=== PATIENT | male | born 1950 | race Hispanic/Latino ===

== ENCOUNTER 2017-10-22 16:18 | Inpatient (IN) | payer MEDICARE, OTHER ==
[2017-10-22 16:37] VITALS: BMI 26.4
--- NOTE | 2017-10-22 16:41 | ED PDOC ---
Arrival/HPI - General Historian: Patient <Sameer Carter - Last Filed: 10/22/17 21:16> <Balbir Cespedes - Last Filed: 10/23/17 01:43> - General Chief Complaint: Chest Pain Time Seen by Provider: 10/22/17 16:24 - History of Present Illness Narrative History of Present Illness (Text): 10/22/17 16:39 67 y/o male, pmh including htn/rt. basal cell carcinoma, nkda, chronic smoker, c /o lt. shoulder blade/chest pain x 2 days with no fall or fall trauma. Aching pain, aggravated by lt. shoulder movement, stated that the pain radiating to the lt. upper extremity, possible the pain is from the sweeping snow about 2 days ago?, stated that he has decreased appetize with generalized abdominal pain for the past 4 weeks with possible weight loss, no rash, no pain medication taken at home, no headache, no dizziness, no change in vision, no rash, no other medical or psychological complaints. (Sameer Carter) Past Medical History - Provider Review Nursing Documentation Reviewed: Yes - Infectious Disease Hx of Infectious Diseases: None - Tetanus Immunization Tetanus Immunization: Up to Date - Cardiac Hx Hypertension: Yes - Pulmonary Hx Respiratory Disorders: No - Neurological Hx Paralysis: No - HEENT Hx HEENT Disorder: No - Renal Hx Renal Disorder: No - Endocrine/Metabolic Hx Endocrine Disorders: No - Hematological/Oncological Hx Hepatitis C: Yes - Integumentary Hx Dermatological Disorder: No - Musculoskeletal/Rheumatological Hx Musculoskeletal Disorders: Yes Hx Herniated Disk: Yes - Gastrointestinal Hx Gastrointestinal Disorders: No - Genitourinary/Gynecological Hx Genitourinary Disorders: No - Psychiatric Hx Substance Use: No - Anesthesia Hx Anesthesia Reactions: No Hx Malignant Hyperthermia: No - Suicidal Assessment Feels Threatened In Home Enviroment: No <Sameer Carter - Last Filed: 10/22/17 21:16> Family/Social History - Physician Review Nursing Documentation Reviewed: Yes Family/Social History: Unknown Family HX Smoking Status: Current Some Days Smoker Hx Alcohol Use: Yes (WEEKENDS) Hx Substance Use: No <Sameer Carter - Last Filed: 10/22/17 21:16> Allergies/Home Meds <Sameer Carter - Last Filed: 10/22/17 21:16> <Balbir Cespedes - Last Filed: 10/23/17 01:43> Allergies/Adverse Reactions: Allergies No Known Allergies Allergy (Verified 08/04/15 09:06) Home Medications: Home Meds Medication Instructions Recorded Confirmed Acetaminophen/Oxycodone Hydr 1 tab PO Q8H PRN 06/23/15 10/22/17 [Percocet 10/325 mg Tab] Hydrochlorothiazide [HCTZ] 50 mg PO QAM 06/23/15 10/22/17 Morphine [Morphine Sulfate] 10 mg PO BID PRN 06/23/15 10/22/17 amLODIPine [Norvasc] 10 mg PO QPM 06/23/15 10/22/17 Tramadol HCl [Ultram] 50 mg PO QID 07/05/15 10/22/17 Review of Systems - Review of Systems Constitutional: absent: Fatigue, Fevers Eyes: absent: Vision Changes ENT: absent: Hearing Changes Respiratory: absent: SOB, Cough Cardiovascular: Chest Pain Gastrointestinal: Abdominal Pain, Other (weight loss). absent: Nausea, Vomiting Musculoskeletal: Arthralgias, Myalgias. absent: Back Pain, Neck Pain, Joint Swelling Skin: absent: Rash, Pruritis Neurological: absent: Headache, Dizziness Psychiatric: absent: Anxiety, Depression, Suicidal Ideation <Sameer Carter - Last Filed: 10/22/17 21:16> Physical Exam Vital Signs Reviewed: Yes Temperature: Afebrile Blood Pressure: Hypotensive Pulse: Tachycardic Respiratory Rate: Normal Appearance: Positive for: Well-Appearing, Non-Toxic Pain Distress: Moderate Mental Status: Positive for: Alert and Oriented X 3 - Systems Exam Head: Present: Atraumatic, Normocephalic Pupils: Present: PERRL Extroacular Muscles: Present: EOMI Conjunctiva: Present: Normal Ears: Present: NORMAL TM, Normal Canal. No: Erythema Mouth: Present: Moist Mucous Membranes Neck: Present: Normal Range of Motion, Paraspinal Tenderness (+ttp and mild spasm noted on the lt. paraspinal and trapezius muscle region, no rash, FROM without limitation, sensation intact, motor 5/5, +radial pulse, capillary refill < 2 seconds, neurovascular intact. ), Trachea Midline. No: Meningeal Signs, MIDLINE TENDERNESS, Lymphadenopathy Respiratory/Chest: Present: Clear to Auscultation, Good Air Exchange. No: Respiratory Distress, Accessory Muscle Use Cardiovascular: Present: Regular Rate and Rhythm, Normal S1, S2. No: Murmurs Abdomen: Present: Normal Bowel Sounds. No: Tenderness, Distention, Peritoneal Signs, Rebound, Guarding Back: Present: Normal Inspection. No: CVA Tenderness, Midline Tenderness, Paraspinal Tenderness, Pain with Leg Raise, Decubitus Ulcer Upper Extremity: Present: Normal Inspection, Normal ROM, NORMAL PULSES, Neurovascularly Intact, Capillary Refill < 2s, Norm 2-Pt Discrimination. No: Cyanosis, Edema, Tenderness, Swelling, Erythema, Temperature Abnormalties, Deformity Lower Extremity: Present: Normal Inspection, Normal ROM, Capillary Refill < 2 s. No: Edema, Deformity Neurological: Present: GCS=15, CN II-XII Intact, Speech Normal, Motor Func Grossly Intact, Gait Normal, Memory Normal Skin: Present: Warm, Dry, Normal Color. No: Rashes Psychiatric: Present: Alert, Oriented x 3, Normal Insight, Normal Concentration <Sameer Carter - Last Filed: 10/22/17 21:16> Vital Signs Temp Pulse Resp BP Pulse Ox 10/23/17 01:35 77 16 101/66 95 10/22/17 23:50 79 16 102/69 95 10/22/17 21:42 84 16 104/76 95 10/22/17 19:08 82 20 97/44 L 100 10/22/17 18:35 98 F 91 H 16 102/71 100 10/22/17 16:56 94 H 16 123/77 99 10/22/17 16:18 99.2 F 101 H 22 101/55 L 93 L Medical Decision Making - RAD Interpretation Carton Stenciler: Radiologist <Sameer Carter - Last Filed: 10/22/17 21:16> <Balbir Cespedes - Last Filed: 10/23/17 01:43> ED Course and Treatment: 10/22/17 16:42 Differential: CAD vs. strain vs. cervical radiculapathy vs. NSTEMI/MT vs. PE vs. pleural effusion vs. tumor -labs/ck/troponin/rapid flu -ekg -cxr/CT cervical/abdomen and pelvis -IV toradol/aspirin/valium -observe and reassess 10/22/17 18:30 -tachycardia resolved -Pt. stated that he has unintentional weight loss 40lbs for the past 3 weeks as per daughter, stated that he has abdominal pain, will obtain CT abdomen/pelvis. 10/22/17 21:02 -EKG: Sinus tachycardia @ 104 BPm, no ST elevation or depression, no T wave in version. -Labs are non-significant except wbc 14.9 (blood cultures ordered), Alkphosphate 315 from 138, -UA show no UTI -Rapid flu show negative influenza -Chest xray show there is large pleural effusion with consolidation, elevation of wbc, IV rocephine and azithromycin ordered. -CT cervical is pending -CT abdomen and pelvis is pending -CT chest is pending -LUE Venuous Doppler: as per preliminary report, no acute DVT -Pt. need to be admitted to rule out the pleural effusion as malignancy vs. infectious cause since the BNP within normal limit, determine the cause of this unintentional weight loss and this questionable lt. shoulder pain radiating to the LUE which need to rule out ACS. -Case sign out to the incoming ER attending Dr. Arora and discussed the case in detail, he will follow up the CT scans and admit the patient. (Sameer Carter) 10/22/2017 23:14 Abd/Pelvis CT FINDINGS: ABDOMEN: Liver: No mass. Mild heterogeneous density of the liver. Gallbladder and bile ducts: No calcified stones. No ductal dilation. Pancreas: Normal contour, without acute peripancreatic stranding. Spleen: There is splenomegaly. Malignant infiltration cannot be excluded. Small hypodense lesions are identified within the inferior spleen, the largest measuring 0.9 x 0.7 cm. Adrenals: No mass. Kidneys and ureters: There is a small hypodense exophytic right renal cyst. Stomach and bowel: Colonic diverticula are identified, without acute inflammatory stranding of the adjacent mesentery. Appendix: The appendix is not visualized. PELVIS: Bladder: No mass. Reproductive: A small calcification is visualized within the prostate. ABDOMEN and PELVIS: Intraperitoneal space: No free air. Bones/joints: Hypertrophic degenerative changes are noted within the spine. Disc protrusions are visualized at L4-5 and L5-S1. Vasculature: There is atherosclerotic calcification of the abdominal aorta and iliac arteries. No abdominal aortic aneurysm. Lymph nodes: Enlarged lymph nodes are identified within the upper abdomen. In the portacaval region, there is a 3.5 x 1.5 cm lymph node. There is an enlarged lymph node adjacent to the hepatic artery measuring 2.8 x 0.9 cm. There is an additional enlarged periportal lymph node. Small intrapelvic lymph nodes are identified, without significant lymphadenopathy. IMPRESSION: 1. There is splenomegaly. Malignant infiltration cannot be excluded. Small hypodense lesions are identified within the inferior spleen, the largest measuring 0.9 x 0.7 cm. 2. Enlarged lymph nodes are identified within the upper abdomen. Malignant lymph nodes cannot be excluded. 3. Diverticulosis. 4. Additional CT findings described above. Dictator: Stefano Nolan MD 10/22/2017 23:[address] FINDINGS: Lungs: There is a large mass like consolidation within the right upper and middle lobes measuring approximately 11.9 x 5.9 x 13.3 cm. This extends from the pleural surface to the right hilum, concerning for malignancy. There is obstruction of bronchi to the right upper and middle lobes. Within the right lower lobe on series 4 image 87, there is a 7-8 mm nodule. Within the right lower lobe on series 4 image 103, there is a 1.5 cm nodule. Mild atelectatic changes visualized within the left lung. Small left apical bullae are visualized. Mild paraseptal emphysematous changes are visualized within the left lung as well. Pleural space: A calcified pleural plaque is identified within the posterior medial aspect of the left hemithorax. This can be associated with asbestos exposure. There is a loculated pleural effusion within the right upper hemithorax. No pneumothorax. Heart: No cardiomegaly. No significant pericardial effusion. Bones/joints: Hypertrophic degenerative changes are noted within the spine. Vasculature: Atherosclerotic changes are identified. No thoracic aortic aneurysm. Lymph nodes: There is mediastinal lymphadenopathy. An enlarged subcarinal lymph node measures 2.8 x 1.1 cm. An enlarged right paratracheal lymph node measures 1.9 x 1.9 cm. IMPRESSION: 1. There is a large mass like consolidation within the right upper and middle lobes measuring approximately 11.9 x 5.9 x 13.3 cm, concerning for malignancy. There is obstruction of bronchi to the right upper and middle lobes. 2. Within the right lower lobe on series 4 image 87, there is a 7-8 mm nodule. Within the right lower lobe on series 4 image 103, there is a 1.5 cm nodule. Metastatic nodules are considered. PET/CT is recommended. 3. A calcified pleural plaque is identified within the posterior medial aspect of the left hemithorax. This can be associated with asbestos exposure. 4. There is a loculated pleural effusion within the right upper hemithorax. 5. There is mediastinal lymphadenopathy. 6. Additional CT findings described above. Dictator: Stefano Nolan MD 10/22/2017 21:[address] FINDINGS: Vertebrae: No acute cervical spine fracture or subluxation. There is loss of the cervical lordosis within the upper cervical spine. The facet alignment is preserved bilaterally. The occipital condyles and C1-C2 articulations appear intact. There is angulation of the cervical spine to the right. Discs/spinal canal/neural foramina: Spondylosis is visualized at multiple cervical levels. Mild narrowing of the thecal sac is visualized at C2-3, with a central protrusion. There is moderate narrowing of the thecal sac at C3-4 and C4-5, with a posterior disc protrusion at C4-5 contacting the adjacent cervical spinal cord. Soft tissues: The prevertebral soft tissues appear within normal limits. Vasculature: There is atherosclerotic calcification of the extracranial carotid arteries. Sinuses: There is mucosal thickening of the right maxillary sinus. Oropharynx: Calcifications are identified of the palatine tonsils. Lung apices: There is opacification of the right pulmonary apex. Small left apical bullae are visualized. No pneumothorax. IMPRESSION: 1. No acute cervical spine fracture or subluxation. 2. Spondylosis is visualized at multiple cervical levels. 3. Mild narrowing of the thecal sac is visualized at C2-3, with a central protrusion. There is moderate narrowing of the thecal sac at C3-4 and C4-5, with a posterior disc protrusion at C4-5 contacting the adjacent cervical spinal cord. This can be further evaluated with MRI. 4. There is opacification of the right pulmonary apex. Refer to the CT chest report from the same day for further discussion. 5. There is loss of the cervical lordosis within the upper cervical spine. 6. Additional CT findings described above. Dictator: Stefano Nolan MD 10/23/17 01:[address] Alaniz, whom accepts patient into service. (Balbir Cespedes) - Lab Interpretations Lab Results: 10/22/17 16:52 10/22/17 16:52 Lab Results 10/22/17 19:40: Urine Color Yellow, Urine Appearance Clear, Urine pH 5.5, Ur Specific [place] >= 1.030, Urine Protein Trace H, Urine Glucose (UA) Negative, Urine Ketones Trace H, Urine Blood Moderate H, Urine Nitrate Negative, Urine Bilirubin Small H, Urine Urobilinogen 2.0 H, Ur Leukocyte Esterase Negative, Urine RBC 10 - 15, Urine WBC 0 - 2, Ur Epithelial Cells 0 - 2, Urine Bacteria Many 10/22/17 18:42: Influenza Typ A,B (EIA) Negative for flu a/b 10/22/17 16:52: WBC 14.9 H D, RBC 4.83, Hgb 13.8 L, Hct 41.0 L, MCV 84.9, MCH 28.6, MCHC 33.7, RDW 14.8 H, Plt Count 219, MPV 10.1, Gran % 69.1 H, Lymph % ( Auto) 6.6 L, [place] % (Auto) 5.4, Eos % (Auto) 18.6 H, Baso % (Auto) 0.3, Gran # 10.28 H, Lymph # (Auto) 1.0 L, [place] # (Auto) 0.8 H, Eos # (Auto) 2.8 H, Baso # ( Auto) 0.05 10/22/17 16:52: Sodium 137, Potassium 4.2, Chloride 103, Carbon Dioxide 23, Anion Gap 15, BUN 16, Creatinine 0.9, Est GFR ( Amer) > 60, Est GFR (Non- Af Amer) > 60, Random Glucose 149 H, Calcium 8.8, Total Bilirubin 0.6, AST 23, ALT 23, Alkaline Phosphatase 315 H, Lactate Dehydrogenase 688, Total Creatine Kinase 33 L, Troponin I < 0.01, NT-Pro-B Natriuret Pep 186, Total Protein 7.2, Albumin 3.2, Globulin 3.9, Albumin/Globulin Ratio 0.8 L, Lipase 132 - RAD Interpretation Radiology Orders: 10/22/17 16:35 CHEST PORTABLE [RAD] Stat 10/22/17 18:30 CHEST,ABD,PEL W/IV CONT ONLY [CT] Stat 10/22/17 18:31 CERVICAL SPINE W/O CONTRAST [CT] Stat 10/22/17 20:33 DUPLEX UPPER EXTRM VEIN LEFT [US] Stat -Chest xray: FINDINGS: Lungs: There is a large area of opacification within the lateral aspect of the right mid to upper hemithorax, consistent with a loculated pleural effusion, parenchymal consolidation, or mass. There is increased opacification of the medial left lung base, suggestive of atelectatic change or infiltrate. Pleural space: There is a small left pleural effusion, with blunting of the costophrenic angle. No pneumothorax. Heart: No cardiomegaly. Mediastinum: There is atherosclerotic calcification of the aortic arch. There is deviation of the trachea to the right. Bones/joints: Hypertrophic degenerative changes are noted within the spine. IMPRESSION: 1. There is a large area of opacification within the lateral aspect of the right mid to upper hemithorax, consistent with a loculated pleural effusion, parenchymal consolidation, or mass. Clinical correlation and correlation with CT are recommended. 2. There is increased opacification of the medial left lung base, suggestive of atelectatic change or infiltrate. 3. Additional findings described above. Thank you for allowing us to participate in the care of your patient. Dictated and Authenticated by: Stefano Nolan MD 10/22/2017 7:32 PM Eastern Time ([place] & [place]) --- CT cervical: --- CT Chest: --- CT Abdomen and pelvis: -- LUE Venuous Doppler: as per preliminary report, no acute DVT (Sameer Carter) - Medication Orders Current Medication Orders: Discontinued Medications Aspirin (Aspirin) 325 mg PO STAT STA Stop: 10/22/17 18:30 Last Admin: 10/22/17 18:45 Dose: 325 mg Diazepam (Valium) 5 mg PO ONCE ONE PRN Reason: Protocol Stop: 10/22/17 16:36 Last Admin: 10/22/17 16:49 Dose: 5 mg Ceftriaxone Sodium (Rocephin 1 Gram Ivpb) 1 gm in 100 mls @ 200 mls/hr IVPB STAT STA PRN Reason: Protocol Stop: 10/22/17 20:32 Last Admin: 10/22/17 20:13 Dose: 200 mls/hr eMAR Start Stop Document 10/22/17 20:13 [place] (Rec: 10/22/17 20:13 [id number]) Intravenous Solution Start Date 10/22/17 Start Time 20:13 Azithromycin (Zithromax 500mg In Ns) 500 mg in 250 mls @ 167 mls/hr IVPB STAT STA PRN Reason: Protocol Stop: 10/22/17 21:32 Last Admin: 10/22/17 21:39 Dose: 167 mls/hr eMAR Start Stop Document 10/22/17 21:39 LA (Rec: 10/22/17 21:40 [place] [id number]) Intravenous Solution Start Date 10/22/17 Start Time 21:40 Ketorolac Tromethamine (Toradol) 15 mg IVP STAT STA Stop: 10/22/17 16:36 Last Admin: 10/22/17 16:53 Dose: 15 mg MAR Pain Assessment Document 10/22/17 16:53 MS (Rec: 10/22/17 16:54 [place] [id number]) Pain Reassessment Is this a pain reassessment? No Sleep Is patient sleeping during reassessment? No Presence of Pain Presence of Pain Yes Pain Scale Used Pain Scale Used Numeric Location Left, Right or Bilateral Left Pain Location Body Site Arm Description Description Constant Intensity of Pain at present 10 IVP Administration Document 10/22/17 16:53 MS (Rec: 10/22/17 16:54 [place] [id number] Charges for Administration # of IVP Administrations 1 Lidocaine (Lidoderm) 1 ea TD STAT STA Stop: 10/22/17 16:47 Last Admin: 10/22/17 18:13 Dose: 1 ea MAR Transdermal Patch Site Document 10/22/17 18:13 MS (Rec: 10/22/17 18:15 MS [facility] [id number]) Transdermal Patch Site Transdermal Patch Site Left Shoulder - PA / VISUAL SPECIALIST / Resident Statement SHERRI has reviewed & agrees with the documentation as recorded. <Sameer Carter - Last Filed: 10/22/17 21:16> - PA / VISUAL SPECIALIST / Resident Statement SHERRI has reviewed & agrees with the documentation as recorded. SHERRI has examined the patient and agrees with the treatment plan. <Balbir Cespedes - Last Filed: 10/23/17 01:43> Disposition/Present on Arrival - Present on Arrival Any Indicators Present on Arrival: No History of DVT/PE: No History of Uncontrolled Diabetes: No Urinary Catheter: No History of Decub. Ulcer: No History Surgical Site Infection Following: None - Disposition Have Diagnosis and Disposition been Completed?: Yes Disposition Time: 20:15 Patient Plan: Admission, Telemetry <Sameer Carter - Last Filed: 10/22/17 21:16> - Present on Arrival Any Indicators Present on Arrival: No History of DVT/PE: No History of Uncontrolled Diabetes: No Urinary Catheter: No History of Decub. Ulcer: No History Surgical Site Infection Following: None - Disposition Have Diagnosis and Disposition been Completed?: Yes Disposition Time: 01:35 Patient Plan: Admission <Balbir Cespedes - Last Filed: 10/23/17 01:43> - Disposition Diagnosis: Pneumonia, Pleural effusion, Unintentional weight loss, Leukocytosis Disposition: HOSPITALIZED Patient Problems: Current Active Problems Problem Status Onset Leukocytosis Acute Pleural effusion Acute Pneumonia Acute Unintentional weight loss Acute Condition: STABLE Referrals: Yeimy Donovan MD [Primary Care Provider] - Follow up with primary Forms: [place] (Tristanian)
[2017-10-22] MEDS ORDERED: Lidocaine 5% Patch TD STA (16:46)
[2017-10-22 17:33] LABS: BASO # 0.05 K/mm3 (0.0-2.0); BASO % 0.3 % (0.0-3.0); EOS # 2.8 (0.0-0.7); EOS % 18.6 % (1.5-5.0); GRAN # 10.28 (1.4-6.5); GRAN % 69.1 % (50.0-68.0); HEMOGLOBIN 13.8 g/dL (14.0-18.0); LYMPH % 6.6 % (22.0-35.0); MEAN CELL VOLUME 84.9 fl (80.0-105.0); MEAN CORPUSCULAR HEMOGLOBIN 28.6 pg (25.0-35.0); MEAN CORPUSCULAR HGB CONC 33.7 g/dl (31.0-37.0); MEAN PLATELET VOLUME 10.1 fl (7.0-11.0); MONO # 0.8 (0.1-0.6); MONO % 5.4 % (1.0-6.0); RBC 4.83 10^6/uL (3.5-6.1); RED CELL DISTRIBUTION WIDTH 14.8 % (11.5-14.5); WHITE BLOOD COUNT 14.9 10^3/ul (4.5-11.0)
[2017-10-22 17:42] LABS: ALB/GLOB RATIO 0.8 (1.1-1.8); ALBUMIN 3.2 g/dL (3.0-4.8); ALT/SGPT 23 U/L (7-56); AST/SGOT 23 U/L (17-59); BLOOD UREA NITROGEN 16 mg/dL (7-21); CALCIUM 8.8 mg/dL (8.4-10.5); GFR AFRICAN-AMERICAN > 60; GFR NON-AFRICAN AMERICAN > 60; LIPASE 132 U/L (23-300)
[2017-10-22 17:53] LABS: B-TYPE NATRIURETIC PEPTIDE 186 pg/mL (0-450); TROPONIN I < 0.01 ng/mL
--- NOTE | 2017-10-22 19:32 | RAD ---
EXAM: XR Chest, 1 View EXAM DATE/TIME: 10/22/2017 4:35 PM CLINICAL HISTORY: The patient age is 67 years old and is male; Signs and symptoms; Shortness of breath; Additional info: Medical clearance Facility exam id and description: Rad chest p chest portable TECHNIQUE: Frontal view of the chest. COMPARISON: No relevant prior studies available. FINDINGS: Lungs: There is a large area of opacification within the lateral aspect of the right mid to upper hemithorax, consistent with a loculated pleural effusion, parenchymal consolidation, or mass. There is increased opacification of the medial left lung base, suggestive of atelectatic change or infiltrate. Pleural space: There is a small left pleural effusion, with blunting of the costophrenic angle. No pneumothorax. Heart: No cardiomegaly. Mediastinum: There is atherosclerotic calcification of the aortic arch. There is deviation of the trachea to the right. Bones/joints: Hypertrophic degenerative changes are noted within the spine. IMPRESSION: 1. There is a large area of opacification within the lateral aspect of the right mid to upper hemithorax, consistent with a loculated pleural effusion, parenchymal consolidation, or mass. Clinical correlation and correlation with CT are recommended. 2. There is increased opacification of the medial left lung base, suggestive of atelectatic change or infiltrate. 3. Additional findings described above.
[2017-10-22] MEDS ORDERED: cefTRIAXone 1 gm 1 GM/100 ML BAG IVPB STA (20:03)
[2017-10-22] MEDS ORDERED: Azithromycin 500MG/NS 250ml 500 MG/250 ML BAG IVPB STA (20:03)
[2017-10-22 20:28] LABS: PH,URINE 5.5 (4.7-8.0); URINE BILIRUBIN SMALL (NEGATIVE); URINE BLOOD MODERATE (NEGATIVE); URINE GLUCOSE (UA) NEGATIVE (NEGATIVE); URINE LEUKOCYTE ESTERASE NEGATIVE Leu/uL (NEGATIVE); URINE NITRATE NEGATIVE (NEGATIVE); URINE PROTEIN TRACE mg/dL (<30 mg/dL)
[2017-10-22 20:29] LABS: URINE APPEARANCE CLEAR (CLEAR); URINE COLOR YELLOW (YELLOW)
[2017-10-22 20:45] LABS: URINE EPITHELIAL CELLS 0 - 2 /hpf (0-5); URINE WBC 0 - 2 /hpf (0-6)
[2017-10-22 20:46] LABS: URINE BACTERIA MANY (NEG)
[2017-10-22] MEDS ORDERED: Iohexol 350 MG/100 ML VIAL ONE (20:54)
--- NOTE | 2017-10-22 21:54 | CT ---
EXAM: CT Cervical Spine Without Intravenous Contrast EXAM DATE/TIME: 10/22/2017 6:31 PM CLINICAL HISTORY: The patient age is 67 years old and is male; Pain; Neck pain; Additional info: Lt. Neck pain radiating to lue Facility exam id and description: Ct csps cervical spine w/o contrast TECHNIQUE: Axial computed tomography images of the cervical spine without intravenous contrast. All CT scans at this facility use one or more dose reduction techniques, viz.: automated exposure control; ma/kV adjustment per patient size (including targeted exams where dose is matched to indication; i.e. head); or iterative reconstruction technique. Coronal and sagittal reformatted images were created and reviewed. COMPARISON: No relevant prior studies available. FINDINGS: Vertebrae: No acute cervical spine fracture or subluxation. There is loss of the cervical lordosis within the upper cervical spine. The facet alignment is preserved bilaterally. The occipital condyles and C1-C2 articulations appear intact. There is angulation of the cervical spine to the right. Discs/spinal canal/neural foramina: Spondylosis is visualized at multiple cervical levels. Mild narrowing of the thecal sac is visualized at C2-3, with a central protrusion. There is moderate narrowing of the thecal sac at C3-4 and C4-5, with a posterior disc protrusion at C4-5 contacting the adjacent cervical spinal cord. Soft tissues: The prevertebral soft tissues appear within normal limits. Vasculature: There is atherosclerotic calcification of the extracranial carotid arteries. Sinuses: There is mucosal thickening of the right maxillary sinus. Oropharynx: Calcifications are identified of the palatine tonsils. Lung apices: There is opacification of the right pulmonary apex. Small left apical bullae are visualized. No pneumothorax. IMPRESSION: 1. No acute cervical spine fracture or subluxation. 2. Spondylosis is visualized at multiple cervical levels. 3. Mild narrowing of the thecal sac is visualized at C2-3, with a central protrusion. There is moderate narrowing of the thecal sac at C3-4 and C4-5, with a posterior disc protrusion at C4-5 contacting the adjacent cervical spinal cord. This can be further evaluated with MRI. 4. There is opacification of the right pulmonary apex. Refer to the CT chest report from the same day for further discussion. 5. There is loss of the cervical lordosis within the upper cervical spine. 6. Additional CT findings described above.
--- NOTE | 2017-10-22 23:15 | CT ---
EXAM: CT Abdomen and Pelvis With Intravenous Contrast CLINICAL HISTORY: The patient age is 67 years old and is male; Pain; Abdominal pain; Acute; Chest pain; Type not specified; Additional info: Weightloss 40lbs, Facility exam id and description: Ct cheabpeliv chest, abd, pel w/iv cont only TECHNIQUE: Axial computed tomography images of the abdomen and pelvis with intravenous contrast. All CT scans at this facility use one or more dose reduction techniques, viz.: automated exposure control; ma/kV adjustment per patient size (including targeted exams where dose is matched to indication; i.e. head); or iterative reconstruction technique. Coronal and sagittal reformatted images were created and reviewed. CONTRAST: 100 mL of OMNI 350 administered intravenously. COMPARISON: DX - CHEST PORTABLE 2017-10-22 17:24 FINDINGS: ABDOMEN: Liver: No mass. Mild heterogeneous density of the liver. Gallbladder and bile ducts: No calcified stones. No ductal dilation. Pancreas: Normal contour, without acute peripancreatic stranding. Spleen: There is splenomegaly. Malignant infiltration cannot be excluded. Small hypodense lesions are identified within the inferior spleen, the largest measuring 0.9 x 0.7 cm. Adrenals: No mass. Kidneys and ureters: There is a small hypodense exophytic right renal cyst. Stomach and bowel: Colonic diverticula are identified, without acute inflammatory stranding of the adjacent mesentery. Appendix: The appendix is not visualized. PELVIS: Bladder: No mass. Reproductive: A small calcification is visualized within the prostate. ABDOMEN and PELVIS: Intraperitoneal space: No free air. Bones/joints: Hypertrophic degenerative changes are noted within the spine. Disc protrusions are visualized at L4-5 and L5-S1. Vasculature: There is atherosclerotic calcification of the abdominal aorta and iliac arteries. No abdominal aortic aneurysm. Lymph nodes: Enlarged lymph nodes are identified within the upper abdomen. In the portacaval region, there is a 3.5 x 1.5 cm lymph node. There is an enlarged lymph node adjacent to the hepatic artery measuring 2.8 x 0.9 cm. There is an additional enlarged periportal lymph node. Small intrapelvic lymph nodes are identified, without significant lymphadenopathy. IMPRESSION: 1. There is splenomegaly. Malignant infiltration cannot be excluded. Small hypodense lesions are identified within the inferior spleen, the largest measuring 0.9 x 0.7 cm. 2. Enlarged lymph nodes are identified within the upper abdomen. Malignant lymph nodes cannot be excluded. 3. Diverticulosis. 4. Additional CT findings described above. EXAM: CT Chest With Intravenous Contrast EXAM DATE/TIME: 10/22/2017 6:30 PM CLINICAL HISTORY: The patient age is 67 years old and is male; Pain; Abdominal pain; Acute; Chest pain; Type not specified; Additional info: Weightloss 40lbs, Facility exam id and description: Ct cheabpeliv chest, abd, pel w/iv cont only TECHNIQUE: Axial computed tomography images of the chest with intravenous contrast. All CT scans at this facility use one or more dose reduction techniques, viz.: automated exposure control; ma/kV adjustment per patient size (including targeted exams where dose is matched to indication; i.e. head); or iterative reconstruction technique. Coronal and sagittal reformatted images were created and reviewed. CONTRAST: 100 mL of OMNI 350 administered intravenously. COMPARISON: DX - CHEST PORTABLE 2017-10-22 17:24 FINDINGS: Lungs: There is a large mass like consolidation within the right upper and middle lobes measuring approximately 11.9 x 5.9 x 13.3 cm. This extends from the pleural surface to the right hilum, concerning for malignancy. There is obstruction of bronchi to the right upper and middle lobes. Within the right lower lobe on series 4 image 87, there is a 7-8 mm nodule. Within the right lower lobe on series 4 image 103, there is a 1.5 cm nodule. Mild atelectatic changes visualized within the left lung. Small left apical bullae are visualized. Mild paraseptal emphysematous changes are visualized within the left lung as well. Pleural space: A calcified pleural plaque is identified within the posterior medial aspect of the left hemithorax. This can be associated with asbestos exposure. There is a loculated pleural effusion within the right upper hemithorax. No pneumothorax. Heart: No cardiomegaly. No significant pericardial effusion. Bones/joints: Hypertrophic degenerative changes are noted within the spine. Vasculature: Atherosclerotic changes are identified. No thoracic aortic aneurysm. Lymph nodes: There is mediastinal lymphadenopathy. An enlarged subcarinal lymph node measures 2.8 x 1.1 cm. An enlarged right paratracheal lymph node measures 1.9 x 1.9 cm. IMPRESSION: 1. There is a large mass like consolidation within the right upper and middle lobes measuring approximately 11.9 x 5.9 x 13.3 cm, concerning for malignancy. There is obstruction of bronchi to the right upper and middle lobes. 2. Within the right lower lobe on series 4 image 87, there is a 7-8 mm nodule. Within the right lower lobe on series 4 image 103, there is a 1.5 cm nodule. Metastatic nodules are considered. PET/CT is recommended. 3. A calcified pleural plaque is identified within the posterior medial aspect of the left hemithorax. This can be associated with asbestos exposure. 4. There is a loculated pleural effusion within the right upper hemithorax. 5. There is mediastinal lymphadenopathy. 6. Additional CT findings described above.
--- NOTE | 2017-10-22 23:52 | ED PDOC ---
Physical Exam Vital Signs Temp Pulse Resp BP Pulse Ox 10/22/17 21:42 84 16 104/76 95 10/22/17 19:08 82 20 97/44 L 100 10/22/17 18:35 98 F 91 H 16 102/71 100 10/22/17 16:56 94 H 16 123/77 99 10/22/17 16:18 99.2 F 101 H 22 101/55 L 93 L Medical Decision Making ED Course and Treatment: 10/22/17 21:46 Patient transferred to de by Sameer WEAVER. 10/22/2017 23:14 Abd/Pelvis CT FINDINGS: ABDOMEN: Liver: No mass. Mild heterogeneous density of the liver. Gallbladder and bile ducts: No calcified stones. No ductal dilation. Pancreas: Normal contour, without acute peripancreatic stranding. Spleen: There is splenomegaly. Malignant infiltration cannot be excluded. Small hypodense lesions are identified within the inferior spleen, the largest measuring 0.9 x 0.7 cm. Adrenals: No mass. Kidneys and ureters: There is a small hypodense exophytic right renal cyst. Stomach and bowel: Colonic diverticula are identified, without acute inflammatory stranding of the adjacent mesentery. Appendix: The appendix is not visualized. PELVIS: Bladder: No mass. Reproductive: A small calcification is visualized within the prostate. ABDOMEN and PELVIS: Intraperitoneal space: No free air. Bones/joints: Hypertrophic degenerative changes are noted within the spine. Disc protrusions are visualized at L4-5 and L5-S1. Vasculature: There is atherosclerotic calcification of the abdominal aorta and iliac arteries. No abdominal aortic aneurysm. Lymph nodes: Enlarged lymph nodes are identified within the upper abdomen. In the portacaval region, there is a 3.5 x 1.5 cm lymph node. There is an enlarged lymph node adjacent to the hepatic artery measuring 2.8 x 0.9 cm. There is an additional enlarged periportal lymph node. Small intrapelvic lymph nodes are identified, without significant lymphadenopathy. IMPRESSION: 1. There is splenomegaly. Malignant infiltration cannot be excluded. Small hypodense lesions are identified within the inferior spleen, the largest measuring 0.9 x 0.7 cm. 2. Enlarged lymph nodes are identified within the upper abdomen. Malignant lymph nodes cannot be excluded. 3. Diverticulosis. 4. Additional CT findings described above. Dictator: Stefano Nolan MD 10/22/2017 23:[address] FINDINGS: Lungs: There is a large mass like consolidation within the right upper and middle lobes measuring approximately 11.9 x 5.9 x 13.3 cm. This extends from the pleural surface to the right hilum, concerning for malignancy. There is obstruction of bronchi to the right upper and middle lobes. Within the right lower lobe on series 4 image 87, there is a 7-8 mm nodule. Within the right lower lobe on series 4 image 103, there is a 1.5 cm nodule. Mild atelectatic changes visualized within the left lung. Small left apical bullae are visualized. Mild paraseptal emphysematous changes are visualized within the left lung as well. Pleural space: A calcified pleural plaque is identified within the posterior medial aspect of the left hemithorax. This can be associated with asbestos exposure. There is a loculated pleural effusion within the right upper hemithorax. No pneumothorax. Heart: No cardiomegaly. No significant pericardial effusion. Bones/joints: Hypertrophic degenerative changes are noted within the spine. Vasculature: Atherosclerotic changes are identified. No thoracic aortic aneurysm. Lymph nodes: There is mediastinal lymphadenopathy. An enlarged subcarinal lymph node measures 2.8 x 1.1 cm. An enlarged right paratracheal lymph node measures 1.9 x 1.9 cm. IMPRESSION: 1. There is a large mass like consolidation within the right upper and middle lobes measuring approximately 11.9 x 5.9 x 13.3 cm, concerning for malignancy. There is obstruction of bronchi to the right upper and middle lobes. 2. Within the right lower lobe on series 4 image 87, there is a 7-8 mm nodule. Within the right lower lobe on series 4 image 103, there is a 1.5 cm nodule. Metastatic nodules are considered. PET/CT is recommended. 3. A calcified pleural plaque is identified within the posterior medial aspect of the left hemithorax. This can be associated with asbestos exposure. 4. There is a loculated pleural effusion within the right upper hemithorax. 5. There is mediastinal lymphadenopathy. 6. Additional CT findings described above. Dictator: Stefano Nolan MD 10/22/2017 21:[address] FINDINGS: Vertebrae: No acute cervical spine fracture or subluxation. There is loss of the cervical lordosis within the upper cervical spine. The facet alignment is preserved bilaterally. The occipital condyles and C1-C2 articulations appear intact. There is angulation of the cervical spine to the right. Discs/spinal canal/neural foramina: Spondylosis is visualized at multiple cervical levels. Mild narrowing of the thecal sac is visualized at C2-3, with a central protrusion. There is moderate narrowing of the thecal sac at C3-4 and C4-5, with a posterior disc protrusion at C4-5 contacting the adjacent cervical spinal cord. Soft tissues: The prevertebral soft tissues appear within normal limits. Vasculature: There is atherosclerotic calcification of the extracranial carotid arteries. Sinuses: There is mucosal thickening of the right maxillary sinus. Oropharynx: Calcifications are identified of the palatine tonsils. Lung apices: There is opacification of the right pulmonary apex. Small left apical bullae are visualized. No pneumothorax. IMPRESSION: 1. No acute cervical spine fracture or subluxation. 2. Spondylosis is visualized at multiple cervical levels. 3. Mild narrowing of the thecal sac is visualized at C2-3, with a central protrusion. There is moderate narrowing of the thecal sac at C3-4 and C4-5, with a posterior disc protrusion at C4-5 contacting the adjacent cervical spinal cord. This can be further evaluated with MRI. 4. There is opacification of the right pulmonary apex. Refer to the CT chest report from the same day for further discussion. 5. There is loss of the cervical lordosis within the upper cervical spine. 6. Additional CT findings described above. Dictator: Stefano Nolan MD - Lab Interpretations Lab Results: 10/22/17 16:52 10/22/17 16:52 Lab Results 10/22/17 19:40: Urine Color Yellow, Urine Appearance Clear, Urine pH 5.5, Ur Specific [place] >= 1.030, Urine Protein Trace H, Urine Glucose (UA) Negative, Urine Ketones Trace H, Urine Blood Moderate H, Urine Nitrate Negative, Urine Bilirubin Small H, Urine Urobilinogen 2.0 H, Ur Leukocyte Esterase Negative, Urine RBC 10 - 15, Urine WBC 0 - 2, Ur Epithelial Cells 0 - 2, Urine Bacteria Many 10/22/17 18:42: Influenza Typ A,B (EIA) Negative for flu a/b 10/22/17 16:52: WBC 14.9 H D, RBC 4.83, Hgb 13.8 L, Hct 41.0 L, MCV 84.9, MCH 28.6, MCHC 33.7, RDW 14.8 H, Plt Count 219, MPV 10.1, Gran % 69.1 H, Lymph % ( Auto) 6.6 L, [place] % (Auto) 5.4, Eos % (Auto) 18.6 H, Baso % (Auto) 0.3, Gran # 10.28 H, Lymph # (Auto) 1.0 L, [place] # (Auto) 0.8 H, Eos # (Auto) 2.8 H, Baso # ( Auto) 0.05 10/22/17 16:52: Sodium 137, Potassium 4.2, Chloride 103, Carbon Dioxide 23, Anion Gap 15, BUN 16, Creatinine 0.9, Est GFR ( Amer) > 60, Est GFR (Non- Af Amer) > 60, Random Glucose 149 H, Calcium 8.8, Total Bilirubin 0.6, AST 23, ALT 23, Alkaline Phosphatase 315 H, Lactate Dehydrogenase 688, Total Creatine Kinase 33 L, Troponin I < 0.01, NT-Pro-B Natriuret Pep 186, Total Protein 7.2, Albumin 3.2, Globulin 3.9, Albumin/Globulin Ratio 0.8 L, Lipase 132 - RAD Interpretation Radiology Orders: 10/22/17 16:35 CHEST PORTABLE [RAD] Stat 10/22/17 18:30 CHEST,ABD,PEL W/IV CONT ONLY [CT] Stat 10/22/17 18:31 CERVICAL SPINE W/O CONTRAST [CT] Stat 10/22/17 20:33 DUPLEX UPPER EXTRM VEIN LEFT [US] Stat - Medication Orders Current Medication Orders: Discontinued Medications Aspirin (Aspirin) 325 mg PO STAT STA Stop: 10/22/17 18:30 Last Admin: 10/22/17 18:45 Dose: 325 mg Diazepam (Valium) 5 mg PO ONCE ONE PRN Reason: Protocol Stop: 10/22/17 16:36 Last Admin: 10/22/17 16:49 Dose: 5 mg Ceftriaxone Sodium (Rocephin 1 Gram Ivpb) 1 gm in 100 mls @ 200 mls/hr IVPB STAT STA PRN Reason: Protocol Stop: 10/22/17 20:32 Last Admin: 10/22/17 20:13 Dose: 200 mls/hr eMAR Start Stop Document 10/22/17 20:13 LA (Rec: 10/22/17 20:13 LA [id number]) Intravenous Solution Start Date 10/22/17 Start Time 20:13 Azithromycin (Zithromax 500mg In Ns) 500 mg in 250 mls @ 167 mls/hr IVPB STAT STA PRN Reason: Protocol Stop: 10/22/17 21:32 Last Admin: 10/22/17 21:39 Dose: 167 mls/hr eMAR Start Stop Document 10/22/17 21:39 LA (Rec: 10/22/17 21:40 LA [id number]) Intravenous Solution Start Date 10/22/17 Start Time 21:40 Ketorolac Tromethamine (Toradol) 15 mg IVP STAT STA Stop: 10/22/17 16:36 Last Admin: 10/22/17 16:53 Dose: 15 mg MAR Pain Assessment Document 10/22/17 16:53 MS (Rec: 10/22/17 16:54 MS [id number] Pain Reassessment Is this a pain reassessment? No Sleep Is patient sleeping during reassessment? No Presence of Pain Presence of Pain Yes Pain Scale Used Pain Scale Used Numeric Location Left, Right or Bilateral Left Pain Location Body Site Arm Description Description Constant Intensity of Pain at present 10 IVP Administration Document 10/22/17 16:53 MS (Rec: 10/22/17 16:54 MS [id number] Charges for Administration # of IVP Administrations 1 Lidocaine (Lidoderm) 1 ea TD STAT STA Stop: 10/22/17 16:47 Last Admin: 10/22/17 18:13 Dose: 1 ea MAR Transdermal Patch Site Document 10/22/17 18:13 MS (Rec: 10/22/17 18:15 MS [id number][place] Transdermal Patch Site Transdermal Patch Site Left Shoulder - Scribe Statement The provider has reviewed the documentation as recorded by the Saji Ramsay Provider Scribe Attestation: All medical record entries made by the Scribe were at my direction and personally dictated by me. I have reviewed the chart and agree that the record accurately reflects my personal performance of the history, physical exam, medical decision making, and the department course for this patient. I have also personally directed, reviewed, and agree with the discharge instructions and disposition. Disposition/Present on Arrival - Present on Arrival Any Indicators Present on Arrival: No History of DVT/PE: No History of Uncontrolled Diabetes: No Urinary Catheter: No History of Decub. Ulcer: No History Surgical Site Infection Following: None - Disposition Diagnosis: Pneumonia, Pleural effusion, Unintentional weight loss, Leukocytosis Disposition: HOSPITALIZED Patient Problems: Current Active Problems Problem Status Onset Leukocytosis Acute Pleural effusion Acute Pneumonia Acute Unintentional weight loss Acute Condition: STABLE Referrals: Yeimy Donovan MD [Primary Care Provider] - Follow up with primary Forms: LIVELENZ (Mongolian)
--- NOTE | 2017-10-23 02:22 | CARD ---
APPROVED REPORT EKG Measurement Heart [id number] <Conclusion> Sinus tachycardia with Frequent APCs Abnormal ECG
[2017-10-23] MEDS ORDERED: Morphine 2 mg/ml ISec IVP PRN (07:31)
[2017-10-23] MEDS: Albuterol-Ipratrop 3 mg / 0.5 (3 ml) UD IH SCH ×3 (07:44→20:02)
[2017-10-23] MEDS ORDERED: cefTRIAXone 1 gm 1 GM/100 ML BAG IVPB SCH (10:00)
[2017-10-23] MEDS: Morphine 15 mg SR Tab PO SCH ×3 (11:00→23:12)
[2017-10-23] MEDS: Azithromycin 250 MG in Sodium Chloride 0.9% 250 ML IVPB SCH (11:02)
--- NOTE | 2017-10-23 12:53 | CP.PCM.CON ---
History of Present Illness - History of Present Illness History of Present Illness: 67 year old male with PMH of basal cell carcinoma on right chest area S/P removal, HTN, significant smoking history (1 1/2 pack per day smoker), Hepatitis C S/P treatment with Interferon for about 4 years came in to [facility] [place] complaining of pain in his shoulder blades for the last 2-3 days, with some non- productive cough. He is also complaining of vague abdominal pain and decreased appetite for the last 4 weeks with significant weight loss. He denies hemoptysis , no sore throat, no fever or chills, no rhinorrhea, no headache or dizziness, no nausea, no vomiting, no diarrhea, on dysuria. He denies being on antibiotics or being in the hospital for the past 3 months, has had no recent travel in the past year. In the ED, CT C/A/P was done which showed mass-like consolidation in the RUL and RML areas of the lungs, mediastinal lymphadenopathy, hypodense lesions in the spleen. Infectious Diseases consult is requested to further evaluate and manage. Review of Systems - Review of Systems All systems: reviewed and no additional remarkable complaints except (as per HPI ) Past Patient History - Infectious Disease Hx of Infectious Diseases: None - Tetanus Immunizations Tetanus Immunization: Up to Date - Past Social History Smoking Status: Current Some Days Smoker - CARDIAC Hx Hypertension: Yes - PULMONARY Hx Respiratory Disorders: No - NEUROLOGICAL Hx Neurological Disorder: No - HEENT Hx HEENT Problems: No - RENAL Hx Chronic Kidney Disease: No - ENDOCRINE/METABOLIC Hx Endocrine Disorders: No - HEMATOLOGICAL/ONCOLOGICAL Hx Hepatitis C: Yes - INTEGUMENTARY Hx Dermatological Problems: No - MUSCULOSKELETAL/RHEUMATOLOGICAL Hx Falls: No - GASTROINTESTINAL Hx Gastrointestinal Disorders: No - GENITOURINARY/GYNECOLOGICAL Hx Genitourinary Disorders: No - PSYCHIATRIC Hx Emotional Abuse: No Hx Physical Abuse: No Hx Substance Use: No - SURGICAL HISTORY Hx Surgeries: Yes (tumor removal, right lower back) - ANESTHESIA Hx Anesthesia Reactions: No Hx Malignant Hyperthermia: No Meds Allergies/Adverse Reactions: Allergies Allergy/AdvReac Type Severity Reaction Status Date / Time No Known Allergies Allergy Verified 08/04/15 09:06 - Medications Medications: Current Medications Albuterol/Ipratropium (Duoneb 3 Mg/0.5 Mg (3 Ml) Ud) 3 ml IH [id number] [facility] Last Admin: 10/23/17 07:44 Dose: 3 ml Amlodipine Besylate (Norvasc) 10 mg PO QPM [facility] Hydrochlorothiazide (Hydrodiuril) 50 mg PO QAM [facility] Ceftriaxone Sodium (Rocephin 1 Gram Ivpb) 1 gm in 100 mls @ 100 mls/hr IVPB DAILY [facility] PRN Reason: Protocol Morphine Sulfate (Morphine) 2 mg IVP Q4H PRN PRN Reason: Pain, moderate (4-7) Morphine Sulfate (Morphine Extended Release Tab) 15 mg PO Q12 [facility] Physical Exam - Constitutional Appears: Chronically Ill - Head Exam Head Exam: NORMAL INSPECTION - ENT Exam ENT Exam: Mucous Membranes Moist - Neck Exam Neck exam: Negative for: Lymphadenopathy, Meningismus - Respiratory Exam Respiratory Exam: Decreased Breath Sounds, Rales (scattered) - Cardiovascular Exam Cardiovascular Exam: +S1, +S2 - GI/Abdominal Exam GI & Abdominal Exam: Soft. absent: Tenderness Results - Vital Signs Recent Vital Signs: Last Vital Signs Temp 98.8 F 10/23/17 03:32 Pulse 75 10/23/17 08:07 Resp 22 10/23/17 03:32 BP 95/63 L 10/23/17 03:32 Pulse Ox 95 10/23/17 01:35 - Labs Result Diagrams: 10/22/17 16:52 10/22/17 16:52 Assessment & Plan - Assessment and Plan (Free Text) Plan: Assessment Systemic Inflammatory Response Syndrome, consider due to mass-like consolidation in RML and RUL portions of the lungs, R/O community-acquired pneumonia, R/O malignancy basal cell carcinoma on right chest area S/P removal HTN significant smoking history (1 1/2 pack per day smoker) Hepatitis C S/P treatment with Interferon for about 4 years Plan Started the patient on Unasyn and Zithromax pending blood, sputum cx, PCT CT findings together with symptomatology and history raise high suspicion for malignancy - would recommend biopsy of either lymph nodes or mass in the lung overall prognosis is poor
[2017-10-23 17:28] LABS: INR 1.27 (0.93-1.08); PROTHROMBIN TIME 14.6 SECONDS (9.4-12.5)
[2017-10-23] MEDS: Dexamethasone 4 mg/1 ml IVP SCH ×2 (17:44→23:03)
--- NOTE | 2017-10-23 19:57 | US ---
PROCEDURE: Left upper extremity venous ultrasound HISTORY: Arm pain and swelling. Evaluate for deep venous thrombosis. PHYSICIAN(S): Luis Angel Ibarra MD. FINDINGS: The visualized leftinternal jugular vein is sonographically normal and compressible. No evidence of obstruction or thrombus is seen. The visualized segments of the left subclavian vein are patent with normal waveforms. No sonographic evidence of obstruction or thrombosis is seen. The visualized deep venous system of the proximal leftupper extremity is sonographically normal and compressible. IMPRESSION: 1. No sonographic evidence for deep venous thrombosis in the visualized segments of the left upper extremity.
[2017-10-23] MEDS ORDERED: Phytonadione 10 MG in Sodium Chloride 0.9% 50 ML IV ONE (20:03)
--- NOTE | 2017-10-23 21:47 | HP ---
HISTORY OF PRESENT ILLNESS: Mr. Iglesias is a 67-year-old male presented to the ED with back pain and chest pain. He thought it to be due to shoveling snow two days ago. He has been a heavy smoker with one and a half packs per day. CT chest, abdomen and pelvis done in the ED showed large right upper lobe and middle lobe mass, possible endobronchial lesions, post-obstructive pneumonia, two lesions in the abdomen around 3 cm maximum, around portocaval area. He also has had history of hepatitis, treated in the past, for 3 years with IV interferon. He is on morphine and tramadol at home for back pain. Currently, no chest pain. He also reported left arm weakness for past few days. He is able to move the arm now, weakness has been improving without any medical intervention. PAST MEDICAL HISTORY: COPD, hypertension, hepatitis C treated with interferon, herniated disk, basal cell carcinoma. PAST SURGICAL HISTORY: Unknown. PERSONAL HISTORY: Heavy smoker. No history of alcohol abuse. FAMILY HISTORY: Noncontributory. SOCIAL HISTORY: Lives at home with son and daughter. ALLERGIES: NO KNOWN DRUG ALLERGIES. HOME MEDICATIONS: Tylenol, tramadol 50 mg p.o. four time a day, Norvasc 10 mg daily, morphine 10 mg p.o. b.i.d., hydrochlorothiazide, and Percocet p.r.n. REVIEW OF SYSTEMS: As per HPI. Rest of 12-point review of systems reviewed and negative, included 30-pound weight loss in past two months. PHYSICAL EXAMINATION: GENERAL: Comfortable in bed, in no acute distress. VITAL SIGNS: Temperature 98.7, heart rate is 85 per minute, respiratory rate 16 per minute, blood pressure 104/76, pulse oximetry is 95% on oxygen via nasal cannula. HEENT: Pallor positive. NECK: No lymphadenopathy. CHEST: Air entry decreased on the right upper chest. Occasional rhonchi. Occasional crepitations on the right side of the chest. ABDOMEN: Soft and nontender. No hepatosplenomegaly. EXTREMITIES: No edema. Slight left arm weakness. CENTRAL NERVOUS SYSTEM: Cranial nerves intact. SPINE: Nontender. SKIN: No petechiae, no rash. LABORATORY DATA: White count 14.9, hemoglobin 13.8, hematocrit 41, platelet count 219. Sodium 137, potassium 4.2, BUN 16, creatinine 0.9, glucose 149. Influenza serology A and B negative. Alkaline phosphatase 315. LDH 688. Lipase 132. Imaging, as per HPI. ASSESSMENT: 1. Right upper lobe mass, suspicious for malignancy. 2. Intraabdominal lymphadenopathy around the portocaval region around 3 cm. 3. Right pleural effusion. 4. Pneumonia. 5. Unintentional weight loss. 6. Leukocytosis. PLAN: He will be admitted to the hospital. IV ceftriaxone 1 g daily, Zithromax 500 mg daily. ID consultation with Dr. Kay requested. CAT scan of the chest, abdomen and pelvis reviewed, large right lobe mass, very suspicious for malignancy. Also, left arm weakness. Might have brain mets. Discussed with Dr. Luis Angel Ibarra. Biopsy of the right upper lobe mass will be scheduled. Coags ordered; PT, PTT, INR. INR elevated to 1.2, we will give vitamin K 10 mg SQ one dose. MRI of the brain stat. Dexamethasone 4 mg IV three times a day. Protonix 40 mg IV daily. Pain management with morphine sulfate 15 mg p.o. q. 12. Morphine 2 mg q. 4 hours p.r.n. Also, requesting sleep medication, Ambien 5 mg at bedtime. We will continue antihypertensive, Norvasc 10 mg daily. Duoneb q. 6 hours and p.r.n. Hydrochlorothiazide 50 mg daily. After biopsy, we will start deep venous thrombosis prophylaxis with 30 mg of subcu Lovenox. Hepatitis C quantitative RNA will be ordered for assessment of hepatitis status. Discussed at length with daughter, Ms. Leonardo, including high suspicion for malignancy, likely metastatic. Marlen Alaniz MD SE
[2017-10-24] MEDS: Albuterol-Ipratrop 3 mg / 0.5 (3 ml) UD IH SCH ×4 (01:23→20:36)
[2017-10-24] MEDS: Dexamethasone 4 mg/1 ml IVP SCH ×3 (06:30→21:24)
[2017-10-24 07:44] LABS: HEMOGLOBIN 13.8 g/dL (14.0-18.0); MEAN CELL VOLUME 83.8 fl (80.0-105.0); MEAN CORPUSCULAR HEMOGLOBIN 28.6 pg (25.0-35.0); MEAN CORPUSCULAR HGB CONC 34.2 g/dl (31.0-37.0); MEAN PLATELET VOLUME 9.7 fl (7.0-11.0); RBC 4.82 10^6/uL (3.5-6.1); RED CELL DISTRIBUTION WIDTH 14.5 % (11.5-14.5); WHITE BLOOD COUNT 9.4 10^3/ul (4.5-11.0)
[2017-10-24] MEDS ORDERED: Gadodiamide 287 MG/ML VIAL (15ML) IV ONE (10:00)
[2017-10-24] MEDS ORDERED: Oxycodone/Acetaminophen 5/325 mg Tab PO PRN (10:07)
--- NOTE | 2017-10-24 10:37 | MRI ---
PROCEDURE: MRI BRAIN WITH AND WITHOUT CONTRAST HISTORY: r/o brain mets, left arm weakness. lung mass COMPARISON: None. TECHNIQUE: Multiplanar, multisequence MR images of the brain were obtained with and without intravenous contrast enhancement. 15 cc of Omniscan FINDINGS: HEMORRHAGE: None DWI: No evidence of an acute or early subacute infarction. BRAIN PARENCHYMA: There is an 8 mm enhancing lesion in the right anterior frontal lobe and a 10 mm of lesion in the posterior right frontal lobe. There is a large amount of surrounding vasogenic edema. There are no other lesions seen. There is no midline shift. ENHANCEMENT: No abnormal intracranial enhancement. VENTRICLES: Unremarkable. No hydrocephalus. CRANIUM: Unremarkable. ORBITS: Grossly unremarkable. PARANASAL SINUSES/MASTOIDS: Clear VASCULAR SYSTEM: Skull base flow voids intact. OTHER FINDINGS: None . IMPRESSION: Metastatic lesions in the right frontal lobe with extensive surrounding vasogenic edema
[2017-10-24] MEDS: Azithromycin 250 MG in Sodium Chloride 0.9% 250 ML IVPB SCH (11:12)
--- NOTE | 2017-10-24 11:59 | CP.PCM.PN ---
Subjective - Date & Time of Evaluation Date of Evaluation: 10/24/17 Time of Evaluation: 08:50 - Subjective Subjective: Comfortable, no fevers, feels weak. Objective - Vital Signs/Intake and Output Vital Signs (last 24 hours): Temp Pulse Resp BP Pulse Ox 97.8 F 80 20 153/78 H 98 10/24/17 07:00 10/24/17 07:00 10/24/17 07:00 10/24/17 07:00 10/24/17 07:00 Intake and Output: 10/24/17 10/24/17 06:59 18:59 Intake Total 240 Balance 240 - Medications Medications: Current Medications Albuterol/Ipratropium (Duoneb 3 Mg/0.5 Mg (3 Ml) Ud) 3 ml IH [id number] [facility] Last Admin: 10/24/17 07:32 Dose: 3 ml Amlodipine Besylate (Norvasc) 10 mg PO QPM [facility] Last Admin: 10/23/17 17:45 Dose: 10 mg Dexamethasone (Decadron Inj) 4 mg IVP Q8 [facility] Last Admin: 10/24/17 06:30 Dose: 4 mg Hydrochlorothiazide (Hydrodiuril) 50 mg PO QAM [facility] Last Admin: 10/23/17 11:02 Dose: 50 mg Ampicillin Sodium/Sulbactam (Sodium 3 gm/ Sodium Chloride) 100 mls @ 200 mls/ hr IVPB Q6 [facility] PRN Reason: Protocol Last Admin: 10/24/17 06:28 Dose: 200 mls/hr Azithromycin 250 mg/ Sodium (Chloride) 250 mls @ 167 mls/hr IVPB DAILY [facility] PRN Reason: Protocol Last Admin: 10/23/17 11:02 Dose: 167 mls/hr Morphine Sulfate (Morphine) 2 mg IVP Q4H PRN PRN Reason: Pain, moderate (4-7) Morphine Sulfate (Morphine Extended Release Tab) 15 mg PO Q12 [facility] Last Admin: 10/23/17 23:12 Dose: Not Given Ondansetron HCl (Zofran Inj) 4 mg IVP Q8H [facility] Last Admin: 10/23/17 23:52 Dose: 4 mg Pantoprazole Sodium (Protonix Inj) 40 mg IVP Q12 [facility] Last Admin: 10/23/17 21:31 Dose: 40 mg Zolpidem Tartrate (Ambien) 5 mg PO HS PRN; Protocol PRN Reason: Insomnia Last Admin: 10/23/17 23:52 Dose: 5 mg - Labs Labs: 10/24/17 07:00 PT 14.6 SECONDS (9.4-12.5) H 10/23/17 17:07 INR 1.27 (0.93-1.08) H 10/23/17 17:07 APTT 32.0 Seconds (25.1-36.5) 10/23/17 17:07 - Constitutional Appears: Chronically Ill - Head Exam Head Exam: NORMAL INSPECTION - Neck Exam Neck Exam: absent: Meningismus - Respiratory Exam Respiratory Exam: Decreased Breath Sounds - Cardiovascular Exam Cardiovascular Exam: +S1, +S2 - GI/Abdominal Exam GI & Abdominal Exam: Soft. absent: Tenderness Assessment and Plan - Assessment and Plan (Free Text) Plan: Assessment Systemic Inflammatory Response Syndrome, consider due to mass-like consolidation in RML and RUL portions of the lungs, R/O community-acquired pneumonia, R/O malignancy basal cell carcinoma on right chest area S/P removal HTN significant smoking history (1 1/2 pack per day smoker) Hepatitis C S/P treatment with Interferon for about 4 years Plan continue Unasyn and Zithromax day 2; blood cx are negative x 1 day, sputum cx pending, PCT is 0.36 CT findings together with symptomatology and history raise high suspicion for malignancy - follow up plan for biopsy of either lymph nodes or mass in the lung overall prognosis is poor
[2017-10-24] MEDS ORDERED: Lidocaine 1% Inj (20ml) ONE (12:28)
[2017-10-24] MEDS ORDERED: Midazolam 2 MG/2 ML VIAL ONE (12:28)
[2017-10-24] MEDS ORDERED: Sodium Chloride 0.45% 1,000 ML IV SCH (13:00)
--- NOTE | 2017-10-24 16:30 | RAD ---
HISTORY: rt lung bx COMPARISON: 10/22/2017 FINDINGS: LUNGS: There is dense consolidation in the right upper lobe. There is no evidence of post biopsy pneumothorax PLEURA: No significant pleural effusion identified, no pneumothorax apparent. CARDIOVASCULAR: Normal. OSSEOUS STRUCTURES: No significant abnormalities. VISUALIZED UPPER ABDOMEN: Normal. OTHER FINDINGS: None. IMPRESSION: No evidence of post biopsy pneumothorax
--- NOTE | 2017-10-24 20:26 | CT ---
PROCEDURE: CT guided right hilar lung biopsy. HISTORY: Large right hilar mass. Evaluate for malignancy. PHYSICIAN(S): Luis Angel Ibarra MD. TECHNIQUE: The relative risks and indications of the procedure were explained to the patient and consent obtained. The patient was placed supine on the CT scanner and preliminary images through the mid and upper chest obtained. Conscious sedation and monitoring were provided throughout the procedure by a nurse. There is a large right hilar mass near complete opacification of the right upper lobe.. A right anterior approach was selected and the area prepped and draped in the usual sterile fashion. 1% Xylocaine was used to anesthetize the skin and soft tissues. A 19 gauge guiding needle was advanced into the right hilar mass. Its position was confirmed with CT. Using coaxial technique, multiple core biopsies were obtained. The postprocedure images show no evidence of large pneumothorax or significant hemorrhage.. IMPRESSION: 1. CT-guided right hilar lung biopsy as described above.
[2017-10-25] MEDS: levETIRAcetam 500mg IVPB 500 MG/100 ML BAG IVPB SCH ×3 (02:51→21:56)
[2017-10-25] MEDS: Albuterol-Ipratrop 3 mg / 0.5 (3 ml) UD IH SCH ×4 (03:14→20:49)
[2017-10-25] MEDS: Pantoprazole 40 mg EC Tab PO SCH ×2 (06:57→18:01)
--- NOTE | 2017-10-25 10:10 | PN ---
DATE: 10/24/2017 SUBJECTIVE: He is comfortable in bed, in no acute distress, left arm weakness improved slightly. He is able to move the arms. He underwent CT-guided biopsy of the right upper lobe mass today. No shortness of breath. Post biopsy chest x-ray did not show pneumothorax. MRI of the brain showed two lesions in the right frontal lobe, 8-mm and 10-mm with surrounding vasogenic edema. He is currently on IV steroids. No seizures. No fever, no cough with expectoration. REVIEW OF SYSTEMS: As per HPI. Rest of 12-point review of systems is reviewed and negative. PHYSICAL EXAMINATION GENERAL: Comfortable in bed, in no acute distress. VITAL SIGNS: Temperature 97.9, heart rate is 80 per minute, blood pressure 121/76, respiratory rate 16 per minute, oxygen saturation 99% on room air. HEENT: Normal. NECK: No lymphadenopathy. CHEST: Air entry decreased on the right side of the chest. No rhonchi. No crepitation. ABDOMEN: Soft, nontender. No hepatosplenomegaly. EXTREMITIES: No edema. SKIN: No petechiae. No rash. SPINE: Nontender. LABORATORY DATA: White count 9.4, hemoglobin 13.8, hematocrit 40.4, platelet count 181. Sodium 137, potassium 4.2, BUN 16, creatinine 0.8. MEDICATIONS: Tylenol 650 q. 4 hour p.r.n., DuoNeb, Norvasc 10 mg daily, azithromycin IV daily, Augmentin daily, Decadron 4 mg IV q. 8, morphine 2 mg IV q. 4 hour p.r.n., Percocet p.r.n., Protonix 40 mg IV, Ambien 5 mg p.o. at bedtime p.r.n. ASSESSMENT AND PLAN: 1. Metastatic cancer, likely lung cancer. Biopsy of the right upper lobe done, pathology pending. MRI of the brain showed two metastatic lesions in the right frontal lobe 10-mm and 8-mm. IV Keppra 500 mg stat given today, continue IV 500 mg q. 12 hours. Continue Decadron 4 mg IV q. 8 hours. We will add PCP prophylaxis because of high dose steroid use, Bactrim DS 1 tablet p.o. b.i.d. for 3 days a week. Neurology consultation, Dr. Tang requested. Radiation on consultation, Dr. Lewis requested. 2. Discussed at length with the patient regarding radiation to the brain, also discussed with the daughter, Ms. Leonardo, both agreed to our radiation. We will discuss with Dr. Lewis for starting ELICIA radiation. 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 3. Pneumonia. We will continue IV antibiotic. ID following. 4. Renal: BUN and creatinine stable. 5. Hematology: Blood count stable. Marlen Alaniz MD
[2017-10-25] MEDS: Azithromycin 250 MG in Sodium Chloride 0.9% 250 ML IVPB SCH (11:10)
[2017-10-25] MEDS: Dexamethasone 4 mg/1 ml IVP SCH ×2 (13:08→21:55)
--- NOTE | 2017-10-25 13:28 | CP.PCM.PN ---
Subjective - Date & Time of Evaluation Date of Evaluation: 10/25/17 Time of Evaluation: 08:30 - Subjective Subjective: Patient is comfortable, feels weak, no cough, no fevers. Objective - Vital Signs/Intake and Output Vital Signs (last 24 hours): Temp Pulse Resp BP Pulse Ox 98.4 F 90 20 141/73 99 10/25/17 08:00 10/25/17 08:00 10/25/17 08:00 10/25/17 08:00 10/25/17 08:00 Intake and Output: 10/25/17 10/25/17 06:59 18:59 Intake Total 180 Balance 180 - Medications Medications: Current Medications Acetaminophen (Tylenol 325mg Tab) 650 mg PO Q4 PRN PRN Reason: Pain, Mild (1-3) Albuterol/Ipratropium (Duoneb 3 Mg/0.5 Mg (3 Ml) Ud) 3 ml IH [id number] [facility] Last Admin: 10/25/17 08:10 Dose: Not Given Amlodipine Besylate (Norvasc) 10 mg PO QPM [facility] Last Admin: 10/24/17 17:15 Dose: 10 mg Dexamethasone (Decadron Inj) 4 mg IVP Q8 [facility] Last Admin: 10/24/17 21:24 Dose: 4 mg Hydrochlorothiazide (Hydrodiuril) 50 mg PO QAM [facility] Last Admin: 10/24/17 11:17 Dose: 50 mg Ampicillin Sodium/Sulbactam (Sodium 3 gm/ Sodium Chloride) 100 mls @ 200 mls/ hr IVPB Q6 [facility] PRN Reason: Protocol Last Admin: 10/25/17 05:58 Dose: 200 mls/hr Azithromycin 250 mg/ Sodium (Chloride) 250 mls @ 167 mls/hr IVPB DAILY [facility] PRN Reason: Protocol Last Admin: 10/24/17 11:12 Dose: 167 mls/hr Levetiracetam (Keppra 500mg Ivpb) 500 mg in 100 mls @ 400 mls/hr IVPB Q12 [facility] Last Admin: 10/25/17 02:51 Dose: 400 mls/hr Morphine Sulfate (Morphine) 2 mg IVP Q4H PRN PRN Reason: Pain, moderate (4-7) Ondansetron HCl (Zofran Inj) 4 mg IVP Q8H [facility] Last Admin: 10/25/17 08:34 Dose: Not Given Oxycodone/Acetaminophen (Percocet 5/325 Mg Tab) 1 tab PO Q4H PRN PRN Reason: Pain, Mild (1-3) Stop: 10/27/17 10:08 Pantoprazole Sodium (Protonix Ec Tab) 40 mg PO 0600,1600 [facility] Last Admin: 10/25/17 06:57 Dose: 40 mg Zolpidem Tartrate (Ambien) 5 mg PO HS PRN; Protocol PRN Reason: Insomnia Last Admin: 10/24/17 21:23 Dose: 5 mg - Labs Labs: 10/24/17 07:00 PT 14.6 SECONDS (9.4-12.5) H 10/23/17 17:07 INR 1.27 (0.93-1.08) H 10/23/17 17:07 APTT 32.0 Seconds (25.1-36.5) 10/23/17 17:07 - Constitutional Appears: Chronically Ill - Head Exam Head Exam: NORMAL INSPECTION - ENT Exam ENT Exam: Mucous Membranes Moist - Neck Exam Neck Exam: absent: Meningismus - Respiratory Exam Respiratory Exam: Decreased Breath Sounds - Cardiovascular Exam Cardiovascular Exam: +S1, +S2 - GI/Abdominal Exam GI & Abdominal Exam: Soft. absent: Tenderness Assessment and Plan - Assessment and Plan (Free Text) Plan: Assessment Systemic Inflammatory Response Syndrome, consider due to mass-like consolidation in RML and RUL portions of the lungs, R/O community-acquired pneumonia, R/O malignancy, S/P CT-guided biopsy basal cell carcinoma on right chest area S/P removal HTN significant smoking history (1 1/2 pack per day smoker) Hepatitis C S/P treatment with Interferon for about 4 years Plan continue Unasyn and Zithromax day 3; blood cx are negative PCT is 0.36 CT findings together with symptomatology and history raise high suspicion for malignancy - follow up results of biopsy of the mass in the lung overall prognosis is poor
--- NOTE | 2017-10-25 18:37 | CON ---
DATE: 10/25/2017 NEUROLOGY CONSULTATION CHIEF COMPLAINT: Metastatic cancer to the brain. CURRENT HISTORY OF PRESENT ILLNESS: This is a 67-year-old daily smoker with a history of basal cell carcinoma of the right chest, status post removal; hypertension; smoking history of one half pack per day; hepatitis C, status post treatment with interferon for about 4 years; came in the hospital because of pain in the shoulder blades in the last 2 to 3 days and some nonproductive cough. vague abdominal pain, decreased appetite for the last 4 weeks with significant weight loss. A CAT scan of the abdomen and pelvis showed a mass-like consolidation in the right upper lobe, right middle lobe, and areas of lungs with mediastinal lymphadenopathy and hyperdense lesions in the spleen consistent with the metastatic lung cancer. He had an MRI of the brain, which showed metastatic lesions in the right frontal lobe with extensive vasogenic edema, currently on Keppra for seizure prophylaxis and Decadron for the vasogenic edema. He denies any headache at this time. Moving all extremities. He had mild weakness of the left arm due to the vasogenic edema in the right frontal lobe, but otherwise doing much better today. Case discussed with the family at bedside. SOCIAL HISTORY: Daily smoker, one half pack per day. Occasional EtOH abuse. No illicit drug use. ALLERGIES: NO KNOWN DRUG ALLERGIES. MEDICATIONS: Reviewed by nurse's reconciliation sheet. PAST MEDICAL HISTORY: As above. REVIEW OF SYSTEMS: A 14-point review of systems is negative except as per the HPI. PHYSICAL EXAMINATION: VITAL SIGNS: Temperature of 98.4, pulse rate of 90, blood pressure 141/72, respiratory rate of 20, oxygen saturation 99% by room air. GENERAL: The patient is sitting up in bed, in no acute distress. HEENT: Head is atraumatic, normocephalic. PERRLA. Extraocular muscles intact. NECK: Supple. No JVD, no adenopathy noted. LUNGS: Clear to auscultation. No adventitious sounds. HEART: S1 and S2. Normal rate and rhythm. No murmurs, rubs, or gallops. ABDOMEN: Soft, nontender, nondistended. Bowel sounds are present. EXTREMITIES: No clubbing, no cyanosis. Peripheral pulses 2+ felt bilaterally. NEUROLOGIC: The patient is alert and oriented to person, place, month, and year. Speech is fluent without any errors. Cranial nerves II through XII are intact. 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 Sensory exam: Diffuse light touch and pinprick up to the calves bilaterally. Decreased vibration to the toes. DTRs are 2+ throughout. Coordination: Gzzdfe-ls-Katn intact. Gait is deferred for now. LABORATORY DATA: Sodium is 137, potassium 4.2, chloride 103, carbon dioxide of 23. BUN of 16, creatinine 0.9. Random glucose of 149. IMPRESSION: Mild left hand weakness, this could be secondary to metastatic lesions in the right frontal lobe with extensive surrounding vasogenic edema consistent with metastatic lung disease. RECOMMENDATIONS: At this time, recommend: 1. Decadron 4 mg IV q.8 and then continue . 2. Keppra 500 mg IV q.12, can switch to p.o. b.i.d. for seizure prophylaxis. 3. Counseled on smoking cessation. 4. Continue with Oncology followup in regards to management for underlying lung cancer with mets to the brain. 5. Continue with opioids for pain control. Once again, thank you for this consult. Prognosis is poor. Iron Tagn MD
[2017-10-25] MEDS: Tmp-Smz 800 mg-160 mg DS Tab PO SCH (18:56)
[2017-10-26] MEDS: Albuterol-Ipratrop 3 mg / 0.5 (3 ml) UD IH SCH ×4 (03:50→21:00)
[2017-10-26] MEDS: Pantoprazole 40 mg EC Tab PO SCH ×2 (06:00→17:22)
[2017-10-26] MEDS: Dexamethasone 4 mg/1 ml IVP SCH ×3 (06:00→22:10)
--- NOTE | 2017-10-26 07:49 | CP.PCM.PN ---
Subjective - Date & Time of Evaluation Date of Evaluation: 10/26/17 Time of Evaluation: 07:30 - Subjective Subjective: Mr Iglesias was seen and consulted by my covering physician Dr Conway for his brain metastases while I am away. He was started on radiation therapy for his brain lesions. We are awaiting the final pathology from his lung biopsy. A copy of her consultation was submitted to medical records to be uploaded into [employer]. Objective - Vital Signs/Intake and Output Vital Signs (last 24 hours): Temp Pulse Resp BP Pulse Ox 98 F 84 20 121/66 98 10/26/17 00:45 10/26/17 00:45 10/26/17 00:45 10/26/17 00:45 10/26/17 00:45 Intake and Output: 10/26/17 10/26/17 06:59 18:59 Intake Total 1200 Balance 1200 - Medications Medications: Current Medications Acetaminophen (Tylenol 325mg Tab) 650 mg PO Q4 PRN PRN Reason: Pain, Mild (1-3) Albuterol/Ipratropium (Duoneb 3 Mg/0.5 Mg (3 Ml) Ud) 3 ml IH [id number] [facility] Last Admin: 10/26/17 03:50 Dose: Not Given Amlodipine Besylate (Norvasc) 10 mg PO QPM [facility] Last Admin: 10/25/17 18:01 Dose: 10 mg Dexamethasone (Decadron Inj) 4 mg IVP Q8 [facility] Last Admin: 10/26/17 06:00 Dose: 4 mg Hydrochlorothiazide (Hydrodiuril) 50 mg PO QAM [facility] Last Admin: 10/25/17 11:11 Dose: 50 mg Ampicillin Sodium/Sulbactam (Sodium 3 gm/ Sodium Chloride) 100 mls @ 200 mls/ hr IVPB Q6 [facility] PRN Reason: Protocol Last Admin: 10/26/17 06:02 Dose: 200 mls/hr Azithromycin 250 mg/ Sodium (Chloride) 250 mls @ 167 mls/hr IVPB DAILY [facility] PRN Reason: Protocol Last Admin: 10/25/17 11:10 Dose: 167 mls/hr Levetiracetam (Keppra 500mg Ivpb) 500 mg in 100 mls @ 400 mls/hr IVPB Q12 [facility] Last Admin: 10/25/17 21:56 Dose: 400 mls/hr Ondansetron HCl (Zofran Inj) 4 mg IVP Q8H [facility] Last Admin: 10/25/17 18:01 Dose: 4 mg Oxycodone/Acetaminophen (Percocet 5/325 Mg Tab) 1 tab PO Q4H PRN PRN Reason: Pain, Mild (1-3) Stop: 10/27/17 10:08 Pantoprazole Sodium (Protonix Ec Tab) 40 mg PO 0600,1600 [facility] Last Admin: 10/26/17 06:00 Dose: 40 mg Trimethoprim/Sulfamethoxazole (Bactrim Ds Tab) 1 tab PO BID [facility] PRN Reason: Protocol Stop: 10/28/17 10:00 Last Admin: 10/25/17 18:56 Dose: 1 tab Zolpidem Tartrate (Ambien) 5 mg PO HS PRN; Protocol PRN Reason: Insomnia Last Admin: 10/25/17 22:14 Dose: 5 mg - Labs Labs: 10/24/17 07:00 PT 14.6 SECONDS (9.4-12.5) H 10/23/17 17:07 INR 1.27 (0.93-1.08) H 10/23/17 17:07 APTT 32.0 Seconds (25.1-36.5) 10/23/17 17:07
[2017-10-26] MEDS: Azithromycin 250 MG in Sodium Chloride 0.9% 250 ML IVPB SCH (09:32)
[2017-10-26] MEDS: Tmp-Smz 800 mg-160 mg DS Tab PO SCH ×2 (09:32→17:22)
[2017-10-26] MEDS: levETIRAcetam 500mg IVPB 500 MG/100 ML BAG IVPB SCH ×2 (09:32→22:09)
[2017-10-26 12:53] LABS: EOS # 0.5 (0.0-0.7); EOS % 2.6 % (1.5-5.0); GRAN % 88.2 % (50.0-68.0); HEMOGLOBIN 14.1 g/dL (14.0-18.0); LYMPH # 0.8 (1.2-3.4); LYMPH % 4.1 % (22.0-35.0); MEAN CELL VOLUME 84.2 fl (80.0-105.0); MEAN CORPUSCULAR HEMOGLOBIN 28.5 pg (25.0-35.0); MEAN CORPUSCULAR HGB CONC 33.9 g/dl (31.0-37.0); MONO % 5.1 % (1.0-6.0); PLATELET COUNT 228 10^3/uL (120.0-450.0); RBC 4.94 10^6/uL (3.5-6.1); RED CELL DISTRIBUTION WIDTH 14.9 % (11.5-14.5); WHITE BLOOD COUNT 19.7 10^3/ul (4.5-11.0)
[2017-10-26 13:10] LABS: BLOOD UREA NITROGEN 28 mg/dL (7-21); CALCIUM 9.5 mg/dL (8.4-10.5); GFR AFRICAN-AMERICAN > 60; GFR NON-AFRICAN AMERICAN > 60
[2017-10-26 13:14] LABS: EOSINOPHIL 2 % (0.0-3.0); LYMPHOCYTE 1 % (22.0-35.0); MONOCYTE 5 % (1.0-6.0); NEUTROPHIL 92 % (50.0-70.0); PLATELET ESTIMATE NORMAL (NORMAL)
--- NOTE | 2017-10-26 13:17 | CP.PCM.PN ---
Subjective - Date & Time of Evaluation Date of Evaluation: 10/26/17 Time of Evaluation: 13:00 - Subjective Subjective: Not in distress, afebrile. Objective - Vital Signs/Intake and Output Vital Signs (last 24 hours): Temp Pulse Resp BP Pulse Ox 98 F 84 20 121/66 98 10/26/17 00:45 10/26/17 00:45 10/26/17 00:45 10/26/17 00:45 10/26/17 00:45 Intake and Output: 10/26/17 10/26/17 06:59 18:59 Intake Total 1200 Balance 1200 - Medications Medications: Current Medications Acetaminophen (Tylenol 325mg Tab) 650 mg PO Q4 PRN PRN Reason: Pain, Mild (1-3) Albuterol/Ipratropium (Duoneb 3 Mg/0.5 Mg (3 Ml) Ud) 3 ml IH [id number] [facility] Last Admin: 10/26/17 03:50 Dose: Not Given Amlodipine Besylate (Norvasc) 10 mg PO QPM [facility] Last Admin: 10/25/17 18:01 Dose: 10 mg Dexamethasone (Decadron Inj) 4 mg IVP Q8 [facility] Last Admin: 10/26/17 06:00 Dose: 4 mg Hydrochlorothiazide (Hydrodiuril) 50 mg PO QAM [facility] Last Admin: 10/25/17 11:11 Dose: 50 mg Ampicillin Sodium/Sulbactam (Sodium 3 gm/ Sodium Chloride) 100 mls @ 200 mls/ hr IVPB Q6 [facility]ESS[facility] PRN Reason: Protocol Last Admin: 10/26/17 06:02 Dose: 200 mls/hr Azithromycin 250 mg/ Sodium (Chloride) 250 mls @ 167 mls/hr IVPB DAILY [facility]ESS[facility] PRN Reason: Protocol Last Admin: 10/25/17 11:10 Dose: 167 mls/hr Levetiracetam (Keppra 500mg Ivpb) 500 mg in 100 mls @ 400 mls/hr IVPB Q12 [facility] Last Admin: 10/25/17 21:56 Dose: 400 mls/hr Ondansetron HCl (Zofran Inj) 4 mg IVP Q8H [facility] Last Admin: 10/25/17 18:01 Dose: 4 mg Oxycodone/Acetaminophen (Percocet 5/325 Mg Tab) 1 tab PO Q4H PRN PRN Reason: Pain, Mild (1-3) Stop: 10/27/17 10:08 Pantoprazole Sodium (Protonix Ec Tab) 40 mg PO 0600,1600 [facility] Last Admin: 10/26/17 06:00 Dose: 40 mg Trimethoprim/Sulfamethoxazole (Bactrim Ds Tab) 1 tab PO BID [facility]ESS[facility] PRN Reason: Protocol Stop: 10/28/17 10:00 Last Admin: 10/25/17 18:56 Dose: 1 tab Zolpidem Tartrate (Ambien) 5 mg PO HS PRN; Protocol PRN Reason: Insomnia Last Admin: 10/25/17 22:14 Dose: 5 mg - Labs Labs: 10/24/17 07:00 PT 14.6 SECONDS (9.4-12.5) H 10/23/17 17:07 INR 1.27 (0.93-1.08) H 10/23/17 17:07 APTT 32.0 Seconds (25.1-36.5) 10/23/17 17:07 - Constitutional Appears: Chronically Ill - Head Exam Head Exam: NORMAL INSPECTION - Neck Exam Neck Exam: absent: Meningismus - Respiratory Exam Respiratory Exam: Decreased Breath Sounds - Cardiovascular Exam Cardiovascular Exam: +S1, +S2 - GI/Abdominal Exam GI & Abdominal Exam: Soft. absent: Tenderness Assessment and Plan - Assessment and Plan (Free Text) Plan: Assessment Systemic Inflammatory Response Syndrome, consider due to mass-like consolidation in RML and RUL portions of the lungs, R/O community-acquired pneumonia, R/O malignancy, S/P CT-guided biopsy basal cell carcinoma on right chest area S/P removal HTN significant smoking history (1 1/2 pack per day smoker) Hepatitis C S/P treatment with Interferon for about 4 years Plan continue Unasyn and Zithromax day 4; blood cx are negative PCT is 0.36 CT findings together with symptomatology and history raise high suspicion for malignancy - follow up results of biopsy of the mass in the lung overall prognosis is poor
--- NOTE | 2017-10-27 00:45 | PN ---
DATE: 10/26/2017 SUBJECTIVE: He is comfortable in bed, in no acute distress. Left arm weakness improved. He was evaluated by Radiation Oncology yesterday. Radiation will be started on Saturday. Preliminary pathology report as per Dr. Mills is [id number] lung cancer finally. Venous stains are pending. He is ambulating in the room. No nausea or vomiting. No chest pain. REVIEW OF SYSTEMS: As per HPI. Rest of 12-point review of systems reviewed negative. PHYSICAL EXAMINATION: GENERAL: Comfortable in bed, in no acute distress. VITAL SIGNS: Temperature 98.7, heart rate is 80 per minute, blood pressure 138/68, respiratory rate 20 per minute, oxygen saturation 95% in room air. HEENT: PERRLA positive. NECK: No lymphadenopathy. CHEST: Air entry present and equal bilaterally. No added sounds. CARDIOVASCULAR: S1 and S2 normal. No murmur. No gallop. ABDOMEN: Soft, nontender. No hepatosplenomegaly. EXTREMITIES: No edema. WEB PRODUCTION ASSISTANT: Left arm weakness improved. No cranial nerve palsies. LABORATORY DATA: White count 19.7, hemoglobin 14.1, hematocrit 41.6, platelet 228. Sodium 137, potassium 4.1, creatinine 1.1. ASSESSMENT: 1. Right upper lobe mass. 2. Two right frontal lobe lesions; 8 mm and 10 mm; likely metastatic. 3. Leukocytosis. 4. Post-obstructive pneumonia, right upper lobe. 5. Chronic obstructive pulmonary disease. 6. Back pain. PLAN: he is currently on IV Decadron 4 mg q.8h. We will start weaning after initiation of radiation. He is on seizure prophylaxis, Keppra 500 mg IV q. 12. Neurology consultation, Dr. Tang, appreciated. Notes reviewed. I had discussed with the daughter regarding initiation of radiation. She agreed and consented for radiation. I also discussed with Mr. Iglesias. He has clear understanding of possible diagnosis of metastatic lung cancer and rationale for radiation. Left arm weakness improved. He is able to move the arm. Steroids will be weaned after initiation of radiation. He is on IV antibiotics with Zithromax and Augmentin. We will continue DuoNeb. Pain control with current medications. Marlen Alaniz MD SE
[2017-10-27] MEDS: Albuterol-Ipratrop 3 mg / 0.5 (3 ml) UD IH SCH ×5 (02:07→20:19)
[2017-10-27] MEDS: Dexamethasone 4 mg/1 ml IVP SCH ×3 (05:58→21:43)
[2017-10-27] MEDS: Pantoprazole 40 mg EC Tab PO SCH ×2 (05:59→17:14)
[2017-10-27] MEDS: levETIRAcetam 500mg IVPB 500 MG/100 ML BAG IVPB SCH ×2 (09:09→22:28)
[2017-10-27] MEDS: Tmp-Smz 800 mg-160 mg DS Tab PO SCH ×2 (09:09→17:14)
[2017-10-27] MEDS: Azithromycin 250 MG in Sodium Chloride 0.9% 250 ML IVPB SCH (10:09)
[2017-10-27 11:29] LABS: BLOOD UREA NITROGEN 26 mg/dL (7-21); CALCIUM 9.8 mg/dL (8.4-10.5); GFR AFRICAN-AMERICAN > 60; GFR NON-AFRICAN AMERICAN > 60
[2017-10-27 11:47] LABS: BASO # 0.02 K/mm3 (0.0-2.0); BASO % 0.1 % (0.0-3.0); EOS # 0.8 (0.0-0.7); EOS % 3.5 % (1.5-5.0); GRAN # 20.34 (1.4-6.5); GRAN % 88.7 % (50.0-68.0); HEMOGLOBIN 14.2 g/dL (14.0-18.0); LYMPH # 0.7 (1.2-3.4); MEAN CELL VOLUME 83.5 fl (80.0-105.0); MEAN CORPUSCULAR HEMOGLOBIN 28.6 pg (25.0-35.0); MEAN CORPUSCULAR HGB CONC 34.2 g/dl (31.0-37.0); MEAN PLATELET VOLUME 9.7 fl (7.0-11.0); MONO # 1.1 (0.1-0.6); MONO % 4.7 % (1.0-6.0); RBC 4.97 10^6/uL (3.5-6.1); RED CELL DISTRIBUTION WIDTH 14.9 % (11.5-14.5); WHITE BLOOD COUNT 22.9 10^3/ul (4.5-11.0)
--- NOTE | 2017-10-27 14:17 | CP.PCM.PN ---
Subjective - Date & Time of Evaluation Date of Evaluation: 10/27/17 Time of Evaluation: 13:30 - Subjective Subjective: Comfortable in bed, no fevers, not in distress. Objective - Vital Signs/Intake and Output Vital Signs (last 24 hours): Temp Pulse Resp BP Pulse Ox 98 F 75 20 136/74 98 10/27/17 08:22 10/27/17 08:22 10/27/17 08:22 10/27/17 08:22 10/27/17 08:22 Intake and Output: 10/27/17 10/27/17 06:59 18:59 Intake Total 1200 Balance 1200 - Medications Medications: Current Medications Acetaminophen (Tylenol 325mg Tab) 650 mg PO Q4 PRN PRN Reason: Pain, Mild (1-3) Albuterol/Ipratropium (Duoneb 3 Mg/0.5 Mg (3 Ml) Ud) 3 ml IH [id number] [facility] Last Admin: 10/27/17 08:49 Dose: 3 ml Amlodipine Besylate (Norvasc) 10 mg PO QPM [facility] Last Admin: 10/26/17 17:22 Dose: 10 mg Dexamethasone (Decadron Inj) 4 mg IVP Q8 [facility] Last Admin: 10/27/17 05:58 Dose: 4 mg Hydrochlorothiazide (Hydrodiuril) 50 mg PO QAM [facility] Last Admin: 10/27/17 09:09 Dose: 50 mg Ampicillin Sodium/Sulbactam (Sodium 3 gm/ Sodium Chloride) 100 mls @ 200 mls/ hr IVPB Q6 [facility] PRN Reason: Protocol Last Admin: 10/27/17 05:57 Dose: 200 mls/hr Azithromycin 250 mg/ Sodium (Chloride) 250 mls @ 167 mls/hr IVPB DAILY [facility] PRN Reason: Protocol Last Admin: 10/27/17 10:09 Dose: 167 mls/hr Levetiracetam (Keppra 500mg Ivpb) 500 mg in 100 mls @ 400 mls/hr IVPB Q12 [facility] Last Admin: 10/27/17 09:09 Dose: 400 mls/hr Ondansetron HCl (Zofran Inj) 4 mg IVP Q8H [facility] Last Admin: 10/27/17 09:10 Dose: Not Given Pantoprazole Sodium (Protonix Ec Tab) 40 mg PO 0600,1600 [facility] Last Admin: 10/27/17 05:59 Dose: 40 mg Trimethoprim/Sulfamethoxazole (Bactrim Ds Tab) 1 tab PO BID [facility] PRN Reason: Protocol Stop: 10/28/17 10:00 Last Admin: 10/27/17 09:09 Dose: 1 tab Zolpidem Tartrate (Ambien) 5 mg PO HS PRN; Protocol PRN Reason: Insomnia Last Admin: 10/26/17 22:11 Dose: 5 mg - Labs Labs: 10/27/17 11:17 10/27/17 11:17 PT 14.6 SECONDS (9.4-12.5) H 10/23/17 17:07 INR 1.27 (0.93-1.08) H 10/23/17 17:07 APTT 32.0 Seconds (25.1-36.5) 10/23/17 17:07 - Constitutional Appears: Chronically Ill - Head Exam Head Exam: NORMAL INSPECTION - ENT Exam ENT Exam: Mucous Membranes Moist - Neck Exam Neck Exam: absent: Meningismus - Respiratory Exam Respiratory Exam: Decreased Breath Sounds - Cardiovascular Exam Cardiovascular Exam: +S1, +S2 - GI/Abdominal Exam GI & Abdominal Exam: Soft. absent: Tenderness Assessment and Plan - Assessment and Plan (Free Text) Plan: Assessment Systemic Inflammatory Response Syndrome, consider due to mass-like consolidation in RML and RUL portions of the lungs, R/O community-acquired pneumonia, consider malignancy with brain mets, S/P CT-guided biopsy basal cell carcinoma on right chest area S/P removal HTN significant smoking history (1 1/2 pack per day smoker) Hepatitis C S/P treatment with Interferon for about 4 years Plan continue Unasyn and Zithromax day 5 to complete 5-7 days of therapy; blood cx are negative PCT is 0.36 CT findings together with symptomatology and history raise high suspicion for malignancy - follow up results of biopsy of the mass in the lung overall prognosis is poor
--- NOTE | 2017-10-27 22:54 | PN ---
DATE OF EVALUATION: 10/27/2017 SUBJECTIVE: He is comfortable in bed, in no acute distress. Ambulating in the room. Left arm weakness improved markedly. He is currently on IV Decadron, radiation to the brain metastasis, will be discharged on Saturday. Lung biopsy preliminarily is non-small cell lung cancer. Back pain is controlled with current medications. REVIEW OF SYSTEMS: As per HPI. Rest of 12-point review of systems reviewed and negative. PHYSICAL EXAMINATION: GENERAL: Comfortable in bed, no acute distress. VITAL SIGNS: Stable. Temperature 95.7, heart rate is 75 per minute, blood pressure 130/60, respiratory rate 18 per minute, and oxygen saturation 98% on room air. HEENT: Pallor positive. NECK: No lymphadenopathy. CHEST: Air entry is decreased in the right upper lobe. No rhonchi. No crepitation. CARDIOPULMONARY: S1 and S2 normal. No murmur. No gallop. ABDOMEN: Soft, nontender. No hepatosplenomegaly. EXTREMITIES: No edema. CENTRAL NERVOUS SYSTEM: Left arm weakness improved, almost normal now. No . LABORATORY DATA: White count 22,000, hemoglobin 14.2, hematocrit 41, and platelets 236. Sodium 134, potassium 4.3, and creatinine 1.1. MEDICATIONS: Tylenol 650 q.4 hours p.r.n., Norvasc 10 mg daily, Augmentin and Zithromax, Decadron 4 mg q.8, Keppra 500 IV q.12, Zofran 4 mg IV q.8, Protonix 40 mg b.i.d., Bactrim one tablet p.o. b.i.d., and Ambien 5 mg at bedtime p.r.n. ASSESSMENT AND PLAN: 1. Right upper lobe mass, likely non-small cell lung cancer as per preliminary report, metastatic lesion to the right frontal lobe. Left arm weakness related to brain metastasis. Radiation will be started on Saturday. We will start to wean after a few doses of radiation the steroids. He is on seizure prophylaxis with IV Keppra and IV Decadron. We will continue that. 2. Infectious disease, currently on Augmentin and Zithromax. We will continue Bactrim b.i.d. also for pneumocystis pneumonia prophylaxis. 3. Chronic back pain, controlled with current medications. 4. Leukocytosis, likely related to steroid use, does not indicate infection. Bedside physical therapy. Marlen Alaniz MD
[2017-10-28] MEDS: Albuterol-Ipratrop 3 mg / 0.5 (3 ml) UD IH SCH ×5 (01:59→20:28)
[2017-10-28] MEDS: Pantoprazole 40 mg EC Tab PO SCH ×2 (05:40→16:55)
[2017-10-28] MEDS: Dexamethasone 4 mg/1 ml IVP SCH ×3 (05:40→21:36)
[2017-10-28] MEDS: Tmp-Smz 800 mg-160 mg DS Tab PO SCH (10:51)
[2017-10-28] MEDS: levETIRAcetam 500mg IVPB 500 MG/100 ML BAG IVPB SCH ×2 (10:51→21:35)
[2017-10-28] MEDS: Azithromycin 250 MG in Sodium Chloride 0.9% 250 ML IVPB SCH (10:54)
--- NOTE | 2017-10-28 12:52 | CP.PCM.PN ---
Subjective - Date & Time of Evaluation Date of Evaluation: 10/28/17 Time of Evaluation: 11:30 - Subjective Subjective: Feeling better, no cough currently, no fevers, not in distress, no diarrhea. Objective - Vital Signs/Intake and Output Vital Signs (last 24 hours): Temp Pulse Resp BP Pulse Ox 98.6 F 90 20 102/67 97 10/28/17 08:22 10/28/17 08:22 10/28/17 08:22 10/28/17 08:22 10/28/17 08:22 Intake and Output: 10/28/17 10/28/17 06:59 18:59 Intake Total 900 Balance 900 - Medications Medications: Current Medications Acetaminophen (Tylenol 325mg Tab) 650 mg PO Q4 PRN PRN Reason: Pain, Mild (1-3) Albuterol/Ipratropium (Duoneb 3 Mg/0.5 Mg (3 Ml) Ud) 3 ml IH [id number] [facility] Last Admin: 10/28/17 07:36 Dose: 3 ml Amlodipine Besylate (Norvasc) 10 mg PO QPM [facility] Last Admin: 10/27/17 17:14 Dose: 10 mg Dexamethasone (Decadron Inj) 4 mg IVP Q8 [facility] Last Admin: 10/28/17 05:40 Dose: 4 mg Hydrochlorothiazide (Hydrodiuril) 50 mg PO QAM [facility] Last Admin: 10/27/17 09:09 Dose: 50 mg Ampicillin Sodium/Sulbactam (Sodium 3 gm/ Sodium Chloride) 100 mls @ 200 mls/ hr IVPB Q6 [facility] PRN Reason: Protocol Last Admin: 10/28/17 05:40 Dose: 200 mls/hr Azithromycin 250 mg/ Sodium (Chloride) 250 mls @ 167 mls/hr IVPB DAILY [facility] PRN Reason: Protocol Last Admin: 10/27/17 10:09 Dose: 167 mls/hr Levetiracetam (Keppra 500mg Ivpb) 500 mg in 100 mls @ 400 mls/hr IVPB Q12 [facility] Last Admin: 10/27/17 22:28 Dose: 400 mls/hr Ondansetron HCl (Zofran Inj) 4 mg IVP Q8H [facility] Last Admin: 10/28/17 02:16 Dose: Not Given Pantoprazole Sodium (Protonix Ec Tab) 40 mg PO 0600,1600 [facility] Last Admin: 10/28/17 05:40 Dose: 40 mg Zolpidem Tartrate (Ambien) 5 mg PO HS PRN; Protocol PRN Reason: Insomnia Last Admin: 10/27/17 21:43 Dose: 5 mg - Labs Labs: 10/27/17 11:17 10/27/17 11:17 PT 14.6 SECONDS (9.4-12.5) H 10/23/17 17:07 INR 1.27 (0.93-1.08) H 10/23/17 17:07 APTT 32.0 Seconds (25.1-36.5) 10/23/17 17:07 - Constitutional Appears: Chronically Ill - Head Exam Head Exam: NORMAL INSPECTION - ENT Exam ENT Exam: Mucous Membranes Moist - Neck Exam Neck Exam: absent: Meningismus - Respiratory Exam Respiratory Exam: Decreased Breath Sounds - Cardiovascular Exam Cardiovascular Exam: +S1, +S2 - GI/Abdominal Exam GI & Abdominal Exam: Soft. absent: Tenderness Assessment and Plan - Assessment and Plan (Free Text) Plan: Assessment Systemic Inflammatory Response Syndrome, consider due to mass-like consolidation in RML and RUL portions of the lungs, R/O community-acquired pneumonia, consider malignancy with brain mets, S/P CT-guided biopsy basal cell carcinoma on right chest area S/P removal HTN significant smoking history (1 1/2 pack per day smoker) Hepatitis C S/P treatment with Interferon for about 4 years Plan continue Unasyn and Zithromax day 6 to complete 5-7 days of therapy; blood cx are negative PCT is 0.36 - will d/c antibiotics after today CT findings together with symptomatology and history raise high suspicion for malignancy - follow up results of biopsy of the mass in the lung overall prognosis is poor
--- NOTE | 2017-10-28 15:56 | CP.PCM.PN ---
Subjective - Date & Time of Evaluation Date of Evaluation: 10/28/17 Time of Evaluation: 11:00 - Subjective Subjective: Patient: CAROLYN VIRAMONTES [facility] #:[id number] Unit: [id number] : 1950 Loc: 5RSO Room/Bed: 578-01 Age/Sex: 67 / M ADM Status: ADM IN ADM Date: DIS Date: DATE: 10/28/2017 NEUROLOGY CONSULTATION CHIEF COMPLAINT: F/U for Metastatic cancer to the brain. SUBJECTIVE: He had an MRI of the brain, which showed metastatic lesions in the right frontal lobe with extensive vasogenic edema, currently on Keppra for seizure prophylaxis and Decadron for the vasogenic edema. He denies any headache at this time. Moving all extremities. He had mild weakness of the left arm due to the vasogenic edema in the right frontal lobe, but otherwise doing much better today. C SOCIAL HISTORY: Daily smoker, one half pack per day. Occasional EtOH abuse. No illicit drug use. ALLERGIES: NO KNOWN DRUG ALLERGIES. MEDICATIONS: Reviewed by nurse's reconciliation sheet. PAST MEDICAL HISTORY: As above. REVIEW OF SYSTEMS: A 14-point review of systems is negative except as per the HPI. PHYSICAL EXAMINATION: VITAL SIGNS: Reviewed. GENERAL: The patient is sitting up in bed, in no acute distress. HEENT: Head is atraumatic, normocephalic. PERRLA. Extraocular muscles intact. NECK: Supple. No JVD, no adenopathy noted. LUNGS: Clear to auscultation. No adventitious sounds. HEART: S1 and S2. Normal rate and rhythm. No murmurs, rubs, or gallops. ABDOMEN: Soft, nontender, nondistended. Bowel sounds are present. EXTREMITIES: No clubbing, no cyanosis. Peripheral pulses 2+ felt bilaterally. NEUROLOGIC: The patient is alert and oriented to person, place, month, and year. Speech is fluent without any errors. Cranial nerves II through XII are intact. Motor exam: Moves all extremities equally except for some mild reduced left finger tap compared to the right and reduced left hand roundsman compared to the right due to vasogenic edema in the right frontal lobe. Sensory exam: Diffuse light touch and pinprick up to the calves bilaterally. Decreased vibration to the toes. DTRs are 2+ throughout. Coordination: [id number] intact. Gait is deferred for now. LABORATORY DATA: Reviewed. IMPRESSION: Mild left hand weakness, this could be secondary to metastatic lesions in the right frontal lobe with extensive surrounding vasogenic edema consistent with metastatic lung disease. RECOMMENDATIONS: At this time, recommend: 1. Switch to po Decadron 4 mg and taper slowly. 2. Keppra 500 mg po q.12, can switch to p.o. b.i.d. for seizure prophylaxis. 3. Counseled on smoking cessation. 4. Continue with Oncology followup in regards to management for underlying lung cancer with mets to the brain. 5. Continue with opioids for pain control. Thanks. Iron Tang MD Objective - Vital Signs/Intake and Output Vital Signs (last 24 hours): Temp Pulse Resp BP Pulse Ox 98.6 F 90 20 102/67 97 10/28/17 08:22 10/28/17 08:22 10/28/17 08:22 10/28/17 08:22 10/28/17 08:22 Intake and Output: 10/28/17 10/28/17 06:59 18:59 Intake Total 900 Balance 900 - Medications Medications: Current Medications Acetaminophen (Tylenol 325mg Tab) 650 mg PO Q4 PRN PRN Reason: Pain, Mild (1-3) Albuterol/Ipratropium (Duoneb 3 Mg/0.5 Mg (3 Ml) Ud) 3 ml IH [id number] [facility] Last Admin: 10/28/17 13:25 Dose: 3 ml Amlodipine Besylate (Norvasc) 10 mg PO QPM [facility] Last Admin: 10/27/17 17:14 Dose: 10 mg Dexamethasone (Decadron Inj) 4 mg IVP Q8 [facility] Last Admin: 10/28/17 13:53 Dose: 4 mg Hydrochlorothiazide (Hydrodiuril) 50 mg PO QAM [facility] Last Admin: 10/28/17 10:51 Dose: 50 mg Ampicillin Sodium/Sulbactam (Sodium 3 gm/ Sodium Chloride) 100 mls @ 200 mls/ hr IVPB Q6 [facility]ESSICA PRN Reason: Protocol Last Admin: 10/28/17 11:03 Dose: 200 mls/hr Azithromycin 250 mg/ Sodium (Chloride) 250 mls @ 167 mls/hr IVPB DAILY [facility]ESS[facility] PRN Reason: Protocol Last Admin: 10/28/17 10:54 Dose: 167 mls/hr Levetiracetam (Keppra 500mg Ivpb) 500 mg in 100 mls @ 400 mls/hr IVPB Q12 [facility] Last Admin: 10/28/17 10:51 Dose: 400 mls/hr Ondansetron HCl (Zofran Inj) 4 mg IVP Q8H [facility] Last Admin: 10/28/17 10:56 Dose: Not Given Pantoprazole Sodium (Protonix Ec Tab) 40 mg PO 0600,1600 [facility] Last Admin: 10/28/17 05:40 Dose: 40 mg Zolpidem Tartrate (Ambien) 5 mg PO HS PRN; Protocol PRN Reason: Insomnia Last Admin: 10/27/17 21:43 Dose: 5 mg - Labs Labs: 10/27/17 11:17 10/27/17 11:17 PT 14.6 SECONDS (9.4-12.5) H 10/23/17 17:07 INR 1.27 (0.93-1.08) H 10/23/17 17:07 APTT 32.0 Seconds (25.1-36.5) 10/23/17 17:07
[2017-10-28 22:29] VITALS: O2SAT 97
[2017-10-29] MEDS: Albuterol-Ipratrop 3 mg / 0.5 (3 ml) UD IH SCH ×4 (02:32→20:40)
[2017-10-29] MEDS: Pantoprazole 40 mg EC Tab PO SCH ×2 (05:38→18:28)
[2017-10-29] MEDS: levETIRAcetam 500mg IVPB 500 MG/100 ML BAG IVPB SCH ×2 (09:51→21:14)
[2017-10-29 14:26] VITALS: RESP 20
[2017-10-29] MEDS: Dexamethasone 4 mg/1 ml IVP SCH (15:05)
--- NOTE | 2017-10-29 16:40 | CP.PCM.PN ---
Subjective - Date & Time of Evaluation Date of Evaluation: 10/29/17 Time of Evaluation: 12:00 - Subjective Subjective: Comfortable, no fevers, not in distress. Objective - Vital Signs/Intake and Output Vital Signs (last 24 hours): Temp Pulse Resp BP Pulse Ox 97 F L 88 17 156/79 H 97 10/28/17 21:00 10/28/17 21:00 10/28/17 21:00 10/28/17 16:55 10/28/17 21:00 Intake and Output: 10/29/17 10/29/17 06:59 18:59 Intake Total 180 Balance 180 - Medications Medications: Current Medications Acetaminophen (Tylenol 325mg Tab) 650 mg PO Q4 PRN PRN Reason: Pain, Mild (1-3) Albuterol/Ipratropium (Duoneb 3 Mg/0.5 Mg (3 Ml) Ud) 3 ml IH [id number] [facility] Last Admin: 10/29/17 07:50 Dose: Not Given Amlodipine Besylate (Norvasc) 10 mg PO QPM [facility] Last Admin: 10/28/17 16:55 Dose: 10 mg Dexamethasone (Decadron Inj) 4 mg IVP Q8 [facility] Last Admin: 10/28/17 21:36 Dose: 4 mg Hydrochlorothiazide (Hydrodiuril) 50 mg PO QAM [facility] Last Admin: 10/28/17 10:51 Dose: 50 mg Ampicillin Sodium/Sulbactam (Sodium 3 gm/ Sodium Chloride) 100 mls @ 200 mls/ hr IVPB Q6 [facility] PRN Reason: Protocol Last Admin: 10/29/17 05:38 Dose: 200 mls/hr Azithromycin 250 mg/ Sodium (Chloride) 250 mls @ 167 mls/hr IVPB DAILY [facility] PRN Reason: Protocol Last Admin: 10/28/17 10:54 Dose: 167 mls/hr Levetiracetam (Keppra 500mg Ivpb) 500 mg in 100 mls @ 400 mls/hr IVPB Q12 [facility] Last Admin: 10/28/17 21:35 Dose: 400 mls/hr Ondansetron HCl (Zofran Inj) 4 mg IVP Q8H [facility] Last Admin: 10/29/17 00:24 Dose: 4 mg Pantoprazole Sodium (Protonix Ec Tab) 40 mg PO 0600,1600 [facility] Last Admin: 10/29/17 05:38 Dose: 40 mg Zolpidem Tartrate (Ambien) 5 mg PO HS PRN; Protocol PRN Reason: Insomnia Last Admin: 10/28/17 21:38 Dose: 5 mg - Labs Labs: 10/27/17 11:17 10/27/17 11:17 PT 14.6 SECONDS (9.4-12.5) H 10/23/17 17:07 INR 1.27 (0.93-1.08) H 10/23/17 17:07 APTT 32.0 Seconds (25.1-36.5) 10/23/17 17:07 - Constitutional Appears: Chronically Ill - Head Exam Head Exam: NORMAL INSPECTION - ENT Exam ENT Exam: Mucous Membranes Moist - Neck Exam Neck Exam: absent: Meningismus - Respiratory Exam Respiratory Exam: Decreased Breath Sounds - Cardiovascular Exam Cardiovascular Exam: +S1, +S2 - GI/Abdominal Exam GI & Abdominal Exam: Soft. absent: Tenderness Assessment and Plan - Assessment and Plan (Free Text) Plan: Assessment Systemic Inflammatory Response Syndrome, consider due to mass-like consolidation in RML and RUL portions of the lungs, R/O community-acquired pneumonia, consider malignancy with brain mets, S/P CT-guided biopsy basal cell carcinoma on right chest area S/P removal HTN significant smoking history (1 1/2 pack per day smoker) Hepatitis C S/P treatment with Interferon for about 4 years Plan continue to monitor off antibiotics since he is at risk for nosocomial infections has been started on PO bactrim since he may be on chronic steroids for the brain mets follow up results of biopsy of the mass in the lung - preliminary report states it is non-small cell lung cancer overall prognosis is poor
[2017-10-29 18:14] VITALS: BP 113/73; PULSE 89; TEMP 98
[2017-10-30] MEDS: Pantoprazole 40 mg EC Tab PO SCH (05:46)
[2017-10-30] MEDS: Albuterol-Ipratrop 3 mg / 0.5 (3 ml) UD IH SCH (08:32)
[2017-10-30] MEDS ORDERED: Tmp-Smz 800 mg-160 mg DS Tab PO SCH (10:00)
[2017-10-30] MEDS: levETIRAcetam 500mg IVPB 500 MG/100 ML BAG IVPB SCH (10:17)
== END 2017-10-30 13:24 | disposition home or self-care (01) | DRG 180 ==
LOC: ED 16:18 → ERH 10-23 01:36 → 5RSO 10-23 03:16
PROVIDERS: ADMIT Internal Medicine Medical Oncology; ATTEND Internal Medicine Medical Oncology
PROC: BW2 Imaging, Anatomical Regions, Computerized Tomography (CT Scan) (ICD-10-PCS; 2017-10-24)
PROC: 0BBC3ZX Excision of Right Upper Lung Lobe, Percutaneous Approach, Diagnostic (ICD-10-PCS; principal; 2017-10-24 11:30)
DX: C34.01 Malignant neoplasm of right main bronchus (principal); G93.6 Cerebral edema; J18.9 Pneumonia, unspecified organism; C79.31 Secondary malignant neoplasm of brain; J44.0 Chronic obstructive pulmonary disease with (acute) lower respiratory infection; J90 Pleural effusion, not elsewhere classified; F10.10 Alcohol abuse, uncomplicated; F17.210 Nicotine dependence, cigarettes, uncomplicated; G89.29 Other chronic pain; I10 Essential (primary) hypertension; J98.09 Other diseases of bronchus, not elsewhere classified; K57.90 Diverticulosis of intestine, part unspecified, without perforation or abscess without bleeding; M47.9 Spondylosis, unspecified; T38.0X5A Adverse effect of glucocorticoids and synthetic analogues, initial encounter; Z79.899 Other long term (current) drug therapy; Z85.828 Personal history of other malignant neoplasm of skin; Z68.26 Body mass index [BMI] 26.0-26.9, adult

== ENCOUNTER 2017-11-15 00:12 | Inpatient (IN) | payer MEDICARE, OTHER ==
[2017-11-15 00:33] VITALS: BMI 28.2
[2017-11-15] MEDS ORDERED: Morphine 4 mg/ml ISec IVP STA ×2 (01:45→05:39)
[2017-11-15] MEDS ORDERED: Sodium Chloride 0.9% 1,000 ML IV STA (01:46)
--- NOTE | 2017-11-15 01:57 | ED PDOC ---
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 The patient's son, at bedside, states that the patient complained stating that he could not move his legs which prompted him to bring the patient in. The patient underwent a procedure today to the chest and head, but neither recall what kind of procedure was done. The patient denies fevers, chills, headache, dizziness, chest pain, shortness of breath, dyspnea on exertion, cough , abdominal pain, nausea, vomiting, diarrhea, back pain, neck pain, urinary/ bowel changes, or any other complaint. PMD: Dr. Alaniz Time/Duration: Other (This evening) Symptom Onset: Gradual Symptom Course: Worsening Activities at Onset: Rest, Light Context: Home Past Medical History - Infectious Disease Hx of Infectious Diseases: None - Tetanus Immunization Tetanus Immunization: Up to Date - Cardiac Hx Cardiac Disorders: No Hx Pacemaker: No - Pulmonary Hx Respiratory Disorders: No - Neurological Hx Neurological Disorder: No Hx Paralysis: No - HEENT Hx HEENT Disorder: No - Renal Hx Renal Disorder: No - Endocrine/Metabolic Hx Endocrine Disorders: No - Hematological/Oncological Hx Blood Disorders: No Hx Blood Transfusions: No Hx Cancer: Yes (lung/brain) - Integumentary Hx Dermatological Disorder: No - Musculoskeletal/Rheumatological Hx Musculoskeletal Disorders: No - Gastrointestinal Hx Gastrointestinal Disorders: No - Genitourinary/Gynecological Hx Genitourinary Disorders: No - Psychiatric Hx Psychophysiologic Disorder: No Hx Emotional Abuse: No Hx Physical Abuse: No Hx Substance Use: No - Anesthesia Hx Anesthesia Reactions: No Hx Malignant Hyperthermia: No - Suicidal Assessment Feels Threatened In Home Enviroment: No Family/Social History - Physician Review Nursing Documentation Reviewed: Yes Family/Social History: No Known Family HX Smoking Status: Current Some Days Smoker Hx Alcohol Use: Yes Frequency of alcohol use: Socially Hx Substance Use: No Allergies/Home Meds Allergies/Adverse Reactions: Allergies No Known Allergies Allergy (Verified 11/15/17 00:32) Home Medications: Home Meds Medication Instructions Recorded Confirmed amLODIPine [Norvasc] 10 mg PO QPM 06/23/15 11/15/17 Oxycodone HCl [Oxycontin] 20 mg PO Q6H PRN 11/14/17 11/15/17 Pantoprazole [Protonix EC Tab] 20 mg PO BID 11/14/17 11/15/17 Sulfamethoxazole/Trimethoprim 1 tab PO SAT 11/14/17 11/15/17 [Bactrim DS Tab] levETIRAcetam [Keppra] 500 mg PO BID 11/14/17 11/15/17 Albuterol 0.083% [Albuterol 0.083% 1 puff INH QID 11/15/17 11/15/17 Inhal Day (2.5 mg/3 ml) UD] Review of Systems - Physician Review All systems were reviewed & negative as marked: Yes - Review of Systems Constitutional: absent: Fevers, Night Sweats Respiratory: absent: SOB, Cough Cardiovascular: absent: Chest Pain, BUSTILLOS Gastrointestinal: absent: Abdominal Pain, Diarrhea, Nausea, Vomiting Genitourinary Male: absent: Urinary Output Changes Musculoskeletal: Other (Bilateral lower extrmity pain and cramping. ). absent: Back Pain, Neck Pain Neurological: absent: Headache, Dizziness Physical Exam Vital Signs Reviewed: Yes Vital Signs Temp Pulse Resp BP Pulse Ox 11/15/17 06:12 76 18 106/68 98 11/15/17 04:12 81 18 121/71 98 11/15/17 02:12 88 18 120/72 97 11/15/17 00:33 99.9 F H 107 H 18 124/79 98 Temperature: Febrile Blood Pressure: Normal Pulse: Tachycardic Respiratory Rate: Normal Appearance: Positive for: Well-Appearing, Non-Toxic Pain Distress: Mild Mental Status: Positive for: Alert and Oriented X 3 - Systems Exam Head: Present: Atraumatic, Normocephalic Pupils: Present: PERRL Extroacular Muscles: Present: EOMI Conjunctiva: Present: Normal Mouth: Present: Moist Mucous Membranes Neck: Present: Normal Range of Motion Respiratory/Chest: Present: Decreased Breath Sounds Cardiovascular: Present: Regular Rate and Rhythm, Normal S1, S2. No: Murmurs Abdomen: Present: Distention (with multiple vericocities to the abdominal wall. ). No: Tenderness, Peritoneal Signs Back: Present: Normal Inspection Upper Extremity: Present: Normal Inspection. No: Cyanosis, Edema Lower Extremity: Present: Normal Inspection. No: Edema Neurological: Present: GCS=15, CN II-XII Intact, Speech Normal Skin: Present: Warm, Dry, Normal Color. No: Rashes Psychiatric: Present: Alert, Oriented x 3, Normal Insight, Normal Concentration Medical Decision Making ED Course and Treatment: 11/15/17 01:59 Impression: A 67 year old male presents to the emergency department complaining of bilateral lower extremity cramping and pain. Plan: -- EKG -- Chest X-ray -- Labs -- Blood/ Urine Culture -- Urinalysis -- Toradol, Morphine, Zofran, and IV Fluids -- Reassess and disposition Prior Visits: Notes and results from previous visits were reviewed. Patient was last seen in the emergency department on 10/22/17. The patient was seen and treated for left shoulder/blade pain. The patient was hospitalized. Progress Notes: 11/15/17 02:38: Chest X-ray read and interpreted by me shows no change from Chest X-ray done on 10/24/17. 11/15/17 05:56: Dr. Alaniz was paged several times with no response. As a result , Dr. Miller was paged. Case was discussed with Dr. Miller in detail who will accept patient to her service. - Lab Interpretations Microbiology Results: Microbiology Results 11/15/17 04:05 Blood-Venous Blood Culture - Preliminary NO GROWTH AFTER 3 DAYS 11/15/17 02:05 Blood-Venous Blood Culture - Preliminary NO GROWTH AFTER 3 DAYS 11/15/17 04:45 Urine,Clean Catch Urine Culture - Final No Growth (<1,000 CFU/ML) Lab Results: 11/15/17 02:05 11/15/17 02:05 Lab Results 11/15/17 04:45: Urine Color Dark yellow, Urine Appearance Clear, Urine pH 5.5, Ur Specific [place] 1.025, Urine Protein Negative, Urine Glucose (UA) 100 H, Urine Ketones Trace H, Urine Blood Small H, Urine Nitrate Negative, Urine Bilirubin Moderate H, Urine Urobilinogen 2.0 H, Ur Leukocyte Esterase Negative, Urine RBC 0 - 2, Urine WBC 0 - 2, Ur Epithelial Cells 1 - 3, Urine Bacteria Rare 11/15/17 04:35: Ionized Calcium 4.7 L 11/15/17 04:35: Calcium 8.0 L, Phosphorus 4.0, Magnesium 2.0 11/15/17 02:05: Sodium 136, Chloride 103, Potassium 4.1, Carbon Dioxide 28, Anion Gap 10, BUN 21, Creatinine 0.9, Est GFR ( Amer) > 60, Est GFR (Non- Af Amer) > 60, Random Glucose 169 H, Calcium 8.9, Total Bilirubin 1.5 H, Direct Bilirubin 1.1 H, AST 24, ALT 78 H, Alkaline Phosphatase 407 H D, Total Protein 6.0, Albumin 2.7 L, Globulin 3.3, Albumin/Globulin Ratio 0.8 L 11/15/17 02:05: pO2 74 H, VBG pH 7.42, VBG pCO2 41.0, VBG HCO3 26.6, VBG Total CO2 27.9, VBG O2 Sat (Calc) 97.5 H, VBG Base Excess 1.9, VBG Potassium 4.3, Sodium 135.0, Chloride 105.0, Glucose 169 H, Lactate 1.7, FiO2 21.0, Venous Blood Potassium 4.3 11/15/17 02:05: PT 15.5 H, INR 1.35 H 11/15/17 02:05: WBC 15.5 H D, RBC 4.55, Hgb 13.1 L, Hct 39.2 L, MCV 86.2, MCH 28.8, MCHC 33.4, RDW 19.1 H, Plt Count 81 L, MPV 10.4, Gran % 70.6 H, Lymph % ( Auto) 6.8 L, Hopkins % (Auto) 4.8, Eos % (Auto) 17.6 H, Baso % (Auto) 0.2, Gran # 10.97 H, Lymph # (Auto) 1.1 L, Hopkins # (Auto) 0.8 H, Eos # (Auto) 2.7 H, Baso # ( Auto) 0.03 I have reviewed the lab results: Yes - RAD Interpretation Radiology Orders: 11/15/17 01:42 CHEST PORTABLE [RAD] Stat - EKG Interpretation Interpreted by ED Physician: Yes Type: 12 lead EKG - Medication Orders Current Medication Orders: Albuterol/Ipratropium (Duoneb 3 Mg/0.5 Mg (3 Ml) Ud) 3 ml IH Q2H PRN PRN Reason: Shortness of Breath Albuterol/Ipratropium (Duoneb 3 Mg/0.5 Mg (3 Ml) Ud) 3 ml IH C2OFFDE [facility] Last Admin: 11/18/17 19:51 Dose: 3 ml Alprazolam (Xanax) 0.25 mg PO BID [facility] PRN Reason: Protocol Stop: 11/23/17 10:01 Last Admin: 11/18/17 18:22 Dose: 0.25 mg Behavioural Document 11/18/17 18:22 MANIL (Rec: 11/18/17 18:22 MANIL [facility]) Maintenance Maintenance Dose Yes Nonmedicinal Nonmedicinal Interventions Redirect Behavior Behavior for Medication: Anxiety Re-Assess: Reassess Psych Meds Document 11/18/17 19:22 MANIL (Rec: 11/18/17 19:39 MANIL [email or web address]) Reassess Psych Med Effective Alprazolam (Xanax) 0.25 mg PO [facility] PRN Reason: Protocol Stop: 11/23/17 22:01 Last Admin: 11/17/17 22:01 Dose: 0.25 mg Behavioural Document 11/17/17 22:01 WILL (Rec: 11/17/17 22:01 WILL [facility]) Maintenance Maintenance Dose Yes Nonmedicinal Nonmedicinal Interventions Redirect Behavior Behavior for Medication: Anxiety Re-Assess: Reassess Psych Meds Document 11/17/17 23:01 WILL (Rec: 11/18/17 06:56 WILL [email or web address]) Reassess Psych Med Effective Amlodipine Besylate (Norvasc) 10 mg PO QPM [facility] Last Admin: 11/18/17 18:21 Dose: 10 mg MAR Blood Pressure Document 11/18/17 18:21 MANIL (Rec: 11/18/17 18:22 MANIL [facility]) Blood Pressure Blood Pressure (100/60-150/90) 132/68 Docusate Sodium (Colace) 100 mg PO BID [facility] Last Admin: 11/18/17 18:22 Dose: 100 mg Enoxaparin Sodium (Lovenox) 40 mg SC DAILY [facility] PRN Reason: Protocol Last Admin: 11/18/17 09:35 Dose: 40 mg Subcutaneous Administrations Document 11/18/17 09:35 MANAK (Rec: 11/18/17 09:36 MANIL BMCKOSTENDORFLP) Injection Site MAR Injection Site Right Abdomen Charges for Administration # of Subcutaneous Administrations 1 Levetiracetam (Keppra) 500 mg PO BID [facility] Last Admin: 11/18/17 18:21 Dose: 500 mg Oxycodone HCl (Oxycontin Extended Release Tab) 20 mg PO Q6H PRN PRN Reason: Pain, moderate (4-7) Last Admin: 11/18/17 15:08 Dose: 20 mg MAR Pain Assessment Document 11/18/17 15:08 MANIL (Rec: 11/18/17 15:08 MANIL BMCKOSTENDORFLP) Pain Reassessment Is this a pain reassessment? No Sleep Is patient sleeping during reassessment? No Presence of Pain Presence of Pain Yes Location Left, Right or Bilateral Bilateral Upper or Lower Lower Pain Location Body Site Leg Description Intensity of Pain at present 9 Alleviating Factors/Management Medication Techniques Alleviating Factors Medication Re-Assess: MAR Pain Assessment Document 11/18/17 16:08 MANIL (Rec: 11/18/17 18:23 [facility] [email or web address]) Pain Reassessment Is this a pain reassessment? Yes Sleep Is patient sleeping during reassessment? No Presence of Pain Presence of Pain No Pantoprazole Sodium (Protonix Ec Tab) 40 mg PO BID [facility] Last Admin: 11/18/17 18:21 Dose: 40 mg Discontinued Medications Alprazolam (Xanax) 0.25 mg PO ONCE ONE PRN Reason: Protocol Stop: 11/15/17 08:58 Last Admin: 11/15/17 10:50 Dose: 0.25 mg Behavioural Document 11/15/17 10:50 JW (Rec: 11/15/17 10:50 EVA [id number]) Maintenance Maintenance Dose No Nonmedicinal Nonmedicinal Interventions See nurse's notes Behavior Behavior for Medication: Anxiety Alprazolam (Xanax) 0.25 mg PO BID PRN; Protocol PRN Reason: Anxiety Stop: 11/22/17 10:01 Sodium Chloride (Sodium Chloride 0.9%) 1,000 mls @ 999 mls/hr IV .Q1H1M STA Stop: 11/15/17 02:46 Last Admin: 11/15/17 02:26 Dose: 999 mls/hr eMAR Start Stop Document 11/15/17 02:26 JOL (Rec: 11/15/17 02:26 JOL [id number]) Intravenous Solution Start Date 11/15/17 Start Time 02:26 End Date 11/15/17 End time 03:26 Total Infusion Time 60 Ketorolac Tromethamine (Toradol) 30 mg IVP STAT STA Stop: 11/15/17 01:46 Last Admin: 11/15/17 02:26 Dose: 30 mg MAR Pain Assessment Document 11/15/17 02:26 JOL (Rec: 11/15/17 02:26 JOL [id number]) Pain Reassessment Is this a pain reassessment? No Sleep Is patient sleeping during reassessment? No Presence of Pain Presence of Pain Yes Pain Scale Used Pain Scale Used Numeric Location Left, Right or Bilateral Bilateral Upper or Lower Lower Pain Location Body Site Leg Description Intensity of Pain at present 9 Pain Behavior Moaning Restlessness Facial Grimacing IVP Administration Document 11/15/17 02:26 JOL (Rec: 11/15/17 02:26 JOL [id number]) Charges for Administration # of IVP Administrations 1 Morphine Sulfate (Morphine) 4 mg IVP STAT STA Stop: 11/15/17 01:46 Last Admin: 11/15/17 02:25 Dose: 4 mg MAR Pain Assessment Document 11/15/17 02:25 JOL (Rec: 11/15/17 02:26 JOL [id number]) Pain Reassessment Is this a pain reassessment? No Sleep Is patient sleeping during reassessment? No Presence of Pain Presence of Pain Yes Pain Scale Used Pain Scale Used Numeric Location Left, Right or Bilateral Bilateral Upper or Lower Lower Pain Location Body Site Leg Description Intensity of Pain at present 9 Pain Behavior Moaning Rubbing Site Restlessness Facial Grimacing Aggravating Factors ADL's Changing Position IVP Administration Document 11/15/17 02:25 JOL (Rec: 11/15/17 02:26 JOL [id number]) Charges for Administration # of IVP Administrations 1 Morphine Sulfate (Morphine) 4 mg IVP STAT STA Stop: 11/15/17 05:40 Last Admin: 11/15/17 05:55 Dose: 4 mg MAR Pain Assessment Document 11/15/17 05:55 JOL (Rec: 11/15/17 06:49 [id number] Pain Reassessment Is this a pain reassessment? No Sleep Is patient sleeping during reassessment? No Presence of Pain Presence of Pain Yes Pain Scale Used Pain Scale Used Numeric Location Left, Right or Bilateral Bilateral Upper or Lower Lower Pain Location Body Site Leg Description Intensity of Pain at present 7 IVP Administration Document 11/15/17 05:55 JOL (Rec: 11/15/17 06:49 [facility]-[id number][facility] Charges for Administration # of IVP Administrations 1 Ondansetron HCl (Zofran Inj) 8 mg IVP STAT STA Stop: 11/15/17 01:46 Last Admin: 11/15/17 02:26 Dose: 8 mg IVP Administration Document 11/15/17 02:26 JOL (Rec: 11/15/17 02:26 JOL [id number]) Charges for Administration # of IVP Administrations 1 Ondansetron HCl (Zofran Inj) 4 mg IVP STAT STA Stop: 11/15/17 05:40 Last Admin: 11/15/17 05:55 Dose: 4 mg IVP Administration Document 11/15/17 05:55 JOL (Rec: 11/15/17 06:49 [id number] Charges for Administration # of IVP Administrations 1 - PA / CONTROL SYSTEMS SPECIALIST / Resident Statement MD/DO has reviewed & agrees with the documentation as recorded. - Scribe Statement The provider has reviewed the documentation as recorded by the Saji Aggarwal Provider Scribe Attestation: All medical record entries made by the Saji were at my direction and personally dictated by me. I have reviewed the chart and agree that the record accurately reflects my personal performance of the history, physical exam, medical decision making, and the department course for this patient. I have also personally directed, reviewed, and agree with the discharge instructions and disposition. Disposition/Present on Arrival - Present on Arrival Any Indicators Present on Arrival: No History of DVT/PE: No History of Uncontrolled Diabetes: No Urinary Catheter: No History of Decub. Ulcer: No History Surgical Site Infection Following: None - Disposition Have Diagnosis and Disposition been Completed?: Yes Diagnosis: Leg cramps, Lung cancer, Metastatic cancer to brain, Hepatic insufficiency, Dehydration, Leg pain, bilateral Disposition: HOSPITALIZED Disposition Time: 05:54 Patient Plan: Admission Patient Problems: Current Active Problems Problem Status Onset Anemia Acute Coagulopathy Acute Dehydration Acute Hepatic insufficiency Acute Leg cramps Acute Leg pain, bilateral Acute Lung cancer Acute Metastatic cancer to brain Acute Thrombocytopenia Acute Condition: FAIR
[2017-11-15 02:27] LABS: BASO # 0.03 K/mm3 (0.0-2.0); BASO % 0.2 % (0.0-3.0); EOS # 2.7 (0.0-0.7); EOS % 17.6 % (1.5-5.0); GRAN # 10.97 (1.4-6.5); GRAN % 70.6 % (50.0-68.0); HEMOGLOBIN 13.1 g/dL (14.0-18.0); LYMPH # 1.1 (1.2-3.4); LYMPH % 6.8 % (22.0-35.0); MEAN CELL VOLUME 86.2 fl (80.0-105.0); MEAN CORPUSCULAR HEMOGLOBIN 28.8 pg (25.0-35.0); MEAN CORPUSCULAR HGB CONC 33.4 g/dl (31.0-37.0); MEAN PLATELET VOLUME 10.4 fl (7.0-11.0); MONO # 0.8 (0.1-0.6); MONO % 4.8 % (1.0-6.0); RBC 4.55 10^6/uL (3.5-6.1); RED CELL DISTRIBUTION WIDTH 19.1 % (11.5-14.5); WHITE BLOOD COUNT 15.5 10^3/ul (4.5-11.0)
[2017-11-15 02:38] LABS: ALB/GLOB RATIO 0.8 (1.1-1.8); ALBUMIN 2.7 g/dL (3.0-4.8); ALT/SGPT 78 U/L (7-56); AST/SGOT 24 U/L (17-59); BILIRUBIN,DIRECT 1.1 mg/dL (0.0-0.4); BLOOD UREA NITROGEN 21 mg/dL (7-21); CALCIUM 8.9 mg/dL (8.4-10.5); GFR AFRICAN-AMERICAN > 60; GFR NON-AFRICAN AMERICAN > 60
[2017-11-15 02:40] LABS: VENOUS BLOOD GAS BASE EXCESS 1.9 mmol/L (0.0-2.0); VENOUS BLOOD GAS PO2 74 mm/Hg (30-55); VENOUS BLOOD PH 7.42 (7.32-7.43)
[2017-11-15 02:42] LABS: INR 1.35 (0.93-1.08); PROTHROMBIN TIME 15.5 SECONDS (9.4-12.5)
[2017-11-15 05:19] LABS: PH,URINE 5.5 (4.7-8.0); URINE BILIRUBIN MODERATE (NEGATIVE); URINE BLOOD SMALL (NEGATIVE); URINE GLUCOSE (UA) 100 mg/dL (NEGATIVE); URINE LEUKOCYTE ESTERASE NEGATIVE Leu/uL (NEGATIVE); URINE PROTEIN NEGATIVE mg/dL (<30 mg/dL)
[2017-11-15 05:21] LABS: URINE APPEARANCE CLEAR (CLEAR); URINE COLOR DARK YELLOW (YELLOW)
[2017-11-15 05:32] LABS: URINE BACTERIA RARE (NEG); URINE RBC 0 - 2 /hpf (0-2); URINE WBC 0 - 2 /hpf (0-6)
[2017-11-15] MEDS ORDERED: Albuterol-Ipratrop 3 mg / 0.5 (3 ml) UD IH PRN (09:09)
--- NOTE | 2017-11-15 09:44 | RAD ---
HISTORY: WEAKNESS/gENERALIZED COMPARISON: 10/24/[address] 10/22/2017 FINDINGS: LUNGS: There is no change in the dense consolidation in the right upper lobe. PLEURA: No significant pleural effusion identified, no pneumothorax apparent. CARDIOVASCULAR: Normal. OSSEOUS STRUCTURES: No significant abnormalities. VISUALIZED UPPER ABDOMEN: Normal. OTHER FINDINGS: None. IMPRESSION: No change in the dense consolidation of the right upper lobe
[2017-11-15] MEDS ORDERED: Albuterol 0.083% Inhal Sol (2.5 mg/3 mL) UD INH SCH (10:00)
[2017-11-15] MEDS: oxyCODONE 20 mg ER Tab (oxyCONTIN) PO PRN (10:49)
[2017-11-15] MEDS: Pantoprazole 40 mg EC Tab PO SCH ×2 (10:50→18:34)
--- NOTE | 2017-11-15 12:16 | CP.PCM.PCO ---
Assessment & Plan - Assessment and Plan (Free Text) Assessment: ER was notified that I am on vacation and Dr. Abernathy will admit my patients as I am out of town. I called the ER at 11.57 am today, I was told by legal secretary receptionist that they still have this message for my coverage. Discussed with Dr. Miller about the patient.
[2017-11-15] MEDS: Albuterol-Ipratrop 3 mg / 0.5 (3 ml) UD IH SCH ×2 (13:05→20:00)
--- NOTE | 2017-11-15 18:04 | US ---
HISTORY: Leg pain and swelling. Evaluate for DVT PHYSICIAN(S): Luis Angel Ibarra MD. TECHNIQUE: Duplex sonography and color-flow Doppler with graded compression were used to evaluate the deep venous systems of both lower extremities. FINDINGS: The visualized deep venous systems of both lower extremities are sonographically normal and compressible. Normal wave forms and augmentation are seen. There is no sonographic evidence for deep venous thrombosis in the visualized segments of both lower extremities. IMPRESSION: No sonographic evidence for deep venous thrombosis in the visualized segments of both lower extremities.
--- NOTE | 2017-11-15 19:25 | CON ---
DATE: 11/15/2017 NEUROLGOCY CONSULTATION CHIEF COMPLAINT: Bilateral lower extremity weakness. HISTORY OF PRESENTING ILLNESS: This is a 67-year-old man with a past medical history of hypertension, lung cancer with metastasis to the brain, on Keppra for seizure prophylaxis, where he had metastatic lesions in the right frontal lobe, which was consistent with metastatic disease on 10/2017, who presented because while he was under radiation therapy procedure, he had complaint of pain and cramping in his lower extremities, cannot move his legs properly. Currently, he is able to lift up his legs without any difficulty, likely unable to move his legs, felt more crampy in nature, which has currently relieved. He is no longer feeling any symptoms of that sort. He is slightly tired in terms of muscle spasm in the lower back of his legs, otherwise sensation is intact. No problems with bowel or bladder. PAST MEDICAL HISTORY: Hypertension, lung mass, cancer with metastasis to the brain. FAMILY HISTORY: Noncontributory. SOCIAL HISTORY: Daily smoker, smokes 1-1/2 pack a day. Occasional EtOH abuse. No illicit drug use. ALLERGIES: NO KNOWN DRUG ALLERGIES. MEDICATIONS: Reviewed by nurse per reconciliation sheet. REVIEW OF SYSTEMS: A 14-point review of systems is negative except as in the HPI. PHYSICAL EXAMINATION: VITAL SIGNS: Temperature of 99, pulse rate of 97, blood pressure 132/65, respiratory rate of 20, oxygen saturation 99% on room air. GENERAL: The patient sitting up in bed, in no acute distress. HEENT: Head is atraumatic and normocephalic. PERRLA. Extraocular muscles intact. NECK: Supple. No JVD. No adenopathy noted. LUNGS: Clear to auscultation. No adventitious sounds. HEART: S1 and S2. Normal rate and rhythm. No murmur, rubs, or gallops. ABDOMEN: Soft, nontender, nondistended. Bowel sounds present. EXTREMITIES: No clubbing. No cyanosis. Peripheral pulses 2+ felt bilaterally. NEUROLOGIC: The patient is alert and oriented to person, place, month, and year. Speech is fluent without any errors. Cranial nerves II through XII intact. Motor exam: Moves all extremities equally except for mild reduced left finger tap compared to the right. Reduced left hand bagel maker compared to the right, likely from the underlying metastatic lesion in the right frontal lobe. Sensory exam: Light touch, pinprick reduced at the calves bilaterally. Decreased vibration of the toes. DTRs are 2+ throughout and 1 at the ankles. Coordination: [id number] intact. No dysmetria noted. Gait is deferred for now. LABORATORY DATA: Sodium is 136, potassium 4.1, chloride of 103, carbon dioxide of 28. BUN of 21, creatinine 0.9. Random glucose of 169. ASSESSMENT AND PLAN: This is a 67-year-old man with history of hypertension and lung metastasis to the brain in the right frontal lobe with Keppra 500 p.o. b.i.d. for seizure prophylaxis with undergoing radiation procedure, where both of his legs felt crampy and started complaining of pain, felt like he did not move his legs. 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 At his time, we will recommend, 1. PT/OT evaluations and rehabilitations. 2. Monitor electrolytes and correct accordingly. 3. Follow up with Hematology/Oncology's recommendations. 4. We will get MRI of the thoracic spine to asses for any difficulty since the patent was not able to move his legs given that history of cancer and continue with current present medical management. Thank you for this consult. Iron Tang MD
[2017-11-16] MEDS: Albuterol-Ipratrop 3 mg / 0.5 (3 ml) UD IH SCH ×4 (01:07→21:00)
--- NOTE | 2017-11-16 01:18 | CP.PCM.PCO ---
Physician Communication Note - Physician Communication Note Physician Communication Note: recent flu, completed course of tamiflu. weakness can be flu related.
--- NOTE | 2017-11-16 09:50 | CARD ---
APPROVED REPORT EKG Measurement Heart [id number] <Conclusion> Normal sinus rhythm Normal ECG
[2017-11-16] MEDS: oxyCODONE 20 mg ER Tab (oxyCONTIN) PO PRN ×2 (10:09→17:25)
[2017-11-16] MEDS: Pantoprazole 40 mg EC Tab PO SCH ×2 (10:09→17:26)
--- NOTE | 2017-11-16 10:35 | CT ---
PROCEDURE: CT Thoracic Spine without contrast HISTORY: lower extremity weakness. COMPARISON: Comparison is made to the previous CT of the chest dated 10/22/2017 TECHNIQUE: Axial and reformatted coronal and sagittal CT images of the thoracic spine were obtained without IV contrast administration. Radiation dose: Total exam DLP = 1032.59. mGy-cm. This CT exam was performed using one or more of the following dose reduction techniques: Automated exposure control, adjustment of the mA and/or kV according to patient size, and/or use of iterative reconstruction technique. FINDINGS: VERTEBRAE: No evidence of destructive bony lesion in the thoracic spine. No fracture. Normal alignment. DISCS/SPINAL CANAL/NEURAL FORAMINA: Within the limits of the CT technique, no disc herniation seen. No central canal or neural foraminal stenosis. Foci of calcification are noted at T8-T9 disc space. PARASPINAL SOFT TISSUES: Again seen is large consolidation at the right lung upper lobe likely due to central mass lesion occluding the right upper lobe bronchus. There is focal pleural thickening with pleural calcifications seen at the mid left chest. There is a trace right pleural effusion.. OTHER FINDINGS: Unremarkable. IMPRESSION: No evidence of destructive bony lesion acute fracture or subluxation at the thoracic spine. No CT evidence of focal spinal stenosis. If clinically warranted and if is not contraindicated further assessment by MRI may be obtained.
--- NOTE | 2017-11-16 19:37 | CP.PCM.CON ---
History of Present Illness - History of Present Illness History of Present Illness: Covering Dr. 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 He notes to increasing severe legs cramps after his PET CT scan on . His pain continued to worsen and was associated with profound weakness which prompted him to come to the ER. He notes to improvement in his symptoms since coming to the hospital but notes he still feels weak. He denies fevers and chills. Past medical history: tobacco abuse, hepatitis C s/p interferon, stage IV NSCLC Past surgical history: Knee surgery Family history: Denies hematologic and oncologic problems Social history: 1-2ppd x 40 years, denies alcohol, and illicit drug use. Allergies: NKA Review of systems: All remaining review of systems including HEENT, cardiovascular, respiratory, gastrointestinal, genitourinary, musculoskeletal, dermatologic, neurologic, and psychiatric are negative unless mentioned in the HPI. Past Patient History - Infectious Disease Hx of Infectious Diseases: None - Tetanus Immunizations Tetanus Immunization: Up to Date - Past Social History Smoking Status: Current Some Days Smoker - CARDIAC Hx Cardiac Disorders: Yes Hx Hypertension: Yes - PULMONARY Hx Respiratory Disorders: No - NEUROLOGICAL Hx Seizures: Yes - HEENT Hx HEENT Problems: No - RENAL Hx Chronic Kidney Disease: No - ENDOCRINE/METABOLIC Hx Endocrine Disorders: No - HEMATOLOGICAL/ONCOLOGICAL Hx Blood Disorders: Yes Hx Cancer: Yes Hx Chemotherapy: Yes Hx Hepatitis C: Yes Hx Metastesis: Yes - INTEGUMENTARY Hx Basil Cell: Yes - MUSCULOSKELETAL/RHEUMATOLOGICAL Hx Musculoskeletal Disorders: Yes Hx Back Pain: Yes Hx Falls: No - GASTROINTESTINAL Hx Gastrointestinal Disorders: No - GENITOURINARY/GYNECOLOGICAL Hx Genitourinary Disorders: No - PSYCHIATRIC Hx Anxiety: Yes - SURGICAL HISTORY Hx Surgeries: Yes (BASAL CELL REMOVED R LOWER BACK) - ANESTHESIA Hx Anesthesia Reactions: No Hx Malignant Hyperthermia: No Meds Allergies/Adverse Reactions: Allergies Allergy/AdvReac Type Severity Reaction Status Date / Time No Known Allergies Allergy Verified 11/15/17 00:32 - Medications Medications: Current Medications Albuterol/Ipratropium (Duoneb 3 Mg/0.5 Mg (3 Ml) Ud) 3 ml IH Q2H PRN PRN Reason: Shortness of Breath Albuterol/Ipratropium (Duoneb 3 Mg/0.5 Mg (3 Ml) Ud) 3 ml IH [id number] [facility] Last Admin: 11/16/17 13:42 Dose: 3 ml Alprazolam (Xanax) 0.25 mg PO BID [facility] PRN Reason: Protocol Stop: 11/23/17 10:01 Last Admin: 11/16/17 17:26 Dose: 0.25 mg Alprazolam (Xanax) 0.25 mg PO HS [facility] PRN Reason: Protocol Stop: 11/23/17 22:01 Amlodipine Besylate (Norvasc) 10 mg PO QPM [facility] Last Admin: 11/16/17 17:25 Dose: 10 mg Enoxaparin Sodium (Lovenox) 40 mg SC DAILY [facility] PRN Reason: Protocol Levetiracetam (Keppra) 500 mg PO BID [facility] Last Admin: 11/16/17 17:25 Dose: 500 mg Oxycodone HCl (Oxycontin Extended Release Tab) 20 mg PO Q6H PRN PRN Reason: Pain, moderate (4-7) Last Admin: 11/16/17 17:25 Dose: 20 mg Pantoprazole Sodium (Protonix Ec Tab) 40 mg PO BID [facility] Last Admin: 11/16/17 17:26 Dose: 40 mg Physical Exam - Head Exam Head Exam: ATRAUMATIC - Eye Exam Eye Exam: Normal appearance - ENT Exam ENT Exam: Mucous Membranes Dry - Respiratory Exam Respiratory Exam: NORMAL BREATHING PATTERN - Cardiovascular Exam Cardiovascular Exam: +S1, +S2 - GI/Abdominal Exam GI & Abdominal Exam: Normal Bowel Sounds - Neurological Exam Neurological exam: Oriented x3 - Psychiatric Exam Psychiatric exam: Normal Affect, Normal Mood - Skin Skin Exam: Warm Results - Vital Signs Recent Vital Signs: Last Vital Signs Temp 98.6 F 11/16/17 17:10 Pulse 97 H 11/16/17 17:10 Resp 20 11/16/17 17:10 BP 135/65 11/16/17 17:25 Pulse Ox 98 11/16/17 17:10 - Labs Result Diagrams: 11/15/17 02:05 11/15/17 02:05 Assessment & Plan (1) Thrombocytopenia Assessment and Plan: was normal last month likely post infectious related if had recent influenza infection cont. to monitor of note, PET CT scan suggested cirrhosis Status: Acute (2) Leukocytosis Assessment and Plan: improving from last month ? related to steroids which were likely given with radiation Status: Acute (3) Anemia Assessment and Plan: mild anemia of chronic disease Status: Acute (4) Coagulopathy Assessment and Plan: mild liver disease Status: Acute (5) Lung cancer Assessment and Plan: stage IV brain and lymph node metastasis s/p whole brain radiotherapy for outpatient chemotherapy with Dr. Alaniz Thank you for this interesting consult. Status: Acute
--- NOTE | 2017-11-16 22:29 | HP ---
CHIEF COMPLAINT AND HISTORY OF PRESENT ILLNESS: This is a 67-year-old male who is coming in to the hospital with complaints of lower extremity pain. He says that he was having cramping in his legs. The patient complained about swelling. He has been following with Dr. Alaniz, who is his oncologist. The patient has a history of lung cancer with mets to the brain. He is a former smoker. The patient says that he is having difficulty moving his legs, although when I evaluated the patient, the patient was standing and walking. He says he has no complaints of any fevers or chills. No dizziness. No shortness of breath. No coughs, congestion. No abdominal pain. No back pain. No dysuria or frequency. No nocturia. He does say that when he came in to the hospital, he is having pain and cramping in his lower legs and they were not moving as well as he normally could move them. REVIEW OF SYMPTOMS: All other review of symptoms are within normal limits except that was mentioned. ALLERGIES: NO KNOWN DRUG ALLERGIES. HOME MEDICATIONS: Medications reviewed by the F. PAST MEDICAL HISTORY: Lung cancer with mets to the brain and neck. He has hypertension. SOCIAL HISTORY: He smokes about a pack per day. He drinks occasionally. He denies any drug use. He lives with his son and daughter. FAMILY HISTORY: Noncontributory. PHYSICAL EXAMINATION: VITAL SIGNS: Temperature is 99.1, pulse of 104, blood pressure is 98/63, respirations 22, oxygen saturation 94%. Height is 6 feet. Weight is 208 pounds. BMI is 28. GENERAL: The patient lying in bed, uncomfortable, and in no acute distress. HEENT: Atraumatic and normocephalic. Anicteric sclerae. Moist mucosa. [place] conjunctivae. No oral lesions. NECK: No JVD, anterior and posterior adenopathy, thyromegaly, or bruits. CARDIOVASCULAR: S1 and S2 regular. No murmur, rubs, or gallop. LUNGS: Clear to auscultation bilaterally. No wheezes, rales, or rhonchi. ABDOMEN: Bowel sounds are positive. Soft, nontender and nondistended. No hepatosplenomegaly. No rebound and no guarding EXTREMITIES: No cyanosis, clubbing. 1+ edema in the lower extremity. NEUROLOGIC: No facial asymmetry. Tongue is midline. No uvula deviation. Power is 5/5 upper extremity and lower extremity. Sensation intact in upper extremity and lower extremity. PSYCHIATRIC: He is awake, alert and oriented x3. No anxiety or depression. He has normal affect. GENITOURINARY: No CVA tenderness. VASCULAR: 2+ pulses in the carotid pulses and pedal pulses. SKIN: No erythema or nodules SPINE: Shows normal curvature. LABORATORY DATA: White count of 15.5, hemoglobin 13.1, platelet count is 81. INR is 1.3. Chemistry shows a sodium of 136, potassium 4.1. He has a phosphorus of 4.0 with ionized calcium of 4.7, albumin is 2.7, corrected calcium is within normal limits. Urine shows blood is small, nitrites are negative, bilirubin is moderate. Chest x-ray done shows no change in the dense consolidation of the right upper lobe. An EKG done shows sinus rhythm with a QTc of 435, heart rate of 87, normal sinus rhythm. ASSESSMENT: 1. Left weakness. 2. Lung cancer with metastasis to the brain. 3. Hypertension. 4. Lower extremity edema. PLAN: The patient has metastatic lung cancer. There are concerns about metastasis to the spine. The patient already is on Keppra for seizure prophylaxis. He is receiving DuoNeb treatments. He is on amlodipine for hypertension. His pain is controlled with OxyContin. He was given IV fluids in the ER. He does have a lower extremity edema, but it is mild we will just follow for that. The patient will need physical therapy. The patient had a thoracic spine CAT scan done shows no evidence of destructive lesions, acute infarction or subluxation of thoracic spine. There is lower extremity Dopplers that were done, no evidence of DVT. He does have a chest x-ray that is abnormal that shows the cancer in the right upper lobe. We will place the patient on DVT prophylaxis with Lovenox and await further input from Neurology. The patient is also going to be seen by Oncology, Dr. Alaniz, who plans on giving the patient chemotherapy. Chaparro Major MD [facility] # [id number]
[2017-11-17] MEDS: Albuterol-Ipratrop 3 mg / 0.5 (3 ml) UD IH SCH ×3 (07:48→19:36)
[2017-11-17] MEDS: Enoxaparin 40 mg Syringe SC SCH (10:03)
[2017-11-17] MEDS: Pantoprazole 40 mg EC Tab PO SCH ×2 (10:03→17:56)
--- NOTE | 2017-11-17 14:38 | PN ---
DATE: SUBJECTIVE: The patient has no complaints of any chest pain. No shortness of breath, no headaches. PHYSICAL EXAMINATION VITAL SIGNS: Temperature is 98.5, pulse is 95, blood pressure 141/61, respirations 20. GENERAL: The patient is lying in bed, flat, comfortable. HEENT: No oral lesion. Anicteric sclerae. Moist mucosa. NECK: No JVD, adenopathy, or thyromegaly. CARDIOVASCULAR: S1 and S2, regular. No murmurs, rubs, or gallops. LUNGS: Clear to auscultation bilaterally. No wheeze, rales, or rhonchi. ABDOMEN: Bowel sounds are positive. Soft, nontender and nondistended. EXTREMITIES: No cyanosis, clubbing or edema. LABORATORY DATA: White count of 15.5, hemoglobin 13.1. Creatinine 0.9. ASSESSMENT 1. Gait dysfunction. 2. Lung cancer with metastasis to the brain. 3. Hypertension. 4. Lower extremity edema. PLAN: The patient is currently comfortable. He is on Protonix daily. He is on Xanax. He is going to be on Keppra for his seizures. I have started the seizures prevention. The patient is on nebulizer treatment. He is on a heart-healthy diet. He is being followed by Neurology and Oncology. He is going to need a port placed. He is most likely on chemotherapy. Chaparro Major MD
[2017-11-18] MEDS: Albuterol-Ipratrop 3 mg / 0.5 (3 ml) UD IH SCH ×4 (01:15→19:51)
--- NOTE | 2017-11-18 08:50 | HP ---
HISTORY OF PRESENT ILLNESS: Patient is a 67 years old who came to emergency room because of increasing shortness of breath. Although the patient is Dr. Bar' patient, I got a call in the middle of night for his increasing shortness of breath, also complained of bilateral leg pain, left more than the right. He also stated he was shaking a lot after he had PET scan done. He denies any fever or chills. No nausea or vomiting. No diarrhea. No shortness of breath. PAST MEDICAL HISTORY: Significant for CA of lung with mets to the brain. Recent biopsy in October showed non-small cell carcinoma consistent with adenocarcinoma of the lung. His past medical history is also significant for COPD; hypertension; hepatitis C, was treated with interferon; history of lower back pain with history of degenerative disk disease. PAST SURGICAL HISTORY: Unknown. SOCIAL HISTORY: He used to be a heavy smoker, socially drinks. He lives with his son and daughter. ALLERGIES: HE IS NOT ALLERGIC TO ANY MEDICATION. MEDICATION AT HOME: He is on Keppra 500 twice a day, amlodipine 10 mg daily, Bactrim DS, Protonix 20 b.i.d., OxyContin 20 mg q.6, and nebulizer treatment. REVIEW OF SYSTEMS: Significant for feeling anxious, bilateral leg pain, and mild shortness of breath. PHYSICAL EXAMINATION: GENERAL: He is awake, alert, oriented, communicative. VITAL SIGNS: He is afebrile, pulse 80, respirations 18, blood pressure 121/71. LUNGS: Bilateral good airflow. No rhonchi or crackle. HEART: S1 and S2, audible. No murmur. ABDOMEN: Soft, nontender. No rebound. No guarding. NEUROLOGIC: Patient is awake, alert, oriented, communicative. Bilateral legs, no edema. X-ray of chest, no change in consolidation of the right upper lung. ASSESSMENT: 1. Right upper lung mass with non-small cell carcinoma consistent with adenocarcinoma. 2. Hypertension. 3. Hyperlipidemia. 4. Metastatic lung cancer with metastasis to the brain. 5. Anxiety disorder. PLAN: We will continue patient on nebulizer treatment. We will start him on Keppra, start him on amlodipine. He has been started on his usual analgesics. I will request for physical therapy evaluation. If patient remains stable, he ambulates without any difficulty, we will make a discharge plan. Aiden Miller MD [facility] # [id number]
[2017-11-18] MEDS: Pantoprazole 40 mg EC Tab PO SCH ×2 (09:34→18:21)
[2017-11-18] MEDS: Enoxaparin 40 mg Syringe SC SCH (09:35)
--- NOTE | 2017-11-18 11:15 | CP.PCM.CON ---
<Dmitri Lovett - Last Filed: 11/18/17 11:06> History of Present Illness - History of Present Illness History of Present Illness: Gastroenterology Consult for Dr. Kaufman Consult for New Onset Ascites This is a 67M with a PMH of HTN and lung CA with brain mets s/p chemo radiation. Pt with albumin of 2.7, elevated ALT and alk phos. He was noted to have a newly developed ascites. He does report a generalized abdominal discomfort. The patient denies fevers, chills, headache, dizziness, chest pain, shortness of breath, dyspnea on exertion, cough, nausea, vomiting, diarrhea, back pain, neck pain, urinary/bowel changes, or any other complaint. PMH: See above PSH: Basal cell carcinoma excision ALL: NKDA Social: Extensive tobacco Use Review of Systems - Review of Systems All systems: reviewed and no additional remarkable complaints except - EENT Eyes: Change in Vision - Gastrointestinal Gastrointestinal: Abdominal Pain, Bloating Past Patient History - Infectious Disease Hx of Infectious Diseases: None - Tetanus Immunizations Tetanus Immunization: Up to Date - Past Social History Smoking Status: Current Some Days Smoker - CARDIAC Hx Cardiac Disorders: Yes Hx Hypertension: Yes - PULMONARY Hx Respiratory Disorders: No - NEUROLOGICAL Hx Seizures: Yes - HEENT Hx HEENT Problems: No - RENAL Hx Chronic Kidney Disease: No - ENDOCRINE/METABOLIC Hx Endocrine Disorders: No - HEMATOLOGICAL/ONCOLOGICAL Hx Blood Disorders: Yes Hx Cancer: Yes Hx Chemotherapy: Yes Hx Hepatitis C: Yes Hx Metastesis: Yes - INTEGUMENTARY Hx Basil Cell: Yes - MUSCULOSKELETAL/RHEUMATOLOGICAL Hx Musculoskeletal Disorders: Yes Hx Back Pain: Yes Hx Falls: No - GASTROINTESTINAL Hx Gastrointestinal Disorders: No - GENITOURINARY/GYNECOLOGICAL Hx Genitourinary Disorders: No - PSYCHIATRIC Hx Anxiety: Yes - SURGICAL HISTORY Hx Surgeries: Yes (BASAL CELL REMOVED R LOWER BACK) - ANESTHESIA Hx Anesthesia Reactions: No Hx Malignant Hyperthermia: No Meds Allergies/Adverse Reactions: Allergies Allergy/AdvReac Type Severity Reaction Status Date / Time No Known Allergies Allergy Verified 11/15/17 00:32 - Medications Medications: Current Medications Albuterol/Ipratropium (Duoneb 3 Mg/0.5 Mg (3 Ml) Ud) 3 ml IH Q2H PRN PRN Reason: Shortness of Breath Albuterol/Ipratropium (Duoneb 3 Mg/0.5 Mg (3 Ml) Ud) 3 ml IH [id number] [facility] Last Admin: 11/18/17 07:25 Dose: 3 ml Alprazolam (Xanax) 0.25 mg PO BID [facility] PRN Reason: Protocol Stop: 11/23/17 10:01 Last Admin: 11/18/17 09:35 Dose: 0.25 mg Alprazolam (Xanax) 0.25 mg PO HS [facility] PRN Reason: Protocol Stop: 11/23/17 22:01 Last Admin: 11/17/17 22:01 Dose: 0.25 mg Amlodipine Besylate (Norvasc) 10 mg PO QPM [facility] Last Admin: 11/17/17 17:57 Dose: Not Given Docusate Sodium (Colace) 100 mg PO BID [facility] Last Admin: 11/18/17 09:35 Dose: 100 mg Enoxaparin Sodium (Lovenox) 40 mg SC DAILY [facility] PRN Reason: Protocol Last Admin: 11/18/17 09:35 Dose: 40 mg Levetiracetam (Keppra) 500 mg PO BID [facility] Last Admin: 11/18/17 09:34 Dose: 500 mg Oxycodone HCl (Oxycontin Extended Release Tab) 20 mg PO Q6H PRN PRN Reason: Pain, moderate (4-7) Last Admin: 11/16/17 17:25 Dose: 20 mg Pantoprazole Sodium (Protonix Ec Tab) 40 mg PO BID [facility] Last Admin: 11/18/17 09:34 Dose: 40 mg Physical Exam - Constitutional Appears: Non-toxic, No Acute Distress - Head Exam Head Exam: ATRAUMATIC, NORMOCEPHALIC - Eye Exam Eye Exam: EOMI - ENT Exam ENT Exam: Mucous Membranes Moist - Respiratory Exam Respiratory Exam: NORMAL BREATHING PATTERN - Cardiovascular Exam Cardiovascular Exam: +S2 - GI/Abdominal Exam GI & Abdominal Exam: Distended, Soft. absent: Guarding, Hernia, Rebound, Rigid , Tenderness Additional comments: Fluid wave present Results - Vital Signs Recent Vital Signs: Last Vital Signs Temp 98.7 F 11/18/17 08:22 Pulse 100 H 11/18/17 08:22 Resp 20 11/18/17 08:22 BP 129/70 11/18/17 08:22 Pulse Ox 97 11/18/17 08:22 - Labs Result Diagrams: 11/15/17 02:05 11/15/17 02:05 Labs: Laboratory Results - last 24 hr 11/17/17 16:07 POC Glucose (mg/dL) 96 Assessment & Plan - Assessment and Plan (Free Text) Assessment: 67M with Lung CA with brain mets and new onset ascities Recommend paracentesis with fluid analyses D/W Dr. Mandeep Lovett PGY2 <Kailash Kaufman V - Last Filed: 11/18/17 20:57> Meds - Medications Medications: Current Medications Albuterol/Ipratropium (Duoneb 3 Mg/0.5 Mg (3 Ml) Ud) 3 ml IH Q2H PRN PRN Reason: Shortness of Breath Albuterol/Ipratropium (Duoneb 3 Mg/0.5 Mg (3 Ml) Ud) 3 ml IH [id number] [facility] Last Admin: 11/18/17 19:51 Dose: 3 ml Alprazolam (Xanax) 0.25 mg PO BID [facility] PRN Reason: Protocol Stop: 11/23/17 10:01 Last Admin: 11/18/17 18:22 Dose: 0.25 mg Alprazolam (Xanax) 0.25 mg PO HS [facility] PRN Reason: Protocol Stop: 11/23/17 22:01 Last Admin: 11/17/17 22:01 Dose: 0.25 mg Amlodipine Besylate (Norvasc) 10 mg PO QPM [facility] Last Admin: 11/18/17 18:21 Dose: 10 mg Docusate Sodium (Colace) 100 mg PO BID [facility] Last Admin: 11/18/17 18:22 Dose: 100 mg Enoxaparin Sodium (Lovenox) 40 mg SC DAILY [facility] PRN Reason: Protocol Last Admin: 11/18/17 09:35 Dose: 40 mg Levetiracetam (Keppra) 500 mg PO BID [facility] Last Admin: 11/18/17 18:21 Dose: 500 mg Oxycodone HCl (Oxycontin Extended Release Tab) 20 mg PO Q6H PRN PRN Reason: Pain, moderate (4-7) Last Admin: 11/18/17 15:08 Dose: 20 mg Pantoprazole Sodium (Protonix Ec Tab) 40 mg PO BID [facility] Last Admin: 11/18/17 18:21 Dose: 40 mg Results - Vital Signs Recent Vital Signs: Last Vital Signs Temp 97.6 F 11/18/17 16:00 Pulse 98 H 11/18/17 16:00 Resp 20 11/18/17 16:00 BP 132/68 11/18/17 18:21 Pulse Ox 98 11/18/17 16:00 - Labs Result Diagrams: 11/18/17 11:30 11/18/17 11:30 Labs: Laboratory Results - last 24 hr 11/18/17 11/18/17 11:30 11:30 WBC 11.1 H D RBC 4.04 Hgb 11.8 L Hct 34.0 L MCV 84.2 MCH 29.2 MCHC 34.7 RDW 18.6 H Plt Count 96 L MPV 10.5 Sodium 133 Potassium 3.9 Chloride 98 Carbon Dioxide 26 Anion Gap 13 BUN 18 Creatinine 0.9 Est GFR ( Amer) > 60 Est GFR (Non-Af Amer) > 60 Random Glucose 148 H Calcium 8.8 Total Bilirubin 4.2 H AST 14 L D ALT 45 Alkaline Phosphatase 389 H Total Protein 6.1 Albumin 2.6 L Globulin 3.4 Albumin/Globulin Ratio 0.8 L Attending/Attestation - Attestation I have personally seen and examined this patient.: Yes I have fully participated in the care of the patient.: Yes I have reviewed all pertinent clinical information: Yes Notes (Text): This is an addendum to GI consult report dictated by the Insurance Billing Clerk.The patient was seen and examined earlier. Medical records, lab studies, imagings were reviewed. Last 24 hours events reviewed. Agreed with the above treatment plan as outlined in Insurance Billing Clerk 's notes the with the addition of the following metastatic lung cancer to the brain status post RT New-onset ascites clinically CT scan done 3weeks ago was reviewed.periportal lymphadenopathy no ascites noticed Denies any abdominal pain We would recommend repeat CT to quantify the ascites. prior to considering paracentesis history of chronic hep C status post treatment with interferon. PCR showed a sustained neurological response 11/18/17 20:47
[2017-11-18 11:35] LABS: HEMOGLOBIN 11.8 g/dL (14.0-18.0); MEAN CELL VOLUME 84.2 fl (80.0-105.0); MEAN CORPUSCULAR HEMOGLOBIN 29.2 pg (25.0-35.0); MEAN CORPUSCULAR HGB CONC 34.7 g/dl (31.0-37.0); MEAN PLATELET VOLUME 10.5 fl (7.0-11.0); RBC 4.04 10^6/uL (3.5-6.1); RED CELL DISTRIBUTION WIDTH 18.6 % (11.5-14.5); WHITE BLOOD COUNT 11.1 10^3/ul (4.5-11.0)
[2017-11-18 11:46] LABS: ALB/GLOB RATIO 0.8 (1.1-1.8); ALBUMIN 2.6 g/dL (3.0-4.8); ALT/SGPT 45 U/L (7-56); AST/SGOT 14 U/L (17-59); BLOOD UREA NITROGEN 18 mg/dL (7-21); CALCIUM 8.8 mg/dL (8.4-10.5); GFR AFRICAN-AMERICAN > 60; GFR NON-AFRICAN AMERICAN > 60
--- NOTE | 2017-11-18 13:45 | PN ---
DATE: 11/18/2017 SUBJECTIVE: The patient has no complaints of any chest pain, no shortness of breath or headaches. He says he has difficulty in ambulating. PHYSICAL EXAMINATION: VITAL SIGNS: Temperature is 98.7, pulse of 100, blood pressure 129/70, respiration is 20. GENERAL: The patient is lying in bed, flat, comfortable. HEENT: No oral lesion. Anicteric sclerae. Moist mucosa. NECK: No JVD, adenopathy, or thyromegaly. CARDIOVASCULAR: S1 and S2, regular. No murmurs, rubs, or gallops. LUNGS: Clear to auscultation bilaterally. No wheeze, rales, or rhonchi. ABDOMEN: Bowel sounds are positive, soft, nontender and nondistended. EXTREMITIES: No cyanosis, clubbing or edema. LABS: White count of 15.5, hemoglobin 13.1, creatinine is 0.9. ASSESSMENT: Gait dysfunction, lung cancer with metastases to the brain. PLAN: The patient says he has difficulty in ambulating. He is being followed by Dr. Tang. I did review the patient's thoracic CT spine that did not show any significant abnormalities. The patient is on Keppra for seizure prophylaxis and the patient is on pain medications with OxyContin. He is going to continue on Xanax as needed. The patient is on heart healthy diet. He is waiting to see physical therapy. Chaparro Major MD
[2017-11-18] MEDS: oxyCODONE 20 mg ER Tab (oxyCONTIN) PO PRN (15:08)
--- NOTE | 2017-11-18 18:24 | PN ---
DATE: 11/18/2017 NEUROLOGY FOLLOWUP CHIEF COMPLAINT: Followup for bilateral extremity weakness. SUBJECTIVE: The patient is seen and examined at bedside. He is no longer feeling any symptoms of crampiness, he can move his legs, likely it is a muscle spasm. Thoracic CT spine showed no evidence of any acute abnormalities. He is being evaluated by GI for his new onset ascites. PAST MEDICAL HISTORY: Hypertension; lung mass, cancer, metastasis to the brain. FAMILY HISTORY: Noncontributory. SOCIAL HISTORY: Daily smoker, smokes 1-1/2 packs per day. No EtOH abuse. No illicit drug use. ALLERGIES: NO KNOWN DRUG ALLERGIES. MEDICATIONS: Reviewed by nurse per reconciliation sheet. REVIEW OF SYSTEMS: A 14-point review of systems is negative except as per the HPI. PHYSICAL EXAMINATION: VITAL SIGNS: Temperature 98.7, pulse rate of 100, blood pressure 129/70, respirator rate 20, oxygen saturation 97% via room air. GENERAL: The patient is sitting up in bed, in no acute distress. HEENT: Head is atraumatic and normocephalic. PERRLA. Extraocular muscles intact. NECK: Supple. No JVD. No adenopathy noted. LUNGS: Clear to auscultation. No adventitious sounds. HEART: S1 and S2. Normal rate and rhythm. No murmur, rubs, or gallops. ABDOMEN: Distended and soft. No rebound tenderness present. EXTREMITIES: No clubbing. No cyanosis. Peripheral pulses 2+ felt bilaterally. NEUROLOGIC: The patient is alert and oriented x3. Speech is fluent without any errors. Cranial nerves II through XII are intact. Motor exam: Moves all extremities equally. Mildly reduced left tap compared to the right. 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 Sensory exam: Light touch, pinprick reduced up to the calves bilaterally. Decreased vibration of the toes. DTRs are 2+ throughout and 1 at both ankles and knees. Cordination: [id number] intact. No dysmetria noted. Gait is deferred for now. LABORATORY DATA: Sodium , potassium 3.9, chloride 98, carbon dioxide of 26. BUN of 18, creatinine 0.9. Random glucose 148. ASSESSMENT: A 67-year-old man with history of hypertension and lung mass metastasis to the brain in the right frontal lobe, on Keppra 500 mg p.o. b.i.d. for seizure prophylaxis. He underwent chemoradiation, his both legs felt crampy and has started to complain of pain. 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 At this time, he is being evaluated for new onset of ascites by GI. At this time, recommend to continue with PT and OT for rehabilitation. CT thoracic spine was unremarkable for anything acute. Follow up with Hematology/Oncology's recommendations. Monitor electrolytes and correct accordingly. Iron Tang MD
--- NOTE | 2017-11-19 01:25 | PN ---
DATE: 11/18/2017 SUBJECTIVE: He is uncomfortable in bed. He has abdominal distention, new onset for past few days. 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 He completed the radiation to the brain. He had a PET scan, which did not show metastatic lesion apart from the brain and there was suggestion of ascites and cirrhosis of liver. He is able to walk with support. He has discomfort because of the sudden onset of ascites, which causing discomfort in walking. PAST MEDICAL HISTORY: Lung cancer, recent diagnosis; hepatitis C, treated with interferon; low back pain; degenerative disc disease; COPD. PAST SURGICAL HISTORY: Unknown. SOCIAL HISTORY: Heavy smoker. Drinks socially. Lives with son and daughter. ALLERGIES: NOT ALLERGIC TO ANY MEDICATION. HOME MEDICATIONS: Keppra, amlodipine, Protonix, OxyContin, bronchodilators. REVIEW OF SYSTEMS: As per HPI. Rest of 12-point review of systems reviewed and negative. PHYSICAL EXAMINATION GENERAL: Mild distress due to abdominal distention. Awake, alert, oriented. VITAL SIGNS: He is afebrile, temperature 98.7, respiratory rate 15 per minute, blood pressure 120/70. HEENT: Normal. Pallor positive. NECK: No lymphadenopathy. CHEST: Air entry present equal bilaterally. No added sounds. CARDIOVASCULAR: S1 and S2 normal. No murmur. No gallop. ABDOMEN: Soft, distended, tense. NEUROLOGIC: Awake, alert, oriented. No sensory or motor deficit. EXTREMITIES: Bilateral 1+ edema. LABORATORY DATA: White count 11, hemoglobin 11.8, hematocrit 34, MCV 84, platelets 96. Sodium 123, potassium 3.9, creatinine 0.9, total bilirubin 4.2, indirect bilirubin . Alkaline phosphatase 389. ASSESSMENT AND PLAN: 1. Stage IV lung cancer with metastatic lesion to the brain, status post radiation. 2. New-onset ascites. 3. History of hepatitis C, treated with interferon. 4. Chronic obstructive pulmonary disease. 5. Degenerative disc disease. PLAN: Discussed with WARREN Guerin. He was consulted. He might have cirrhosis of liver related to hepatitis C or malignant ascites, consultation with Dr. Luis Angel Ibarra requested for ascitic tap, which can be done tomorrow. He is mildly coagulopathic with INR of 1.3. I will give Vitamin K 10 mg subcu daily. We will order the hepatitis C viral load also. Dr. Kaufman's consult note reviewed. Thank you Dr. Major for allowing us to participate in Mr. Iglesias's care. Marlen Alaniz MD SE
[2017-11-19] MEDS: Albuterol-Ipratrop 3 mg / 0.5 (3 ml) UD IH SCH ×4 (02:03→19:01)
[2017-11-19 06:28] LABS: HEMOGLOBIN 11.5 g/dL (14.0-18.0); MEAN CELL VOLUME 84.5 fl (80.0-105.0); MEAN CORPUSCULAR HEMOGLOBIN 28.3 pg (25.0-35.0); MEAN CORPUSCULAR HGB CONC 33.5 g/dl (31.0-37.0); MEAN PLATELET VOLUME 10.3 fl (7.0-11.0); RBC 4.06 10^6/uL (3.5-6.1); RED CELL DISTRIBUTION WIDTH 19.3 % (11.5-14.5)
[2017-11-19] MEDS ORDERED: Barium Sulfate Susp 2.1% w/v, 2.0% w/w 450 mL Bottle PO ONE (06:36)
[2017-11-19 07:13] LABS: ALB/GLOB RATIO 0.7 (1.1-1.8); ALBUMIN 2.5 g/dL (3.0-4.8); ALT/SGPT 42 U/L (7-56); AST/SGOT 23 U/L (17-59); BLOOD UREA NITROGEN 22 mg/dL (7-21); CALCIUM 8.4 mg/dL (8.4-10.5); GFR AFRICAN-AMERICAN > 60; GFR NON-AFRICAN AMERICAN > 60
[2017-11-19] MEDS: Enoxaparin 40 mg Syringe SC SCH ×2 (10:36→17:55)
[2017-11-19] MEDS: Pantoprazole 40 mg EC Tab PO SCH ×2 (10:37→17:55)
--- NOTE | 2017-11-19 10:41 | CT ---
PROCEDURE: CT Abdomen and Pelvis without intravenous contrast HISTORY: new onset ascitis COMPARISON: None. TECHNIQUE: Without contrast. Contrast Dose: Radiation dose: Total exam DLP = Total exam DLP = 1332 mGy-cm. This CT exam was performed using one or more of the following dose reduction techniques: Automated exposure control, adjustment of the mA and/or kV according to patient size, and/or use of iterative reconstruction technique. FINDINGS: LOWER THORAX: There is a 16 mm nodule of the right lung base. There is a history of a large right upper lobe mass. LIVER: The liver has a slightly irregular contour. There is a prominent left lobe. There are no focal lesions seen on this nonenhanced study. GALLBLADDER AND BILE DUCTS: Unremarkable. PANCREAS: Unremarkable. No gross lesion or ductal dilatation. SPLEEN: Unremarkable. ADRENALS: Unremarkable. No mass. KIDNEYS AND URETERS: Unremarkable. No hydronephrosis. No solid mass. VASCULATURE: Unremarkable. No aortic aneurysm. BOWEL: Unremarkable. No obstruction. No gross mural thickening. APPENDIX: Unremarkable. Normal appendix. PERITONEUM: There is a moderate amount of ascites. There is some mesenteric or omental edema but no discrete mass. LYMPH NODES: Unremarkable. No enlarged lymph nodes. BLADDER: Unremarkable. REPRODUCTIVE: Unremarkable. BONES: No acute fracture. OTHER FINDINGS: None. IMPRESSION: Moderate ascites with mesenteric and omental edema but no discrete intraperitoneal mass.
--- NOTE | 2017-11-19 12:41 | CP.PCM.PN ---
<Delia Nash - Last Filed: 11/19/17 12:37> Subjective - Date & Time of Evaluation Date of Evaluation: 11/19/17 Time of Evaluation: 11:00 - Subjective Subjective: S&E at bedside, chart reviewed, s/p ct scan , result pending. No acute overnight events, Denies N/V or abdominal pain. No SOB or CP. For port placement today. Awaiting paracentesis evaluation. Ct scan report reviewed, ascites with mesenteric omental edema, no intraperitoneal mass. See full report in [employer]. Objective - Vital Signs/Intake and Output Vital Signs (last 24 hours): Temp Pulse Resp BP Pulse Ox 98.6 F 102 H 19 134/63 97 11/19/17 08:31 11/19/17 08:31 11/19/17 08:31 11/19/17 08:31 11/19/17 08:31 Intake and Output: 11/19/17 11/19/17 06:59 18:59 Intake Total 760 Output Total 800 Balance -40 - Medications Medications: Current Medications Albuterol/Ipratropium (Duoneb 3 Mg/0.5 Mg (3 Ml) Ud) 3 ml IH Q2H PRN PRN Reason: Shortness of Breath Albuterol/Ipratropium (Duoneb 3 Mg/0.5 Mg (3 Ml) Ud) 3 ml IH [id number] [facility] Last Admin: 11/19/17 07:41 Dose: 3 ml Alprazolam (Xanax) 0.25 mg PO BID [facility] PRN Reason: Protocol Stop: 11/23/17 10:01 Last Admin: 11/19/17 10:37 Dose: Not Given Alprazolam (Xanax) 0.25 mg PO HS [facility] PRN Reason: Protocol Stop: 11/23/17 22:01 Last Admin: 11/18/17 21:26 Dose: 0.25 mg Amlodipine Besylate (Norvasc) 10 mg PO QPM [facility] Last Admin: 11/18/17 18:21 Dose: 10 mg Docusate Sodium (Colace) 100 mg PO BID [facility] Last Admin: 11/19/17 10:36 Dose: Not Given Enoxaparin Sodium (Lovenox) 40 mg SC DAILY [facility] PRN Reason: Protocol Last Admin: 11/19/17 10:36 Dose: Not Given Levetiracetam (Keppra) 500 mg PO BID [facility] Last Admin: 11/19/17 10:36 Dose: Not Given Oxycodone HCl (Oxycontin Extended Release Tab) 20 mg PO Q6H PRN PRN Reason: Pain, moderate (4-7) Last Admin: 11/18/17 15:08 Dose: 20 mg Pantoprazole Sodium (Protonix Ec Tab) 40 mg PO BID [facility] Last Admin: 11/19/17 10:37 Dose: Not Given - Labs Labs: 11/19/17 05:30 11/19/17 05:30 PT 15.5 SECONDS (9.4-12.5) H 11/15/17 02:05 INR 1.35 (0.93-1.08) H 11/15/17 02:05 - Constitutional Appears: No Acute Distress - Head Exam Head Exam: NORMOCEPHALIC - Eye Exam Eye Exam: Normal appearance. absent: Scleral icterus - ENT Exam ENT Exam: Mucous Membranes Moist - Neck Exam Neck Exam: Normal Inspection - Respiratory Exam Respiratory Exam: NORMAL BREATHING PATTERN. absent: Respiratory Distress - Cardiovascular Exam Cardiovascular Exam: +S1, +S2 - GI/Abdominal Exam GI & Abdominal Exam: Distended, Soft, Normal Bowel Sounds. absent: Tenderness Additional comments: (+) ascites - Extremities Exam Extremities Exam: Pedal Edema. absent: Calf Tenderness - Neurological Exam Neurological Exam: Alert, Awake, Oriented x3 Assessment and Plan - Assessment and Plan (Free Text) Assessment: ASSESSMENT: Lung cancer with metastasis to the brain Gait dysfunction Ascites Seizures HTN PLAN: for port insertion today eval for paracentesis on Lovenox on Colace On Keppra heart healthy diet I&O FU hep panel and hep C RNA as per oncology Seen and discussed w/ Dr. Kaufman <Kailash Kaufman V - Last Filed: 11/19/17 22:41> Objective - Vital Signs/Intake and Output Vital Signs (last 24 hours): Temp Pulse Resp BP Pulse Ox 97.2 F L 96 H 20 90/60 L 94 L 11/19/17 16:00 11/19/17 16:00 11/19/17 16:00 11/19/17 17:56 11/19/17 16:00 Intake and Output: 11/19/17 11/20/17 18:59 06:59 Intake Total 0 600 Output Total 200 700 Balance -200 -100 - Medications Medications: Current Medications Albuterol/Ipratropium (Duoneb 3 Mg/0.5 Mg (3 Ml) Ud) 3 ml IH Q2H PRN PRN Reason: Shortness of Breath Albuterol/Ipratropium (Duoneb 3 Mg/0.5 Mg (3 Ml) Ud) 3 ml IH [id number] [facility] Last Admin: 11/19/17 19:01 Dose: 3 ml Alprazolam (Xanax) 0.25 mg PO BID [facility] PRN Reason: Protocol Stop: 11/23/17 10:01 Last Admin: 11/19/17 17:54 Dose: 0.25 mg Alprazolam (Xanax) 0.25 mg PO HS [facility] PRN Reason: Protocol Stop: 11/23/17 22:01 Last Admin: 11/19/17 21:45 Dose: 0.25 mg Amlodipine Besylate (Norvasc) 10 mg PO QPM [facility] Last Admin: 11/19/17 17:56 Dose: Not Given Docusate Sodium (Colace) 100 mg PO BID [facility] Last Admin: 11/19/17 17:55 Dose: 100 mg Enoxaparin Sodium (Lovenox) 40 mg SC DAILY [facility] PRN Reason: Protocol Last Admin: 11/19/17 17:55 Dose: 40 mg Levetiracetam (Keppra) 500 mg PO BID [facility] Last Admin: 11/19/17 17:55 Dose: 500 mg Oxycodone HCl (Oxycontin Extended Release Tab) 20 mg PO Q6H PRN PRN Reason: Pain, moderate (4-7) Last Admin: 11/19/17 19:39 Dose: 20 mg Pantoprazole Sodium (Protonix Ec Tab) 40 mg PO BID [facility] Last Admin: 11/19/17 17:55 Dose: 40 mg Phytonadione (Vitamin K Tab) 10 mg PO DAILY [facility] Stop: 11/21/17 11:00 Last Admin: 11/19/17 19:40 Dose: 10 mg - Labs Labs: 11/19/17 05:30 11/19/17 05:30 PT 15.5 SECONDS (9.4-12.5) H 11/15/17 02:05 INR 1.35 (0.93-1.08) H 11/15/17 02:05 Attending/Attestation - Attestation Notes (Text): This is an addendum to GI progress report dictated by Delia Nash APN.The patient was seen and examined earlier. Medical records, lab studies, imagings were reviewed. Last 24 hours events reviewed. Agreed with the above treatment plan as outlined in Delia Nash APN's notes the with the addition of the following on examination abdomen soft ascites present CT scan which was repeated was reviewed Scheduled for paracentesis by interventional radiologist Dr. Luis Angel Ibarra Would request abdominal Doppler and sonogram to further evaluate and also to evaluate hepatic veins to rule out Pacetti follow-up hep C PCR On examination abdomen soft. Distended no tenderness would request IER send the fluid for ascites fluid albumin and cytology Would request ultrasound of the abdomen attention portal vein and hepatic vein to rule out portal vein thrombosis is ruled out Curt hernandez 11/19/17 22:36
[2017-11-19 12:53] LABS: HEPATITIS B SURFACE AG Negative (NEGATIVE)
[2017-11-19] MEDS: oxyCODONE 20 mg ER Tab (oxyCONTIN) PO PRN ×2 (12:57→19:39)
[2017-11-19 12:59] LABS: HEPATITIS A IGM NEGATIVE (NEGATIVE); HEPATITIS B CORE AB NEGATIVE (NEGATIVE)
--- NOTE | 2017-11-19 13:34 | PN ---
DATE: SUBJECTIVE: The patient is 67 years old, seen and examined, doing well. Still has cough and congestion. PHYSICAL EXAMINATION VITAL SIGNS: Patient is afebrile, pulse 102, respiration 19, blood pressure 134/63. LUNGS: Left upper lung region rhonchi. HEART: S1 and S2 audible. ABDOMEN: Soft, obese, nontender. No rebound. No guarding. NEUROLOGIC: He is awake, alert and oriented, communicative. LABORATORY DATA: WBC is 11, hemoglobin 11.5, hematocrit 34.3, platelets of 99,000. Chemistry: Sodium 134, potassium 4.2, chloride 100, CO2 24, BUN 22, creatinine 1.1, blood sugar 172, alkaline phosphatase is 365. Blood cultures and urine cultures are negative. He had CT scan of the abdomen and pelvis done that shows moderate ascites with mesenteric and omental edema, but no discrete intraperitoneal mass. ASSESSMENT 1. Metastatic lung cancer. 2. History of hepatitis C. 3. Probably cirrhosis of liver secondary to hepatitis C. 4. Chronic obstructive pulmonary disease. 5. Degenerative disk disease. PLAN: We will continue the patient on nebulizer treatment. He is on Keppra. He is on DVT prophylaxis. He is on amlodipine and Xanax. He is scheduled to have paracentesis done today and also Port-A-Cath placement. We will follow up patient in the morning. Aiden Miller MD
[2017-11-19 14:39] LABS: HEPATITIS C ANTIBODY REACTIVE (NEGATIVE)
--- NOTE | 2017-11-19 22:14 | CP.PCM.PN ---
Subjective - Date & Time of Evaluation Date of Evaluation: 11/19/17 Time of Evaluation: 18:00 - Subjective Subjective: DATE: 11/19/2017 SUBJECTIVE: Comfortable in bed. He has abdominal distention, new onset for past few days. 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 He completed the radiation to the brain. He had a PET scan, which did not show metastatic lesion apart from the brain and there was suggestion of ascites and cirrhosis of liver. Complaining of pain in both legs. has chronic back pain. PAST MEDICAL HISTORY: Lung cancer, recent diagnosis; hepatitis C, treated with interferon; low back pain; degenerative disc disease; COPD. PAST SURGICAL HISTORY: Unknown. SOCIAL HISTORY: Heavy smoker. Drinks socially. Lives with son and daughter. ALLERGIES: NOT ALLERGIC TO ANY MEDICATION. HOME MEDICATIONS: Keppra, amlodipine, Protonix, OxyContin, bronchodilators. REVIEW OF SYSTEMS: As per HPI. Rest of 12-point review of systems reviewed and negative. PHYSICAL EXAMINATION GENERAL: Mild distress due to abdominal distention. Awake, alert, oriented. VITAL SIGNS: reviewed. HEENT: Normal. Pallor positive. NECK: No lymphadenopathy. CHEST: Air entry present equal bilaterally. No added sounds. CARDIOVASCULAR: S1 and S2 normal. No murmur. No gallop. ABDOMEN: Soft, distended, tense. NEUROLOGIC: Awake, alert, oriented. No sensory or motor deficit. EXTREMITIES: Bilateral 1+ edema. LABORATORY DATA: reviewed. ASSESSMENT AND PLAN: 1. Stage IV lung cancer with metastatic lesion to the brain, status post radiation. Port placement tomorrow along with ascitic tap. 2. New-onset ascites. tap tomorrow. Hep C RNA ordered. treated in past with interferon. 4. Chronic obstructive pulmonary disease. stable. 5. Degenerative disc disease. pain back stable. 6. Bilurubin decreased. LFTs improved. Coagulopathy, related to liver dysfunction. Vit K 10 mg PO daily for 3 days. 7. Bedside PT. Thank you Dr. Major for allowing us to participate in Mr. Iglesias's care. Marlen Alaniz MD Objective - Vital Signs/Intake and Output Vital Signs (last 24 hours): Temp Pulse Resp BP Pulse Ox 97.2 F L 96 H 20 90/60 L 94 L 11/19/17 16:00 11/19/17 16:00 11/19/17 16:00 11/19/17 17:56 11/19/17 16:00 Intake and Output: 11/19/17 11/20/17 18:59 06:59 Intake Total 0 600 Output Total 200 700 Balance -200 -100 - Medications Medications: Current Medications Albuterol/Ipratropium (Duoneb 3 Mg/0.5 Mg (3 Ml) Ud) 3 ml IH Q2H PRN PRN Reason: Shortness of Breath Albuterol/Ipratropium (Duoneb 3 Mg/0.5 Mg (3 Ml) Ud) 3 ml IH [id number] [facility] Last Admin: 11/19/17 19:01 Dose: 3 ml Alprazolam (Xanax) 0.25 mg PO BID [facility] PRN Reason: Protocol Stop: 11/23/17 10:01 Last Admin: 11/19/17 17:54 Dose: 0.25 mg Alprazolam (Xanax) 0.25 mg PO HS [facility] PRN Reason: Protocol Stop: 11/23/17 22:01 Last Admin: 11/19/17 21:45 Dose: 0.25 mg Amlodipine Besylate (Norvasc) 10 mg PO QPM [facility] Last Admin: 11/19/17 17:56 Dose: Not Given Docusate Sodium (Colace) 100 mg PO BID [facility] Last Admin: 11/19/17 17:55 Dose: 100 mg Enoxaparin Sodium (Lovenox) 40 mg SC DAILY [facility] PRN Reason: Protocol Last Admin: 11/19/17 17:55 Dose: 40 mg Levetiracetam (Keppra) 500 mg PO BID [facility] Last Admin: 11/19/17 17:55 Dose: 500 mg Oxycodone HCl (Oxycontin Extended Release Tab) 20 mg PO Q6H PRN PRN Reason: Pain, moderate (4-7) Last Admin: 11/19/17 19:39 Dose: 20 mg Pantoprazole Sodium (Protonix Ec Tab) 40 mg PO BID [facility] Last Admin: 11/19/17 17:55 Dose: 40 mg Phytonadione (Vitamin K Tab) 10 mg PO DAILY [facility] Stop: 11/21/17 11:00 Last Admin: 11/19/17 19:40 Dose: 10 mg - Labs Labs: 11/19/17 05:30 11/19/17 05:30 PT 15.5 SECONDS (9.4-12.5) H 11/15/17 02:05 INR 1.35 (0.93-1.08) H 11/15/17 02:05
[2017-11-20] MEDS: Albuterol-Ipratrop 3 mg / 0.5 (3 ml) UD IH SCH ×4 (01:48→19:07)
[2017-11-20] MEDS: oxyCODONE 20 mg ER Tab (oxyCONTIN) PO PRN (02:03)
[2017-11-20 06:41] LABS: MEAN CELL VOLUME 85.2 fl (80.0-105.0); MEAN CORPUSCULAR HEMOGLOBIN 28.1 pg (25.0-35.0); MEAN PLATELET VOLUME 9.9 fl (7.0-11.0); RBC 3.91 10^6/uL (3.5-6.1); RED CELL DISTRIBUTION WIDTH 19.2 % (11.5-14.5); WHITE BLOOD COUNT 10.7 10^3/ul (4.5-11.0)
[2017-11-20 06:53] LABS: ALB/GLOB RATIO 0.7 (1.1-1.8); ALBUMIN 2.4 g/dL (3.0-4.8); ALT/SGPT 44 U/L (7-56); AST/SGOT 18 U/L (17-59); BLOOD UREA NITROGEN 22 mg/dL (7-21); CALCIUM 8.3 mg/dL (8.4-10.5); GFR AFRICAN-AMERICAN > 60; GFR NON-AFRICAN AMERICAN > 60
[2017-11-20] MEDS: Pantoprazole 40 mg EC Tab PO SCH ×2 (09:00→17:09)
[2017-11-20] MEDS: Enoxaparin 40 mg Syringe SC SCH (09:01)
[2017-11-20] MEDS ORDERED: Lidocaine 2% Inj (20ml) ONE (09:25)
[2017-11-20] MEDS ORDERED: Midazolam 2 MG/2 ML VIAL ONE ×2 (09:26→09:50)
[2017-11-20 09:34] LABS: INR 1.45 (0.93-1.08); PROTHROMBIN TIME 16.8 SECONDS (9.4-12.5)
[2017-11-20] MEDS ORDERED: Sodium Chloride 0.45% 1,000 ML IV SCH (11:30)
[2017-11-20 11:39] LABS: BODY FLUID TYPE PERITONEAL/ASCITES
[2017-11-20 11:58] LABS: BF GROSS APPEARANCE CLEAR (CLEAR)
[2017-11-20 11:59] LABS: BODY FLUID TOTAL COUNT 100 (0-0)
--- NOTE | 2017-11-20 15:10 | VASCULAR ---
PROCEDURE: Ultrasound and fluoroscopic right internal jugular venous access port. CLINICAL HISTORY: Lung carcinoma.Venous port for chemotherapy. PHYSICIAN(S): Luis Angel Ibarra M.D. TECHNIQUE: The relative risks and indications of the procedure were explained to the patient and consent obtained. The patient was placed supine on the arteriogram table and the right neck and chest prepped and draped in the usual sterile fashion. Conscious sedation monitoring was provided throughout the procedure by a nurse. Antibiotics were given prior to the procedure. Under direct ultrasound guidance, the right internal jugular vein was punctured with a micro-puncture set. A 0.035 angled Glidewire was advanced into the IVC. A 4 cm incision was made below the right clavicle and the pocket blunted dissected. A 8 Greek single-lumen catheter, 21 cm long, was advanced to the SVC/RA junction. The catheter was trimmed and attached to the port. The port aspirates and injects easily. The port was placed in the pocket and closed in 2 layers. The patient tolerated the procedure well. IMPRESSION: Ultrasound and fluoroscopically placed right internal jugular venous access port.
--- NOTE | 2017-11-20 15:11 | VASCULAR ---
PROCEDURE: Ultrasound guided paracentesis. HISTORY: Lung carcinoma. New onset ascites with abdominal pain and distention. Evaluate for malignancy. PHYSICIAN(S): Lusi Angel Ibarra MD. TECHNIQUE: The relative risks and indications for the procedure were explained to the patient and informed written consent obtained. Sonography of the abdomen was performed in a supine position. This revealed a small to moderate amount of non-loculated ascites, greatest in the right lower quadrant. A puncture site was selected and the area was prepped and draped in the usual sterile fashion. 1% Xylocaine was used to anesthetize the skin and soft tissues. A 7 Croatian paracentesis catheter was trocared into the right lower quadrantand 1700 cc of clear, straw-colored fluid aspirated. The appropriate labs were sent. IMPRESSION: Ultrasound-guided paracentesis in the right lower quadrant. 1700 cc of fluid were aspirated. Labs were sent
[2017-11-20] MEDS ORDERED: cefTRIAXone 1 gm 1 GM/100 ML BAG IVPB SCH (16:00)
--- NOTE | 2017-11-20 16:00 | PN ---
DATE: SUBJECTIVE: The patient is a 67-year-old, seen and examined. No significant complaint of nausea or vomiting. Does have a scanty cough with phlegm. PHYSICAL EXAMINATION: VITAL SIGNS: He is afebrile, pulse 89, respirations 20, blood pressure 121/62. LUNGS: Bilateral fair airflow. No rhonchi or crackle. HEART: S1 and S2 audible. ABDOMEN: Soft, but distended. No rebound or guarding. NEUROLOGIC: He is awake and alert, able to communicative. EXTREMITIES: Bilateral legs, +1 edema. LABORATORY DATA: WBC is 10.7, hemoglobin 11, hematocrit 33, platelets 103. PT 16.8, INR 1.45. Chemistry: Sodium 132, potassium 4.2, chloride 99, CO2 of 27, BUN 22, creatinine 1.1, blood sugar of 107. Total bilirubin 3.5. Hepatitis profile is negative. CT scan of the abdomen and pelvis shows moderate ascites with mesenteric and omental edema, but no intraperitoneal mass. ASSESSMENT: 1. Cancer of lung with metastasis to the brain. 2. History of hepatitis C, probably leading to cirrhosis of liver and he might have cirrhotic ascites since his PT/INR is also high. 3. Chronic low back pain. 4. History of chronic obstructive pulmonary disease. PLAN: The patient is going for diagnostic paracentesis. Continue on the nebulizer treatment. He is on Keppra and Lovenox, and he is on amlodipine and analgesic. He is resuming pantoprazole for gastritis. The patient is going for diagnostic tap. We will follow up those results. Encourage ambulation. Request for TCU evaluation. If accepted, can be transferred to TCU. Aiden Miller MD
--- NOTE | 2017-11-20 16:52 | RAD ---
HISTORY: check Right chest wall PORT COMPARISON: 11/15/2017 FINDINGS: LUNGS: Stable findings with respect to consolidative process limited to the right upper lobe. PLEURA: No significant pleural effusion identified, no pneumothorax apparent. CARDIOVASCULAR: No radiographic findings to suggest acute or significant cardiovascular disease. Venous access catheter in satisfactory position. OSSEOUS STRUCTURES: No significant abnormalities. VISUALIZED UPPER ABDOMEN: Normal. OTHER FINDINGS: None. IMPRESSION: No pneumothorax or other adverse findings following venous access catheter placement. Stable findings right upper lobe.
[2017-11-20] MEDS ORDERED: Meropenem 1 GM in Dextrose 5% In Water 100 ML IVPB SCH (18:15)
[2017-11-20] MEDS: Vancomycin 1gm in NS 250ml 1 GM/250 ML BAG IVPB SCH (18:24)
[2017-11-20] MEDS: Meropenem IV 1 gm in NS 50 ML IVPB SCH (21:24)
--- NOTE | 2017-11-21 00:36 | CP.PCM.PN ---
Subjective - Date & Time of Evaluation Date of Evaluation: 11/21/17 Time of Evaluation: 00:36 - Subjective Subjective: Pulse ox 88 % on 3L/min by N/C. Objective - Vital Signs/Intake and Output Vital Signs (last 24 hours): Temp Pulse Resp BP Pulse Ox 98.1 F 103 H 20 145/61 94 L 11/20/17 23:58 11/20/17 23:58 11/20/17 23:58 11/20/17 23:58 11/20/17 23:58 Intake and Output: 11/20/17 11/21/17 18:59 06:59 Intake Total 120 360 Output Total 250 Balance -130 360 - Medications Medications: Current Medications Acetaminophen (Tylenol 325mg Tab) 650 mg PO Q4 PRN PRN Reason: Pain, Mild (1-3) Last Admin: 11/20/17 16:48 Dose: 650 mg Albuterol/Ipratropium (Duoneb 3 Mg/0.5 Mg (3 Ml) Ud) 3 ml IH Q2H PRN PRN Reason: Shortness of Breath Albuterol/Ipratropium (Duoneb 3 Mg/0.5 Mg (3 Ml) Ud) 3 ml IH [id number] [facility] Last Admin: 11/20/17 19:07 Dose: 3 ml Alprazolam (Xanax) 0.25 mg PO BID [facility] PRN Reason: Protocol Stop: 11/23/17 10:01 Last Admin: 11/20/17 17:09 Dose: 0.25 mg Alprazolam (Xanax) 0.25 mg PO HS [facility] PRN Reason: Protocol Stop: 11/23/17 22:01 Last Admin: 11/19/17 21:45 Dose: 0.25 mg Amlodipine Besylate (Norvasc) 10 mg PO QPM [facility] Last Admin: 11/20/17 17:09 Dose: 10 mg Docusate Sodium (Colace) 100 mg PO BID [facility] Last Admin: 11/20/17 17:10 Dose: 100 mg Enoxaparin Sodium (Lovenox) 40 mg SC DAILY [facility] PRN Reason: Protocol Last Admin: 11/20/17 09:01 Dose: Not Given Vancomycin HCl (Vancomycin 1gm) 1 gm in 250 mls @ 167 mls/hr IVPB Q12H [facility] PRN Reason: Protocol Last Admin: 11/20/17 18:24 Dose: 167 mls/hr Meropenem (Merrem Iv 1 Gm Premix) 50 mls @ 200 mls/hr IVPB Q8 [facility] Stop: 11/27/17 22:01 Last Admin: 11/20/17 21:24 Dose: 200 mls/hr Levetiracetam (Keppra) 500 mg PO BID [facility] Last Admin: 11/20/17 17:10 Dose: 500 mg Oxycodone HCl (Oxycontin Extended Release Tab) 20 mg PO Q6H PRN PRN Reason: Pain, moderate (4-7) Last Admin: 11/20/17 02:03 Dose: 20 mg Pantoprazole Sodium (Protonix Ec Tab) 40 mg PO BID [facility] Last Admin: 11/20/17 17:09 Dose: 40 mg Phytonadione (Vitamin K Tab) 10 mg PO DAILY [facility] Stop: 11/21/17 11:00 Last Admin: 11/20/17 10:55 Dose: Not Given - Labs Labs: 11/20/17 06:10 11/20/17 06:10 PT 16.8 SECONDS (9.4-12.5) H 11/20/17 09:00 INR 1.45 (0.93-1.08) H 11/20/17 09:00
[2017-11-21] MEDS ORDERED: Albuterol-Ipratrop 3 mg / 0.5 (3 ml) UD IH STA (00:37)
[2017-11-21] MEDS: Albuterol-Ipratrop 3 mg / 0.5 (3 ml) UD IH SCH ×4 (01:14→19:20)
[2017-11-21] MEDS: Meropenem IV 1 gm in NS 50 ML IVPB SCH ×3 (05:09→22:39)
[2017-11-21] MEDS: Vancomycin 1gm in NS 250ml 1 GM/250 ML BAG IVPB SCH ×2 (05:38→17:33)
--- NOTE | 2017-11-21 08:22 | PN ---
DATE: 11/20/2017 SUBJECTIVE: This patient was seen and evaluated earlier. Patient is scheduled to have a paracentesis. Complaint of cough present. PHYSICAL EXAMINATION: VITAL SIGNS: T-max is 101, pulse 104, blood pressure 133/59, O2 saturation 95% HEENT: Atraumatic, anicteric. NECK: Supple. HEART: S1 and S2 heard. LUNGS: Bilateral air entry present. ABDOMEN: Soft. There is no tenderness, distended. EXTREMITIES: No edema, no cyanosis. LABORATORY DATA: Hemoglobin 11, hematocrit 33.3, WBC 10.7, platelets 103. BUN 3.5. AST 18, ALT 44, alkaline phosphatase 316. IMPRESSION AND PLAN: This is a 67-year-old patient with metastatic lung cancer, brain metastases, status post radiation. Patient has now new-onset ascites. Planned for paracentesis by Dr. Luis Angel Ibarra, interventional radiology. Requested for albumin and ascitic fluid cytology to be sent. Patient has cirrhosis of the liver. He has chronic hepatitis C, probable decompensation. Would recommend . Patient has elevated direct bilirubin. Recommened to followup of the cultures. Continue the antibiotics. Patient presently is on Merrem and vancomycin; continue that. Requested ascitic fluid albumin studies Rule out spontaneous bacterial peritonitis also, follow up the cultures. Thank you very much for allowing us to participate in the care of the patient. Kailash Kaufman MD [facility]
[2017-11-21] MEDS: Enoxaparin 40 mg Syringe SC SCH (10:16)
[2017-11-21] MEDS: Pantoprazole 40 mg EC Tab PO SCH ×2 (10:17→17:18)
[2017-11-21] MEDS ORDERED: MethylPREDNISolone 40 mg Vial IM STA (11:14)
[2017-11-21] MEDS: oxyCODONE 20 mg ER Tab (oxyCONTIN) PO PRN (14:11)
--- NOTE | 2017-11-21 14:18 | MRI ---
PROCEDURE: MRI BRAIN WITHOUT CONTRAST HISTORY: Left upper extremity and bilateral lower extremity weakness COMPARISON: MRI brain without and with intravenous contrast from 10/24/2017. TECHNIQUE: Multiplanar, multisequence MR images of the brain were obtained without intravenous contrast enhancement. FINDINGS: HEMORRHAGE: None DWI: No evidence of an acute or early subacute infarction. BRAIN PARENCHYMA: There is redemonstration of a 12 mm heterogeneous lesion with increased magnetic susceptibility and moderate surrounding vasogenic edema in the right posterior frontal lobe not significantly changed in size and appearance since the prior examination. Again seen is a 8 mm heterogeneous lesion with increased magnetic susceptibility and moderate surrounding vasogenic edema in the right anterior frontal lobe. There is no mass effect midline shift or herniation. There is no territorial infarction. There is no extra-axial fluid collection. The midline sagittal structures are normal. VENTRICLES: There is mild age-related global parenchymal volume loss and proportionate enlargement of the ventricles and cortical sulci. CRANIUM: There is normal bone marrow signal pattern. ORBITS: Grossly unremarkable. PARANASAL SINUSES/MASTOIDS: There is mild mucosal thickening in the paranasal sinuses with retention cysts/ polyps in the ethmoid air cells. There are bilateral mastoid effusions. VASCULAR SYSTEM: Skull base flow voids intact. OTHER FINDINGS: None. IMPRESSION: Redemonstration of known presumable hemorrhagic metastatic lesions in the right anterior and posterior frontal lobes with moderate surrounding vasogenic edema without evidence of midline shift, herniation or hydrocephalus. Evaluation is limited in the absence of intravenous contrast, allowing for this, no significant interval change.
--- NOTE | 2017-11-21 16:55 | CP.PCM.CON ---
History of Present Illness - History of Present Illness History of Present Illness: 67 year old male with PMH of basal cell carcinoma on right chest area S/P removal, HTN, significant smoking history (1 1/2 pack per day smoker), Hepatitis C S/P treatment with Interferon for about 4 years, lung cancer with brain metastases [place] [facility] newly developed ascites and abdominal discomfort. He has been started on chemotherapy and radiation. He feels weak and tired, has some nausea, developed fevers yesterday and paracentesis was done. He denies loose stools, no cough or colds, no chest pain , no sore throat, no dysuria. Infectious Diseases consult is requested to further evaluate and manage. Review of Systems - Review of Systems All systems: reviewed and no additional remarkable complaints except (as per HPI ) Past Patient History - Infectious Disease Hx of Infectious Diseases: None - Tetanus Immunizations Tetanus Immunization: Up to Date - Past Social History Smoking Status: Current Some Days Smoker - CARDIAC Hx Cardiac Disorders: No - PULMONARY Hx Respiratory Disorders: No - NEUROLOGICAL Hx Neurological Disorder: No Hx Paralysis: No - HEENT Hx HEENT Problems: No - RENAL Hx Chronic Kidney Disease: No - ENDOCRINE/METABOLIC Hx Endocrine Disorders: No - HEMATOLOGICAL/ONCOLOGICAL Hx Blood Disorders: No Hx Blood Transfusions: No Hx Cancer: Yes (lung/brain) - INTEGUMENTARY Hx Dermatological Problems: No - MUSCULOSKELETAL/RHEUMATOLOGICAL Hx Musculoskeletal Disorders: No - GASTROINTESTINAL Hx Gastrointestinal Disorders: No - GENITOURINARY/GYNECOLOGICAL Hx Genitourinary Disorders: No - PSYCHIATRIC Hx Psychophysiologic Disorder: No Hx Emotional Abuse: No Hx Physical Abuse: No Hx Substance Use: No - SURGICAL HISTORY Hx Surgeries: Yes (BASAL CELL REMOVED R LOWER BACK) - ANESTHESIA Hx Anesthesia Reactions: No Hx Malignant Hyperthermia: No Meds Allergies/Adverse Reactions: Allergies Allergy/AdvReac Type Severity Reaction Status Date / Time No Known Allergies Allergy Verified 11/15/17 00:32 - Medications Medications: Current Medications Acetaminophen (Tylenol 325mg Tab) 650 mg PO Q4 PRN PRN Reason: Pain, Mild (1-3) Last Admin: 11/20/17 16:48 Dose: 650 mg Albuterol/Ipratropium (Duoneb 3 Mg/0.5 Mg (3 Ml) Ud) 3 ml IH Q2H PRN PRN Reason: Shortness of Breath Albuterol/Ipratropium (Duoneb 3 Mg/0.5 Mg (3 Ml) Ud) 3 ml IH [id number] [facility] Last Admin: 11/20/17 13:06 Dose: 3 ml Alprazolam (Xanax) 0.25 mg PO BID [facility] PRN Reason: Protocol Stop: 11/23/17 10:01 Last Admin: 11/20/17 17:09 Dose: 0.25 mg Alprazolam (Xanax) 0.25 mg PO HS [facility] PRN Reason: Protocol Stop: 11/23/17 22:01 Last Admin: 11/19/17 21:45 Dose: 0.25 mg Amlodipine Besylate (Norvasc) 10 mg PO QPM [facility] Last Admin: 11/20/17 17:09 Dose: 10 mg Docusate Sodium (Colace) 100 mg PO BID [facility] Last Admin: 11/20/17 17:10 Dose: 100 mg Enoxaparin Sodium (Lovenox) 40 mg SC DAILY [facility] PRN Reason: Protocol Last Admin: 11/20/17 09:01 Dose: Not Given Meropenem 1 gm/ Dextrose 100 mls @ 100 mls/hr IVPB Q8 [facility] PRN Reason: Protocol Stop: 11/27/17 18:16 Vancomycin HCl (Vancomycin 1gm) 1 gm in 250 mls @ 167 mls/hr IVPB Q12H [facility] PRN Reason: Protocol Levetiracetam (Keppra) 500 mg PO BID [facility] Last Admin: 11/20/17 17:10 Dose: 500 mg Oxycodone HCl (Oxycontin Extended Release Tab) 20 mg PO Q6H PRN PRN Reason: Pain, moderate (4-7) Last Admin: 11/20/17 02:03 Dose: 20 mg Pantoprazole Sodium (Protonix Ec Tab) 40 mg PO BID [facility] Last Admin: 11/20/17 17:09 Dose: 40 mg Phytonadione (Vitamin K Tab) 10 mg PO DAILY [facility] Stop: 11/21/17 11:00 Last Admin: 11/20/17 10:55 Dose: Not Given Physical Exam - Constitutional Appears: Chronically Ill - Head Exam Head Exam: NORMAL INSPECTION - ENT Exam ENT Exam: Mucous Membranes Moist - Neck Exam Neck exam: Negative for: Lymphadenopathy, Meningismus - Respiratory Exam Respiratory Exam: Decreased Breath Sounds - Cardiovascular Exam Cardiovascular Exam: +S1, +S2 - GI/Abdominal Exam GI & Abdominal Exam: Distended, Soft. absent: Guarding, Rebound, Rigid, Tenderness Results - Vital Signs Recent Vital Signs: Last Vital Signs Temp 101.1 F H 11/20/17 16:48 Pulse 104 H 11/20/17 16:00 Resp 18 11/20/17 16:00 BP 133/59 L 11/20/17 17:09 Pulse Ox 94 L 11/20/17 16:00 - Labs Result Diagrams: 11/20/17 06:10 11/20/17 06:10 Labs: Laboratory Results - last 24 hr 11/20/17 11/20/17 11/20/17 06:10 06:10 09:00 WBC 10.7 RBC 3.91 Hgb 11.0 L Hct 33.3 L MCV 85.2 MCH 28.1 MCHC 33.0 RDW 19.2 H Plt Count 103 L MPV 9.9 PT 16.8 H INR 1.45 H Sodium 132 Potassium 4.2 Chloride 99 Carbon Dioxide 27 Anion Gap 11 BUN 22 H Creatinine 1.1 Est GFR ( Amer) > 60 Est GFR (Non-Af Amer) > 60 Random Glucose 107 Calcium 8.3 L Total Bilirubin 3.5 H AST 18 ALT 44 Alkaline Phosphatase 316 H Total Protein 5.7 L Albumin 2.4 L Globulin 3.3 Albumin/Globulin Ratio 0.7 L Fluid Source Fluid Appearance Fluid WBC Fluid RBC Fluid Tot Cell Count Fluid Neutrophils Fluid Lymphocytes Fld Monocyte/Macrophag Fluid Comment 11/20/17 11:35 WBC RBC Hgb Hct MCV MCH MCHC RDW Plt Count MPV PT INR Sodium Potassium Chloride Carbon Dioxide Anion Gap BUN Creatinine Est GFR ( Amer) Est GFR (Non-Af Amer) Random Glucose Calcium Total Bilirubin AST ALT Alkaline Phosphatase Total Protein Albumin Globulin Albumin/Globulin Ratio Fluid Source Peritoneal/ascites Fluid Appearance Clear Fluid WBC 673.0 H Fluid RBC 174.0 H Fluid Tot Cell Count 100 H Fluid Neutrophils 47.3 H Fluid Lymphocytes 52.7 H Fld Monocyte/Macrophag TEST NOT PERFORMED Fluid Comment Yellow color Assessment & Plan - Assessment and Plan (Free Text) Plan: Assessment Consider sepsis due to spontaneous bacterial peritonitis lung cancer with brain metastases on chemotherapy and radiation therapy basal cell carcinoma on right chest area S/P removal HTN significant smoking history (1 1/2 pack per day smoker) Hepatitis C S/P treatment with Interferon for about 4 years Plan started vancomycin and Merrem pending blood cx, ascitic fluid cx; ascitic fluid analysis showing more than 500 WBC's indication SBP overall prognosis is poor
[2017-11-21] MEDS ORDERED: Dexamethasone 4 mg/1 ml IVP SCH (18:00)
--- NOTE | 2017-11-21 20:48 | PN ---
DATE: SUBJECTIVE: The patient is 67 years old, seen and examined along with physical therapist. The patient has generalized weakness, mostly on the left upper and lower extremities according to the therapist. He was unable to even get up today because of increasing weakness. The patient admit eating fair. No nausea, vomiting or diarrhea. PHYSICAL EXAMINATION: VITAL SIGNS: He is afebrile, pulse 89, respirations 20, blood pressure 132/59. LUNGS: Bilateral good airflow. No rhonchi or crackle. HEART: S1 and S2 audible. ABDOMEN: Soft, distended. Had fluid thrill. NEUROLOGIC: He is awake and alert, able to answer simple questions, however, he has left-sided weakness. LABORATORY DATA: Paracentesis fluid contains WBC 673, RBCs 174, total cell count is 100, neutrophils 47 and hepatitis profile is negative. CT scan of the brain was ordered, shows re-demonstration of hemorrhagic metastatic lesion in the right anterior and posterior frontal lobes with moderate surrounding vasogenic edema without evidence of midline shift or herniation. ASSESSMENT: 1. Cancer of lung with brain metastasis. 2. Right frontal lobe metastasis, vasogenic edema. 3. Ascites, rule out underlying malignant ascites. 4. History of hepatitis C. 5. Chronic low back pain. 6. History of chronic obstructive pulmonary disease. 7. Leukocytosis, improving. 8. Coagulopathy. PLAN: We will discuss with Dr. Alaniz. Might start him on Decadron. He is already on Keppra. He is on DVT prophylaxis. He is getting meropenem and amlodipine. He is on analgesics as needed. Reduce his Protonix to daily and continue him on vanco. We will discuss with other consultants. Monitor him closely regarding his mental status. Aiden Miller MD
[2017-11-21] MEDS: MethylPREDNISolone 40 mg Vial IVP SCH (22:40)
--- NOTE | 2017-11-21 23:03 | PN ---
DATE: 11/21/2017 SUBJECTIVE: He is complaining of shortness of breath. He is complaining of left arm weakness. Weakness was resolved after radiation to the brain. It has reappeared now for the past 1 day. He has abdominal distension, underwent ascitic tap yesterday 1.7 L. Poor oral intake. Nausea. No vomiting. He is unable to walk. There is weakness of the legs, bilateral. Doppler did not show any DVT. Blood culture, urine culture negative. He spiked 101 fever yesterday. Started on IV ceftriaxone. REVIEW OF SYSTEMS: As per HPI. Rest of 12-point review of systems reviewed negative. MEDICATIONS: Keppra 500 b.i.d., DuoNebs, Tylenol, Xanax 0.25 mg b.i.d., Norvasc 10 mg daily, Colace 100 mg b.i.d., Lovenox 40 subcutaneous daily, meropenem, Zofran 4 mg, Protonix 40 mg daily, Percocet p.r.n., vancomycin 1 g q. 12 hours. PHYSICAL EXAMINATION: GENERAL: Mild distress, respiratory distress. VITAL SIGNS: Temperature in the past 24 hours 101, heart rate is 89 per minute, blood pressure 130/59, oxygen saturation 95% on 2 L oxygen, respiratory rate 20 per minute. HEENT: No lymphadenopathy. Pallor positive. CHEST: Air entry present and equal bilateral. Bilateral rhonchi, occasional. CARDIOVASCULAR: Tachycardia plus. S1, S2 normal. ABDOMEN: Distended, nontender. Bowel sounds decreased. EXTREMITIES: Legs, bilateral 1+ edema. ANALYTICAL ENGINEER: Left upper arm weakness. Bilateral lower extremity weakness. ASSESSMENT AND PLAN: 1. Squamous cell lung cancer stage IV. Metastatic lesion in the brain, status post radiation. Left upper arm weakness resolved, it is reappeared now. I will start him on Solu-Medrol 30 q. 12. MRI of the brain stat to assess further progression of metastatic lesion. 2. Solu-Medrol 30 mg IV q. 12 hours. 3. Sepsis. Meropenem and vancomycin as per Infectious Disease. Might have subacute bacterial peritonitis. Fluid cytology indicative of that. Dr. Kaufman from Gastroenterology following. 4. Left arm weakness. We will continue Keppra and IV steroid. We will discuss with the daughter the general condition. Marlen Alaniz MD [facility] # [id number]
[2017-11-22] MEDS: Albuterol-Ipratrop 3 mg / 0.5 (3 ml) UD IH SCH ×4 (01:15→20:28)
[2017-11-22] MEDS: Meropenem IV 1 gm in NS 50 ML IVPB SCH ×3 (06:34→22:26)
[2017-11-22] MEDS: Vancomycin 1gm in NS 250ml 1 GM/250 ML BAG IVPB SCH ×2 (06:34→18:18)
--- NOTE | 2017-11-22 07:07 | PN ---
DATE:11/21/2017 SUBJECTIVE: This patient was see and evaluated earlier. PHYSICAL EXAMINATION: GENERAL: Not in any acute distress. VITAL SIGNS: Temperature is 98.5, blood pressure 132/59, respirations 20, O2 saturation 95%. HEENT: Jaundiced. NECK: Supple. HEART: S1 and S2 heard. LUNGS: Bilateral air entry present. ABDOMEN: Distended. EXTREMITIES: Mild edema present. No cyanosis. LABORATORY DATA: Hemoglobin 11, hematocrit 33, WBC 10.7, platelets 103. Chemistry shows total bilirubin 3.5, alkaline phosphatase 316. IMPRESSION: 1. This is a 67-year-old patient with lung cancer, brain metastasis, status post radiation therapy; has now new onset sepsis, new onset ascites. Ascitic fluid analysis is more suggestive of spontaneous bacterial peritonitis. 2. Cirrhosis, probably secondary to the hepatitis C, status post large volume paracentesis, nearly 1500 mL of fluids removed. Sent for ascitic fluid and also serology. PLAN: I would recommend; 1. Continue the antibiotics as per ID. 2. Hepatitis C PCR. We will continue to closely follow up her care Follow up of the LFTs. Request for abdominal ultrasound. Thank you very much for allowing us to participate in the care of the patient. Kailash Kaufman MD [email or web address]
[2017-11-22 07:53] LABS: HEMOGLOBIN 10.8 g/dL (14.0-18.0); MEAN CELL VOLUME 84.2 fl (80.0-105.0); MEAN CORPUSCULAR HEMOGLOBIN 28.4 pg (25.0-35.0); MEAN CORPUSCULAR HGB CONC 33.8 g/dl (31.0-37.0); MEAN PLATELET VOLUME 9.9 fl (7.0-11.0); RBC 3.8 10^6/uL (3.5-6.1); RED CELL DISTRIBUTION WIDTH 19.1 % (11.5-14.5); WHITE BLOOD COUNT 9.4 10^3/ul (4.5-11.0)
[2017-11-22 08:19] LABS: ALB/GLOB RATIO 0.7 (1.1-1.8); ALBUMIN 2.3 g/dL (3.0-4.8); ALT/SGPT 36 U/L (7-56); AST/SGOT 22 U/L (17-59); BLOOD UREA NITROGEN 33 mg/dL (7-21); CALCIUM 8.7 mg/dL (8.4-10.5); GFR AFRICAN-AMERICAN > 60; GFR NON-AFRICAN AMERICAN > 60
[2017-11-22] MEDS: Enoxaparin 40 mg Syringe SC SCH (10:16)
[2017-11-22] MEDS: oxyCODONE 20 mg ER Tab (oxyCONTIN) PO PRN (10:17)
[2017-11-22] MEDS: Pantoprazole 40 mg EC Tab PO SCH (10:18)
[2017-11-22] MEDS: MethylPREDNISolone 40 mg Vial IVP SCH ×2 (10:18→22:26)
--- NOTE | 2017-11-22 10:30 | CP.PCM.PN ---
<Teetee Owens - Last Filed: 11/22/17 11:10> Subjective - Date & Time of Evaluation Date of Evaluation: 11/22/17 Time of Evaluation: 10:30 - Subjective Subjective: GI Progress Note Dr. Kaufman Pt seen and examined at bedside. Pt has complaints of mild abdominal pain, improved from yesterday and slight distension. Pt is incontinent with diaper. Pt is tolerating po intake. Afebrile x 24hr. Pt denied fever, chills, sob, chest pains, nausea, vomiting, dysuria. Objective - Vital Signs/Intake and Output Vital Signs (last 24 hours): Temp Pulse Resp BP Pulse Ox 97.3 F L 72 18 126/60 95 11/22/17 06:00 11/22/17 06:00 11/22/17 06:00 11/22/17 06:00 11/22/17 06:00 Intake and Output: 11/22/17 11/22/17 06:59 18:59 Intake Total 2340 Output Total 700 Balance 1640 - Medications Medications: Current Medications Acetaminophen (Tylenol 325mg Tab) 650 mg PO Q4 PRN PRN Reason: Pain, Mild (1-3) Last Admin: 11/20/17 16:48 Dose: 650 mg Albuterol/Ipratropium (Duoneb 3 Mg/0.5 Mg (3 Ml) Ud) 3 ml IH Q2H PRN PRN Reason: Shortness of Breath Albuterol/Ipratropium (Duoneb 3 Mg/0.5 Mg (3 Ml) Ud) 3 ml IH [id number] [facility] Last Admin: 11/22/17 07:47 Dose: 3 ml Alprazolam (Xanax) 0.25 mg PO BID [facility] PRN Reason: Protocol Stop: 11/23/17 10:01 Last Admin: 11/21/17 17:17 Dose: 0.25 mg Alprazolam (Xanax) 0.25 mg PO HS [facility] PRN Reason: Protocol Stop: 11/23/17 22:01 Last Admin: 11/21/17 22:41 Dose: 0.25 mg Amlodipine Besylate (Norvasc) 10 mg PO QPM [facility] Last Admin: 11/21/17 17:18 Dose: 10 mg Docusate Sodium (Colace) 100 mg PO BID [facility] Last Admin: 11/21/17 17:18 Dose: 100 mg Enoxaparin Sodium (Lovenox) 40 mg SC DAILY [facility] PRN Reason: Protocol Last Admin: 11/21/17 10:16 Dose: 40 mg Vancomycin HCl (Vancomycin 1gm) 1 gm in 250 mls @ 167 mls/hr IVPB Q12H [facility] PRN Reason: Protocol Last Admin: 11/22/17 06:34 Dose: 167 mls/hr Meropenem (Merrem Iv 1 Gm Premix) 50 mls @ 200 mls/hr IVPB Q8 [facility] Stop: 11/27/17 22:01 Last Admin: 11/22/17 06:34 Dose: 200 mls/hr Levetiracetam (Keppra) 500 mg PO BID [facility] Last Admin: 11/21/17 17:18 Dose: 500 mg Methylprednisolone (Solu-Medrol) 30 mg IVP Q12 [facility] Last Admin: 11/21/17 22:40 Dose: 30 mg Ondansetron HCl (Zofran Inj) 4 mg IVP TID [facility] Last Admin: 11/21/17 17:18 Dose: 4 mg Oxycodone HCl (Oxycontin Extended Release Tab) 20 mg PO Q6H PRN PRN Reason: Pain, moderate (4-7) Last Admin: 11/21/17 14:11 Dose: 20 mg Pantoprazole Sodium (Protonix Ec Tab) 40 mg PO DAILY [facility] - Labs Labs: 11/22/17 07:15 11/22/17 07:15 PT 16.8 SECONDS (9.4-12.5) H 11/20/17 09:00 INR 1.45 (0.93-1.08) H 11/20/17 09:00 - Constitutional Appears: No Acute Distress, Chronically Ill - Head Exam Head Exam: ATRAUMATIC, NORMAL INSPECTION, NORMOCEPHALIC - Eye Exam Eye Exam: EOMI, Normal appearance, PERRL Pupil Exam: NORMAL ACCOMODATION, PERRL - ENT Exam ENT Exam: Mucous Membranes Moist, Normal Exam - Respiratory Exam Respiratory Exam: Rhonchi, NORMAL BREATHING PATTERN - Cardiovascular Exam Cardiovascular Exam: REGULAR RHYTHM, +S1, +S2. absent: Murmur - GI/Abdominal Exam GI & Abdominal Exam: Distended, Soft, Normal Bowel Sounds - Extremities Exam Extremities Exam: Full ROM, Normal Capillary Refill, Normal Inspection. absent : Joint Swelling, Pedal Edema - Neurological Exam Neurological Exam: Alert, Awake, CN II-XII Intact, Oriented x3 - Psychiatric Exam Psychiatric exam: Normal Affect, Normal Mood - Skin Skin Exam: Dry, Intact, Normal Color, Warm Assessment and Plan - Assessment and Plan (Free Text) Assessment: Lung cancer with extensive metastasis to the brain s/p radiotherapy Gait dysfunction new onset Ascites s/p paracentesis CT abdomen 3 weeks ago reviewed and demonstrated periportal lymphadenopathy without ascites Seizures HTN chronic hep C s/p interferon treatment PLAN: SBP on abx merrem and vanco as per ID FU micro s/p port placement s/p paracentesis Lovenox Colace, diaper Keppra purree thin diet I&O hep C reactive on panel fu PCR Recommendations as per oncology/IR Seen and discussed w/ Dr. Kaufman <Kailash Kaufman V - Last Filed: 11/22/17 23:40> Objective - Vital Signs/Intake and Output Vital Signs (last 24 hours): Temp Pulse Resp BP Pulse Ox 98.4 F 84 20 146/74 97 11/22/17 16:00 11/22/17 16:00 11/22/17 16:00 11/22/17 18:06 11/22/17 16:00 Intake and Output: 11/22/17 11/23/17 18:59 06:59 Intake Total 780 Output Total 700 Balance 80 - Medications Medications: Current Medications Acetaminophen (Tylenol 325mg Tab) 650 mg PO Q4 PRN PRN Reason: Pain, Mild (1-3) Last Admin: 11/20/17 16:48 Dose: 650 mg Albuterol/Ipratropium (Duoneb 3 Mg/0.5 Mg (3 Ml) Ud) 3 ml IH Q2H PRN PRN Reason: Shortness of Breath Albuterol/Ipratropium (Duoneb 3 Mg/0.5 Mg (3 Ml) Ud) 3 ml IH [id number] [facility]ESS[facility] Last Admin: 11/22/17 20:28 Dose: 3 ml Alprazolam (Xanax) 0.25 mg PO BID [facility] PRN Reason: Protocol Stop: 11/23/17 10:01 Last Admin: 11/22/17 18:06 Dose: 0.25 mg Alprazolam (Xanax) 0.25 mg PO HS [facility] PRN Reason: Protocol Stop: 11/23/17 22:01 Last Admin: 11/22/17 22:26 Dose: 0.25 mg Amlodipine Besylate (Norvasc) 10 mg PO QPM [facility] Last Admin: 11/22/17 18:06 Dose: 10 mg Docusate Sodium (Colace) 100 mg PO BID [facility] Last Admin: 11/22/17 18:05 Dose: 100 mg Enoxaparin Sodium (Lovenox) 40 mg SC DAILY [facility] PRN Reason: Protocol Last Admin: 11/22/17 10:16 Dose: 40 mg Furosemide (Lasix) 40 mg IVP ONCE ONE Stop: 11/23/17 10:01 Vancomycin HCl (Vancomycin 1gm) 1 gm in 250 mls @ 167 mls/hr IVPB Q12H [facility] PRN Reason: Protocol Last Admin: 11/22/17 18:18 Dose: 167 mls/hr Meropenem (Merrem Iv 1 Gm Premix) 50 mls @ 200 mls/hr IVPB Q8 [facility] Stop: 11/27/17 22:01 Last Admin: 11/22/17 22:26 Dose: 200 mls/hr Levetiracetam (Keppra) 500 mg PO BID [facility] Last Admin: 11/22/17 18:05 Dose: 500 mg Methylprednisolone (Solu-Medrol) 30 mg IVP Q12 [facility] Last Admin: 11/22/17 22:26 Dose: 30 mg Ondansetron HCl (Zofran Inj) 4 mg IVP Q8H PRN PRN Reason: Nausea/Vomiting Oxycodone HCl (Oxycontin Extended Release Tab) 20 mg PO Q6H PRN PRN Reason: Pain, moderate (4-7) Last Admin: 11/22/17 10:17 Dose: 20 mg Pantoprazole Sodium (Protonix Ec Tab) 40 mg PO DAILY [facility] Last Admin: 11/22/17 10:18 Dose: 40 mg Spironolactone (Aldactone) 25 mg PO BID [facility] Last Admin: 11/22/17 18:06 Dose: 25 mg - Labs Labs: 11/22/17 07:15 11/22/17 07:15 PT 16.8 SECONDS (9.4-12.5) H 11/20/17 09:00 INR 1.45 (0.93-1.08) H 11/20/17 09:00 Attending/Attestation - Attestation I have personally seen and examined this patient.: Yes I have fully participated in the care of the patient.: Yes I have reviewed all pertinent clinical information, including history, physical exam and plan: Yes
--- NOTE | 2017-11-22 14:43 | CP.PCM.PN ---
Subjective - Date & Time of Evaluation Date of Evaluation: 11/22/17 Time of Evaluation: 10:50 - Subjective Subjective: Feels weak, some abdominal discomfort, no nausea, no vomiting. No fevers. Objective - Vital Signs/Intake and Output Vital Signs (last 24 hours): Temp Pulse Resp BP Pulse Ox 97.3 F L 72 18 126/60 95 11/22/17 06:00 11/22/17 06:00 11/22/17 06:00 11/22/17 06:00 11/22/17 06:00 Intake and Output: 11/22/17 11/22/17 06:59 18:59 Intake Total 2340 Output Total 700 Balance 1640 - Medications Medications: Current Medications Acetaminophen (Tylenol 325mg Tab) 650 mg PO Q4 PRN PRN Reason: Pain, Mild (1-3) Last Admin: 11/20/17 16:48 Dose: 650 mg Albuterol/Ipratropium (Duoneb 3 Mg/0.5 Mg (3 Ml) Ud) 3 ml IH Q2H PRN PRN Reason: Shortness of Breath Albuterol/Ipratropium (Duoneb 3 Mg/0.5 Mg (3 Ml) Ud) 3 ml IH [id number] [facility] Last Admin: 11/22/17 07:47 Dose: 3 ml Alprazolam (Xanax) 0.25 mg PO BID [facility] PRN Reason: Protocol Stop: 11/23/17 10:01 Last Admin: 11/21/17 17:17 Dose: 0.25 mg Alprazolam (Xanax) 0.25 mg PO HS [facility] PRN Reason: Protocol Stop: 11/23/17 22:01 Last Admin: 11/21/17 22:41 Dose: 0.25 mg Amlodipine Besylate (Norvasc) 10 mg PO QPM [facility] Last Admin: 11/21/17 17:18 Dose: 10 mg Docusate Sodium (Colace) 100 mg PO BID [facility] Last Admin: 11/21/17 17:18 Dose: 100 mg Enoxaparin Sodium (Lovenox) 40 mg SC DAILY [facility] PRN Reason: Protocol Last Admin: 11/21/17 10:16 Dose: 40 mg Vancomycin HCl (Vancomycin 1gm) 1 gm in 250 mls @ 167 mls/hr IVPB Q12H [facility] PRN Reason: Protocol Last Admin: 11/22/17 06:34 Dose: 167 mls/hr Meropenem (Merrem Iv 1 Gm Premix) 50 mls @ 200 mls/hr IVPB Q8 [facility] Stop: 11/27/17 22:01 Last Admin: 11/22/17 06:34 Dose: 200 mls/hr Levetiracetam (Keppra) 500 mg PO BID [facility] Last Admin: 11/21/17 17:18 Dose: 500 mg Methylprednisolone (Solu-Medrol) 30 mg IVP Q12 [facility] Last Admin: 11/21/17 22:40 Dose: 30 mg Ondansetron HCl (Zofran Inj) 4 mg IVP TID [facility] Last Admin: 11/21/17 17:18 Dose: 4 mg Oxycodone HCl (Oxycontin Extended Release Tab) 20 mg PO Q6H PRN PRN Reason: Pain, moderate (4-7) Last Admin: 11/21/17 14:11 Dose: 20 mg Pantoprazole Sodium (Protonix Ec Tab) 40 mg PO DAILY [facility] - Labs Labs: 11/22/17 07:15 11/22/17 07:15 PT 16.8 SECONDS (9.4-12.5) H 11/20/17 09:00 INR 1.45 (0.93-1.08) H 11/20/17 09:00 - Constitutional Appears: Chronically Ill - Head Exam Head Exam: NORMAL INSPECTION - Neck Exam Neck Exam: absent: Meningismus - Respiratory Exam Respiratory Exam: Decreased Breath Sounds - Cardiovascular Exam Cardiovascular Exam: +S1, +S2 - GI/Abdominal Exam GI & Abdominal Exam: Distended, Soft. absent: Firm, Guarding, Rigid, Tenderness , Rebound Assessment and Plan - Assessment and Plan (Free Text) Plan: Assessment Consider sepsis due to spontaneous bacterial peritonitis lung cancer with brain metastases on chemotherapy and radiation therapy basal cell carcinoma on right chest area S/P removal HTN significant smoking history (1 1/2 pack per day smoker) Hepatitis C S/P treatment with Interferon for about 4 years Plan continue vancomycin and Merrem day 2, monitor renal function; follow up ascitic fluid cx; ascitic fluid analysis showing more than 500 WBC's indication SBP overall prognosis is poor
--- NOTE | 2017-11-22 15:18 | US ---
HISTORY: Abdominal distention, COMPARISON: 11/19/2017 CT abdomen and pelvis TECHNIQUE: Sonographic evaluation of the abdomen. FINDINGS: LIVER: Measures 11.9 cm. Hepatopedal blood flow. Fatty infiltration manifest ultrasonographically as increased echogenicity of the liver parenchyma. No mass. No intrahepatic bile duct dilatation. There is a abnormality, irregularity to the hepatic contour finding appreciated on the recent CT scan. GALLBLADDER: Unremarkable. No gallstones. COMMON BILE DUCT: Measures 4.4 mm. No stones. No dilatation. PANCREAS: Obscured by overlying bowel gas. Non diagnostic assessment of the pancreas RIGHT KIDNEY: Measures 5.3 x 11.4cm. Normal echogenicity. No calculus, mass, or hydronephrosis. LEFT KIDNEY: Measures 5 x 11.2cm. Normal echogenicity. No calculus, mass, or hydronephrosis. SPLEEN: Splenomegaly. Orthogonal measurements 7.4 x 12.9 x 13.4 cm AORTA: No aneurysmal dilatation. IVC: Unremarkable. OTHER FINDINGS: Moderate volume intra-abdominal ascites incompletely visualized. Documented on the recent CT scan. IMPRESSION: Cirrhotic appearing liver. No focal masses. Splenomegaly. Documentation of ascites better visualized on the recent CT scan.
--- NOTE | 2017-11-22 23:22 | PN ---
DATE: 11/22/2017 SUBJECTIVE: The patient's general condition has improved slightly today. He is sitting up in the chair, in no acute distress. Left arm weakness still persistent. No fever overnight. No events overnight. He is better tolerating orally, he is on scheduled Zofran which has improved the oral intake. Abdominal ultrasound done today showed cirrhotic appearance of the liver. No masses or splenomegaly. Denies any shortness of breath. MEDICATIONS: Tylenol 650 every 4 hours p.r.n., DuoNeb, Xanax 0.25 mg p.o. b.i.d., Norvasc 10 mg daily, Colace 10 mg p.o. b.i.d., Lovenox 40 mg subcu daily, Lasix 40 mg IV daily, Keppra 500 mg p.o. b.i.d., meropenem, Solu-Medrol 30 mg every 12 hours, Zofran 4 mg IV every 8 hours, Protonix 40 mg daily, Aldactone 25 mg p.o. b.i.d., vancomycin. REVIEW OF SYSTEMS: As per HPI. Rest of 12-point review of systems reviewed and negative. LABORATORY DATA: Cultures negative so far. Labs, white count 9.8, hemoglobin 10.8, hematocrit 32, platelet 125. Sodium 132, potassium 4.9, creatinine 1, calcium 8.7, ionized calcium 1.7; total bilirubin 1.7, decreased from 4.2. PHYSICAL EXAMINATION: GENERAL: Comfortable in chair, no acute distress. VITAL SIGNS: Temperature 98.7, heart rate 80 per minute, blood pressure 143/90, respiratory rate 20 per minute, oxygen saturation 100% on room air. HEENT: Pallor positive. NECK: No lymphadenopathy. CHEST: Air entry present and equal bilaterally. No added sounds. CARDIOVASCULAR: S1, S2 normal. No murmur. No gallop. ABDOMEN: distended EXTREMITIES: No edema. NEUROLOGIC: Alert, oriented x3. No focal sensorimotor deficit. ASSESSMENT AND PLAN: 1. Stage IV lung cancer with brain metastasis. Status post radiation. Left arm weakness. He was restarted on steroid after a wean for 2 weeks. He is currently on Solu-Medrol 30 every 12 hours. GC improved today. 2. New onset ascites likely due to cirrhosis of liver, has history of hepatitis C treated with interferon. Ascitic tap showed increased lymphocyte count, cultures negative, currently on IV antibiotic for presumed bacterial peritonitis. ID following. 3. Lower extremity weakness. MRI, no new changes. 4. Hematology blood count stable. 5. Liver function tests improved. 6. Normal BUN and creatinine, normal electrolytes. Discussed with daughter Rosaura. Updated her on his condition. Marlen Alaniz MD [email or web address]
--- NOTE | 2017-11-23 00:22 | PN ---
DATE: SUBJECTIVE: The patient is 67-year-old, seen and examined, lying in bed. Seems to have mild shortness of breath. His belly is distended. Complains of decreased appetite. PHYSICAL EXAMINATION: VITAL SIGNS: The patient is afebrile, pulse 84, respirations 20, blood pressure 156/74. LUNGS: Bilateral soft rhonchi - bilaterally and posteriorly. HEART: S1 and S2 audible. ABDOMEN: Distended with ascites. EXTREMITIES: Bilateral legs, +2 edema. LABORATORY DATA: WBC 9.4, hemoglobin 10.8, hematocrit 32, platelets 125. Chemistry: Sodium 132, potassium 4.9, chloride 100, CO2 of 24, BUN 33, creatinine 1, blood sugar 164. Total bilirubin 1.7. Hepatitis profile is negative. Abdominal sonogram shows moderate ascites. MRI of the brain shows hemorrhagic mets to the right anterior and posterior frontal lobes with moderate surrounding vasogenic edema. PLAN: We will start the patient on spironolactone. He was given a dose of Lasix. Continue nebulizer treatment. He is on Keppra, DVT prophylaxis. Getting meropenem. He is on amlodipine and analgesic as needed. He is on IV steroid to reduce vasogenic edema. He is also getting IV vancomycin. We will follow up his CBC and CMP in a.m. Aiden Miller MD k
[2017-11-23] MEDS: Albuterol-Ipratrop 3 mg / 0.5 (3 ml) UD IH SCH ×4 (01:23→19:35)
[2017-11-23] MEDS: Meropenem IV 1 gm in NS 50 ML IVPB SCH ×3 (05:53→21:25)
[2017-11-23] MEDS: Vancomycin 1gm in NS 250ml 1 GM/250 ML BAG IVPB SCH (05:53)
[2017-11-23 07:01] LABS: BASO # 0.02 K/mm3 (0.0-2.0); BASO % 0.2 % (0.0-3.0); EOS # 0.2 (0.0-0.7); EOS % 1.5 % (1.5-5.0); GRAN # 10.73 (1.4-6.5); GRAN % 90.5 % (50.0-68.0); LYMPH # 0.6 (1.2-3.4); LYMPH % 4.6 % (22.0-35.0); MEAN CELL VOLUME 84.9 fl (80.0-105.0); MEAN CORPUSCULAR HEMOGLOBIN 28.6 pg (25.0-35.0); MEAN CORPUSCULAR HGB CONC 33.6 g/dl (31.0-37.0); MEAN PLATELET VOLUME 10.4 fl (7.0-11.0); MONO # 0.4 (0.1-0.6); MONO % 3.2 % (1.0-6.0); PLATELET COUNT 163 10^3/uL (120.0-450.0); RBC 3.85 10^6/uL (3.5-6.1); RED CELL DISTRIBUTION WIDTH 19.6 % (11.5-14.5); WHITE BLOOD COUNT 11.9 10^3/ul (4.5-11.0)
[2017-11-23 07:25] LABS: ALB/GLOB RATIO 0.7 (1.1-1.8); ALBUMIN 2.4 g/dL (3.0-4.8); ALT/SGPT 47 U/L (7-56); AST/SGOT 39 U/L (17-59); BLOOD UREA NITROGEN 43 mg/dL (7-21); CALCIUM 8.8 mg/dL (8.4-10.5); GFR AFRICAN-AMERICAN > 60; GFR NON-AFRICAN AMERICAN > 60
[2017-11-23 07:52] LABS: BAND 3 % (0-2); EOSINOPHIL 1 % (0.0-3.0); LYMPHOCYTE 3 % (22.0-35.0); METAMYELOCYTE 1 %; MONOCYTE 4 % (1.0-6.0); MYELOCYTE 1 %; NEUTROPHIL 87 % (50.0-70.0); PLATELET ESTIMATE LOW (NORMAL)
[2017-11-23] MEDS: Pantoprazole 40 mg EC Tab PO SCH (09:34)
[2017-11-23] MEDS: MethylPREDNISolone 40 mg Vial IVP SCH ×2 (09:36→21:24)
[2017-11-23] MEDS: Enoxaparin 40 mg Syringe SC SCH (09:36)
[2017-11-23 18:04] VITALS: RESP 19; TEMP 97.3
[2017-11-23] MEDS: oxyCODONE 20 mg ER Tab (oxyCONTIN) PO PRN (18:33)
--- NOTE | 2017-11-23 19:21 | PN ---
DATE: 11/23/2017 SUBJECTIVE: The patient is in bed, in no acute distress. OBJECTIVE: VITAL SIGNS: Temperature is 98, blood pressure is 120/60, respiratory rate 22. HEENT: Unremarkable. NECK: Supple. LUNGS: Have decreased breath sounds. HEART: Normal S1 and S2. ABDOMEN: Soft, nontender. LABORATORY DATA: Reveals a white count of 11,900, hemoglobin of 11, platelets of 163. Chemistries reveals a BUN of 43, creatinine of 1.2. Urinalysis is noted and serology is noted. Microbiology reveals the blood cultures are no growth. ASSESSMENT AND PLAN: A 67-year-old male who was seen earlier today in room 361, bed 1 with sepsis due to spontaneous bacterial peritonitis; lung cancer with brain metastasis, on chemotherapy and radiation therapy; basal cell carcinoma on the right chest, status post removal, on vancomycin and meropenem day #3 with microbiology and reveals the blood cultures are negative. The fluid cultures are no growth. No fungal elements are seen. No growth after 3 days of anaerobic organism with a creatinine up to 1.2, on meropenem. We will discontinue the vancomycin. We will follow with you. Froylan Kay MD
--- NOTE | 2017-11-23 23:48 | PN ---
DATE: SUBJECTIVE: Patient is 67 years old, seen and examined. He is awake and alert. States his left-sided weakness is a little better, but he is more distended. According to PCP, he did well. Denies any nausea or vomiting. PHYSICAL EXAMINATION: VITAL SIGNS: He is afebrile, pulse 74, respirations 19, blood pressure 105/65. LUNGS: Bilateral fair airflow, decreased at bases. Few expiratory rhonchi. HEART: S1, S2 audible. ABDOMEN: Distended with fluid thrill. EXTREMITIES: Bilateral legs, +1 edema. LABORATORY DATA: WBC 11.9, hemoglobin 11, hematocrit 32, platelets are 163. Chemistry: Sodium 136, potassium 4.9, chloride 101, CO2 of 27, BUN 43, creatinine 1.2, blood sugar 132. Total bili 1.3, alk phos is 339. ASSESSMENT: 1. Probably malignant effusion with cirrhosis liver and history of hepatitis C, although he was treated. 2. Metastatic lung cancer with metastasis to the brain, having vasogenic edema. Left hemiparesis, improved since started on steroid. 3. Asthmatic bronchitis. 4. Mild renal insufficiency. PLAN: Patient is currently on spironolactone. We will give him Lasix intermittently. Carefully watching his BUN and creatinine. He is on nebulizer treatment. He is on IV steroid. He is on Keppra for prophylaxis of seizure. He is on DVT prophylaxis. Continue on meropenem. Patient's increasing ascites is worrisome that might compromise his respiratory status; he needs to be closely watched for that, and we will follow up his electrolytes in a.m. Aiden Miller MD
[2017-11-24] MEDS: Albuterol-Ipratrop 3 mg / 0.5 (3 ml) UD IH SCH ×3 (01:22→13:25)
--- NOTE | 2017-11-24 01:49 | PN ---
DATE: 11/23/2017 SUBJECTIVE: This patient was seen and evaluated earlier today. Patient is comfortable. PHYSICAL EXAMINATION: VITAL SIGNS: Temperature is 97, pulse rate is 74, blood pressure is 105/65. HEENT: Atraumatic, anicteric. NECK: Supple. HEART: S1, S2 heard. LUNGS: Bilateral air entry present. ABDOMEN:: Distended. EXTREMITIES: Mild edema present. LABORATORY DATA: [id number], hematocrit 32.7, WBC is 11.9, platelets 163. Chemistry showed, the total bilirubin has improved to 1.3, alkaline phosphatase is 339, AST is 39, ALT is 47. IMPRESSION: This 67-year-old patient with lung cancer with brain metastasis status post radiation therapy, admitted with abdominal discomfort, ascites. Patient did have fever, had a large volume paracentesis done. Ascitic fluid is suggestive of spontaneous bacterial peritonitis. Patient is being treated with antibiotics, clinically improving. LFTs now improving. Ultrasound scan of the abdomen showed no gallstone, CBD normal. The likely cause for elevated LFTs, which is improving, could be due to cirrhosis, decompensated. Patient has a history of hepatitis C antibody positive, but RNA negative, which is suggestive of older infection, probably patient's immune. Patient has h/o hepatitis C treated with interferon in the past. RECOMMENDATION: Repeat paracentesis on Saturday. Complete the antibiotic course as per ID. Thank you very much for allowing us to participate in the care of the patient. Kailash Kaufman MD [facility]
[2017-11-24] MEDS: Meropenem IV 1 gm in NS 50 ML IVPB SCH ×2 (05:47→13:16)
[2017-11-24 06:33] VITALS: BP 96/65; PULSE 77; O2SAT 97
[2017-11-24 06:38] LABS: ALB/GLOB RATIO 0.7 (1.1-1.8); ALBUMIN 2.3 g/dL (3.0-4.8); ALT/SGPT 59 U/L (7-56); AST/SGOT 27 U/L (17-59); BLOOD UREA NITROGEN 42 mg/dL (7-21); CALCIUM 8.8 mg/dL (8.4-10.5); GFR AFRICAN-AMERICAN > 60; GFR NON-AFRICAN AMERICAN > 60
[2017-11-24] MEDS: Enoxaparin 40 mg Syringe SC SCH (09:28)
[2017-11-24] MEDS: Pantoprazole 40 mg EC Tab PO SCH (09:28)
[2017-11-24] MEDS: MethylPREDNISolone 40 mg Vial IVP SCH (09:29)
--- NOTE | 2017-11-24 22:13 | PN ---
DATE: 11/24/2017 SUBJECTIVE: This patient was seen and evaluated earlier today. PHYSICAL EXAMINATION: VITAL SIGNS: Temperature 97.3, blood pressure 96/65, pulse 77, respirations 19, O2 saturation 97%. HEENT: Atraumatic, anicteric. NECK: Supple. HEART: S1, S2 heard. LUNGS: Bilateral air entry present. ABDOMEN: Softly distended. LABORATORY DATA: No recent labs today. Laboratory data showed LFTs showing alkaline phosphatase 374, ALT 59. BUN 42, creatinine 1.0. IMPRESSION: 1. This 67-year-old patient with history of lung cancer with brain metastasis status post radiation therapy, admitted with an abdominal discomfort, ascites status post paracentesis, has spontaneous bacterial peritonitis, large volume paracentesis. Ascitic fluid showed spontaneous bacterial peritonitis. Patient is on antibiotics. Liver function tests, slowly improving. 2. Patient has now increased abdominal distention who would benefit from the repeating paracentesis. Patient was due to be transferred o TCU. We will re-consult Dr. Luis Angel Ibarra for paracentesis. Ascitic fluid albumin is still pending. It will be useful to calculate the SAAG ratio once available. Thank you very much for allowing me to participate in the care of the patient. Kailash Kaufman MD
--- NOTE | 2017-11-24 23:03 | PN ---
DATE: 11/24/2017 SUBJECTIVE: Patient is seen earlier today in room 361, bed 1. Patient has no complaints. No fevers, any chills. No nausea. PHYSICAL EXAMINATION: GENERAL: Temperature is 97.3, blood pressure is 96/60, respiratory rate of 19, heart rate of 77. HEENT: Unremarkable. NECK: Supple. LUNGS: Have decreased breath sounds. HEART: Normal S1, S2. ABDOMEN: Soft, nontender. LABORATORY DATA: Reveals the patient's white count of 11,900, hemoglobin of 11, platelets of 163. Chemistry reveals the BUN of 42, creatinine of 1.0. Urinalysis is noted and peritoneal fluid is noted at 673 wbc's and mostly lymphocytic at 52%, 47% neutrophilic. Hepatitic C RNA is not detected although the hepatitis C antibody is reactive. Microbiology reveals the blood cultures have no growth. Ascitic cultures have no growth. ASSESSMENT AND PLAN: This is a 67-year-old male who was seen early this morning in room 361, bed 1; with sepsis, spontaneous bacterial peritonitis, lung cancer with brain metastasis and chemotherapy and radiation, and basal cell carcinoma of the chest status post removal. On vancomycin and meropenem day number 4. Cultures negative. Fluid cultures negative. May be able to switch to p.o. antibiotics to complete therapy and overall prognosis is quite poor. Dr. Miller's note is reviewed from yesterday. Froylan Kay MD
== END 2017-11-24 14:30 | DRG 180 ==
LOC: ED 00:12 → ERH 05:55 → 3RNO 07:10
PROVIDERS: ADMIT Internal Medicine; ATTEND Internal Medicine
PROC: 0W9G3ZX Drainage of Peritoneal Cavity, Percutaneous Approach, Diagnostic (ICD-10-PCS; principal; 2017-11-20)
PROC: 02HV33Z Insertion of Infusion Device into Superior Vena Cava, Percutaneous Approach (ICD-10-PCS; 2017-11-20)
PROC: B518ZZA Fluoroscopy of Superior Vena Cava, Guidance (ICD-10-PCS; 2017-11-20)
DX: C34.90 Malignant neoplasm of unspecified part of unspecified bronchus or lung (principal); C79.31 Secondary malignant neoplasm of brain; G93.6 Cerebral edema; A41.9 Sepsis, unspecified organism; K65.2 Spontaneous bacterial peritonitis; C77.9 Secondary and unspecified malignant neoplasm of lymph node, unspecified; D68.9 Coagulation defect, unspecified; R18.8 Other ascites; G81.94 Hemiplegia, unspecified affecting left nondominant side; G62.9 Polyneuropathy, unspecified; D69.6 Thrombocytopenia, unspecified; R56.9 Unspecified convulsions; D63.8 Anemia in other chronic diseases classified elsewhere; J44.9 Chronic obstructive pulmonary disease, unspecified; B18.2 Chronic viral hepatitis C; K74.60 Unspecified cirrhosis of liver; E78.5 Hyperlipidemia, unspecified; I10 Essential (primary) hypertension; F41.9 Anxiety disorder, unspecified; F17.210 Nicotine dependence, cigarettes, uncomplicated; M62.838 Other muscle spasm; G89.29 Other chronic pain; M54.5 Low back pain; Z85.828 Personal history of other malignant neoplasm of skin

== ENCOUNTER 2017-11-24 14:35 | Inpatient (IN) | payer MEDICARE, OTHER ==
[2017-11-24] MEDS ORDERED: oxyCODONE 20 mg ER Tab (oxyCONTIN) PO PRN (14:43)
[2017-11-24] MEDS ORDERED: Albuterol-Ipratrop 3 mg / 0.5 (3 ml) UD IH PRN (14:47)
[2017-11-24] MEDS ORDERED: POLYETHYLENE GLYCOL 3350 17 GM/Dose PACKET PO ONE (15:29)
[2017-11-24] MEDS: Albuterol 0.083% Inhal Sol (2.5 mg/3 mL) UD INH SCH ×2 (16:00→19:51)
[2017-11-24] MEDS ORDERED: Pantoprazole 20 mg EC Tab PO SCH (18:00)
[2017-11-24] MEDS: oxyCODONE 5 mg Immediate Release Tab PO PRN (20:55)
[2017-11-24] MEDS: MethylPREDNISolone 40 mg Vial IVP SCH (21:41)
[2017-11-24] MEDS: Meropenem IV 1 gm in NS 50 ML IVPB SCH (21:43)
[2017-11-25] MEDS: Meropenem IV 1 gm in NS 50 ML IVPB SCH ×3 (05:08→21:34)
[2017-11-25] MEDS: Albuterol 0.083% Inhal Sol (2.5 mg/3 mL) UD INH SCH ×3 (07:15→19:49)
[2017-11-25] MEDS ORDERED: Pantoprazole 40 mg EC Tab PO SCH (10:00)
[2017-11-25] MEDS ORDERED: Enoxaparin 40 mg Syringe SC SCH (10:00)
--- NOTE | 2017-11-25 10:26 | CP.PCM.CON ---
History of Present Illness - History of Present Illness History of Present Illness: Palliative consult requested by Dr Hina Miller Reason: Goals of care/advance care planning 67 year old male with history of HTN, NSCL cancer with brain metastasis, Hepatis C who presented to acute care with abdominal discomfort and bloating and new onset of ascites. Found to have spontaneous bacterial peritonitis, s/p paracentisis. He has since been stabilized and is now transitioned to [facility] for deconditioning PMHx: lung cancer metastasis to brain, s/p whole brain palliative RT, HTN, Hep C,cirrhosis,seizure disorder. 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 Family History: Non contributory. Advance Care Planning: The patient does not have an Advanced Directive. Review of Systems: Abdominal bloating, discomfort and distention, otherwise negative 12 point review negative Past Patient History - Infectious Disease Hx of Infectious Diseases: None - Tetanus Immunizations Tetanus Immunization: Up to Date - Past Social History Smoking Status: Current Some Days Smoker - CARDIAC Hx Cardiac Disorders: No - PULMONARY Hx Respiratory Disorders: No - NEUROLOGICAL Hx Neurological Disorder: No - HEENT Hx HEENT Problems: No - RENAL Hx Chronic Kidney Disease: No - ENDOCRINE/METABOLIC Hx Endocrine Disorders: No - HEMATOLOGICAL/ONCOLOGICAL Hx Blood Disorders: No Hx Cancer: Yes (lung/brain) - INTEGUMENTARY Hx Dermatological Problems: No - MUSCULOSKELETAL/RHEUMATOLOGICAL Hx Falls: No - GASTROINTESTINAL Hx Gastrointestinal Disorders: No - GENITOURINARY/GYNECOLOGICAL Hx Genitourinary Disorders: No - PSYCHIATRIC Hx Psychophysiologic Disorder: No Hx Emotional Abuse: No Hx Physical Abuse: No - SURGICAL HISTORY Hx Surgeries: Yes (BASAL CELL REMOVED R LOWER BACK) - ANESTHESIA Hx Anesthesia Reactions: No Hx Malignant Hyperthermia: No Meds Allergies/Adverse Reactions: Allergies Allergy/AdvReac Type Severity Reaction Status Date / Time No Known Allergies Allergy Verified 11/24/17 21:08 - Medications Medications: Current Medications Acetaminophen (Tylenol 325mg Tab) 650 mg PO Q4H PRN; Protocol PRN Reason: pain, mild Albuterol Sulfate (Albuterol 0.083% Inhal Day (2.5 Mg/3 Ml) Ud) 2.5 mg INH QIDRESP JESSICA PRN Reason: Protocol Last Admin: 11/24/17 19:51 Dose: 2.5 mg Albuterol/Ipratropium (Duoneb 3 Mg/0.5 Mg (3 Ml) Ud) 3 ml IH Q2H PRN; Protocol PRN Reason: Shortness of Breath Last Admin: 11/25/17 07:13 Dose: 3 ml Alprazolam (Xanax) 0.25 mg PO HS JESSICA PRN Reason: Protocol Stop: 12/01/17 22:01 Last Admin: 11/24/17 21:40 Dose: 0.25 mg Amlodipine Besylate (Norvasc) 10 mg PO QPM JESSICA PRN Reason: Protocol Last Admin: 11/24/17 17:10 Dose: 10 mg Docusate Sodium (Colace) 100 mg PO BID JESSICA PRN Reason: Protocol Last Admin: 11/24/17 17:10 Dose: 100 mg Enoxaparin Sodium (Lovenox) 40 mg SC DAILY JESSICA PRN Reason: Protocol Meropenem (Merrem Iv 1 Gm Premix) 50 mls @ 100 mls/hr IVPB Q8 JESSICA PRN Reason: Protocol Last Admin: 11/25/17 05:08 Dose: 100 mls/hr Levetiracetam (Keppra) 500 mg PO BID JESSICA PRN Reason: Protocol Last Admin: 11/24/17 17:13 Dose: 500 mg Methylprednisolone (Solu-Medrol) 30 mg IVP Q12 JESSICA PRN Reason: Protocol Last Admin: 11/24/17 21:41 Dose: 30 mg Ondansetron HCl (Zofran Inj) 4 mg IVP Q8H PRN; Protocol PRN Reason: Nausea/Vomiting Oxycodone HCl (Oxycodone Immediate Release Tab) 5 mg PO Q6H PRN; Protocol PRN Reason: Pain, moderate (4-7) Last Admin: 11/24/17 20:55 Dose: 5 mg Pantoprazole Sodium (Protonix Ec Tab) 40 mg PO DAILY JESSICA PRN Reason: Protocol Polyethylene Glycol (Miralax) 17 gm PO DAILY JESSICA PRN Reason: Protocol Spironolactone (Aldactone) 25 mg PO DAILY JESSICA PRN Reason: Protocol Physical Exam - Constitutional Appears: Cachectic, Chronically Ill - Head Exam Head Exam: NORMAL INSPECTION - Eye Exam Eye Exam: Normal appearance, PERRL - ENT Exam ENT Exam: Mucous Membranes Moist, Normal Oropharynx - Neck Exam Neck exam: Positive for: Normal Inspection - Respiratory Exam Respiratory Exam: Decreased Breath Sounds, NORMAL BREATHING PATTERN - Cardiovascular Exam Cardiovascular Exam: REGULAR RHYTHM, +S1, +S2 - GI/Abdominal Exam GI & Abdominal Exam: Diminished Bowel Sounds, Distended, Firm - Extremities Exam Extremities exam: Positive for: normal capillary refill, pedal edema - Back Exam Back exam: NORMAL INSPECTION - Neurological Exam Neurological exam: Alert, Oriented x3 - Skin Skin Exam: Dry, Pallor - Additional Findings Additional findings: Palliative performance scale rating 40% Results - Vital Signs Recent Vital Signs: Last Vital Signs Temp 97.5 F L 11/25/17 06:00 Pulse 88 11/25/17 06:00 Resp 20 11/25/17 06:00 BP 157/77 H 11/25/17 06:00 Pulse Ox 97 11/25/17 06:00 Assessment & Plan - Assessment and Plan (Free Text) Assessment: 67 year old male seen in [facility] for deconditioning therapy and completion of antibiotic therapy. He was transferred from the acute setting after being treated for ascites, elevated LFT's, and spontaneous bacterial peritonitis s/p paracentisis. The patient is alert, oriented. Aware of his diagnosis. He complains of abdominal bloating and distention. Patient is constipated and has not had BM in a few days. He denies pain. His appetite is fair. He ambulates with walker and is able to perform most ADL's with minimal assistance. He does not express feelings of psychosocial distress. Advance care planning discussion ensued. Mr Iglesias states he has not given much thought about resuscitation wishes. Benefits and burdens of resuscitation with CPR/intubation explained. He wants to speak with his family before making decision regarding this matter. Mr Iglesias unsure as to whether he will proceed with chemotherapy if offered. Again, he will also discus option with his family i as well.Psychosocial support provided. Time spent in goals of care and advance care planning discussion with patient, 30 minutes Plan: Constipation: Docusate twice daily. Miralax 17 gm daily. Pain:Oxycodone IR 5 mg as needed every 6 hours Abdominal distention: IR to evaluate for possible paracentisis today. Physical therapy for deconditioning Palliative support in establishing goals of care and advance care planning
[2017-11-25] MEDS: MethylPREDNISolone 40 mg Vial IVP SCH (10:33)
[2017-11-25] MEDS: POLYETHYLENE GLYCOL 3350 17 GM/Dose PACKET PO SCH (10:34)
--- NOTE | 2017-11-25 10:57 | CP.PCM.PN ---
<Dmitri Lovett - Last Filed: 11/25/17 10:51> Subjective - Date & Time of Evaluation Date of Evaluation: 11/25/17 Time of Evaluation: 10:52 - Subjective Subjective: GI Progress Note for Dr. Kaufman This 67M was seen and examined this AM at bedside. No acute events overnight. Tolerating diet denies any abdominal pain chest pain Nausea vomiting diarrhea. Objective - Vital Signs/Intake and Output Vital Signs (last 24 hours): Temp Pulse Resp BP Pulse Ox 97.5 F L 88 20 157/77 H 97 11/25/17 06:00 11/25/17 06:00 11/25/17 06:00 11/25/17 06:00 11/25/17 06:00 - Medications Medications: Current Medications Acetaminophen (Tylenol 325mg Tab) 650 mg PO Q4H PRN; Protocol PRN Reason: pain, mild Albuterol Sulfate (Albuterol 0.083% Inhal Day (2.5 Mg/3 Ml) Ud) 2.5 mg INH QIDRESP JESSICA PRN Reason: Protocol Last Admin: 11/24/17 19:51 Dose: 2.5 mg Albuterol/Ipratropium (Duoneb 3 Mg/0.5 Mg (3 Ml) Ud) 3 ml IH Q2H PRN; Protocol PRN Reason: Shortness of Breath Last Admin: 11/25/17 07:13 Dose: 3 ml Alprazolam (Xanax) 0.25 mg PO HS JESSICA PRN Reason: Protocol Stop: 12/01/17 22:01 Last Admin: 11/24/17 21:40 Dose: 0.25 mg Amlodipine Besylate (Norvasc) 10 mg PO QPM JESSICA PRN Reason: Protocol Last Admin: 11/24/17 17:10 Dose: 10 mg Docusate Sodium (Colace) 100 mg PO BID JESSICA PRN Reason: Protocol Last Admin: 11/25/17 10:28 Dose: 100 mg Enoxaparin Sodium (Lovenox) 40 mg SC DAILY JESSICA PRN Reason: Protocol Last Admin: 11/25/17 10:28 Dose: 40 mg Meropenem (Merrem Iv 1 Gm Premix) 50 mls @ 100 mls/hr IVPB Q8 JESSICA PRN Reason: Protocol Last Admin: 11/25/17 05:08 Dose: 100 mls/hr Levetiracetam (Keppra) 500 mg PO BID JESSICA PRN Reason: Protocol Last Admin: 11/25/17 10:28 Dose: 500 mg Methylprednisolone (Solu-Medrol) 30 mg IVP Q12 JESSICA PRN Reason: Protocol Last Admin: 11/25/17 10:33 Dose: 30 mg Ondansetron HCl (Zofran Inj) 4 mg IVP Q8H PRN; Protocol PRN Reason: Nausea/Vomiting Oxycodone HCl (Oxycodone Immediate Release Tab) 5 mg PO Q6H PRN; Protocol PRN Reason: Pain, moderate (4-7) Last Admin: 11/24/17 20:55 Dose: 5 mg Pantoprazole Sodium (Protonix Ec Tab) 40 mg PO DAILY JESSICA PRN Reason: Protocol Last Admin: 11/25/17 10:33 Dose: 40 mg Polyethylene Glycol (Miralax) 17 gm PO DAILY JESSICA PRN Reason: Protocol Last Admin: 11/25/17 10:34 Dose: 17 gm Spironolactone (Aldactone) 25 mg PO DAILY JESSICA PRN Reason: Protocol Last Admin: 11/25/17 10:28 Dose: 25 mg - Constitutional Appears: Non-toxic, No Acute Distress - Head Exam Head Exam: ATRAUMATIC, NORMOCEPHALIC - Eye Exam Eye Exam: EOMI - ENT Exam ENT Exam: Mucous Membranes Moist - Respiratory Exam Respiratory Exam: NORMAL BREATHING PATTERN - Cardiovascular Exam Cardiovascular Exam: +S1, +S2 - GI/Abdominal Exam GI & Abdominal Exam: Soft. absent: Guarding, Rigid, Tenderness - Neurological Exam Neurological Exam: Alert, Awake - Psychiatric Exam Psychiatric exam: Normal Affect, Normal Mood - Skin Skin Exam: Dry, Intact, Normal Color <Mandeep,Kovil V - Last Filed: 11/25/17 21:18> Objective - Vital Signs/Intake and Output Vital Signs (last 24 hours): Temp Pulse Resp BP Pulse Ox 98.2 F 84 20 160/85 H 99 11/25/17 16:00 11/25/17 16:00 11/25/17 16:00 11/25/17 17:32 11/25/17 16:00 - Medications Medications: Current Medications Acetaminophen (Tylenol 325mg Tab) 650 mg PO Q4H PRN; Protocol PRN Reason: pain, mild Albuterol Sulfate (Albuterol 0.083% Inhal Day (2.5 Mg/3 Ml) Ud) 2.5 mg INH QIDRESP JESSICA PRN Reason: Protocol Last Admin: 11/25/17 19:49 Dose: 2.5 mg Albuterol/Ipratropium (Duoneb 3 Mg/0.5 Mg (3 Ml) Ud) 3 ml IH Q2H PRN; Protocol PRN Reason: Shortness of Breath Alprazolam (Xanax) 0.25 mg PO HS JESSICA PRN Reason: Protocol Stop: 12/01/17 22:01 Last Admin: 11/24/17 21:40 Dose: 0.25 mg Amlodipine Besylate (Norvasc) 10 mg PO QPM JESSICA PRN Reason: Protocol Last Admin: 11/25/17 17:32 Dose: 10 mg Docusate Sodium (Colace) 100 mg PO BID JESSICA PRN Reason: Protocol Last Admin: 11/25/17 17:32 Dose: 100 mg Enoxaparin Sodium (Lovenox) 40 mg SC DAILY JESSICA PRN Reason: Protocol Last Admin: 11/25/17 10:28 Dose: 40 mg Meropenem (Merrem Iv 1 Gm Premix) 50 mls @ 100 mls/hr IVPB Q8 JESSICA PRN Reason: Protocol Last Admin: 11/25/17 14:51 Dose: 100 mls/hr Levetiracetam (Keppra) 500 mg PO BID JESSICA PRN Reason: Protocol Last Admin: 11/25/17 17:32 Dose: 500 mg Methylprednisolone (Solu-Medrol) 20 mg IVP 0600 JESSICA PRN Reason: Protocol Ondansetron HCl (Zofran Inj) 4 mg IVP Q8H PRN; Protocol PRN Reason: Nausea/Vomiting Oxycodone HCl (Oxycodone Immediate Release Tab) 5 mg PO Q6H PRN; Protocol PRN Reason: Pain, moderate (4-7) Last Admin: 11/25/17 21:03 Dose: 5 mg Pantoprazole Sodium (Protonix Ec Tab) 40 mg PO DAILY JESSICA PRN Reason: Protocol Last Admin: 11/25/17 10:33 Dose: 40 mg Polyethylene Glycol (Miralax) 17 gm PO DAILY JESSICA PRN Reason: Protocol Last Admin: 11/25/17 10:34 Dose: 17 gm Spironolactone (Aldactone) 25 mg PO DAILY JESSICA PRN Reason: Protocol Last Admin: 11/25/17 10:28 Dose: 25 mg Attending/Attestation - Attestation I have personally seen and examined this patient.: Yes I have fully participated in the care of the patient.: Yes I have reviewed all pertinent clinical information, including history, physical exam and plan: Yes Notes (Text): This is an addendum to GI progress report dictated by the Tool Lathe Operator.The patient was seen and examined earlier. Medical records, lab studies, imagings were reviewed. Last 24 hours events reviewed. 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 Patient does not like. Would change the food to mechanical soft diet Request Dr. Luis Angel Ibarra for repeat paracentesis to evaluate cell count analysis and for large-volume drainage Ascitic fluid albumin 0.2. The SAAG ratio is 2.2 suggestive of portal hypertension Patient had hep C treated previously now has decompensated liver disease with ascites and portal hypertension complicated with SBP 11/25/17 21:15
--- NOTE | 2017-11-25 15:14 | CP.PCM.CON ---
History of Present Illness - History of Present Illness History of Present Illness: 67 year old male with PMH of basal cell carcinoma on right chest area S/P removal, HTN, significant smoking history (1 1/2 pack per day smoker), Hepatitis C S/P treatment with Interferon for about 4 years, lung cancer with brain metastases was initially admitted in [facility] because of abdominal distention and he was found to have ascites. Paracentesis was done and analysis of the ascitic fluid revealed spontaneous bacterial peritonitis. He has been doing well with antibiotics and is now transferred to [facility] for continued medical therapy and physical therapy. Infectious Diseases consult is requested to continue his antibiotic therapy. Currently the patient is still weak, no fever or chills, less abdominal pain, no nausea or vomiting, no headache or dizziness , no chest pain, no SOB, no diarrhea, no dysuria, no cough or colds. Review of Systems - Review of Systems All systems: reviewed and no additional remarkable complaints except (as per HPI ) Past Patient History - Infectious Disease Hx of Infectious Diseases: None - Tetanus Immunizations Tetanus Immunization: Up to Date - Past Social History Smoking Status: Current Some Days Smoker - CARDIAC Hx Cardiac Disorders: No - PULMONARY Hx Respiratory Disorders: No - NEUROLOGICAL Hx Neurological Disorder: No - HEENT Hx HEENT Problems: No - RENAL Hx Chronic Kidney Disease: No - ENDOCRINE/METABOLIC Hx Endocrine Disorders: No - HEMATOLOGICAL/ONCOLOGICAL Hx Blood Disorders: No Hx Cancer: Yes (lung/brain) - INTEGUMENTARY Hx Dermatological Problems: No - MUSCULOSKELETAL/RHEUMATOLOGICAL Hx Falls: No - GASTROINTESTINAL Hx Gastrointestinal Disorders: No - GENITOURINARY/GYNECOLOGICAL Hx Genitourinary Disorders: No - PSYCHIATRIC Hx Psychophysiologic Disorder: No Hx Emotional Abuse: No Hx Physical Abuse: No - SURGICAL HISTORY Hx Surgeries: Yes (BASAL CELL REMOVED R LOWER BACK) - ANESTHESIA Hx Anesthesia Reactions: No Hx Malignant Hyperthermia: No Meds Allergies/Adverse Reactions: Allergies Allergy/AdvReac Type Severity Reaction Status Date / Time No Known Allergies Allergy Verified 11/24/17 21:08 - Medications Medications: Current Medications Acetaminophen (Tylenol 325mg Tab) 650 mg PO Q4H PRN; Protocol PRN Reason: pain, mild Albuterol Sulfate (Albuterol 0.083% Inhal Day (2.5 Mg/3 Ml) Ud) 2.5 mg INH QIDRESP JESSICA PRN Reason: Protocol Last Admin: 11/24/17 19:51 Dose: 2.5 mg Albuterol/Ipratropium (Duoneb 3 Mg/0.5 Mg (3 Ml) Ud) 3 ml IH Q2H PRN; Protocol PRN Reason: Shortness of Breath Alprazolam (Xanax) 0.25 mg PO HS JESSICA PRN Reason: Protocol Stop: 12/01/17 22:01 Last Admin: 11/24/17 21:40 Dose: 0.25 mg Amlodipine Besylate (Norvasc) 10 mg PO QPM JESSICA PRN Reason: Protocol Last Admin: 11/24/17 17:10 Dose: 10 mg Docusate Sodium (Colace) 100 mg PO BID JESSICA PRN Reason: Protocol Last Admin: 11/24/17 17:10 Dose: 100 mg Enoxaparin Sodium (Lovenox) 40 mg SC DAILY JESSICA PRN Reason: Protocol Meropenem (Merrem Iv 1 Gm Premix) 50 mls @ 100 mls/hr IVPB Q8 JESSICA PRN Reason: Protocol Last Admin: 11/25/17 05:08 Dose: 100 mls/hr Levetiracetam (Keppra) 500 mg PO BID JESSICA PRN Reason: Protocol Last Admin: 11/24/17 17:13 Dose: 500 mg Methylprednisolone (Solu-Medrol) 30 mg IVP Q12 JESSICA PRN Reason: Protocol Last Admin: 11/24/17 21:41 Dose: 30 mg Ondansetron HCl (Zofran Inj) 4 mg IVP Q8H PRN; Protocol PRN Reason: Nausea/Vomiting Oxycodone HCl (Oxycodone Immediate Release Tab) 5 mg PO Q6H PRN; Protocol PRN Reason: Pain, moderate (4-7) Last Admin: 11/24/17 20:55 Dose: 5 mg Pantoprazole Sodium (Protonix Ec Tab) 40 mg PO DAILY JESSICA PRN Reason: Protocol Polyethylene Glycol (Miralax) 17 gm PO DAILY JESSICA PRN Reason: Protocol Spironolactone (Aldactone) 25 mg PO DAILY JESSICA PRN Reason: Protocol Physical Exam - Constitutional Appears: Chronically Ill - Head Exam Head Exam: NORMAL INSPECTION - Neck Exam Neck exam: Negative for: Meningismus - Respiratory Exam Respiratory Exam: Decreased Breath Sounds - Cardiovascular Exam Cardiovascular Exam: +S1, +S2 - GI/Abdominal Exam GI & Abdominal Exam: Soft. absent: Diminished Bowel Sounds, Distended, Rebound , Rigid, Tenderness Results - Vital Signs Recent Vital Signs: Last Vital Signs Temp 97.5 F L 11/25/17 06:00 Pulse 88 11/25/17 06:00 Resp 20 11/25/17 06:00 BP 157/77 H 11/25/17 06:00 Pulse Ox 97 11/25/17 06:00 Assessment & Plan - Assessment and Plan (Free Text) Plan: Assessment Consider sepsis due to spontaneous bacterial peritonitis lung cancer with brain metastases on chemotherapy and radiation therapy basal cell carcinoma on right chest area S/P removal HTN significant smoking history (1 1/2 pack per day smoker) Hepatitis C S/P treatment with Interferon for about 4 years Plan continue Merrem day 5 to complete 7 days of therapy overall prognosis is poor
[2017-11-25] MEDS: oxyCODONE 5 mg Immediate Release Tab PO PRN (21:03)
--- NOTE | 2017-11-25 23:29 | HP ---
HISTORY OF PRESENT ILLNESS: The patient is a 67-year-old, seen and examined. The patient was initially admitted because of generalized weakness, difficulty walking. He was found to have significant ascites, had paracentesis done and sent for malignant cells. The patient seems to be cirrhotic secondary to history of hepatitis C. For that, he received interferon in the past. He developed worsening of the left side of the , so he had MRI of the brain done that shows hemorrhagic metastasis from the lung. PAST MEDICAL HISTORY: Significant for: 1. CA lung with metastasis to the brain. 2. Hypertension. 3. Ascites. 4. Hyperlipidemia. 5. Peptic ulcer disease. ALLERGIES: HE IS NOT ALLERGIC TO ANY MEDICATIONS. MEDICATIONS AT HOME: He is on Keppra 500 mg twice a day, amlodipine 10 mg daily, Bactrim DS, Protonix 20 mg daily, OxyContin, and nebulizer treatment. SOCIAL HISTORY: He has a history of smoking for many, many years and he still smokes and socially drinks. PHYSICAL EXAMINATION: GENERAL: He is awake, alert, and oriented, able to communicate. VITAL SIGNS: He is afebrile, pulse 88, respirations 20, blood pressure 155/77. LUNGS: Bilateral good airflow. No rhonchi or crackle. HEART: S1 and S2, audible. ABDOMEN: Soft, nontender, but has ascites with fluid thrill. EXTREMITIES: Bilateral legs, +1 edema. LABORATORY DATA: There is no new lab available today. ASSESSMENT: 1. Metastatic lung carcinoma. 2. Brain metastasis. 3. History of hepatitis C, was given interferon. 4. Cirrhosis of liver. 5. Deconditioning, difficulty walking. PLAN: Currently, the patient is on nebulizer treatment. He is getting spironolactone and Keppra. He is on DVT prophylaxis. He is getting MiraLax daily. Continue him on analgesic as needed. He is on Protonix. He is on prednisone 30 mg every 12 hours; we will continue that for vasogenic edema, analgesics as needed, and Zofran p.r.n. Aiden Miller MD
[2017-11-26] MEDS: Meropenem IV 1 gm in NS 50 ML IVPB SCH ×3 (05:38→21:10)
[2017-11-26] MEDS: MethylPREDNISolone 40 mg Vial IVP SCH (05:39)
[2017-11-26] MEDS: Enoxaparin 40 mg Syringe SC SCH (05:41)
[2017-11-26] MEDS: Pantoprazole 40 mg EC Tab PO SCH ×2 (05:42→06:00)
[2017-11-26] MEDS: oxyCODONE 5 mg Immediate Release Tab PO PRN (06:02)
[2017-11-26] MEDS: Albuterol 0.083% Inhal Sol (2.5 mg/3 mL) UD INH SCH ×4 (07:18→21:10)
[2017-11-26] MEDS: POLYETHYLENE GLYCOL 3350 17 GM/Dose PACKET PO SCH (09:47)
[2017-11-26] MEDS ORDERED: MethylPREDNISolone 40 mg Vial IVP SCH (10:00)
--- NOTE | 2017-11-26 10:44 | CP.PCM.PN ---
<Delia Nash - Last Filed: 11/26/17 10:43> Subjective - Date & Time of Evaluation Date of Evaluation: 11/26/17 Time of Evaluation: 10:15 - Subjective Subjective: Seen and examined at the bedside this morning, patient does report having regular BMs, no melena or bright red blood per rectum. Denies nausea, vomiting , or abdominal pain. Does complain of abdominal distention, no SOB or chest pain. Tolerating oral intake. Objective - Vital Signs/Intake and Output Vital Signs (last 24 hours): Temp Pulse Resp BP Pulse Ox 98.2 F 84 20 160/85 H 99 11/25/17 16:00 11/25/17 16:00 11/25/17 16:00 11/25/17 17:32 11/25/17 16:00 - Medications Medications: Current Medications Acetaminophen (Tylenol 325mg Tab) 650 mg PO Q4H PRN; Protocol PRN Reason: pain, mild Albuterol Sulfate (Albuterol 0.083% Inhal Day (2.5 Mg/3 Ml) Ud) 2.5 mg INH QIDRESP JESSICA PRN Reason: Protocol Last Admin: 11/26/17 07:18 Dose: 2.5 mg Albuterol/Ipratropium (Duoneb 3 Mg/0.5 Mg (3 Ml) Ud) 3 ml IH Q2H PRN; Protocol PRN Reason: Shortness of Breath Alprazolam (Xanax) 0.25 mg PO HS JESSICA PRN Reason: Protocol Stop: 12/01/17 22:01 Last Admin: 11/25/17 21:35 Dose: Not Given Amlodipine Besylate (Norvasc) 10 mg PO QPM JESSIAC PRN Reason: Protocol Last Admin: 11/25/17 17:32 Dose: 10 mg Docusate Sodium (Colace) 100 mg PO BID JESSICA PRN Reason: Protocol Last Admin: 11/26/17 09:47 Dose: 100 mg Enoxaparin Sodium (Lovenox) 40 mg SC 0600 JESSICA PRN Reason: Protocol Last Admin: 11/26/17 05:41 Dose: 40 mg Meropenem (Merrem Iv 1 Gm Premix) 50 mls @ 100 mls/hr IVPB Q8 JESSICA PRN Reason: Protocol Last Admin: 11/26/17 05:38 Dose: 100 mls/hr Levetiracetam (Keppra) 500 mg PO BID JESSICA PRN Reason: Protocol Last Admin: 11/26/17 09:47 Dose: 500 mg Methylprednisolone (Solu-Medrol) 20 mg IVP 0600 JESSICA PRN Reason: Protocol Last Admin: 11/26/17 05:39 Dose: 20 mg Ondansetron HCl (Zofran Inj) 4 mg IVP Q8H PRN; Protocol PRN Reason: Nausea/Vomiting Oxycodone HCl (Oxycodone Immediate Release Tab) 5 mg PO Q6H PRN; Protocol PRN Reason: Pain, moderate (4-7) Last Admin: 11/26/17 06:02 Dose: 5 mg Pantoprazole Sodium (Protonix Ec Tab) 40 mg PO 0600 JESSICA PRN Reason: Protocol Last Admin: 11/26/17 05:42 Dose: 40 mg Polyethylene Glycol (Miralax) 17 gm PO DAILY JESSICA PRN Reason: Protocol Last Admin: 11/26/17 09:47 Dose: Not Given Spironolactone (Aldactone) 25 mg PO DAILY JESSICA PRN Reason: Protocol Last Admin: 11/26/17 09:45 Dose: 25 mg - Constitutional Appears: No Acute Distress - Head Exam Head Exam: NORMOCEPHALIC - Eye Exam Eye Exam: Normal appearance - ENT Exam ENT Exam: Mucous Membranes Moist - Neck Exam Neck Exam: Normal Inspection - Respiratory Exam Respiratory Exam: NORMAL BREATHING PATTERN. absent: Respiratory Distress - Cardiovascular Exam Cardiovascular Exam: +S1, +S2 - GI/Abdominal Exam GI & Abdominal Exam: Distended, Soft, Normal Bowel Sounds. absent: Guarding, Tenderness, Rebound - Extremities Exam Extremities Exam: Pedal Edema. absent: Calf Tenderness - Neurological Exam Neurological Exam: Alert, Awake, Oriented x3 - Skin Skin Exam: Dry, Warm Assessment and Plan - Assessment and Plan (Free Text) Assessment: ASSESSMENT: Lung cancer with metastasis to the brain Gait dysfunction Sepsis, SBP, per cell count s/P paracentesisis Recurrent Ascites, status post paracentesis Seizures HTN PLAN: re-eval for paracentesis request w/ Dr. Ibarra on Lovenox on Colace/Miralax on Solumedrol on Aldactone monitor electrolytes heart healthy diet on IV antibiotic I&O as per oncology/ID Seen and discussed w/ Dr. Kaufman <Kailash Kaufman V - Last Filed: 11/26/17 23:32> Objective - Vital Signs/Intake and Output Vital Signs (last 24 hours): Temp Pulse Resp BP Pulse Ox 97.2 F L 67 16 141/62 98 11/26/17 17:04 11/26/17 17:04 11/26/17 17:04 11/26/17 17:17 11/26/17 17:04 - Medications Medications: Current Medications Acetaminophen (Tylenol 325mg Tab) 650 mg PO Q4H PRN; Protocol PRN Reason: pain, mild Albuterol Sulfate (Albuterol 0.083% Inhal Day (2.5 Mg/3 Ml) Ud) 2.5 mg INH QIDRESP JESSICA PRN Reason: Protocol Last Admin: 11/26/17 21:10 Dose: 2.5 mg Albuterol/Ipratropium (Duoneb 3 Mg/0.5 Mg (3 Ml) Ud) 3 ml IH Q2H PRN; Protocol PRN Reason: Shortness of Breath Alprazolam (Xanax) 0.25 mg PO HS JESSICA PRN Reason: Protocol Stop: 12/01/17 22:01 Last Admin: 11/26/17 21:11 Dose: 0.25 mg Amlodipine Besylate (Norvasc) 10 mg PO QPM JESSICA PRN Reason: Protocol Last Admin: 11/26/17 17:17 Dose: 10 mg Docusate Sodium (Colace) 100 mg PO BID JESSICA PRN Reason: Protocol Last Admin: 11/26/17 17:16 Dose: 100 mg Enoxaparin Sodium (Lovenox) 40 mg SC 0600 JESSICA PRN Reason: Protocol Last Admin: 11/26/17 05:41 Dose: 40 mg Meropenem (Merrem Iv 1 Gm Premix) 50 mls @ 100 mls/hr IVPB Q8 JESSICA PRN Reason: Protocol Last Admin: 11/26/17 21:10 Dose: 100 mls/hr Levetiracetam (Keppra) 500 mg PO BID JESSICA PRN Reason: Protocol Last Admin: 11/26/17 17:17 Dose: 500 mg Methylprednisolone (Solu-Medrol) 20 mg IVP 0600 JESSICA PRN Reason: Protocol Last Admin: 11/26/17 05:39 Dose: 20 mg Ondansetron HCl (Zofran Inj) 4 mg IVP Q8H PRN; Protocol PRN Reason: Nausea/Vomiting Pantoprazole Sodium (Protonix Ec Tab) 40 mg PO 0600 JESSICA PRN Reason: Protocol Last Admin: 11/26/17 06:00 Dose: 40 mg Polyethylene Glycol (Miralax) 17 gm PO DAILY JESSICA PRN Reason: Protocol Last Admin: 11/26/17 09:47 Dose: Not Given Spironolactone (Aldactone) 25 mg PO DAILY JESSICA PRN Reason: Protocol Last Admin: 11/26/17 09:45 Dose: 25 mg Attending/Attestation - Attestation I have personally seen and examined this patient.: Yes I have fully participated in the care of the patient.: Yes I have reviewed all pertinent clinical information, including history, physical exam and plan: Yes Notes (Text): This is an addendum to GI progress report dictated by Delia Nash APN.The patient was seen and examined earlier. Medical records, lab studies, imagings were reviewed. Last 24 hours events reviewed. Agreed with the above treatment plan as outlined in Delia Nash APN's notes the with the addition of the following 11/26/17 23:31
--- NOTE | 2017-11-26 20:45 | PN ---
DATE: SUBJECTIVE: Patient is in bed, in no acute distress, nontoxic. PHYSICAL EXAMINATION: VITAL SIGNS: Temperature is 97, blood pressure is 141/60, respiratory rate of 18, heart rate of 67. HEENT: Unremarkable. NECK: Supple. LUNGS: Have decreased breath sounds. HEART: Normal S1, S2. ABDOMEN: Soft, nontender. LABORATORY EXAMINATION: Reviewed. REVIEW OF THE ORDERS: Reveals the patient to be on meropenem and Solu-Medrol. ASSESSMENT AND PLAN: This is a 67-year-old male with sepsis; spontaneous bacterial peritonitis; lung cancer with brain metastases and chemotherapy and radiation therapy; hypertension and smoking history; hepatitis C, status post treatment, day number 6 of 7 days of meropenem. White blood cells of 673 in the peritoneal fluid with cultures, no growth, and we will treat this as spontaneous bacterial peritonitis, 6 to 7 days of meropenem. Froylan Kay MD
--- NOTE | 2017-11-26 22:36 | CON ---
DATE: 11/25/2017 HISTORY OF PRESENT ILLNESS: Mr. Iglesias is a 67-year-old male well known to me from office. He has stage IV lung cancer, newly diagnosed right upper lobe brain mets. Developed ascites recently related to cirrhosis of liver, also subacute bacterial peritonitis, currently on IV antibiotic as per ID. Dr. Kaufman is following. He underwent ascitic tap, 1.7 liter drained. Abdominal distention decreased. He is participating in physical therapy and walked a little today. Appetite is improved. He is currently on IV steroid Solu-Medrol 30 mg IV b.i.d. PAST MEDICAL HISTORY: Hypertension, hyperlipidemia, peptic ulcer disease, hepatitis C. PAST SURGICAL HISTORY: None. ALLERGIES: NO KNOWN DRUG ALLERGIES. MEDICATIONS: Reviewed. REVIEW OF SYSTEMS: As per HPI. Rest of 12-point review of systems reviewed negative. Family history : negative PH : ex smoker PHYSICAL EXAMINATION GENERAL: Comfortable in bed, in no acute distress. VITAL SIGNS: Temperature 98.7, heart rate 80 per minute, respiratory rate 18 per minute, blood pressure 130/70. HEENT: Pallor positive. NECK: No lymphadenopathy. CHEST: Air entry present and equal bilaterally. No added sounds. CARDIOVASCULAR: S1, S2 normal. No murmur. No gallop. ABDOMEN: Slightly distended, nontender. No rebound tenderness. SILK WORKER: Alert, oriented x3. Left arm weakness improved markedly. LABORATORY DATA: Reviewed. ASSESSMENT AND PLAN: 1. Stage IV lung cancer, newly diagnosed right upper brain metastasis. 2. Hepatitis C, treated. Viral DNA negative. 3. Cirrhosis of liver. 4. New onset ascites. PLAN: He is currently on IV antibiotics as per ID for subacute bacterial peritonitis. Completed radiation to the brain. Port placed for initiation of chemotherapy, we will await improvement and DC. He was on high dose steroid, Solu-Medrol 30 every 12 hour, left arm weakness improved, I will decrease the steroid to 20 mg daily. We will wean the steroid over next one week. Currently, on IV Protonix. [place]ow p.r.n. GI, ID following. Thank you, Dr. Miller for allowing us to participate in Mr. Iglesias's care. Marlen Alaniz MD [facility] # [id number] SE
--- NOTE | 2017-11-26 22:49 | PN ---
DATE: 11/26/2017 SUBJECTIVE: He is more comfortable today. He had a large bowel movement. Denies any abdominal pain. He participated in physical therapy today, the left arm weakness resolved completely. PHYSICAL EXAMINATION GENERAL: Comfortable in bed, no acute distress. VITAL SIGNS: Temperature 98.7, heart rate 80 per minute, respiratory rate 15 per minute. HEENT: Pallor positive. NECK: No lymphadenopathy. CHEST: Air entry present, equal bilaterally. No added sounds. CARDIOVASCULAR: S1, S2 normal. No murmur. No gallop. ABDOMEN: Soft, nontender. Distention is markedly decreased. EXTREMITIES: Bilateral lower extremity, no edema. LEAD OPERATOR: Left arm weakness improved. Alert, oriented x3. SKIN: No petechiae. No rash. LABORATORY DATA: None current. MEDICATIONS: Reviewed. ASSESSMENT: 1. New onset ascites. 2. Stage IV lung cancer. 3. Brain metastasis. 4. Hepatitis C, treated. 5. Deconditioning. PLAN: Abdominal distention decreased markedly after having the large bowel movement. I will cancel the ascitic tap, which is scheduled for tomorrow. Dr. Luis Angel Ibarra is informed. Discussed with Dr. Kaufman, who agreed with canceling the ascetic tap. We will do an ultrasound of the abdomen to assess the fluid status. Brain mets, status post radiation. I will wean the Solu-Medrol to 20 mg IV daily. Currently comfortable. Hepatitis has improved. Participating in physical therapy. Marlen Alaniz MD
--- NOTE | 2017-11-26 23:07 | PN ---
DATE: SUBJECTIVE: Patient is 67 years old, seen and examined, seems to be doing okay. No respiratory distress. No abdominal pain. No fever or chills. PHYSICAL EXAMINATION: VITAL SIGNS: He is afebrile, pulse 67, respirations 16, blood pressure 141/62. LUNGS: Bilateral good airflow. No rhonchi or crackles. Decreased breath sounds at bases. ABDOMEN: Soft, protuberant with fluid thrill. EXTREMITIES: Bilateral legs, edema. NEUROLOGIC: He is awake, alert, oriented, and communicative. LABORATORY DATA: Blood sugar is 116. ASSESSMENT: 1. Ascites, probably secondary to cirrhosis. 2. History of hepatitis C. 3. Electrolyte imbalance. 4. Lung cancer with brain metastasis. 5. Deconditioning and difficulty walking. PLAN: We will continue the patient on nebulizer treatment. He is on spironolactone and Lasix. We will continue him on stool softener. He is on Keppra for seizure prophylaxis. He is on DVT prophylaxis. He is receiving meropenem and Percocet is as needed. Steroids are being tapered down. We will encourage physical therapy. We will talk to Dr. Luis Angel Ibarra for possible paracentesis in the a.m. Aiden Miller MD
[2017-11-27] MEDS: Meropenem IV 1 gm in NS 50 ML IVPB SCH ×3 (05:34→22:02)
[2017-11-27] MEDS: Enoxaparin 40 mg Syringe SC SCH (05:34)
[2017-11-27] MEDS: MethylPREDNISolone 40 mg Vial IVP SCH (05:35)
[2017-11-27] MEDS: Pantoprazole 40 mg EC Tab PO SCH (05:35)
[2017-11-27 06:04] LABS: BASO # 0.03 K/mm3 (0.0-2.0); BASO % 0.1 % (0.0-3.0); EOS # 2.1 (0.0-0.7); EOS % 7.4 % (1.5-5.0); GRAN # 24.46 (1.4-6.5); HEMOGLOBIN 12.2 g/dL (14.0-18.0); LYMPH % 3.4 % (22.0-35.0); MEAN CORPUSCULAR HEMOGLOBIN 29.3 pg (25.0-35.0); MEAN CORPUSCULAR HGB CONC 33.1 g/dl (31.0-37.0); MEAN PLATELET VOLUME 9.7 fl (7.0-11.0); MONO # 1.2 (0.1-0.6); MONO % 4.1 % (1.0-6.0); PLATELET COUNT 117 10^3/uL (120.0-450.0); RBC 4.17 10^6/uL (3.5-6.1); RED CELL DISTRIBUTION WIDTH 19.5 % (11.5-14.5)
[2017-11-27 06:20] LABS: WHITE BLOOD COUNT 28.8 10^3/ul (4.5-11.0)
[2017-11-27 06:58] LABS: ALB/GLOB RATIO 0.7 (1.1-1.8); ALBUMIN 2.4 g/dL (3.0-4.8); ALT/SGPT 59 U/L (7-56); AST/SGOT 23 U/L (17-59); BLOOD UREA NITROGEN 32 mg/dL (7-21); GFR AFRICAN-AMERICAN > 60; GFR NON-AFRICAN AMERICAN > 60
[2017-11-27 07:00] LABS: NEUTROPHIL 70 % (50.0-70.0)
[2017-11-27 07:01] LABS: BAND 15 % (0-2); EOSINOPHIL 7 % (0.0-3.0); LYMPHOCYTE 3 % (22.0-35.0); MONOCYTE 5 % (1.0-6.0); PLATELET ESTIMATE LOW (NORMAL)
[2017-11-27 07:04] LABS: MEAN CELL VOLUME 88.5 fl (80.0-105.0)
[2017-11-27] MEDS: oxyCODONE 5 mg Immediate Release Tab PO PRN ×2 (07:11→20:21)
[2017-11-27] MEDS: Albuterol 0.083% Inhal Sol (2.5 mg/3 mL) UD INH SCH ×4 (07:25→20:20)
--- NOTE | 2017-11-27 09:38 | US ---
Limited abdomen ultrasound History: Ascites. Comparison: Ultrasound dated 11/22/2017 Technique: Limited real-time sonography was performed through the abdomen to evaluate for ascites. Findings: Moderate amount of ascites is noted within the abdomen most prominent in the right upper, right lower, and left lower quadrants. Liver: Prominent measuring 19.9 centimeters in length. Increased echogenicity of the hepatic parenchymal cortex suggestive for fatty infiltration versus hepatic parenchymal disease. Nodular and somewhat cirrhotic contour of the liver. Clinical correlation. Spleen is prominent measuring up to 15.8 centimeters in length. Impression: Moderate amount of abdominal ascites. Prominent liver with a nodular and cirrhotic contour with diffuse increased echogenicity of the hepatic parenchymal cortex suggestive for fatty infiltration versus hepatic parenchymal disease. Clinical correlation. Prominent spleen measuring up to 15.8 centimeters.
[2017-11-27] MEDS: POLYETHYLENE GLYCOL 3350 17 GM/Dose PACKET PO SCH (09:40)
--- NOTE | 2017-11-27 13:08 | CP.PCM.PN ---
<Mandeep,Kovil V - Last Filed: 11/27/17 23:06> Objective - Vital Signs/Intake and Output Vital Signs (last 24 hours): Temp Pulse Resp BP Pulse Ox 98 F 86 18 136/69 96 11/27/17 16:00 11/27/17 16:00 11/27/17 16:00 11/27/17 17:06 11/27/17 16:00 - Medications Medications: Current Medications Acetaminophen (Tylenol 325mg Tab) 650 mg PO Q4H PRN; Protocol PRN Reason: pain, mild Albuterol Sulfate (Albuterol 0.083% Inhal Day (2.5 Mg/3 Ml) Ud) 2.5 mg INH QIDRESP JESSICA PRN Reason: Protocol Last Admin: 11/27/17 20:20 Dose: 2.5 mg Albuterol/Ipratropium (Duoneb 3 Mg/0.5 Mg (3 Ml) Ud) 3 ml IH Q2H PRN; Protocol PRN Reason: Shortness of Breath Alprazolam (Xanax) 0.25 mg PO HS JESSICA PRN Reason: Protocol Stop: 12/01/17 22:01 Last Admin: 11/27/17 22:02 Dose: 0.25 mg Amlodipine Besylate (Norvasc) 10 mg PO QPM JESSICA PRN Reason: Protocol Last Admin: 11/27/17 17:06 Dose: 10 mg Docusate Sodium (Colace) 100 mg PO BID JESSICA PRN Reason: Protocol Last Admin: 11/27/17 17:05 Dose: 100 mg Enoxaparin Sodium (Lovenox) 40 mg SC 0600 JESSICA PRN Reason: Protocol Last Admin: 11/27/17 05:34 Dose: 40 mg Meropenem (Merrem Iv 1 Gm Premix) 50 mls @ 100 mls/hr IVPB Q8 JESSICA PRN Reason: Protocol Last Admin: 11/27/17 22:02 Dose: 100 mls/hr Levetiracetam (Keppra) 500 mg PO BID JESSICA PRN Reason: Protocol Last Admin: 11/27/17 17:05 Dose: 500 mg Ondansetron HCl (Zofran Inj) 4 mg IVP Q8H PRN; Protocol PRN Reason: Nausea/Vomiting Oxycodone HCl (Oxycodone Immediate Release Tab) 5 mg PO Q6H PRN; Protocol PRN Reason: severe pain Last Admin: 11/27/17 20:21 Dose: 5 mg Pantoprazole Sodium (Protonix Inj) 20 mg IVP 0600,1800 [facility] PRN Reason: Protocol Last Admin: 11/27/17 17:07 Dose: 20 mg Polyethylene Glycol (Miralax) 17 gm PO DAILY JESSICA PRN Reason: Protocol Last Admin: 11/27/17 09:40 Dose: Not Given Prednisone (Prednisone Tab) 10 mg PO BID [facility] Last Admin: 11/27/17 20:21 Dose: 10 mg Spironolactone (Aldactone) 25 mg PO DAILY JESSICA PRN Reason: Protocol Last Admin: 11/27/17 09:39 Dose: 25 mg - Labs Labs: 11/27/17 05:50 11/27/17 05:50 Attending/Attestation - Attestation I have personally seen and examined this patient.: Yes I have fully participated in the care of the patient.: Yes I have reviewed all pertinent clinical information, including history, physical exam and plan: Yes <Delia Nash - Last Filed: 11/28/17 15:37> Subjective - Date & Time of Evaluation Date of Evaluation: 11/27/17 Time of Evaluation: 09:55 - Subjective Subjective: Seen and examined at the bedside earlier today, chart reviewed. Patient she denies nausea, vomiting, or abdominal pain. He reports bowel movement yesterday no reports of diarrhea or bleeding. He had an abdominal ultrasound this morning which is positive for moderate amount of abdominal ascites.rts of acute overnight events. Objective - Vital Signs/Intake and Output Vital Signs (last 24 hours): Temp Pulse Resp BP Pulse Ox 97.8 F 90 18 143/76 96 11/27/17 10:00 11/27/17 10:00 11/27/17 10:00 11/27/17 10:00 11/27/17 10:00 - Medications Medications: Current Medications Acetaminophen (Tylenol 325mg Tab) 650 mg PO Q4H PRN; Protocol PRN Reason: pain, mild Albuterol Sulfate (Albuterol 0.083% Inhal Day (2.5 Mg/3 Ml) Ud) 2.5 mg INH QIDRESP JESSICA PRN Reason: Protocol Last Admin: 11/27/17 11:11 Dose: 2.5 mg Albuterol/Ipratropium (Duoneb 3 Mg/0.5 Mg (3 Ml) Ud) 3 ml IH Q2H PRN; Protocol PRN Reason: Shortness of Breath Alprazolam (Xanax) 0.25 mg PO HS JESSICA PRN Reason: Protocol Stop: 12/01/17 22:01 Last Admin: 11/26/17 21:11 Dose: 0.25 mg Amlodipine Besylate (Norvasc) 10 mg PO QPM JESSICA PRN Reason: Protocol Last Admin: 11/26/17 17:17 Dose: 10 mg Docusate Sodium (Colace) 100 mg PO BID JESSICA PRN Reason: Protocol Last Admin: 11/27/17 09:40 Dose: 100 mg Enoxaparin Sodium (Lovenox) 40 mg SC 0600 JESSICA PRN Reason: Protocol Last Admin: 11/27/17 05:34 Dose: 40 mg Meropenem (Merrem Iv 1 Gm Premix) 50 mls @ 100 mls/hr IVPB Q8 JESSICA PRN Reason: Protocol Last Admin: 11/27/17 05:34 Dose: 100 mls/hr Levetiracetam (Keppra) 500 mg PO BID JESSICA PRN Reason: Protocol Last Admin: 11/27/17 09:40 Dose: 500 mg Methylprednisolone (Solu-Medrol) 20 mg IVP 0600 JESSICA PRN Reason: Protocol Last Admin: 11/27/17 05:35 Dose: 20 mg Ondansetron HCl (Zofran Inj) 4 mg IVP Q8H PRN; Protocol PRN Reason: Nausea/Vomiting Oxycodone HCl (Oxycodone Immediate Release Tab) 5 mg PO Q6H PRN; Protocol PRN Reason: severe pain Last Admin: 11/27/17 07:11 Dose: 5 mg Pantoprazole Sodium (Protonix Inj) 20 mg IVP 0600,1800 [facility] PRN Reason: Protocol Polyethylene Glycol (Miralax) 17 gm PO DAILY JESSICA PRN Reason: Protocol Last Admin: 11/27/17 09:40 Dose: Not Given Spironolactone (Aldactone) 25 mg PO DAILY JESSICA PRN Reason: Protocol Last Admin: 11/27/17 09:39 Dose: 25 mg - Labs Labs: 11/27/17 05:50 11/27/17 05:50 - Constitutional Appears: No Acute Distress - Head Exam Head Exam: NORMOCEPHALIC - Eye Exam Eye Exam: Normal appearance. absent: Scleral icterus - ENT Exam ENT Exam: Mucous Membranes Moist - Neck Exam Neck Exam: Normal Inspection - Respiratory Exam Respiratory Exam: NORMAL BREATHING PATTERN. absent: Respiratory Distress - Cardiovascular Exam Cardiovascular Exam: +S1, +S2 - GI/Abdominal Exam GI & Abdominal Exam: Distended, Soft, Normal Bowel Sounds. absent: Tenderness Additional comments: (+) ascites - Extremities Exam Extremities Exam: Pedal Edema. absent: Calf Tenderness - Neurological Exam Neurological Exam: Alert, Awake, Oriented x3 Assessment and Plan - Assessment and Plan (Free Text) Assessment: ASSESSMENT: Lung cancer with metastasis to the brain Gait dysfunction Sepsis, SBP, per cell count s/P paracentesisis Recurrent Ascites, status post paracentesis Seizures HTN PLAN: on Lovenox on Colace/Miralax on Solumedrol on Aldactone monitor electrolytes heart healthy diet on IV antibiotic I&O as per oncology/ID Seen and discussed w/ Dr. Kaufman
--- NOTE | 2017-11-27 22:36 | PN ---
DATE: SUBJECTIVE: The patient is in bed, in no acute distress, nontoxic. No fevers or chills. PHYSICAL EXAMINATION VITAL SIGNS: Temperature is 98, blood pressure is 130/90, respiratory rate of 16. HEENT: Unremarkable. NECK: Supple. LUNGS: Decreased breath sounds. HEART: Normal S1 and S2. ABDOMEN: Soft, nontender. LABORATORY DATA: Reveals the patient's white count is 20,000, hemoglobin of 12. The patient does have 15% bandemia. Microbiology is pending. Old blood cultures have been negative. Review of orders reveals the patient to be on meropenem, and the patient is also on Solu-Medrol. The patient had an abdominal ultrasound, which reveals prominent liver nodule and cirrhotic contour was reviewed. ASSESSMENT AND PLAN: This is a 67-year-old male seen earlier this morning in room 318 with sepsis with spontaneous bacterial peritonitis, lung cancer with brain metastasis, and chemotherapy and radiation, hypertension, smoking, history of hepatitis C. Today is day #7 of meropenem. We will continue meropenem. Leukocytosis is noted. The patient is on Solu-Medrol. Overall prognosis is quite poor. We will discuss with you. Froylan Kay MD
--- NOTE | 2017-11-27 23:35 | PN ---
DATE: SUBJECTIVE: The patient is a 67-year-old, seen and examined, sitting in chair and seems to be comfortable, although complained of mild shortness of breath on walking. PHYSICAL EXAMINATION: VITAL SIGNS: Patient is afebrile, pulse 86, respirations 18, blood pressure 136/69. LUNGS: Bilateral good airflow. No rhonchi or crackle. HEART: S1, S2 audible. ABDOMEN: Distended and has fluid thrill. EXTREMITIES: Bilateral leg +1 edema. LABORATORY DATA: Laboratory exam, WBC 28.8, hemoglobin 12, hematocrit 36, platelets of 117. Chemistry: Sodium 140, potassium 4.3, chloride 105, CO2 of 29, BUN 32, creatinine 0.8, and blood sugar of 116. ALT is 59. Alkaline phosphatase is 340. Abdominal sonogram was done that shows prominent spleen measuring 15 cm and prominent liver with a nodule and cirrhotic contour with diffuse increase in echogenicity. ASSESSMENT: 1. Metastatic lung cancer. 2. Seizure disorder. 3. Cirrhosis of the liver. 4. History of hepatitis C. 5. Cirrhotic ascites. 6. Asthmatic bronchitis. 7. Deconditioning and difficulty walking. PLAN: We will continue the patient on Lasix, Aldactone. Getting nebulizer treatment. Continue him on Keppra. He is on DVT prophylaxis. Getting meropenem. We will discontinue IV steroids and we will start him on p.o. prednisone. Encourage ambulation. I will talk to Dr. Luis Angel Ibarra for therapeutic paracentesis because of his increasing shortness of breath. Aiden Miller MD
[2017-11-28] MEDS: Enoxaparin 40 mg Syringe SC SCH (06:07)
[2017-11-28] MEDS: Meropenem IV 1 gm in NS 50 ML IVPB SCH ×3 (06:08→21:53)
[2017-11-28 06:42] LABS: BASO # 0.03 K/mm3 (0.0-2.0); BASO % 0.1 % (0.0-3.0); EOS # 1.8 (0.0-0.7); EOS % 7.1 % (1.5-5.0); GRAN # 20.7 (1.4-6.5); GRAN % 83.9 % (50.0-68.0); HEMOGLOBIN 10.8 g/dL (14.0-18.0); LYMPH # 1.1 (1.2-3.4); LYMPH % 4.4 % (22.0-35.0); MEAN CELL VOLUME 88.2 fl (80.0-105.0); MEAN CORPUSCULAR HGB CONC 32.9 g/dl (31.0-37.0); MEAN PLATELET VOLUME 9.5 fl (7.0-11.0); MONO # 1.1 (0.1-0.6); MONO % 4.5 % (1.0-6.0); RBC 3.72 10^6/uL (3.5-6.1); RED CELL DISTRIBUTION WIDTH 19.2 % (11.5-14.5); WHITE BLOOD COUNT 24.7 10^3/ul (4.5-11.0)
[2017-11-28 07:09] LABS: ALB/GLOB RATIO 0.7 (1.1-1.8); ALBUMIN 2.1 g/dL (3.0-4.8); ALT/SGPT 47 U/L (7-56); AST/SGOT 14 U/L (17-59); BLOOD UREA NITROGEN 29 mg/dL (7-21); CALCIUM 8.1 mg/dL (8.4-10.5); GFR AFRICAN-AMERICAN > 60; GFR NON-AFRICAN AMERICAN > 60
[2017-11-28] MEDS: Albuterol 0.083% Inhal Sol (2.5 mg/3 mL) UD INH SCH ×4 (07:20→20:37)
[2017-11-28 07:40] LABS: INR 1.36 (0.93-1.08); PROTHROMBIN TIME 15.7 SECONDS (9.4-12.5)
[2017-11-28] MEDS: POLYETHYLENE GLYCOL 3350 17 GM/Dose PACKET PO SCH (10:00)
--- NOTE | 2017-11-28 15:44 | CP.PCM.PN ---
<Delia Nash - Last Filed: 11/28/17 15:40> Subjective - Date & Time of Evaluation Date of Evaluation: 11/28/17 Time of Evaluation: 10:00 - Subjective Subjective: Seen and examined at the bedside earlier this morning, chart review. Patient denies abdominal discomfort, no nausea, vomiting, fever or chills. Denies shortness of breath. Tolerating oral intake. Patient reports formed stool this morning no reports of melena or bright red blood per rectum. Objective - Vital Signs/Intake and Output Vital Signs (last 24 hours): Temp Pulse Resp BP Pulse Ox 98.1 F 88 16 131/65 94 L 11/28/17 10:00 11/28/17 10:00 11/28/17 10:00 11/28/17 10:00 11/28/17 10:00 - Medications Medications: Current Medications Acetaminophen (Tylenol 325mg Tab) 650 mg PO Q4H PRN; Protocol PRN Reason: pain, mild Albuterol Sulfate (Albuterol 0.083% Inhal Day (2.5 Mg/3 Ml) Ud) 2.5 mg INH QIDRESP JESSICA PRN Reason: Protocol Last Admin: 11/28/17 11:13 Dose: 2.5 mg Albuterol/Ipratropium (Duoneb 3 Mg/0.5 Mg (3 Ml) Ud) 3 ml IH Q2H PRN; Protocol PRN Reason: Shortness of Breath Alprazolam (Xanax) 0.25 mg PO HS JESSICA PRN Reason: Protocol Stop: 12/01/17 22:01 Last Admin: 11/27/17 22:02 Dose: 0.25 mg Amlodipine Besylate (Norvasc) 10 mg PO QPM JESSICA PRN Reason: Protocol Last Admin: 11/27/17 17:06 Dose: 10 mg Docusate Sodium (Colace) 100 mg PO BID JESSICA PRN Reason: Protocol Last Admin: 11/28/17 09:59 Dose: 100 mg Enoxaparin Sodium (Lovenox) 40 mg SC 0600 JESSICA PRN Reason: Protocol Last Admin: 11/28/17 06:07 Dose: 40 mg Meropenem (Merrem Iv 1 Gm Premix) 50 mls @ 100 mls/hr IVPB Q8 JESSICA PRN Reason: Protocol Last Admin: 11/28/17 13:57 Dose: 100 mls/hr Levetiracetam (Keppra) 500 mg PO BID JESSICA PRN Reason: Protocol Last Admin: 11/28/17 10:00 Dose: 500 mg Ondansetron HCl (Zofran Inj) 4 mg IVP Q8H PRN; Protocol PRN Reason: Nausea/Vomiting Oxycodone HCl (Oxycodone Immediate Release Tab) 5 mg PO Q6H PRN; Protocol PRN Reason: severe pain Last Admin: 11/27/17 20:21 Dose: 5 mg Pantoprazole Sodium (Protonix Inj) 20 mg IVP 0600,1800 [facility] PRN Reason: Protocol Last Admin: 11/28/17 06:07 Dose: 20 mg Polyethylene Glycol (Miralax) 17 gm PO DAILY [facility] PRN Reason: Protocol Last Admin: 11/28/17 10:00 Dose: Not Given Prednisone (Prednisone Tab) 10 mg PO BID [facility] Last Admin: 11/28/17 10:00 Dose: 10 mg Spironolactone (Aldactone) 25 mg PO DAILY [facility] PRN Reason: Protocol Last Admin: 11/28/17 09:59 Dose: 25 mg - Labs Labs: 11/28/17 06:15 11/28/17 06:15 PT 15.7 SECONDS (9.4-12.5) H 11/28/17 06:15 INR 1.36 (0.93-1.08) H 11/28/17 06:15 APTT 24.0 Seconds (25.1-36.5) L 11/28/17 06:15 - Constitutional Appears: No Acute Distress - Head Exam Head Exam: NORMOCEPHALIC - Eye Exam Eye Exam: Normal appearance. absent: Scleral icterus - ENT Exam ENT Exam: Mucous Membranes Moist - Neck Exam Neck Exam: Normal Inspection - Respiratory Exam Respiratory Exam: Clear to Ausculation Bilateral, NORMAL BREATHING PATTERN. absent: Respiratory Distress - Cardiovascular Exam Cardiovascular Exam: +S1, +S2 - GI/Abdominal Exam GI & Abdominal Exam: Distended, Soft, Normal Bowel Sounds. absent: Guarding, Tenderness, Rebound - Extremities Exam Extremities Exam: Pedal Edema. absent: Calf Tenderness - Neurological Exam Neurological Exam: Alert, Awake, Oriented x3 - Skin Skin Exam: Dry, Warm Assessment and Plan - Assessment and Plan (Free Text) Assessment: ASSESSMENT: Leukocytosis, unknown etiology, differentials to consider is medication induced , being treated for SBP, C. difficile,count down today Lung cancer with metastasis to the brain Gait dysfunction Sepsis, SBP, per cell count s/P paracentesisis Recurrent Ascites, status post paracentesis Seizures HTN PLAN: on Lovenox on Colace/Miralax on Solumedrol on Aldactone monitor electrolytes heart healthy diet on IV antibiotic I&O as per oncology/ID if increasing WBC or distention consider paracentesis, discuss w/ Dr. Alaniz Seen and discussed w/ Dr. Kaufman <Kailash Kaufman V - Last Filed: 11/28/17 22:24> Objective - Vital Signs/Intake and Output Vital Signs (last 24 hours): Temp Pulse Resp BP Pulse Ox 98.7 F 96 H 18 128/63 98 11/28/17 16:00 11/28/17 16:00 11/28/17 16:00 11/28/17 17:32 11/28/17 16:00 - Medications Medications: Current Medications Acetaminophen (Tylenol 325mg Tab) 650 mg PO Q4H PRN; Protocol PRN Reason: pain, mild Albuterol Sulfate (Albuterol 0.083% Inhal Day (2.5 Mg/3 Ml) Ud) 2.5 mg INH QIDRESP JESSICA PRN Reason: Protocol Last Admin: 11/28/17 20:37 Dose: 2.5 mg Albuterol/Ipratropium (Duoneb 3 Mg/0.5 Mg (3 Ml) Ud) 3 ml IH Q2H PRN; Protocol PRN Reason: Shortness of Breath Alprazolam (Xanax) 0.25 mg PO HS JESSICA PRN Reason: Protocol Stop: 12/01/17 22:01 Last Admin: 11/28/17 21:53 Dose: 0.25 mg Amlodipine Besylate (Norvasc) 10 mg PO QPM JESSICA PRN Reason: Protocol Last Admin: 11/28/17 17:32 Dose: 10 mg Docusate Sodium (Colace) 100 mg PO BID JESSICA PRN Reason: Protocol Last Admin: 11/28/17 17:31 Dose: 100 mg Enoxaparin Sodium (Lovenox) 40 mg SC 0600 JESSICA PRN Reason: Protocol Last Admin: 11/28/17 06:07 Dose: 40 mg Meropenem (Merrem Iv 1 Gm Premix) 50 mls @ 100 mls/hr IVPB Q8 JESSICA PRN Reason: Protocol Last Admin: 11/28/17 21:53 Dose: 100 mls/hr Levetiracetam (Keppra) 500 mg PO BID JESSICA PRN Reason: Protocol Last Admin: 11/28/17 17:31 Dose: 500 mg Ondansetron HCl (Zofran Inj) 4 mg IVP Q8H PRN; Protocol PRN Reason: Nausea/Vomiting Oxycodone HCl (Oxycodone Immediate Release Tab) 5 mg PO Q6H PRN; Protocol PRN Reason: severe pain Last Admin: 11/27/17 20:21 Dose: 5 mg Pantoprazole Sodium (Protonix Inj) 20 mg IVP 0600,1800 [facility] PRN Reason: Protocol Last Admin: 11/28/17 17:36 Dose: 20 mg Polyethylene Glycol (Miralax) 17 gm PO DAILY JESSICA PRN Reason: Protocol Last Admin: 11/28/17 10:00 Dose: Not Given Prednisone (Prednisone Tab) 10 mg PO BID [facility] Last Admin: 11/28/17 17:33 Dose: 10 mg Spironolactone (Aldactone) 25 mg PO DAILY JESSICA PRN Reason: Protocol Last Admin: 11/28/17 09:59 Dose: 25 mg - Labs Labs: 11/28/17 06:15 11/28/17 06:15 PT 15.7 SECONDS (9.4-12.5) H 11/28/17 06:15 INR 1.36 (0.93-1.08) H 11/28/17 06:15 APTT 24.0 Seconds (25.1-36.5) L 11/28/17 06:15 Attending/Attestation - Attestation I have personally seen and examined this patient.: Yes I have fully participated in the care of the patient.: Yes I have reviewed all pertinent clinical information, including history, physical exam and plan: Yes Notes (Text): This is an addendum to GI progress report dictated by Delia Nash APN.The patient was seen and examined earlier. Medical records, lab studies, imagings were reviewed. Last 24 hours events reviewed. Agreed with the above treatment plan as outlined in Delia Nash APN's notes the with the addition of the following Abdomen distended Soft Shifting dullness present with history of ascites Saturation of greater than 1.1, acidic fluid analysis suggestive of his BP Really consent is white cell count which is now showing slight downward trend Patient is also on steroid this could also contribute To evaluate cell count Repeat stool for C. difficile Would benefit from Repeat paracentesis to evaluate for the ascitic fluid cell count in view of this elevated WBC count 11/28/17 22:20
--- NOTE | 2017-11-28 21:46 | PN ---
DATE: SUBJECTIVE: The patient is a 67-year-old, seen and examined, lying in bed, and denies any nausea, vomiting, or diarrhea. Eating and tolerating. PHYSICAL EXAMINATION VITAL SIGNS: He is afebrile. Pulse 96, respirations 18, blood pressure 128/68. LUNGS: Bilateral good airflow. No rhonchi or crackle. HEART: S1 and S2 audible. ABDOMEN: Soft, but tense. Positive ascites and fluid thrill. LABORATORY DATA: WBC 24.7, hemoglobin 10.8, hematocrit 32.8, platelets of 92. Chemistry: Sodium 137, potassium 4.1, chloride 106, CO2 of 27, BUN 29, creatinine 0.8, blood sugar 199, alkaline phosphatase is 244. ASSESSMENT: 1. Metastatic lung cancer. 2. Cirrhotic ascites. 3. Cirrhosis of the liver. 4. History of hepatitis C. PLAN: thinks that the patient is already on antibiotic, chances of is less likely, and his white count is also improving. I will discuss with Dr. Luis Angel Ibarra and decide. So now, we will continue him on spironolactone. He is on Keppra, DVT prophylaxis. He is on meropenem. We will continue him on small dose of prednisone and will follow up this patient in a.m. Aiden Miller MD
--- NOTE | 2017-11-28 23:00 | PN ---
DATE: SUBJECTIVE: The patient is in bed, in no acute distress, nontoxic. PHYSICAL EXAMINATION VITAL SIGNS: Temperature is 98, blood pressure is 130/60, respiratory rate of 18. HEENT: Unremarkable. NECK: Supple. LUNGS: Decreased breath sounds. HEART: Normal S1 and S2. ABDOMEN: Soft and nontender. LABORATORY DATA: Reveals a white count of 24,700, hemoglobin of 10, platelets of 92. The patient has 15% bandemia. Coagulation is noted. Chemistries reveal a BUN of 29, creatinine of 0.8. ASSESSMENT AND PLAN: This is a 67-year-old male who was seen earlier this morning in room 318 with sepsis and spontaneous bacterial peritonitis, lung cancer with metastasis to the brain, chemotherapy and radiation, hypertension, smoking, history of hepatitis C, and today is day #8 of meropenem. The patient is on Solu-Medrol, which may explain the leukocytosis. The patient is now on prednisone and would complete 7 to 10 days, today is day #8. Froylan Kay MD
[2017-11-29] MEDS: Meropenem IV 1 gm in NS 50 ML IVPB SCH ×3 (05:10→21:35)
[2017-11-29] MEDS: Enoxaparin 40 mg Syringe SC SCH (05:10)
[2017-11-29] MEDS: Pantoprazole 20 mg EC Tab PO SCH ×2 (05:39→17:18)
[2017-11-29] MEDS: Albuterol 0.083% Inhal Sol (2.5 mg/3 mL) UD INH SCH ×4 (07:27→20:11)
[2017-11-29 08:37] LABS: BASO # 0.05 K/mm3 (0.0-2.0); BASO % 0.1 % (0.0-3.0); LYMPH # 1.3 (1.2-3.4); LYMPH % 3.9 % (22.0-35.0); MEAN CELL VOLUME 87.8 fl (80.0-105.0); MEAN CORPUSCULAR HEMOGLOBIN 29.3 pg (25.0-35.0); MEAN CORPUSCULAR HGB CONC 33.3 g/dl (31.0-37.0); MEAN PLATELET VOLUME 9.6 fl (7.0-11.0); MONO # 1.5 (0.1-0.6); MONO % 4.4 % (1.0-6.0); PLATELET COUNT 122 10^3/uL (120.0-450.0)
[2017-11-29 08:41] LABS: WHITE BLOOD COUNT 33.9 10^3/ul (4.5-11.0)
[2017-11-29 09:13] LABS: ALB/GLOB RATIO 0.8 (1.1-1.8); ALBUMIN 2.5 g/dL (3.0-4.8); ALT/SGPT 47 U/L (7-56); AST/SGOT 19 U/L (17-59); BLOOD UREA NITROGEN 28 mg/dL (7-21); CALCIUM 8.7 mg/dL (8.4-10.5); GFR AFRICAN-AMERICAN > 60; GFR NON-AFRICAN AMERICAN > 60
[2017-11-29] MEDS: POLYETHYLENE GLYCOL 3350 17 GM/Dose PACKET PO SCH (09:39)
[2017-11-29 09:44] LABS: BAND 8 % (0-2); EOSINOPHIL 13 % (0.0-3.0); LYMPHOCYTE 4 % (22.0-35.0); MONOCYTE 4 % (1.0-6.0); NEUTROPHIL 71 % (50.0-70.0)
[2017-11-29] MEDS: Vancomycin 25 MG/ML PO SCH ×3 (13:40→21:37)
--- NOTE | 2017-11-29 14:18 | CP.PCM.PN ---
<Delia Nash - Last Filed: 11/29/17 16:33> Subjective - Date & Time of Evaluation Date of Evaluation: 11/29/17 Time of Evaluation: 09:00 - Subjective Subjective: S&E at bedside, chart reviewed, no acute overnight events, patient no sob, CP, N /V or abdominal pain. Having formed BM, no, diarrhea. No reports of bleeding, fever or chills. Objective - Vital Signs/Intake and Output Vital Signs (last 24 hours): Temp Pulse Resp BP Pulse Ox 98.7 F 96 H 18 128/63 98 11/28/17 16:00 11/28/17 16:00 11/28/17 16:00 11/28/17 17:32 11/28/17 16:00 - Medications Medications: Current Medications Acetaminophen (Tylenol 325mg Tab) 650 mg PO Q4H PRN; Protocol PRN Reason: pain, mild Albuterol Sulfate (Albuterol 0.083% Inhal Day (2.5 Mg/3 Ml) Ud) 2.5 mg INH QIDRESP JESSICA PRN Reason: Protocol Last Admin: 11/29/17 11:33 Dose: Not Given Albuterol/Ipratropium (Duoneb 3 Mg/0.5 Mg (3 Ml) Ud) 3 ml IH Q2H PRN; Protocol PRN Reason: Shortness of Breath Alprazolam (Xanax) 0.25 mg PO HS JESSICA PRN Reason: Protocol Stop: 12/01/17 22:01 Last Admin: 11/28/17 21:53 Dose: 0.25 mg Amlodipine Besylate (Norvasc) 10 mg PO QPM JESSICA PRN Reason: Protocol Last Admin: 11/28/17 17:32 Dose: 10 mg Docusate Sodium (Colace) 100 mg PO BID JESSICA PRN Reason: Protocol Last Admin: 11/29/17 09:41 Dose: 100 mg Enoxaparin Sodium (Lovenox) 40 mg SC 0600 JESSICA PRN Reason: Protocol Last Admin: 11/29/17 05:10 Dose: 40 mg Meropenem (Merrem Iv 1 Gm Premix) 50 mls @ 100 mls/hr IVPB Q8 JESSICA PRN Reason: Protocol Last Admin: 11/29/17 13:40 Dose: 100 mls/hr Levetiracetam (Keppra) 500 mg PO BID [facility] PRN Reason: Protocol Last Admin: 11/29/17 09:39 Dose: 500 mg Ondansetron HCl (Zofran Inj) 4 mg IVP Q8H PRN; Protocol PRN Reason: Nausea/Vomiting Oxycodone HCl (Oxycodone Immediate Release Tab) 5 mg PO Q6H PRN; Protocol PRN Reason: severe pain Last Admin: 11/27/17 20:21 Dose: 5 mg Pantoprazole Sodium (Protonix Ec Tab) 20 mg PO 0600,1800 [facility] Last Admin: 11/29/17 05:39 Dose: 20 mg Polyethylene Glycol (Miralax) 17 gm PO DAILY [facility] PRN Reason: Protocol Last Admin: 11/29/17 09:39 Dose: Not Given Prednisone (Prednisone Tab) 10 mg PO 0800,1800 [facility] Last Admin: 11/29/17 08:00 Dose: 10 mg Spironolactone (Aldactone) 25 mg PO DAILY [facility] PRN Reason: Protocol Last Admin: 11/29/17 09:36 Dose: 25 mg Vancomycin HCl (Vancocin 25 Mg/Ml (Oral Use)) 250 mg PO QID [facility] PRN Reason: Protocol Last Admin: 11/29/17 13:40 Dose: 250 mg - Labs Labs: 11/29/17 08:02 11/29/17 08:02 PT 15.7 SECONDS (9.4-12.5) H 11/28/17 06:15 INR 1.36 (0.93-1.08) H 11/28/17 06:15 APTT 24.0 Seconds (25.1-36.5) L 11/28/17 06:15 - Constitutional Appears: No Acute Distress - Head Exam Head Exam: NORMOCEPHALIC - Eye Exam Eye Exam: Normal appearance. absent: Scleral icterus - ENT Exam ENT Exam: Mucous Membranes Moist - Neck Exam Neck Exam: Normal Inspection - Respiratory Exam Respiratory Exam: Rhonchi, Wheezes, NORMAL BREATHING PATTERN. absent: Respiratory Distress - Cardiovascular Exam Cardiovascular Exam: +S1, +S2 - GI/Abdominal Exam GI & Abdominal Exam: Distended, Soft, Normal Bowel Sounds. absent: Guarding, Tenderness, Rebound - Extremities Exam Extremities Exam: Pedal Edema. absent: Calf Tenderness - Neurological Exam Neurological Exam: Alert, Awake, Oriented x3 - Skin Skin Exam: Dry, Warm Assessment and Plan - Assessment and Plan (Free Text) Assessment: ASSESSMENT: Leukocytosis, unknown etiology, differentials to consider is medication induced , being treated for SBP, C. difficile,count down today Lung cancer with metastasis to the brain Gait dysfunction Sepsis, SBP, per cell count s/P paracentesisis Recurrent Ascites, status post paracentesis Seizures HTN PLAN: on Lovenox on Colace/Miralax on Solumedrol on Aldactone monitor electrolytes heart healthy diet on IV antibiotic I&O as per oncology/ID for paracentisis obtain stool cdiff start Vancomycin 250 mg PO Seen and discussed w/ Dr. Kaufman <Kailash Kaufman V - Last Filed: 11/29/17 21:31> Objective - Vital Signs/Intake and Output Vital Signs (last 24 hours): Temp Pulse Resp BP Pulse Ox 97.8 F 97 H 18 156/68 H 98 11/29/17 16:00 11/29/17 16:00 11/29/17 16:00 11/29/17 17:17 11/29/17 16:00 - Medications Medications: Current Medications Acetaminophen (Tylenol 325mg Tab) 650 mg PO Q4H PRN; Protocol PRN Reason: pain, mild Albuterol Sulfate (Albuterol 0.083% Inhal Day (2.5 Mg/3 Ml) Ud) 2.5 mg INH QIDRESP JESSICA PRN Reason: Protocol Last Admin: 11/29/17 20:11 Dose: 2.5 mg Albuterol/Ipratropium (Duoneb 3 Mg/0.5 Mg (3 Ml) Ud) 3 ml IH Q2H PRN; Protocol PRN Reason: Shortness of Breath Alprazolam (Xanax) 0.25 mg PO HS JESSICA PRN Reason: Protocol Stop: 12/01/17 22:01 Last Admin: 11/28/17 21:53 Dose: 0.25 mg Amlodipine Besylate (Norvasc) 10 mg PO QPM JESSICA PRN Reason: Protocol Last Admin: 11/29/17 17:17 Dose: 10 mg Docusate Sodium (Colace) 100 mg PO BID JESSICA PRN Reason: Protocol Last Admin: 11/29/17 17:17 Dose: 100 mg Enoxaparin Sodium (Lovenox) 40 mg SC 0600 JESSICA PRN Reason: Protocol Last Admin: 11/29/17 05:10 Dose: 40 mg Meropenem (Merrem Iv 1 Gm Premix) 50 mls @ 100 mls/hr IVPB Q8 JESSICA PRN Reason: Protocol Last Admin: 11/29/17 13:40 Dose: 100 mls/hr Levetiracetam (Keppra) 500 mg PO BID JESSICA PRN Reason: Protocol Last Admin: 11/29/17 17:17 Dose: 500 mg Ondansetron HCl (Zofran Inj) 4 mg IVP Q8H PRN; Protocol PRN Reason: Nausea/Vomiting Oxycodone HCl (Oxycodone Immediate Release Tab) 5 mg PO Q6H PRN; Protocol PRN Reason: severe pain Last Admin: 11/27/17 20:21 Dose: 5 mg Pantoprazole Sodium (Protonix Ec Tab) 20 mg PO 0600,1800 [facility] Last Admin: 11/29/17 17:18 Dose: 20 mg Polyethylene Glycol (Miralax) 17 gm PO DAILY JESSICA PRN Reason: Protocol Last Admin: 11/29/17 09:39 Dose: Not Given Prednisone (Prednisone Tab) 10 mg PO 0800,1800 [facility] Last Admin: 11/29/17 17:18 Dose: 10 mg Spironolactone (Aldactone) 25 mg PO DAILY JESSICA PRN Reason: Protocol Last Admin: 11/29/17 09:36 Dose: 25 mg Vancomycin HCl (Vancocin 25 Mg/Ml (Oral Use)) 250 mg PO QID JESSICA PRN Reason: Protocol Last Admin: 11/29/17 17:19 Dose: 250 mg - Labs Labs: 11/29/17 08:02 11/29/17 08:02 PT 15.7 SECONDS (9.4-12.5) H 11/28/17 06:15 INR 1.36 (0.93-1.08) H 11/28/17 06:15 APTT 24.0 Seconds (25.1-36.5) L 11/28/17 06:15 Attending/Attestation - Attestation I have personally seen and examined this patient.: Yes I have fully participated in the care of the patient.: Yes I have reviewed all pertinent clinical information, including history, physical exam and plan: Yes Notes (Text): This is an addendum to GI progress report dictated by Delia Nash APN.The patient was seen and examined earlier. Medical records, lab studies, imagings were reviewed. Last 24 hours events reviewed. Agreed with the above treatment plan as outlined in Delia Nash APN's notes with the addition of the following 11/29/17 21:31
[2017-11-29] MEDS: oxyCODONE 5 mg Immediate Release Tab PO PRN (22:09)
--- NOTE | 2017-11-29 22:49 | CP.PCM.PN ---
Subjective - Date & Time of Evaluation Date of Evaluation: 11/29/17 Time of Evaluation: 10:25 - Subjective Subjective: No fevers, not in distress, afebrile. No abdominal pain. Objective - Vital Signs/Intake and Output Vital Signs (last 24 hours): Temp Pulse Resp BP Pulse Ox 98.7 F 96 H 18 128/63 98 11/28/17 16:00 11/28/17 16:00 11/28/17 16:00 11/28/17 17:32 11/28/17 16:00 - Medications Medications: Current Medications Acetaminophen (Tylenol 325mg Tab) 650 mg PO Q4H PRN; Protocol PRN Reason: pain, mild Albuterol Sulfate (Albuterol 0.083% Inhal Day (2.5 Mg/3 Ml) Ud) 2.5 mg INH QIDRESP JESSICA PRN Reason: Protocol Last Admin: 11/29/17 07:27 Dose: 2.5 mg Albuterol/Ipratropium (Duoneb 3 Mg/0.5 Mg (3 Ml) Ud) 3 ml IH Q2H PRN; Protocol PRN Reason: Shortness of Breath Alprazolam (Xanax) 0.25 mg PO HS JESSICA PRN Reason: Protocol Stop: 12/01/17 22:01 Last Admin: 11/28/17 21:53 Dose: 0.25 mg Amlodipine Besylate (Norvasc) 10 mg PO QPM JESSICA PRN Reason: Protocol Last Admin: 11/28/17 17:32 Dose: 10 mg Docusate Sodium (Colace) 100 mg PO BID JESSICA PRN Reason: Protocol Last Admin: 11/29/17 09:41 Dose: 100 mg Enoxaparin Sodium (Lovenox) 40 mg SC 0600 JESSICA PRN Reason: Protocol Last Admin: 11/29/17 05:10 Dose: 40 mg Meropenem (Merrem Iv 1 Gm Premix) 50 mls @ 100 mls/hr IVPB Q8 JESSICA PRN Reason: Protocol Last Admin: 11/29/17 05:10 Dose: 100 mls/hr Levetiracetam (Keppra) 500 mg PO BID JESSICA PRN Reason: Protocol Last Admin: 11/29/17 09:39 Dose: 500 mg Ondansetron HCl (Zofran Inj) 4 mg IVP Q8H PRN; Protocol PRN Reason: Nausea/Vomiting Oxycodone HCl (Oxycodone Immediate Release Tab) 5 mg PO Q6H PRN; Protocol PRN Reason: severe pain Last Admin: 11/27/17 20:21 Dose: 5 mg Pantoprazole Sodium (Protonix Ec Tab) 20 mg PO 0600,1800 [facility] Last Admin: 11/29/17 05:39 Dose: 20 mg Polyethylene Glycol (Miralax) 17 gm PO DAILY [facility] PRN Reason: Protocol Last Admin: 11/29/17 09:39 Dose: Not Given Prednisone (Prednisone Tab) 10 mg PO 0800,1800 [facility] Last Admin: 11/29/17 08:00 Dose: 10 mg Spironolactone (Aldactone) 25 mg PO DAILY [facility] PRN Reason: Protocol Last Admin: 11/29/17 09:36 Dose: 25 mg - Labs Labs: 11/29/17 08:02 11/29/17 08:02 PT 15.7 SECONDS (9.4-12.5) H 11/28/17 06:15 INR 1.36 (0.93-1.08) H 11/28/17 06:15 APTT 24.0 Seconds (25.1-36.5) L 11/28/17 06:15 - Constitutional Appears: Chronically Ill - Head Exam Head Exam: NORMAL INSPECTION - Respiratory Exam Respiratory Exam: Decreased Breath Sounds - Cardiovascular Exam Cardiovascular Exam: +S1, +S2 - GI/Abdominal Exam GI & Abdominal Exam: Distended, Soft. absent: Tenderness Assessment and Plan - Assessment and Plan (Free Text) Plan: Assessment Consider sepsis due to spontaneous bacterial peritonitis lung cancer with brain metastases on chemotherapy and radiation therapy basal cell carcinoma on right chest area S/P removal HTN significant smoking history (1 1/2 pack per day smoker) Hepatitis C S/P treatment with Interferon for about 4 years Plan continue Merrem day 8 to complete up to 10 days of therapy overall prognosis is poor
--- NOTE | 2017-11-30 03:34 | DS ---
HOSPITAL COURSE: The patient is 67-year-old, seen and examined, lying in bed, complained of some abdominal distention, otherwise eating and tolerating. No nausea, vomiting, or diarrhea. PHYSICAL EXAMINATION: VITAL SIGNS: The patient is afebrile, pulse 96, respirations 18, blood pressure 128/63. LUNGS: Bilateral fair airflow. No rhonchi or crackle. HEART: S1 and S2 audible. ABDOMEN: Soft, but distended with fluid thrill. NEUROLOGIC: The patient is awake, alert, oriented, able to communicate. EXTREMITIES: Bilateral legs, +1 edema. LABORATORY EXAM: WBC 33.9, hemoglobin 12, hematocrit 36, platelets 122. Chemistry: Sodium 136, potassium 4.3, chloride 101, CO2 of 27, BUN 28, creatinine 0.7, blood sugar of 129. ASSESSMENT: 1. Cirrhotic ascites. 2. Rule out spontaneous bacterial peritonitis. 3. Cancer of lung with metastasis to the brain. 4. Brain metastasis with vasogenic edema. 5. Leukocytosis probably secondary to steroid. 6. History of hepatitis C. PLAN: The patient will undergo thoracentesis that will be therapeutic and diagnostic. The patient's belly is benign, doubt SBP. He is currently on antibiotic. We will continue him on Keppra. He is on meropenem. We will talk to Dr. Kay if we need to give him further antibiotic. Awaiting stool sample for C. diff. We will follow up the patient in a.m. Aiden Miller MD
[2017-11-30] MEDS: Enoxaparin 40 mg Syringe SC SCH (05:37)
[2017-11-30] MEDS: Meropenem IV 1 gm in NS 50 ML IVPB SCH ×2 (05:37→14:55)
[2017-11-30] MEDS: Pantoprazole 20 mg EC Tab PO SCH ×2 (05:38→17:05)
[2017-11-30] MEDS: Albuterol 0.083% Inhal Sol (2.5 mg/3 mL) UD INH SCH ×3 (07:17→15:48)
[2017-11-30] MEDS: POLYETHYLENE GLYCOL 3350 17 GM/Dose PACKET PO SCH (09:51)
[2017-11-30] MEDS: Vancomycin 25 MG/ML PO SCH ×2 (10:13→14:58)
[2017-11-30 11:30] LABS: ALB/GLOB RATIO 0.8 (1.1-1.8); ALBUMIN 2.7 g/dL (3.0-4.8); ALT/SGPT 53 U/L (7-56); AST/SGOT 21 U/L (17-59); BLOOD UREA NITROGEN 29 mg/dL (7-21); CALCIUM 8.7 mg/dL (8.4-10.5); GFR AFRICAN-AMERICAN > 60; GFR NON-AFRICAN AMERICAN > 60
[2017-11-30 11:37] LABS: BASO # 0.04 K/mm3 (0.0-2.0); BASO % 0.1 % (0.0-3.0); EOS # 1.5 (0.0-0.7); EOS % 3.8 % (1.5-5.0); GRAN # 34.11 (1.4-6.5); GRAN % 87.4 % (50.0-68.0); HEMOGLOBIN 12.3 g/dL (14.0-18.0); LYMPH # 1.2 (1.2-3.4); MEAN CELL VOLUME 87.8 fl (80.0-105.0); MEAN CORPUSCULAR HEMOGLOBIN 29.4 pg (25.0-35.0); MEAN CORPUSCULAR HGB CONC 33.4 g/dl (31.0-37.0); MEAN PLATELET VOLUME 10.7 fl (7.0-11.0); MONO # 2.2 (0.1-0.6); MONO % 5.7 % (1.0-6.0); PLATELET COUNT 129 10^3/uL (120.0-450.0); RBC 4.19 10^6/uL (3.5-6.1); RED CELL DISTRIBUTION WIDTH 18.8 % (11.5-14.5)
[2017-11-30 13:48] VITALS: RESP 18; TEMP 97.8
[2017-11-30 14:11] VITALS: PULSE 85; O2SAT 100
[2017-11-30 14:26] LABS: BAND 8 % (0-2); EOSINOPHIL 4 % (0.0-3.0); LYMPHOCYTE 2 % (22.0-35.0); MONOCYTE 7 % (1.0-6.0); NEUTROPHIL 79 % (50.0-70.0); PLATELET ESTIMATE LOW (NORMAL)
[2017-11-30 14:27] LABS: ANISOCYTOSIS SLIGHT
--- NOTE | 2017-11-30 14:31 | CT ---
PROCEDURE: CT Abdomen and Pelvis with contrast HISTORY: leukocytosis/abdominal pain Relevant interventional procedure(s): November 29, 2017. Paracentesis with removal of 3.9 L of fluid COMPARISON: 11/19/2017 CT abdomen and pelvis. 11/22/2017 abdominal ultrasound 10/22/2017 CT thorax abdomen and pelvis TECHNIQUE: Oral contrast only. Radiation dose: Total exam DLP = 951.23 mGy-cm. This CT exam was performed using one or more of the following dose reduction techniques: Automated exposure control, adjustment of the mA and/or kV according to patient size, and/or use of iterative reconstruction technique. FINDINGS: LOWER THORAX: Incompletely visualized mass right lower lobe unchanged compared to prior studies. LIVER: Cirrhotic liver without focal abnormality. GALLBLADDER AND BILE DUCTS: Unremarkable. PANCREAS: Unremarkable. No gross lesion or ductal dilatation. SPLEEN: Stable splenomegaly ADRENALS: Unremarkable. No mass. KIDNEYS AND URETERS: Unremarkable. No hydronephrosis. No solid mass. VASCULATURE: Unremarkable. No aortic aneurysm. BOWEL: Gastric wall thickening consistent with acute gastritis. Mild thickening of the wall of nondistended small bowel consistent with enteritis. No focal abnormalities. No evidence of mechanical obstruction. APPENDIX: No abnormalities to suggest acute appendicitis. No right lower quadrant inflammatory processes identified. PERITONEUM: Low volume abdominal and pelvic ascites. LYMPH NODES: Unremarkable. No enlarged lymph nodes. BLADDER: Unremarkable. REPRODUCTIVE: Unremarkable. BONES: No acute fracture. . Multilevel degenerative change. OTHER FINDINGS: None. IMPRESSION: Evidence of gastroenteritis. Small volume ascites. Stable appearance of the liver (cirrhosis) and splenomegaly. Additional benign and/or incidental findings described above.
--- NOTE | 2017-11-30 15:55 | DS ---
HISTORY OF PRESENT ILLNESS: The patient is 67 years old, who came in with altered mental status, generalized weakness, bilateral leg pain and weakness. He had MRI done shows mets to the brain with vasogenic edema. Started on steroid. Was found to have ascites, had paracentesis therapeutic and diagnostic showed cirrhosis of liver. No malignant cells seen. Ascites was cirrhotic. The patient has been on IV antibiotic. Transferred to TCU for rehab. Doing well. Wants to go home for [place]. Denies any nausea or vomiting. No diarrhea. PHYSICAL EXAMINATION: VITAL SIGNS: He is afebrile, pulse 75, respirations 18, blood pressure 104/72. LUNGS: Bilateral good airflow. No rhonchi or crackle. HEART: S1 and S2 audible. ABDOMEN: Soft, but distended. Has ascites and fluid thrill. EXTREMITIES: Bilateral leg, no edema. LABORATORY EXAM: WBC 39.0, hemoglobin 12.3, hematocrit 36.8, platelet Of 129. Chemistry: Sodium 134, potassium 43, chloride 102, CO2 of 27, BUN 29, creatinine 0.8, blood sugar of 156. LFTs are within normal limits. Only alk phos is 331. ASSESSMENT: 1. Metastatic lung cancer. 2. Brain metastasis with vasogenic edema. 3. Cirrhotic ascites. 4. History of hepatitis C. 5. Seizure disorder. PLAN: The patient is being discharged home today on Augmentin 875 b.i.d. for a week, Keppra 500 twice a day, amlodipine 10 mg daily, Protonix 40 b.i.d., Percocet as needed. He is on prednisone 10 mg daily for [address] Alaniz will see the patient on Saturday and we will adjust his medications. Aiden Miller MD
--- NOTE | 2017-11-30 16:48 | PN ---
DATE: 11/30/2017 SUBJECTIVE: The patient is in bed. The patient was seen early this morning in room 318. He is awake and alert. He wants to go home. He is doing well. No diarrhea. PHYSICAL EXAMINATION: VITAL SIGNS: Temperature is 98, blood pressure is 130/60, respiratory rate is 18. HEENT: Unremarkable. NECK: Supple. LUNGS: Have decreased breath sounds. HEART: Normal S1 and S2. ABDOMEN: Soft, nontender. LABORATORY DATA: Reveals the patient's white count is elevated from yesterday. This morning's white count is pending. ASSESSMENT AND PLAN: This is a 67-year-old male with spontaneous bacterial peritonitis, sepsis secondary to spontaneous bacterial peritonitis, lung cancer with brain metastasis, on chemotherapy and radiation, basal cell carcinoma, and history of smoking. Today is day #9 of meropenem. The patient is on prednisone, which may give leukocytosis, although leukocytosis is slightly too high for the white count and the patient is not having diarrhea. On review of imaging, the patient did have a CAT scan of the abdomen and pelvis on 11/18/2017 which showed moderate ascites and no evidence of collection. We will follow with you. Froylan Kay MD
[2017-11-30 17:06] VITALS: BP 112/60
--- NOTE | 2017-12-01 00:22 | PN ---
DATE: 11/30/2017 SUBJECTIVE: This patient was seen and evaluated earlier today. Patient is desperate to go home, does not want to stay, but no complaints of any abdominal pain, feeling better. PHYSICAL EXAMINATION: VITAL SIGNS: Temperature is 97.8, pulse 85, blood pressure 112/60. HEENT: Atraumatic, anicteric. NECK: Supple. HEART: S1, S2 heard. LUNGS: Bilateral air entry present, slightly reduced at the base. ABDOMEN: Softly distended. Ascites present. EXTREMITIES: No cyanosis, no clubbing. LABORATORY DATA: Hemoglobin 12.3, hematocrit 36.8, WBC 39, platelets 129. BUN 29, creatinine 0.8. IMPRESSION AND PLAN: This 67-year-old patient with lung cancer with brain metastasis, status post radiation therapy, has ascites, has large volume paracentesis done yesterday. Patient' white cell count is now showing an upward trend. Patient has been on antibiotics and also on steroid. Likely possibility is that steroid-induced leukocytosis to be considered. Other differential diagnosis to include still Clostridium difficile. Patient has been empirically started on Flagyl. The concern is increasing white cell count. Abdomen is softly distended. The request is discussed with Dr. Miller. The plan is to do a CT with p.o. contrast. If the CT shows no significant findings, patient is planned to be discharged home with a close followup as an outpatient, Oncology with Dr. Alaniz. Patient was clearly told if there is any worsening of the symptoms or fever, patient was advised to come back to the emergency room. Patient wants to leave today at any cost, otherwise. Thank you very much for allowing us to participate in the care of the patient. Kailash Kaufman MD
== END 2017-11-30 17:05 | disposition home health service (06) | DRG 945 ==
LOC: TRCU 14:35
PROVIDERS: ADMIT Internal Medicine; ATTEND Internal Medicine
PROC: F07Z9FZ Gait Training/Functional Ambulation Treatment using Assistive, Adaptive, Supportive or Protective Equipment (ICD-10-PCS; principal; 2017-11-26)
PROC: F07L6YZ Therapeutic Exercise Treatment of Musculoskeletal System - Lower Back / Lower Extremity using Other Equipment (ICD-10-PCS; 2017-11-26)
PROC: F08Z2FZ Grooming/Personal Hygiene Treatment using Assistive, Adaptive, Supportive or Protective Equipment (ICD-10-PCS; 2017-11-26)
DX: R53.1 Weakness (principal); A41.9 Sepsis, unspecified organism; K65.2 Spontaneous bacterial peritonitis; G93.6 Cerebral edema; C34.11 Malignant neoplasm of upper lobe, right bronchus or lung; C79.31 Secondary malignant neoplasm of brain; R18.8 Other ascites; R26.2 Difficulty in walking, not elsewhere classified; K74.60 Unspecified cirrhosis of liver; I10 Essential (primary) hypertension; F17.200 Nicotine dependence, unspecified, uncomplicated; E78.5 Hyperlipidemia, unspecified; J45.909 Unspecified asthma, uncomplicated; G40.909 Epilepsy, unspecified, not intractable, without status epilepticus; K59.00 Constipation, unspecified; Z85.828 Personal history of other malignant neoplasm of skin; Z87.11 Personal history of peptic ulcer disease; Z92.3 Personal history of irradiation

== ENCOUNTER 2017-11-29 11:19 | Day surgery (SDC) | payer MEDICARE, OTHER ==
[2017-11-29 12:34] VITALS: RESP 20
[2017-11-29 12:43] VITALS: BMI 27.5
--- NOTE | 2017-11-29 13:15 | US ---
PROCEDURE: Ultrasound guided paracentesis. HISTORY: Metastatic lung CA. Cirrhosis with recurrent ascites. Abdominal pain and distension. Needs paracentesis. PHYSICIAN(S): Luis Angel Ibarra MD. TECHNIQUE: The relative risks and indications for the procedure were explained to the patient and informed written consent obtained. Sonography of the abdomen was performed in a supine position. This revealed a moderate amount of non-loculated ascites, greatest in the right lower quadrant. A puncture site was selected and the area was prepped and draped in the usual sterile fashion. 1% Xylocaine was used to anesthetize the skin and soft tissues. A 7 Lao paracentesis catheter was trocared into the right lower quadrantand 3900 cc of clear, straw-colored fluid aspirated. The patient tolerated the procedure well IMPRESSION: Ultrasound-guided paracentesis in the right lower quadrant. 3900 cc of clear fluid were aspirated
[2017-11-30] MEDS ORDERED: Barium Sulfate Susp 2.1% w/v, 2.0% w/w 450 mL Bottle PO ONE (12:14)
[2017-12-02 12:06] VITALS: O2SAT 94
[2017-12-02 12:15] VITALS: BP 148/70; PULSE 78; TEMP 97
== END 2017-11-29 13:30 ==
LOC: SDS 11:19
PROVIDERS: ATTEND Radiology Vascular & Interventional Radiology
DX: K74.60 Unspecified cirrhosis of liver (principal); R18.8 Other ascites; C34.90 Malignant neoplasm of unspecified part of unspecified bronchus or lung; C79.31 Secondary malignant neoplasm of brain; I10 Essential (primary) hypertension; E78.5 Hyperlipidemia, unspecified; Z86.19 Personal history of other infectious and parasitic diseases

== ENCOUNTER 2017-12-17 10:50 | Inpatient (IN) | payer MEDICARE, OTHER ==
[2017-12-17 10:58] VITALS: BMI 27.6
[2017-12-17 12:34] LABS: BASO % 0.1 % (0.0-3.0); EOS % 23.5 % (1.5-5.0); GRAN % 67.1 % (50.0-68.0); HEMOGLOBIN 10.8 g/dL (14.0-18.0); LYMPH % 3.8 % (22.0-35.0); MEAN CELL VOLUME 89.5 fl (80.0-105.0); MEAN CORPUSCULAR HEMOGLOBIN 29.9 pg (25.0-35.0); MEAN CORPUSCULAR HGB CONC 33.4 g/dl (31.0-37.0); MEAN PLATELET VOLUME 10.2 fl (7.0-11.0); MONO % 5.5 % (1.0-6.0); PLATELET COUNT 119 10^3/uL (120.0-450.0); RBC 3.61 10^6/uL (3.5-6.1); RED CELL DISTRIBUTION WIDTH 18.8 % (11.5-14.5)
[2017-12-17 12:37] LABS: ALB/GLOB RATIO 0.8 (1.1-1.8); ALBUMIN 2.5 g/dL (3.0-4.8); ALT/SGPT 33 U/L (7-56); AST/SGOT 18 U/L (17-59); BLOOD UREA NITROGEN 23 mg/dL (7-21); CALCIUM 7.7 mg/dL (8.4-10.5); EOS # 10.3 (0.0-0.7); GFR AFRICAN-AMERICAN 57; GFR NON-AFRICAN AMERICAN 47; GRAN # 29.44 (1.4-6.5); LIPASE 64 U/L (23-300); LYMPH # 1.7 (1.2-3.4); MONO # 2.4 (0.1-0.6)
[2017-12-17 12:38] LABS: BASO # 0.04 K/mm3 (0.0-2.0)
[2017-12-17 12:40] LABS: WHITE BLOOD COUNT 43.9 10^3/ul (4.5-11.0)
--- NOTE | 2017-12-17 12:43 | ED PDOC ---
Arrival/HPI - General Chief Complaint: Shortness Of Breath Time Seen by Provider: 12/17/17 11:11 Historian: Patient - History of Present Illness Narrative History of Present Illness (Text): 12/17/17 12:10 A 67 year old male, whose past medical history includes lung CA, presents to the emergency department complaining of abdominal pain and generalized weakness. Patient was sent by PMD for evaluation to rule out SBP. Patient denies any fever, or any other complaints at this time. PMD: Dr. Gómez Past Medical History - Provider Review Nursing Documentation Reviewed: Yes - Infectious Disease Hx of Infectious Diseases: None - Tetanus Immunization Tetanus Immunization: Up to Date - Cardiac Hx Cardiac Disorders: No - Pulmonary Hx Respiratory Disorders: Yes Hx Lung Cancer: Yes - Neurological Hx Neurological Disorder: Yes Hx Seizures: Yes Other/Comment: mets to the brain - HEENT Hx HEENT Disorder: No - Renal Hx Renal Disorder: No - Endocrine/Metabolic Hx Endocrine Disorders: No - Hematological/Oncological Hx Blood Transfusions: No - Integumentary Hx Dermatological Disorder: No - Musculoskeletal/Rheumatological Hx Falls: No - Gastrointestinal Hx Gastrointestinal Disorders: No - Genitourinary/Gynecological Hx Genitourinary Disorders: No - Psychiatric Hx Psychophysiologic Disorder: No Hx Emotional Abuse: No Hx Physical Abuse: No Hx Substance Use: No - Anesthesia Hx Anesthesia Reactions: No Hx Malignant Hyperthermia: No - Suicidal Assessment Feels Threatened In Home Enviroment: No Family/Social History - Physician Review Nursing Documentation Reviewed: Yes Family/Social History: No Known Family HX Smoking Status: Current Some Days Smoker Hx Alcohol Use: No Hx Substance Use: No Allergies/Home Meds Allergies/Adverse Reactions: Allergies No Known Allergies Allergy (Verified 12/17/17 11:04) Home Medications: Home Meds Medication Instructions Recorded Confirmed Oxycodone HCl [Oxycontin] 20 mg PO Q6H PRN 11/14/17 12/17/17 levETIRAcetam [Keppra] 500 mg PO BID 11/14/17 12/17/17 Albuterol 0.083% [Albuterol 0.083% 1 puff INH QID 11/15/17 12/17/17 Inhal Day (2.5 mg/3 ml) UD] Zolpidem [Ambien] 5 mg PO HS 12/17/17 12/17/17 Review of Systems - Physician Review All systems were reviewed & negative as marked: Yes - Review of Systems Constitutional: Other (generalized weakness). absent: Fevers Gastrointestinal: Abdominal Pain Physical Exam Vital Signs Pulse Resp BP Pulse Ox 12/17/17 17:52 78 18 101/56 L 97 12/17/17 15:36 88 18 115/60 96 12/17/17 12:51 72 18 135/69 96 12/17/17 11:29 20 Appearance: Positive for: Cachectic - Systems Exam Respiratory/Chest: Present: Clear to Auscultation, Good Air Exchange. No: Respiratory Distress, Accessory Muscle Use Cardiovascular: Present: Regular Rate and Rhythm, Normal S1, S2. No: Murmurs Abdomen: Present: Distention. No: Tenderness Neurological: Present: GCS=15, CN II-XII Intact, Speech Normal Skin: Present: Warm, Dry, Normal Color. No: Rashes Psychiatric: Present: Alert, Oriented x 3, Normal Insight, Normal Concentration Medical Decision Making ED Course and Treatment: 12/17/17 12:15 Impression: 67 year old male with abdominal pain and generalized weakness. Plan: -- Chest X-ray -- Labs -- Urinalysis -- Blood Culture -- Reassess and disposition Progress Notes: 12/17/2017 12:56 Chest X-ray IMPRESSION: Large mass lesion right upper love again noted. Suspect mild left basilar atelectasis. Dictator: Bronson Francis DO 12/23/17 11:36 pt with ascities, r/o sbp. paracenteis perforemd in er. empriic antibiotics ordered. accepted by dr gómez for admission. gi updated. albumin dosed. - Lab Interpretations Microbiology Results: Microbiology Results 12/17/17 12:15 Blood Blood Culture - Final NO GROWTH AFTER 5 DAYS 12/17/17 12:15 Blood Gram Stain - Final TEST NOT PERFORMED 12/17/17 12:15 Blood Blood Culture - Final NO GROWTH AFTER 5 DAYS 12/17/17 12:15 Blood Gram Stain - Final TEST NOT PERFORMED Lab Results: 12/17/17 12:15 12/17/17 12:15 Lab Results 12/17/17 14:30: PT 18.1 H, INR 1.57 H, APTT 33.5 12/17/17 12:15: Ammonia < 9 L 12/17/17 12:15: Sodium 128 L, Potassium 5.0, Chloride 98, Carbon Dioxide 23, Anion Gap 13, BUN 23 H, Creatinine 1.5, Est GFR ( Amer) 57, Est GFR (Non- Af Amer) 47, Random Glucose 115 H, Calcium 7.7 L, Total Bilirubin 1.2, AST 18, ALT 33, Alkaline Phosphatase 324 H, Lactate Dehydrogenase 760 H, Total Creatine Kinase 31 L, Troponin I < 0.01, Total Protein 5.7 L, Albumin 2.5 L, Globulin 3.2 , Albumin/Globulin Ratio 0.8 L, Lipase 64 12/17/17 12:15: WBC 43.9 H*, RBC 3.61, Hgb 10.8 L, Hct 32.3 L, MCV 89.5, MCH 29.9, MCHC 33.4, RDW 18.8 H, Plt Count 119 L, MPV 10.2, Gran % 67.1, Lymph % ( Auto) 3.8 L, [place] % (Auto) 5.5, Eos % (Auto) 23.5 H, Baso % (Auto) 0.1, Gran # 29.44 H, Lymph # (Auto) 1.7, [place]es # (Auto) 2.4 H, Eos # (Auto) 10.3 H, Baso # ( Auto) 0.04, Neutrophils % (Manual) 58, Band Neutrophils % 5 H, Lymphocytes % ( Manual) 5 L, Monocytes % (Manual) 5, Eosinophils % (Manual) 26 H, Myelocytes % 1 , Platelet Evaluation Low - RAD Interpretation Radiology Orders: 12/17/17 11:31 CXR [CHEST PORTABLE] [RAD] Stat - Medication Orders Current Medication Orders: Discontinued Medications Acetaminophen (Tylenol 325mg Tab) 650 mg PO Q4 PRN PRN Reason: Pain, Mild (1-3) Albumin Human (Albumin Human 25% (25 Gm/100 Ml)) 50 gm IV ONCE ONE Stop: 12/17/17 16:46 Last Admin: 12/17/17 23:17 Dose: 50 gm eMAR Start Stop Document 12/17/17 23:17 BELLE (Rec: 12/17/17 23:18 [email or web address] [id number]) Intravenous Solution Start Date 12/17/17 Start Time 23:18 End Date 12/18/17 End time 00:18 Total Infusion Time 60 Albumin Human (Albumin Human 25% (25 Gm/100 Ml)) 25 gm IV ONCE ONE Stop: 12/18/17 10:01 Last Admin: 12/18/17 10:55 Dose: 25 gm eMAR Start Stop Document 12/18/17 10:55 DIMITRI (Rec: 12/18/17 10:56 DIMITRI [id number]) Intravenous Solution Start Date 12/18/17 Start Time 10:55 End Date 12/18/17 Furosemide (Lasix) 40 mg IVP DAILY [facility] Last Admin: 12/18/17 13:47 Dose: Not Given Non-Admin Reason: BP Parameters Not Met MAR Blood Pressure Document 12/18/17 13:47 DIMITRI (Rec: 12/18/17 13:48 DIMITRI [id number]) Blood Pressure Blood Pressure (100/60-150/90) 85/57 IVP Administration Document 12/18/17 13:47 DIMITRI (Rec: 12/18/17 13:48 DIMITRI [id number]) Charges for Administration # of IVP Administrations 1 Heparin Sodium (Porcine) (Heparin) 5,000 units SC Q12 JESSICA PRN Reason: Protocol Stop: 12/23/17 14:01 Last Admin: 12/22/17 11:03 Dose: 5,000 units Subcutaneous Administrations Document 12/22/17 11:03 SML (Rec: 12/22/17 11:04 SML [id number]) Injection Site MAR Injection Site Left Abdomen Charges for Administration # of Subcutaneous Administrations 1 Hydrochlorothiazide (Hydrodiuril) 25 mg PO DAILY [facility] [place] Last Admin: 12/22/17 11:05 Dose: 25 mg Metronidazole (Flagyl) 500 mg in 100 mls @ 100 mls/hr IVPB STAT STA PRN Reason: Protocol Stop: 12/17/17 16:19 Last Admin: 12/17/17 16:04 Dose: 100 mls/hr eMAR Start Stop Document 12/17/17 16:04 SOCK TURNER (Rec: 12/17/17 16:05 SOCK TURNER [id number]) Intravenous Solution Start Date 12/17/17 Start Time 16:05 End Date 12/17/17 End time 17:05 Total Infusion Time 60 Ceftriaxone Sodium (Rocephin 1 Gram Ivpb) 1 gm in 100 mls @ 100 mls/hr IVPB STAT STA PRN Reason: Protocol Stop: 12/17/17 16:19 Last Admin: 12/17/17 17:09 Dose: 100 mls/hr eMAR Start Stop Document 12/17/17 17:09 SOCK TURNER (Rec: 12/17/17 17:09 SOCK TURNER [id number]) Intravenous Solution Start Date 12/17/17 Start Time 17:09 End Date 12/17/17 End time 18:09 Total Infusion Time 60 Ceftriaxone Sodium (Rocephin 1 Gram Ivpb) 1 gm in 100 mls @ 100 mls/hr IVPB DAILY JESSICA PRN Reason: Protocol Last Admin: 12/18/17 09:15 Dose: 100 mls/hr eMAR Start Stop Document 12/18/17 09:15 DIMITRI (Rec: 12/18/17 09:15 DIMITRI [id number]) Intravenous Solution Start Date 12/18/17 Start Time 09:15 End Date 12/18/17 End time 10:15 Total Infusion Time 60 Metronidazole (Flagyl) 500 mg in 100 mls @ 100 mls/hr IVPB Q8 JESSICA PRN Reason: Protocol Last Admin: 12/20/17 15:00 Dose: Not Given Non-Admin Reason: Patient in OR/Vascular Cefepime HCl (Maxipime 1gm) 1 gm in 100 mls @ 100 mls/hr IVPB Q8 JESSICA PRN Reason: Protocol Stop: 12/27/17 22:01 Last Admin: 12/20/17 15:00 Dose: Not Given Non-Admin Reason: Patient in OR/Vascular Sodium Chloride (Sodium Chloride 0.45%) 1,000 mls @ 80 mls/hr IV [id number] JESSICA Stop: 12/20/17 22:00 Last Admin: 12/20/17 20:37 Dose: 80 mls/hr eMAR Start Stop Document 12/20/17 20:37 MALIK (Rec: 12/20/17 20:38 MALIK [id number]) Intravenous Solution Start Date 12/20/17 Start Time 20:38 Azithromycin (Zithromax 500mg In Ns) 500 mg in 250 mls @ 167 mls/hr IVPB DAILY JESSICA PRN Reason: Protocol Last Admin: 12/22/17 11:04 Dose: 167 mls/hr eMAR Start Stop Document 12/22/17 11:04 SML (Rec: 12/22/17 11:05 SML [id number]) Intravenous Solution Start Date 12/22/17 Start Time 11:04 End Date 12/22/17 End time 12:34 Total Infusion Time 90 Ipratropium [place] (Atrovent) 0.5 mg IH TID [facility] [place] Last Admin: 12/22/17 14:36 Dose: Levalbuterol HCl (Xopenex) 0.63 mg IH TIDRESP [facility] [place] Last Admin: 12/22/17 14:36 Dose: Levetiracetam (Keppra) 500 mg PO BID [facility] [place] Last Admin: 12/22/17 11:05 Dose: 500 mg Ondansetron HCl (Zofran Inj) 4 mg IVP Q6H PRN PRN Reason: Nausea/Vomiting Oxycodone HCl (Oxycodone Immediate Release Tab) 10 mg PO Q4 PRN PRN Reason: Pain, moderate (4-7) Last Admin: 12/20/17 20:31 Dose: 10 mg [facility] Pain Assessment Document 12/20/17 20:31 [facility] (Rec: 12/20/17 20:33 [facility] [id number]) Pain Reassessment Is this a pain reassessment? No Presence of Pain Presence of Pain Yes Pain Scale Used Pain Scale Used Numeric Location Pain Location Body Site Back Description Description Constant Intensity of Pain at present 8 Acceptable Level of Pain 2 Pain Behavior Facial Grimacing Aggravating Factors Changing Position Alleviating Factors/Management Medication Techniques Alleviating Factors Medication Re-Assess: [facility] Pain Assessment Document 12/20/17 21:31 [facility] (Rec: 12/20/17 23:20 [facility] [id number]) Pain Reassessment Is this a pain reassessment? Yes Sleep Is patient sleeping during reassessment? Yes Potassium Chloride (Potassium Chloride Oral Soln) 20 meq PO STAT STA Stop: 12/19/17 15:25 Last Admin: 12/19/17 15:43 Dose: 20 meq Potassium Chloride (K-Dur 20 Meq Er Tab) 20 meq PO BID [facility] Last Admin: 12/20/17 09:41 Dose: 20 meq Potassium Chloride (Potassium Chloride Oral Soln) 20 meq PO BID [facility] Last Admin: 12/21/17 17:43 Dose: 20 meq Potassium Chloride (Potassium Chloride Oral Soln) 40 meq PO BID [facility] Last Admin: 12/22/17 11:04 Dose: 40 meq Zolpidem Tartrate (Ambien) 5 mg PO HS JESSICA PRN Reason: Protocol Last Admin: 12/21/17 21:30 Dose: 5 mg Behavioural Document 12/21/17 21:30 CDL (Rec: 12/21/17 21:30 CDL [id number]) Maintenance Maintenance Dose Yes Behavior Behavior for Medication: Anxiety Insomnia Re-Assess: Reassess Psych Meds Document 12/21/17 22:30 CDL (Rec: 12/21/17 22:49 CDL [email or web address]) Reassess Psych Med Effective - Scribe Statement The provider has reviewed the documentation as recorded by the Scribe Epi Ramsay Provider Scribe Attestation: All medical record entries made by the Scribe were at my direction and personally dictated by me. I have reviewed the chart and agree that the record accurately reflects my personal performance of the history, physical exam, medical decision making, and the department course for this patient. I have also personally directed, reviewed, and agree with the discharge instructions and disposition. Disposition/Present on Arrival - Present on Arrival Any Indicators Present on Arrival: No History of DVT/PE: No History of Uncontrolled Diabetes: No Urinary Catheter: No History of Decub. Ulcer: No History Surgical Site Infection Following: None - Disposition Have Diagnosis and Disposition been Completed?: Yes Diagnosis: Ascites Disposition: HOSPITALIZED Disposition Time: 05:00 Condition: FAIR
[2017-12-17 12:47] LABS: TROPONIN I < 0.01 ng/mL
[2017-12-17 12:49] LABS: BAND 5 % (0-2); EOSINOPHIL 26 % (0.0-3.0); LYMPHOCYTE 5 % (22.0-35.0); MONOCYTE 5 % (1.0-6.0); MYELOCYTE 1 %; NEUTROPHIL 58 % (50.0-70.0); PLATELET ESTIMATE LOW (NORMAL)
--- NOTE | 2017-12-17 12:57 | RAD ---
HISTORY: Abdominal pain. COMPARISON: Comparison made with prior chest radiograph 11/20/2017 as well as PET-CT scan 11/14/2017. FINDINGS: Re- demonstrated is right IJ central line LUNGS: Re- demonstrated is large right upper lobe mass lesion. . Suspect mild left basilar atelectasis PLEURA: No significant pleural effusion identified, no pneumothorax apparent. CARDIOVASCULAR: Heart size is difficult to assess due to partial silhouetting the heart appears upper limits of normal in size. OSSEOUS STRUCTURES: No significant abnormalities. VISUALIZED UPPER ABDOMEN: Normal. OTHER FINDINGS: None. IMPRESSION: Large mass lesion right upper lobe again noted. Suspect mild left basilar atelectasis.
[2017-12-17 14:58] LABS: INR 1.57 (0.93-1.08); PARTIAL THROMBOPLASTIN TIME 33.5 Seconds (25.1-36.5); PROTHROMBIN TIME 18.1 SECONDS (9.4-12.5)
[2017-12-17] MEDS ORDERED: metroNIDAZOLE IV 500 mg/100 ml 500 MG/100 ML BAG IVPB STA (15:20)
[2017-12-17] MEDS ORDERED: cefTRIAXone 1 gm 1 GM/100 ML BAG IVPB STA (15:20)
[2017-12-17] MEDS ORDERED: Albumin Human 25% (12.5 gm/50 ml) IV ONE (15:35)
--- NOTE | 2017-12-17 15:39 | PCM.PROC ---
Procedures Attestation:: I certify that I have explained the specified Operation(s) or Procedure(s), risks, benefits and reasonable alternatives to the Patient and/or other person responsible. The opportunity was given to ask questions and all questions answered - Paracentesis Consent Obtained: verbal consent, written consent Time Out Performed: Yes Indication: Ascites, possible spontaneous bacterial peritonitis Procedure: therapeutic paracentesis, diagnostic paracentesis Location: RLQ Local Anesthetic Used: lidocaine 1% (5L aspirated. Under ED attending direct supervision )
[2017-12-17 16:33] LABS: BODY FLUID TYPE PERITONEAL
[2017-12-17] MEDS ORDERED: Albumin Human 25% (25 gm/100 ml) IV ONE (16:45)
[2017-12-17 17:00] LABS: BF GROSS APPEARANCE CLEAR (CLEAR)
[2017-12-17 17:01] LABS: BODY FLUID TOTAL COUNT 100 (0-0)
[2017-12-17] MEDS: Ipratropium 0.02% Inhal Soln (0.5 mg/2.5 ml) UD IH SCH (19:49)
[2017-12-17] MEDS: Levalbuterol 0.63 MG/3 ML Inhal Soln UD IH SCH (19:49)
--- NOTE | 2017-12-17 21:26 | CARD ---
APPROVED REPORT EKG Measurement Heart [id number] <Conclusion> Sinus tachycardia with premature atrial complexes Otherwise normal ECG
--- NOTE | 2017-12-17 23:02 | HP ---
HISTORY OF PRESENT ILLNESS: Mr. Iglesias is a 67-year-old male recently diagnosed with adenocarcinoma, stage IV, of the lung. He has a large lesion on the right side of the lung. He also had brain met, completed radiation to the brain. He developed ascites for the past few weeks. He has history of cirrhosis of liver with hepatitis C treated in the past. Ascites was drained during last hospitalization. There was indication of subacute bacterial peritonitis. He still has elevated white count. Last white count in the office was 37,000. He was advised to go to the ER today for further evaluation and treatment of bacterial peritonitis. Five liters of ascitic fluid was drained in the ER, sent for cytology. He does not have fever, has COPD, baseline shortness of breath. No hemoptysis. PAST MEDICAL HISTORY: History of brain met, right arm weakness. COPD. Hepatitis C. PAST SURGICAL HISTORY: Ascitic tap in the past lung biopsy. ALLERGIES: NO KNOWN DRUG ALLERGIES. HOME MEDICATIONS: Oxycodone 10 mg t.i.d. p.r.n., albuterol inhalation, Ambien 5 mg p.o. at bedtime, Keppra 500 mg p.o. b.i.d. REVIEW OF SYSTEMS: As per HPI. Rest of 12-point review of systems reviewed, negative. PHYSICAL EXAMINATION: GENERAL: Comfortable in bed, in no acute distress. VITAL SIGNS: Temperature 98.6, heart rate is 80 per minute, blood pressure 120/70. HEENT: Pallor positive. NECK: No lymphadenopathy. CHEST: Air entry present and equal bilaterally. No added sound. CARDIOVASCULAR: S1 and S2 normal. No murmur. No gallop. ABDOMEN: Soft and nontender, distended. Distention decreased after ascitic tap. EXTREMITIES: No weakness. CENTRAL NERVOUS SYSTEM: Alert, oriented x3. No focal sensory motor deficit. Cranial nerves intact. LABORATORY DATA: White count 43,000, hemoglobin 10.8, hematocrit 32.3, platelet 119. Sodium 128, potassium 5, BUN 23, creatinine 1.5, glucose 115. ASSESSMENT: . 1. Stage IV lung cancer with brain metastasis. 2. Ascites related to cirrhosis of liver. 3. Subacute bacterial peritonitis. 4. Chronic obstructive pulmonary disease. PLAN: Five liters of ascetic fluid was drained, sent for cytology. ID consultation, Dr. Kay, requested. We will continue ceftriaxone 1 g daily and Flagyl 500 mg IV every 8 hours for subacute bacterial peritonitis. We will consult Dr. Kaufman, Gastroenterology. We will continue Keppra 500 mg p.o. b.i.d. for seizure prophylaxis. Xopenex t.i.d. and p.r.n., ipratropium t.i.d. We will resume the regular diet. We will monitor clinically. albumin 25%, 50 g tomorrow for hypoalbuminemia. Marlen Alaniz MD MTDD
[2017-12-18] MEDS: metroNIDAZOLE IV 500 mg/100 ml 500 MG/100 ML BAG IVPB SCH ×3 (05:17→22:01)
[2017-12-18] MEDS: Ipratropium 0.02% Inhal Soln (0.5 mg/2.5 ml) UD IH SCH ×3 (08:08→20:22)
[2017-12-18] MEDS: Levalbuterol 0.63 MG/3 ML Inhal Soln UD IH SCH ×3 (08:09→20:22)
[2017-12-18] MEDS ORDERED: cefTRIAXone 1 gm 1 GM/100 ML BAG IVPB SCH (10:00)
[2017-12-18] MEDS ORDERED: Albumin Human 25% (25 gm/100 ml) IV ONE (10:00)
[2017-12-18 13:12] LABS: BASO # 0.06 K/mm3 (0.0-2.0); BASO % 0.2 % (0.0-3.0); EOS # 7.3 (0.0-0.7); EOS % 22.3 % (1.5-5.0); GRAN # 22.54 (1.4-6.5); GRAN % 68.7 % (50.0-68.0); HEMOGLOBIN 9.8 g/dL (14.0-18.0); LYMPH # 1.4 (1.2-3.4); LYMPH % 4.3 % (22.0-35.0); MEAN CELL VOLUME 85.8 fl (80.0-105.0); MEAN CORPUSCULAR HEMOGLOBIN 29.6 pg (25.0-35.0); MEAN CORPUSCULAR HGB CONC 34.5 g/dl (31.0-37.0); MEAN PLATELET VOLUME 9.2 fl (7.0-11.0); MONO # 1.5 (0.1-0.6); MONO % 4.5 % (1.0-6.0); RBC 3.31 10^6/uL (3.5-6.1); RED CELL DISTRIBUTION WIDTH 17.6 % (11.5-14.5)
[2017-12-18 13:15] LABS: WHITE BLOOD COUNT 32.8 10^3/ul (4.5-11.0)
[2017-12-18 13:25] LABS: ALBUMIN 2.6 g/dL (3.0-4.8); ALT/SGPT 30 U/L (7-56); AST/SGOT 15 U/L (17-59); BLOOD UREA NITROGEN 19 mg/dL (7-21); CALCIUM 7.6 mg/dL (8.4-10.5); GFR AFRICAN-AMERICAN > 60; GFR NON-AFRICAN AMERICAN > 60
--- NOTE | 2017-12-18 20:00 | CP.PCM.CON ---
<Jose Castellon - Last Filed: 12/18/17 19:53> History of Present Illness - History of Present Illness History of Present Illness: GI consult note. Dr. Kaufman 67yo M with PMHx of HTN and Lung CA w brain mets s/p chemo/radiation. Here for evaluation of abdominal pain and generalized weakness. GI consulted for possible SBP. Patient states that his pain has improved after diagnostic/ theraputic paracenthesis done in ER yesterday. He denies any fevers or chills. No N/V/D. No CP/SOB. Tolerating diet. Denies any other complaints. PMHx: HTN, Lung CA w mets to brain s/p chemo and radiation PSHx: Excision of Basal cell CA Social Hx: Tobacco use NKDA Review of Systems - Review of Systems All systems: reviewed and no additional remarkable complaints except - Constitutional Constitutional: Fatigue, Malaise. absent: Chills, Fever - Cardiovascular Cardiovascular: absent: Chest Pain, Dyspnea - Respiratory Respiratory: absent: Dyspnea - Gastrointestinal Gastrointestinal: Abdominal Pain, Bloating. absent: Diarrhea, Hematemesis, Hematochezia, Melena, Nausea, Vomiting - Genitourinary Genitourinary: absent: Dysuria Past Patient History - Infectious Disease Hx of Infectious Diseases: None - Tetanus Immunizations Tetanus Immunization: Up to Date - Past Social History Smoking Status: Current Some Days Smoker - CARDIAC Hx Cardiac Disorders: No - PULMONARY Hx Respiratory Disorders: Yes Hx Lung Cancer: Yes - NEUROLOGICAL Hx Neurological Disorder: Yes Hx Seizures: Yes Other/Comment: mets to the brain - HEENT Hx HEENT Problems: No - RENAL Hx Chronic Kidney Disease: No - ENDOCRINE/METABOLIC Hx Endocrine Disorders: No - HEMATOLOGICAL/ONCOLOGICAL Hx Blood Transfusions: No - INTEGUMENTARY Hx Dermatological Problems: No - MUSCULOSKELETAL/RHEUMATOLOGICAL Hx Falls: No - GASTROINTESTINAL Hx Gastrointestinal Disorders: No - GENITOURINARY/GYNECOLOGICAL Hx Genitourinary Disorders: No - PSYCHIATRIC Hx Psychophysiologic Disorder: No Hx Emotional Abuse: No Hx Physical Abuse: No Hx Substance Use: No - SURGICAL HISTORY Hx Surgeries: No Hx Cardiac Catheterization: No Hx Coronary Stent: No - ANESTHESIA Hx Anesthesia Reactions: No Hx Malignant Hyperthermia: No Meds Allergies/Adverse Reactions: Allergies Allergy/AdvReac Type Severity Reaction Status Date / Time No Known Allergies Allergy Verified 12/17/17 11:04 - Medications Medications: Current Medications Furosemide (Lasix) 40 mg IVP DAILY [facility] Last Admin: 12/18/17 13:47 Dose: Not Given Heparin Sodium (Porcine) (Heparin) 5,000 units SC Q12 [facility] PRN Reason: Protocol Stop: 12/23/17 14:01 Last Admin: 12/18/17 13:45 Dose: 5,000 units Metronidazole (Flagyl) 500 mg in 100 mls @ 100 mls/hr IVPB Q8 [facility] PRN Reason: Protocol Last Admin: 12/18/17 13:45 Dose: 100 mls/hr Cefepime HCl (Maxipime 1gm) 1 gm in 100 mls @ 100 mls/hr IVPB Q8 [facility] PRN Reason: Protocol Stop: 12/27/17 22:01 Ipratropium [place] (Atrovent) 0.5 mg IH TID [facility] Last Admin: 12/18/17 13:33 Dose: 0.5 mg Levalbuterol HCl (Xopenex) 0.63 mg IH TIDRESP [facility] Last Admin: 12/18/17 13:33 Dose: 0.63 mg Levetiracetam (Keppra) 500 mg PO BID [facility] Last Admin: 12/18/17 09:14 Dose: 500 mg Oxycodone HCl (Oxycodone Immediate Release Tab) 10 mg PO Q4 PRN PRN Reason: Pain, moderate (4-7) Zolpidem Tartrate (Ambien) 5 mg PO HS [facility] PRN Reason: Protocol Last Admin: 12/17/17 21:55 Dose: 5 mg Physical Exam - Constitutional Appears: Non-toxic, No Acute Distress, Older Than Stated Age, Cachectic - Head Exam Head Exam: ATRAUMATIC, NORMAL INSPECTION, NORMOCEPHALIC - Eye Exam Eye Exam: EOMI, Normal appearance - ENT Exam ENT Exam: Mucous Membranes Moist - Respiratory Exam Respiratory Exam: NORMAL BREATHING PATTERN. absent: Accessory Muscle Use, Respiratory Distress - Cardiovascular Exam Cardiovascular Exam: absent: JVD - GI/Abdominal Exam GI & Abdominal Exam: Distended, Soft. absent: Guarding, Rebound, Rigid, Tenderness - Extremities Exam Extremities exam: Positive for: normal inspection. Negative for: calf tenderness - Neurological Exam Neurological exam: Alert, Oriented x3 - Skin Skin Exam: Dry, Intact, Normal Color, Warm Results - Vital Signs Recent Vital Signs: Last Vital Signs Temp 97.6 F 12/18/17 16:00 Pulse 94 H 12/18/17 16:00 Resp 20 12/18/17 16:00 BP 146/53 L 12/18/17 16:00 Pulse Ox 98 12/18/17 16:00 - Labs Result Diagrams: 12/18/17 13:00 12/18/17 13:00 Labs: Laboratory Results - last 24 hr 12/18/17 12/18/17 13:00 13:00 WBC 32.8 H* D RBC 3.31 L Hgb 9.8 L Hct 28.4 L MCV 85.8 D MCH 29.6 MCHC 34.5 RDW 17.6 H Plt Count 99 L MPV 9.2 Gran % 68.7 H Lymph % (Auto) 4.3 L Cross % (Auto) 4.5 Eos % (Auto) 22.3 H Baso % (Auto) 0.2 Gran # 22.54 H Lymph # (Auto) 1.4 Cross # (Auto) 1.5 H Eos # (Auto) 7.3 H Baso # (Auto) 0.06 Sodium 134 Potassium 3.7 Chloride 100 Carbon Dioxide 26 Anion Gap 12 BUN 19 Creatinine 1.1 Est GFR ( Amer) > 60 Est GFR (Non-Af Amer) > 60 Random Glucose 106 Calcium 7.6 L Total Bilirubin 0.9 AST 15 L ALT 30 Alkaline Phosphatase 233 H D Total Protein 5.3 L Albumin 2.6 L Globulin 2.7 Albumin/Globulin Ratio 1.0 L Assessment & Plan - Assessment and Plan (Free Text) Assessment: 67yo M with hx of Lung CA w mets to brain s/p chemo/radiation. Here with abdominal pain likely secondary to tense ascites. r/o SBP - Paracenthesis fluid analysis noted. Low suspicion for SBP - Severe leukocytosis Plan: - f/u CT Abd/pelvis - continue current management - Abx as per ID - f/u Stool c diff as ordered Further recs as per Dr. Kaufman <Kailash Kaufman V - Last Filed: 12/19/17 00:04> Meds - Medications Medications: Current Medications Heparin Sodium (Porcine) (Heparin) 5,000 units SC Q12 [facility] PRN Reason: Protocol Stop: 12/23/17 14:01 Last Admin: 12/18/17 22:05 Dose: 5,000 units Hydrochlorothiazide (Hydrodiuril) 25 mg PO DAILY [facility] Metronidazole (Flagyl) 500 mg in 100 mls @ 100 mls/hr IVPB Q8 [facility] PRN Reason: Protocol Last Admin: 12/18/17 22:01 Dose: 100 mls/hr Cefepime HCl (Maxipime 1gm) 1 gm in 100 mls @ 100 mls/hr IVPB Q8 [facility] PRN Reason: Protocol Stop: 12/27/17 22:01 Last Admin: 12/18/17 21:59 Dose: 100 mls/hr Ipratropium [place] (Atrovent) 0.5 mg IH TID [facility] Last Admin: 12/18/17 20:22 Dose: 0.5 mg Levalbuterol HCl (Xopenex) 0.63 mg IH TIDRESP [facility] Last Admin: 12/18/17 20:22 Dose: 0.63 mg Levetiracetam (Keppra) 500 mg PO BID [facility] Last Admin: 12/18/17 09:14 Dose: 500 mg Oxycodone HCl (Oxycodone Immediate Release Tab) 10 mg PO Q4 PRN PRN Reason: Pain, moderate (4-7) Last Admin: 12/18/17 21:58 Dose: 10 mg Zolpidem Tartrate (Ambien) 5 mg PO HS [facility] PRN Reason: Protocol Last Admin: 12/18/17 22:56 Dose: 5 mg Results - Vital Signs Recent Vital Signs: Last Vital Signs Temp 97.6 F 12/18/17 16:00 Pulse 94 H 12/18/17 16:00 Resp 20 12/18/17 16:00 BP 146/53 L 12/18/17 16:00 Pulse Ox 98 12/18/17 16:00 - Labs Result Diagrams: 12/18/17 13:00 12/18/17 13:00 Labs: Laboratory Results - last 24 hr 12/18/17 12/18/17 13:00 13:00 WBC 32.8 H* D RBC 3.31 L Hgb 9.8 L Hct 28.4 L MCV 85.8 D MCH 29.6 MCHC 34.5 RDW 17.6 H Plt Count 99 L MPV 9.2 Gran % 68.7 H Lymph % (Auto) 4.3 L Cross % (Auto) 4.5 Eos % (Auto) 22.3 H Baso % (Auto) 0.2 Gran # 22.54 H Lymph # (Auto) 1.4 Cross # (Auto) 1.5 H Eos # (Auto) 7.3 H Baso # (Auto) 0.06 Sodium 134 Potassium 3.7 Chloride 100 Carbon Dioxide 26 Anion Gap 12 BUN 19 Creatinine 1.1 Est GFR ( Amer) > 60 Est GFR (Non-Af Amer) > 60 Random Glucose 106 Calcium 7.6 L Total Bilirubin 0.9 AST 15 L ALT 30 Alkaline Phosphatase 233 H D Total Protein 5.3 L Albumin 2.6 L Globulin 2.7 Albumin/Globulin Ratio 1.0 L Attending/Attestation - Attestation I have personally seen and examined this patient.: Yes I have fully participated in the care of the patient.: Yes I have reviewed all pertinent clinical information: Yes Notes (Text): This is an addendum to GI progress report dictated by the Cigar Making Machine Operator.The patient was seen and examined earlier. Medical records, lab studies, imagings were reviewed. Last 24 hours events reviewed. Agreed with the above treatment plan as outlined in Cigar Making Machine Operator 's notes the with the addition of the following 12/19/17 00:04
[2017-12-18] MEDS: oxyCODONE 10 mg Immediate Release Tab PO PRN (21:58)
[2017-12-18] MEDS: Cefepime 1gm in NS 100ml 1 GM/100 ML BAG IVPB SCH (21:59)
--- NOTE | 2017-12-19 01:08 | PN ---
DATE: 12/18/2017 SUBJECTIVE: He is comfortable in bed, in no acute distress. No fever, no cough with expectoration. Abdominal distention decreased after 5 liters of ascitic fluid was taken out. Cytology showed predominant lymphocytosis; on ascitic fluid, pathology on ascitic fluid is pending. He has stage IV lung cancer, right-sided lung and brain mass. Chest x-ray showed total whiteout of right lung. REVIEW OF SYSTEMS: As per HPI. Rest of the 12-point review of systems reviewed and negative. MEDICATIONS: Cefepime 1 g every 8 hours, Lasix 40 mg IV daily, heparin 5000 every 12 hours, ipratropium 0.5 inhalation t.i.d., Xopenex 0.6 mg t.i.d., Keppra 500 mg b.i.d., Flagyl 500 every 8 hours, oxycodone p.r.n. for pain and Ambien 5 mg p.o. at bedtime. LABORATORY DATA: White count of 32,000, hemoglobin 9.8, hematocrit 28.4, platelet count 99,000. Sodium 134, potassium 3.7, creatinine 1.1, calcium 7.6, total bilirubin 0.9, alkaline phosphatase 233. Blood culture and urine culture, no growth. Cell count showed 27% neutrophil and lymphocytes 72, total white cell count 116. PHYSICAL EXAMINATION: GENERAL: Comfortable in bed, in no acute distress. VITAL SIGNS: Temperature 97.6, heart rate is 94 per minute, blood pressure 146/53, respiratory rate per minute. Blood pressure was 85/57 at hours 13, respiratory rate 20 per minute. Oxygen saturation 98% on room air. HEENT: Pallor positive. Oral mucosa dry. NECK: No lymphadenopathy. CHEST: Air entry decreased on the right side. CARDIOVASCULAR: S1 and S2 normal. No murmur. No gallop. ABDOMEN: Soft, nontender, mildly distended. EXTREMITIES: No edema. PRODUCT MANAGER: Alert, oriented x3. No focal sensory motor deficit. SKIN: No petechiae. No rash. SPINE: Nontender. ASSESSMENT: 1. Stage IV lung cancer. 2. Ascites related to cirrhosis of liver. 3. Mild coagulopathy. 4. Leukocytosis. 5. Anemia, thrombocytopenia. PLAN: He is currently on IV antibiotics with cefepime and Flagyl. ID consultation with Dr. Kya appreciated. White count declined to 32,000 from 43,000. He is being treated for subacute bacterial peritonitis. We will await cytology in the peritoneal fluid. Chest x-ray showed total whiteout of the right lung. We will do the CAT scan of the chest without contrast to assess the current status. He might have large pleural effusion because of hypoalbuminemia. He had large ascites, 5 liters were drained in the ER. He received albumin for 2 days. GI consultation with Dr. Kaufman appreciated. We will continue Keppra for seizure prophylaxis. Bedside physical therapy, heparin 5000 b.i.d. for deep venous thrombosis prophylaxis. I will decrease Lasix to 20 mg p.o. daily because of hypotension. Marlen Alaniz MD
[2017-12-19] MEDS: metroNIDAZOLE IV 500 mg/100 ml 500 MG/100 ML BAG IVPB SCH ×3 (06:25→21:55)
[2017-12-19] MEDS: Cefepime 1gm in NS 100ml 1 GM/100 ML BAG IVPB SCH ×3 (06:25→21:55)
[2017-12-19 06:54] LABS: HEMOGLOBIN 9.7 g/dL (14.0-18.0); MEAN CELL VOLUME 86.8 fl (80.0-105.0); MEAN CORPUSCULAR HEMOGLOBIN 29.1 pg (25.0-35.0); MEAN CORPUSCULAR HGB CONC 33.6 g/dl (31.0-37.0); MEAN PLATELET VOLUME 9.1 fl (7.0-11.0); RBC 3.33 10^6/uL (3.5-6.1); RED CELL DISTRIBUTION WIDTH 17.9 % (11.5-14.5)
--- NOTE | 2017-12-19 06:59 | CON ---
DATE: 12/18/2017 LOCATION: Patient is seen earlier this morning in room 366, bed 3. CHIEF COMPLAINT: Abdominal pain . HISTORY OF PRESENT ILLNESS: This is a 67-year-old male with history of adenocarcinoma, stage IV lung cancer with brain metastasis, had chemotherapy, radiation, has had spontaneous bacterial peritonitis in the past and he has had hepatitis C with cirrhosis, chronic obstructive lung disease, hypertension, who is admitted now with abdominal pain, rule out spontaneous bacterial peritonitis. Patient had low-grade fevers. REVIEW OF SYSTEMS: Reveals the patient has low-grade fevers and mild shortness of breath, minimal cough. He does have abdominal pain, dull in nature without radiation, epigastric location. No bright red blood per rectum. No melena, dysuria. A 12-point review of systems was performed. PAST MEDICAL HISTORY: Significant for adenocarcinoma, stage IV lung cancer with mets to the brain, has had chemotherapy and radiation, small bowel obstruction, hypertension, smoker, hepatitis C, chronic obstructive lung disease, and cirrhosis. PAST SURGICAL HISTORY: Significant for lung biopsy, ascitic tap. ALLERGIES: PATIENT HAS NO KNOWN ALLERGIES. MEDICATIONS AT HOME: Include Keppra and OxyContin. PHYSICAL EXAMINATION: GENERAL: Patient is in bed, appearing weak and chronically ill. VITAL SIGNS: Temperature of 98, blood pressure is 85/50, respiratory rate of 20, heart rate of 98. HEENT: Unremarkable. NECK: Supple. LUNGS: Have decreased breath sounds. HEART: Normal S1, S2. ABDOMEN: Soft, mild tenderness. No rebound or guarding. No masses. LABORATORY DATA: Reveals a white count of 43,000, hemoglobin of 10, platelets of 119. Coagulation is noted. The chemistries reveals a BUN of 23, creatinine of 1.5. Prior to this admission, patient's creatinine was 0.8. Patient does have an elevated alkaline phosphatase. LDH is 760. Peritoneal fluid analysis reveals 116 wbc's. Patient had a chest x-ray which was negative. ASSESSMENT AND PLAN: This is a 67-year-old male with small bowel obstruction and spontaneous bacterial peritonitis in the past, adenocarcinoma, stage IV lung cancer with brain metastasis, has had chemotherapy and radiation. Patient also with hepatitis C and cirrhosis, chronic smoker, chronic obstructive lung disease, hypertension, who is now admitted with tachycardia and leukocytosis. Systemic inflammatory response syndrome. Must rule out spontaneous bacterial peritonitis. Also the wbc's in the peritoneal tap is not consistent with it. We will check on a Gram stain and the cultures in patient with acute kidney injury and creatinine has changed from 0.8 to 1.5. We will treat the patient with Maxipime and Flagyl. We will check on the peritoneal cultures and final blood cultures, which are reported to be negative thus far and will make further recommendations. Overall prognosis is quite poor, should consider a hospice setting for this patient's end stage. Froylan Kay MD
[2017-12-19 07:30] LABS: WHITE BLOOD COUNT 30.3 10^3/ul (4.5-11.0)
[2017-12-19 07:33] LABS: ALB/GLOB RATIO 0.8 (1.1-1.8); ALBUMIN 2.3 g/dL (3.0-4.8); ALT/SGPT 26 U/L (7-56); AST/SGOT 36 U/L (17-59); BLOOD UREA NITROGEN 19 mg/dL (7-21); CALCIUM 7.6 mg/dL (8.4-10.5); GFR AFRICAN-AMERICAN > 60; GFR NON-AFRICAN AMERICAN > 60
[2017-12-19] MEDS: Ipratropium 0.02% Inhal Soln (0.5 mg/2.5 ml) UD IH SCH ×4 (07:55→19:39)
[2017-12-19] MEDS: Levalbuterol 0.63 MG/3 ML Inhal Soln UD IH SCH ×3 (07:58→19:38)
--- NOTE | 2017-12-19 09:39 | CT ---
PROCEDURE: CT Chest without contrast HISTORY: right lung cancer COMPARISON: Chest abdomen and pelvis CT with contrast 10/22/2017. TECHNIQUE: Contiguous axial images were obtained through the chest without intravenous contrast enhancement. Sagittal and coronal reconstructions were performed. Radiation dose (DLP): 563.78 mGy-cm. This CT exam was performed using one or more of the following dose reduction techniques: Automated exposure control, adjustment of the mA and/or kV according to patient size, and/or use of iterative reconstruction technique. FINDINGS: LUNGS: A large opacity is again seen at the right quinten thorax with prominent attenuation of the bronchus intermedius as well as the upper and middle lobe airways. The lack of intravenous contrast limits the definition of this prominent soft tissue which previously demonstrated in homogeneously enhancing likely aggregate of tumor and postobstructive atelectasis. The overall size of this aggregate measures 6.2 x 13.9 x 14.1 cm (transverse by anteroposterior by superoinferior dimensions), compared to 6.4 x 13.0 x 13.3 cm (remeasured). An 8 mm satellite nodule is again identified right lower lobe laterally in image 67 series 3 with a has an additional larger nodule seen more inferiorly in the right lower lobe measure 1.8 x 1.4 cm, mildly larger in the interval. No definite left sided pulmonary in mass identified in the interval though partial calcified pleural plaques again seen the medial left lower lobe base and trace emphysematous changes seen the left apex. MEDIASTINUM: An interval right-sided MediPort is identified by right internal jugular approach terminating at the distal superior vena cava. The thoracic aorta is normal in caliber. Normal sized heart. Main pulmonary artery unremarkable. No vascular congestion. A sub carinal lymph node is slightly larger measuring 2.9 x 1.5 cm compared to 2.8 x 1.1 cm. A 2.1 x 2.0 cm right peritracheal lymph node is identified compared to 1.9 x 1.8 cm previously. No new enlarged lymph nodes identified. The right hilum is obscured by mass with no left hilar adenopathy grossly evident. Right pulmonary loss again seen shift in the mediastinum toward the right. PLEURA: Trace bilateral pleural effusions are identified greater the right than left with no pneumothorax identified bilaterally. BONES: No fracture. No destructive lesion. UPPER ABDOMEN: Moderate ascites identified as well as likely splenomegaly persisting. Although no focal mass is seen throughout the liver, there is a questionable nodular surface pattern, particularly at the upper liver raising question of potential metastasis or cirrhosis. OTHER FINDINGS: None. IMPRESSION: 1. Likely right hilar mass is again seen intermixed with atelectatic right upper and lower lobes with the conglomerate of this opacity increased in volume as discussed above. There is a slight size increase in a small nodule at the right lower lobe inferiorly with stable tiny nodule more superiorly in the right lower lobe. Limited mediastinal lymphadenopathy is arguably increased in size. Volume loss from postobstructive atelectasis shifts the mediastinum toward the right once again. 2. Trace bilateral pleural effusions. Partial calcified plaque medial left lower lobe reiterated. 3. Questionable nodular pattern at the surface of the liver raising question of potential metastasis or hepatic cirrhosis consider follow-up contrast CT, MRI or ultrasound for additional characterization. 4. Abdominal ascites and likely splenomegaly.
[2017-12-19] MEDS ORDERED: Potassium Chloride 20 mEq/15 ml LIQ UD PO STA (15:24)
[2017-12-19 17:57] LABS: GLUCOSE PERITONEAL FLUID 132 mg/dL; TOTAL PROTEIN PERITONEAL FLUID <3.0 g/dL
[2017-12-19] MEDS: oxyCODONE 10 mg Immediate Release Tab PO PRN (21:57)
--- NOTE | 2017-12-19 22:46 | PN ---
DATE: 12/19/2017 SUBJECTIVE: The patient is in bed, in no acute distress, nontoxic. No fever and no chills. PHYSICAL EXAMINATION: VITAL SIGNS: Temperature is 98, blood pressure is 120/70, respiratory rate of 20. HEENT: Unremarkable. NECK: Supple. LUNGS: Have decreased breath sounds. HEART: Normal S1 and S2. ABDOMEN: Soft, nontender. LABORATORY DATA: Reveals the patient's white count is 30,000, hemoglobin of 9, platelets of 108. Chemistries are noted and wbc's in the peritoneal fluid is 116. Microbiology revels the blood cultures are negative and the patient had a CAT scan of the chest, right hilar mass is noted, trace pleural effusions. ASSESSMENT AND PLAN: This is a 67-year-old male with systemic inflammatory response syndrome, must rule out spontaneous bacterial peritonitis, status post peritoneal tap with normal wbc's in the peritoneal tap. We are waiting for cultures and a Gram stain. Currently on Maxipime and Flagyl. The patient's abdominal pain is much improved this morning and the patient is with a history of adenocarcinoma, stage IV with brain metastasis, had chemotherapy. Overall prognosis is quite poor. Froylan Kay MD
[2017-12-20] MEDS: Cefepime 1gm in NS 100ml 1 GM/100 ML BAG IVPB SCH ×2 (05:47→15:00)
[2017-12-20] MEDS: metroNIDAZOLE IV 500 mg/100 ml 500 MG/100 ML BAG IVPB SCH ×2 (05:47→15:00)
[2017-12-20 06:26] LABS: BASO # 0.15 K/mm3 (0.0-2.0); BASO % 0.4 % (0.0-3.0); HEMOGLOBIN 9.9 g/dL (14.0-18.0); LYMPH # 1.6 (1.2-3.4); LYMPH % 4.7 % (22.0-35.0); MEAN CELL VOLUME 87.4 fl (80.0-105.0); MEAN CORPUSCULAR HGB CONC 33.2 g/dl (31.0-37.0); MEAN PLATELET VOLUME 9.4 fl (7.0-11.0); MONO % 5.9 % (1.0-6.0); PLATELET COUNT 117 10^3/uL (120.0-450.0); RBC 3.41 10^6/uL (3.5-6.1); RED CELL DISTRIBUTION WIDTH 17.8 % (11.5-14.5)
[2017-12-20 06:40] LABS: WHITE BLOOD COUNT 33.5 10^3/ul (4.5-11.0)
[2017-12-20 07:05] LABS: ALB/GLOB RATIO 0.9 (1.1-1.8); ALBUMIN 2.4 g/dL (3.0-4.8); ALT/SGPT 25 U/L (7-56); AST/SGOT 18 U/L (17-59); BLOOD UREA NITROGEN 18 mg/dL (7-21); CALCIUM 7.8 mg/dL (8.4-10.5); GFR AFRICAN-AMERICAN > 60; GFR NON-AFRICAN AMERICAN > 60
[2017-12-20] MEDS: Ipratropium 0.02% Inhal Soln (0.5 mg/2.5 ml) UD IH SCH ×3 (07:35→20:45)
[2017-12-20] MEDS: Levalbuterol 0.63 MG/3 ML Inhal Soln UD IH SCH ×3 (07:35→20:45)
[2017-12-20 08:21] LABS: BAND 5 % (0-2); BASOPHIL 1 % (0.0-1.0); EOSINOPHIL 13 % (0.0-3.0); LYMPHOCYTE 7 % (22.0-35.0); METAMYELOCYTE 1 %; MONOCYTE 3 % (1.0-6.0); NEUTROPHIL 70 % (50.0-70.0)
[2017-12-20 08:22] LABS: LARGE PLATELETS PRESENT; PLATELET ESTIMATE LOW (NORMAL)
[2017-12-20] MEDS ORDERED: Potassium Chloride 20 mEq ER Tab PO SCH (10:00)
[2017-12-20] MEDS ORDERED: Midazolam 2 MG/2 ML VIAL ONE ×2 (14:42→15:05)
[2017-12-20] MEDS ORDERED: Lidocaine 2% Inj (20ml) ONE (14:42)
[2017-12-20] MEDS ORDERED: Sodium Chloride 0.45% 1,000 ML IV SCH (16:00)
[2017-12-20] MEDS: Potassium Chloride 20 mEq/15 ml LIQ UD PO SCH (17:18)
--- NOTE | 2017-12-20 18:22 | VASCULAR ---
PROCEDURE: Ultrasound fluoroscopically placed tunneled peritoneal catheter HISTORY: Lung carcinoma. Recurrent ascites with abdominal pain and distension. Needs tunneled peritoneal catheter for adequate ascites control PHYSICIAN(S): Luis Angel Ibarra MD. TECHNIQUE: The relative risks and indications for the procedure were explained to the patient and informed consent obtained. The patient was placed in a supine position on the angiography table and preliminary sonography of the abdomen performed. This revealed a large amount of non loculated ascites, with a entry site in the right lower quadrant. The areas prepped and draped usual sterile fashion. Conscious sedation monitoring were provided throughout the procedure by a nurse. Under ultrasound guidance the right lower quadrant was punctured. Straw-colored fluid was aspirated. A cytology specimen was sent. 0.035 glidewire was coiled in the right upper quadrant. A peel-away sheath was placed. 15.5 Dutch a Frank catheter was advanced over guidewire into the right upper quadrant. The catheter was tunneled in the right lower abdomen. The catheter was flushed and secured. The catheter was drained. 5200 cc of straw-colored fluid removed. The patient tolerated the procedure well. IMPRESSION: 1. Ultrasound fluoroscopically placed tunneled Aspira peritoneal catheter 2. 5200 cc of clear straw-colored fluid were aspirated. A cytology specimen was sent. 3. Initially, the patient should be drained twice a week. Up to 1000 cc will be removed with each drainage.
--- NOTE | 2017-12-20 19:33 | CP.PCM.PN ---
Subjective - Date & Time of Evaluation Date of Evaluation: 12/20/17 Time of Evaluation: 11:10 - Subjective Subjective: Abdomen is still distended but not pain, no fevers, still feels weak. Objective - Vital Signs/Intake and Output Vital Signs (last 24 hours): Temp Pulse Resp BP Pulse Ox 98.3 F 102 H 16 130/97 H 99 12/20/17 06:00 12/20/17 06:00 12/20/17 06:00 12/20/17 06:00 12/20/17 06:00 Intake and Output: 12/20/17 12/20/17 06:59 18:59 Intake Total 600 Output Total 1250 Balance -650 - Medications Medications: Current Medications Heparin Sodium (Porcine) (Heparin) 5,000 units SC Q12 [facility] PRN Reason: Protocol Stop: 12/23/17 14:01 Last Admin: 12/19/17 21:55 Dose: 5,000 units Hydrochlorothiazide (Hydrodiuril) 25 mg PO DAILY [facility] Last Admin: 12/19/17 09:38 Dose: 25 mg Metronidazole (Flagyl) 500 mg in 100 mls @ 100 mls/hr IVPB Q8 [facility] PRN Reason: Protocol Last Admin: 12/20/17 05:47 Dose: 100 mls/hr Cefepime HCl (Maxipime 1gm) 1 gm in 100 mls @ 100 mls/hr IVPB Q8 [facility] PRN Reason: Protocol Stop: 12/27/17 22:01 Last Admin: 12/20/17 05:47 Dose: 100 mls/hr Ipratropium [place] (Atrovent) 0.5 mg IH TID [facility] Last Admin: 12/20/17 07:35 Dose: 0.5 mg Levalbuterol HCl (Xopenex) 0.63 mg IH TIDRESP [facility] Last Admin: 12/20/17 07:35 Dose: 0.63 mg Levetiracetam (Keppra) 500 mg PO BID [facility] Last Admin: 12/19/17 17:30 Dose: 500 mg Oxycodone HCl (Oxycodone Immediate Release Tab) 10 mg PO Q4 PRN PRN Reason: Pain, moderate (4-7) Last Admin: 12/19/17 21:57 Dose: 10 mg Potassium Chloride (K-Dur 20 Meq Er Tab) 20 meq PO BID [facility] Zolpidem Tartrate (Ambien) 5 mg PO HS [facility] PRN Reason: Protocol Last Admin: 12/19/17 23:03 Dose: 5 mg - Labs Labs: 12/20/17 06:00 12/20/17 06:00 PT 18.1 SECONDS (9.4-12.5) H 12/17/17 14:30 INR 1.57 (0.93-1.08) H 12/17/17 14:30 APTT 33.5 Seconds (25.1-36.5) 12/17/17 14:30 - Constitutional Appears: Chronically Ill - Head Exam Head Exam: NORMAL INSPECTION - ENT Exam ENT Exam: Mucous Membranes Moist - Neck Exam Neck Exam: absent: Meningismus - Respiratory Exam Respiratory Exam: Decreased Breath Sounds - Cardiovascular Exam Cardiovascular Exam: +S1, +S2 - GI/Abdominal Exam GI & Abdominal Exam: Distended, Soft. absent: Tenderness Assessment and Plan - Assessment and Plan (Free Text) Plan: Assessment ascites without evidence of SBP, infection history of sepsis due to spontaneous bacterial peritonitis lung cancer with brain metastases on chemotherapy and radiation therapy basal cell carcinoma on right chest area S/P removal HTN significant smoking history (1 1/2 pack per day smoker) Hepatitis C S/P treatment with Interferon for about 4 years Plan cultures from ascitic fluid are negative and ascitic fluid WBC's are only 116 - will d/c antibiotics and observe overall prognosis is poor
[2017-12-20] MEDS: oxyCODONE 10 mg Immediate Release Tab PO PRN (20:31)
[2017-12-21 06:50] LABS: HEMOGLOBIN 10.2 g/dL (14.0-18.0); MEAN CORPUSCULAR HEMOGLOBIN 29.4 pg (25.0-35.0); MEAN CORPUSCULAR HGB CONC 33.8 g/dl (31.0-37.0); MEAN PLATELET VOLUME 9.7 fl (7.0-11.0); RBC 3.47 10^6/uL (3.5-6.1); RED CELL DISTRIBUTION WIDTH 17.7 % (11.5-14.5)
[2017-12-21 06:51] LABS: ALB/GLOB RATIO 0.8 (1.1-1.8); ALBUMIN 2.3 g/dL (3.0-4.8); ALT/SGPT 25 U/L (7-56); AST/SGOT 25 U/L (17-59); BLOOD UREA NITROGEN 15 mg/dL (7-21); CALCIUM 7.5 mg/dL (8.4-10.5); GFR AFRICAN-AMERICAN > 60; GFR NON-AFRICAN AMERICAN > 60
[2017-12-21 07:09] LABS: WHITE BLOOD COUNT 32.1 10^3/ul (4.5-11.0)
[2017-12-21] MEDS: Ipratropium 0.02% Inhal Soln (0.5 mg/2.5 ml) UD IH SCH ×4 (07:55→19:57)
[2017-12-21] MEDS: Levalbuterol 0.63 MG/3 ML Inhal Soln UD IH SCH ×3 (07:58→19:57)
[2017-12-21] MEDS: Potassium Chloride 20 mEq/15 ml LIQ UD PO SCH ×2 (09:10→17:43)
[2017-12-21] MEDS: Azithromycin 500MG/NS 250ml 500 MG/250 ML BAG IVPB SCH (12:08)
--- NOTE | 2017-12-21 22:54 | PN ---
DATE: SUBJECTIVE: The patient in bed, in no acute distress, nontoxic. PHYSICAL EXAMINATION VITAL SIGNS: Temperature is 98, blood pressure is 120/70, respiratory rate 16. HEENT: Unremarkable. NECK: Supple. LUNGS: Had decreased breath sounds. HEART: Normal S1 and S2. ABDOMEN: Soft. LABORATORY DATA: Reveals a white count of 32,000, hemoglobin of 10, platelets of 115,000. Chemistries reveals BUN of 13, creatinine of 1.0. Urinalysis is noted. Peritoneal cultures are negative. Cytology is still pending. Review of orders reveals the patient to be on IV azithromycin. ASSESSMENT AND PLAN: A 67-year-old with ascites, without any evidence of spontaneous bacterial peritonitis, with a history of sepsis and history of spontaneous bacterial peritonitis, history of lung cancer with brain metastasis and chemotherapy and radiation, basal cell carcinoma, cultures negative the patient was started on azithromycin by Dr. Alaniz today. We will discuss with her. Froylan Kay MD
--- NOTE | 2017-12-22 01:16 | PN ---
DATE: 12/21/2017 FOLLOWUP NOTE SUBJECTIVE: He is comfortable in bed, in no acute distress. He underwent tunneled catheter placement for ascites yesterday. Ascitic fluid was sent for pathology. He has large right lower lobe lung mass. Subacute bacterial peritonitis was ruled out. He received meropenem and Flagyl, which were discontinued by Dr. Kay. White count is still elevated 32,000. White count declined upon starting of antibiotics from 43,000 to 30,000. He is still complaining of cough and cough with expectoration. Expectorant occasionally yellowish in color. REVIEW OF SYSTEMS: As per HPI. Rest of 12-point review of systems reviewed negative. PHYSICAL EXAMINATION: GENERAL: Comfortable in bed, in no acute distress. VITAL SIGNS: Temperature 98.7, heart rate 80 per minute, blood pressure 110/70, respiratory rate 18 per minute. HEENT: Pallor positive. NECK: No lymphadenopathy. CHEST: Air entry decreased on the right side. Crepitations on the right. CARDIOVASCULAR: S1, S2 normal. No murmur. No gallop. ABDOMEN: Soft, nontender. Catheter placed on the right lower abdomen. Ascites present. EXTREMITY: No edema. 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 No focal sensorimotor deficits. LABORATORY DATA: White count 32,000, hemoglobin 10.2, hematocrit 30.2, platelet 115. Sodium 131, potassium 3, creatinine 1. MEDICATIONS: Tylenol 650 every 6 hours p.r.n., heparin 5000 every 12, hydrochlorothiazide 25 mg daily, ipratropium, Xopenex, Keppra 500 b.i.d., Zofran, Ambien 5 mg p.o. at bedtime. ASSESSMENT: 1. Ascites. 2. Stage IV lung cancer, right-sided lung lesion, brain metastasis. 3. Leukocytosis. 4. Chronic obstructive pulmonary disease. PLAN: We will consider IV Zithromax for possible right-sided lung infection. White count is persistently elevated. Subacute bacterial peritonitis is ruled out. Ascitic fluid will be drained by [facility] at home. We will consider discharge planning possible tomorrow. He is ambulating in the room. Continue bronchodilators. Continue heparin, prophylaxis for DVT. Keppra 500 mg p.o. b.i.d. for seizure prophylaxis. Marlen Alaniz MD
[2017-12-22] MEDS: Levalbuterol 0.63 MG/3 ML Inhal Soln UD IH SCH ×2 (07:54→14:36)
[2017-12-22] MEDS: Ipratropium 0.02% Inhal Soln (0.5 mg/2.5 ml) UD IH SCH ×3 (07:54→14:37)
[2017-12-22 08:09] VITALS: BP 120/70; PULSE 96; RESP 20; TEMP 97.9; O2SAT 99
--- NOTE | 2017-12-22 10:13 | DS ---
DISCHARGE DIAGNOSES: 1. Stage IV lung cancer. 2. Brain metastasis. 3. Ascites related to cirrhosis of liver. 4. Cirrhosis of liver. 5. Leukocytosis. HOSPITAL COURSE: Patient was admitted with weakness and increasing ascites. White count was high. Subacute bacterial peritonitis was ruled out. He was treated with IV antibiotics. Underwent ascitic tap, drainage twice. peritoneal catheter was placed for ascitic drainage at home. General condition improved. He is ambulating without any difficulty. He is being discharged today. PHYSICAL EXAMINATION: On discharge; GENERAL: Comfortable in bed, in no acute distress. HEENT: Pallor positive. NECK: No lymphadenopathy. CHEST: Air entry present and equal bilaterally. No added sound. CARDIOVASCULAR: S1, S2 normal. No murmur. No gallop. ABDOMEN: Soft, nontender. Slightly distended. Fluid present. EXTREMITIES: No edema, swelling. Nontender. SKIN: No petechiae. No rash. CENTRAL NERVOUS SYSTEM: Alert and oriented x3. No focal sensory or motor deficit. CONDITION ON DISCHARGE: Stable. DISPOSITION: Discharged home. DISCHARGE MEDICATIONS: Continue home medications. VNA will drain ascitic fluids Saturday and . He will follow up in office in next week. Time spent in preparing discharge and coordinating care is 60 minutes. Marlen Alaniz MD
[2017-12-22] MEDS ORDERED: Potassium Chloride 20 mEq/15 ml LIQ UD PO SCH (11:00)
[2017-12-22] MEDS: Azithromycin 500MG/NS 250ml 500 MG/250 ML BAG IVPB SCH (11:04)
--- NOTE | 2017-12-22 20:51 | PN ---
DATE: SUBJECTIVE: The patient was seen earlier this morning in room 366, bed 1. No fevers or chills. No nausea. He states he wants to be discharged. PHYSICAL EXAMINATION VITAL SIGNS: Temperature is 98, blood pressure is 120/70, respiratory rate 16. HEENT: Unremarkable. NECK: Supple. LUNGS: Have decreased . ABDOMEN: Soft. LABORATORY DATA: Reveals the patient continues to have leukocytosis. ASSESSMENT AND PLAN: This is a 67-year-old with ascites, without any evidence of spontaneous bacterial peritonitis, with a history of spontaneous bacterial peritonitis and a history of sepsis, in a patient with lung cancer with central nervous system metastasis, has had chemotherapy and radiation, has a history of basal cell cancer and thus far cultures are negative. The patient should be followed up as outpatient. Case discussed with Dr. Alaniz at length. Froylan Kay MD
== END 2017-12-22 15:10 | disposition home health service (06) | DRG 433 ==
LOC: ED 10:50 → ERH 15:54 → 3RNO 18:07
PROVIDERS: ADMIT Internal Medicine Medical Oncology; ATTEND Internal Medicine Medical Oncology
PROC: 0W9G3ZZ Drainage of Peritoneal Cavity, Percutaneous Approach (ICD-10-PCS; 2017-12-17)
PROC: 3E0F7GC Introduction of Other Therapeutic Substance into Respiratory Tract, Via Natural or Artificial Opening (ICD-10-PCS; 2017-12-17)
PROC: 0W9G30Z Drainage of Peritoneal Cavity with Drainage Device, Percutaneous Approach (ICD-10-PCS; principal; 2017-12-20)
DX: K74.60 Unspecified cirrhosis of liver (principal); R18.8 Other ascites; C79.31 Secondary malignant neoplasm of brain; C34.91 Malignant neoplasm of unspecified part of right bronchus or lung; B19.20 Unspecified viral hepatitis C without hepatic coma; J44.9 Chronic obstructive pulmonary disease, unspecified; R53.1 Weakness; I10 Essential (primary) hypertension; D69.6 Thrombocytopenia, unspecified; D64.9 Anemia, unspecified; Z85.828 Personal history of other malignant neoplasm of skin; Z92.3 Personal history of irradiation; Z92.21 Personal history of antineoplastic chemotherapy

== ENCOUNTER 2017-12-26 15:54 | Inpatient (IN) | payer MEDICARE, OTHER ==
[2017-12-26 15:55] VITALS: BMI 27.6
--- NOTE | 2017-12-26 16:15 | ED PDOC ---
Arrival/HPI - General Time Seen by Provider: 12/26/17 16:13 - History of Present Illness Narrative History of Present Illness (Text): 12/26/17 16:14 Patient is a 67 y/o M with lung cancer with brain metastasis, cirrhosis presenting with chest pain. He reports that he had chemotherapy on saturday and then peritoneal drainage yesterday (sat). He reports that he was at home today when he developed chest pain so he reported to the ED. Describes a L sided chest pressure that is non-radiating. Past Medical History - Infectious Disease Hx of Infectious Diseases: None - Tetanus Immunization Tetanus Immunization: Up to Date - Cardiac Hx Cardiac Disorders: No - Pulmonary Hx Respiratory Disorders: Yes Hx Lung Cancer: Yes - Neurological Hx Neurological Disorder: Yes Hx Seizures: Yes Other/Comment: mets to the brain - HEENT Hx HEENT Disorder: No - Renal Hx Renal Disorder: No - Endocrine/Metabolic Hx Endocrine Disorders: No - Hematological/Oncological Hx Blood Transfusions: No - Integumentary Hx Dermatological Disorder: No - Musculoskeletal/Rheumatological Hx Falls: No - Gastrointestinal Hx Gastrointestinal Disorders: No - Genitourinary/Gynecological Hx Genitourinary Disorders: No - Psychiatric Hx Psychophysiologic Disorder: No Hx Emotional Abuse: No Hx Physical Abuse: No Hx Substance Use: No - Surgical History Hx Cardiac Catheterization: No Hx Coronary Stent: No - Anesthesia Hx Anesthesia Reactions: No Hx Malignant Hyperthermia: No - Suicidal Assessment Feels Threatened In Home Enviroment: No Family/Social History Family/Social History: No Known Family HX Smoking Status: Current Some Days Smoker Hx Alcohol Use: No Hx Substance Use: No Allergies/Home Meds Allergies/Adverse Reactions: Allergies No Known Allergies Allergy (Verified 12/17/17 11:04) Home Medications: Home Meds Medication Instructions Recorded Confirmed Oxycodone HCl [Oxycontin] 20 mg PO Q6H PRN 11/14/17 12/17/17 levETIRAcetam [Keppra] 500 mg PO BID 11/14/17 12/17/17 Albuterol 0.083% [Albuterol 0.083% 1 puff INH QID 11/15/17 12/17/17 Inhal Day (2.5 mg/3 ml) UD] Zolpidem [Ambien] 5 mg PO HS 12/17/17 12/17/17 Review of Systems - Review of Systems Constitutional: Fatigue, Weight Change Respiratory: SOB, Cough Cardiovascular: Chest Pain, Edema. absent: Palpitations, Orthopnea, Syncope Gastrointestinal: absent: Abdominal Pain, Constipation, Diarrhea, Nausea, Vomiting Genitourinary Male: absent: Dysuria Physical Exam Vital Signs Temp Pulse Resp BP Pulse Ox 12/26/17 20:04 91 H 18 100/46 L 98 12/26/17 16:24 99.0 F 12/26/17 16:08 98.1 F 104 H 18 90/56 L 98 Temperature: Afebrile Blood Pressure: Normal Pulse: Tachycardic Respiratory Rate: Normal Appearance: Positive for: Well-Appearing, Non-Toxic, Comfortable Pain Distress: None Mental Status: Positive for: Alert and Oriented X 3 - Systems Exam Head: Present: Atraumatic, Normocephalic Pupils: Present: PERRL Extroacular Muscles: Present: EOMI Conjunctiva: Present: Normal Mouth: Present: Moist Mucous Membranes Neck: Present: Normal Range of Motion Respiratory/Chest: Present: Decreased Breath Sounds, Other (R sided port). No: Respiratory Distress Cardiovascular: Present: Tachycardic Abdomen: Present: Other (R peritoneal catheter). No: Tenderness, Distention Upper Extremity: Present: Normal Inspection Lower Extremity: Present: Edema Medical Decision Making ED Course and Treatment: 12/26/17 18:06 EKG shows sinus tach at 104bpm. Cxray unchanged. Already cultured and PMD Dr. Alaniz requesting no antibiotics. Patient to be observed in tele for chest pain. Dr. Alaniz requesting 1 dose of albumin. BP improving after IVF - Lab Interpretations Lab Results: 12/26/17 16:55 12/26/17 16:55 Lab Results 12/26/17 16:55: pO2 156 H, VBG pH 7.47 H, VBG pCO2 35.0 L, VBG HCO3 25.5, VBG Total CO2 26.6, VBG O2 Sat (Calc) 100.8 H, VBG Base Excess 2.1 H, VBG Potassium 4.6, Sodium 129.0 L, Chloride 99.0, Glucose 105, Lactate 1.7, FiO2 21.0, Venous Blood Potassium 4.6 12/26/17 16:55: Sodium 128 L, Chloride 96 L, Potassium 4.7, Carbon Dioxide 25, Anion Gap 12, BUN 34 H, Creatinine 1.2, Est GFR ( Amer) > 60, Est GFR ( Non-Af Amer) > 60, Random Glucose 98, Calcium 8.2 L, Phosphorus 3.8, Magnesium 2.2, Total Bilirubin 1.3, AST 30, ALT 38, Alkaline Phosphatase 250 H, Total Creatine Kinase < 20 L, Troponin I < 0.01, NT-Pro-B Natriuret Pep 560 H, Total Protein 5.7 L, Albumin 2.7 L, Globulin 2.9, Albumin/Globulin Ratio 0.9 L 12/26/17 16:55: PT 16.3 H, INR 1.42 H, APTT 34.2 12/26/17 16:55: WBC 42.7 H* D, RBC 3.32 L, Hgb 10.0 L, Hct 29.1 L, MCV 87.7, MCH 30.1, MCHC 34.4, RDW 17.2 H, Plt Count 124, MPV 8.9, Lymph % (Auto) Logistics Tech, Yancey % (Auto) Logistics Tech, Baso % (Auto) Logistics Tech, Lymph # (Auto) Logistics Tech, Yancey # (Auto) Logistics Tech, Baso # (Auto) Logistics Tech, Neutrophils % (Manual) 84 H, Band Neutrophils % 3 H, Lymphocytes % ( Manual) 1 L, Monocytes % (Manual) TEST NOT PERFORMED, Eosinophils % (Manual) 12 H, Platelet Evaluation Low - RAD Interpretation Radiology Orders: 12/26/17 16:16 CHEST PORTABLE [RAD] Stat - Medication Orders Current Medication Orders: Sodium Chloride (Sodium Chloride 0.9%) 250 mls @ 250 mls/hr IV .Q1H JESSICA Last Admin: 12/26/17 16:35 Dose: 250 mls/hr eMAR Start Stop Document 12/26/17 16:35 EQ (Rec: 12/26/17 16:35 EQ [id number]) Intravenous Solution Start Date 12/26/17 Start Time 16:35 Albumin Human (Albumin Human 25% (25 Gm/100 Ml)) 200 mls @ 50 mls/hr IV ONCE ONE Stop: 12/26/17 22:59 Last Admin: 12/26/17 19:30 Dose: 50 mls/hr eMAR Start Stop Document 12/26/17 19:30 AD (Rec: 12/26/17 19:31 AD [id number]) Intravenous Solution Start Date 12/26/17 Start Time 19:30 Discontinued Medications Aspirin (Aspirin Chewable) 324 mg PO STAT STA Stop: 12/26/17 16:20 Last Admin: 12/26/17 16:34 Dose: 324 mg Disposition/Present on Arrival - Present on Arrival Any Indicators Present on Arrival: No History of DVT/PE: No History of Uncontrolled Diabetes: No Urinary Catheter: No History Surgical Site Infection Following: None - Disposition Have Diagnosis and Disposition been Completed?: Yes Diagnosis: Dehydration, Pleural effusion, Cancer, Chest pain Disposition: HOSPITALIZED Disposition Time: 18:08 Patient Plan: Observation Patient Problems: Current Active Problems Problem Status Onset Pleural effusion Acute Dehydration Acute Cancer Acute Chest pain Acute Condition: FAIR
[2017-12-26] MEDS: Sodium Chloride 0.9% 250 ML IV SCH (16:35)
[2017-12-26 17:08] LABS: MEAN CELL VOLUME 87.7 fl (80.0-105.0); MEAN CORPUSCULAR HEMOGLOBIN 30.1 pg (25.0-35.0); MEAN CORPUSCULAR HGB CONC 34.4 g/dl (31.0-37.0); MEAN PLATELET VOLUME 8.9 fl (7.0-11.0); PLATELET COUNT 124 10^3/uL (120.0-450.0); RBC 3.32 10^6/uL (3.5-6.1); RED CELL DISTRIBUTION WIDTH 17.2 % (11.5-14.5)
[2017-12-26 17:12] LABS: VENOUS BLOOD GAS BASE EXCESS 2.1 mmol/L (0.0-2.0); VENOUS BLOOD GAS PO2 156 mm/Hg (30-55); VENOUS BLOOD PH 7.47 (7.32-7.43)
[2017-12-26 17:15] LABS: WHITE BLOOD COUNT 42.7 10^3/ul (4.5-11.0)
[2017-12-26 17:20] LABS: INR 1.42 (0.93-1.08); PARTIAL THROMBOPLASTIN TIME 34.2 Seconds (25.1-36.5); PROTHROMBIN TIME 16.3 SECONDS (9.4-12.5)
[2017-12-26 17:27] LABS: ALB/GLOB RATIO 0.9 (1.1-1.8); ALBUMIN 2.7 g/dL (3.0-4.8); ALT/SGPT 38 U/L (7-56); AST/SGOT 30 U/L (17-59); BLOOD UREA NITROGEN 34 mg/dL (7-21); CALCIUM 8.2 mg/dL (8.4-10.5); GFR AFRICAN-AMERICAN > 60; GFR NON-AFRICAN AMERICAN > 60
[2017-12-26 17:30] LABS: B-TYPE NATRIURETIC PEPTIDE 560 pg/mL (0-450); TROPONIN I < 0.01 ng/mL
[2017-12-26 17:36] LABS: BAND 3 % (0-2); EOSINOPHIL 12 % (0.0-3.0); LYMPHOCYTE 1 % (22.0-35.0); NEUTROPHIL 84 % (50.0-70.0)
[2017-12-26 17:37] LABS: PLATELET ESTIMATE LOW (NORMAL)
[2017-12-26] MEDS ORDERED: Albumin Human 25% (12.5 gm/50 ml) IV STA (18:06)
--- NOTE | 2017-12-26 18:08 | RAD ---
HISTORY: chest pain COMPARISON: 12/17/2017 single-view chest. 12/19/2017 CT thorax FINDINGS: LUNGS: Stable opacification that affecting primarily right upper lobe. Associated volume loss identified. PLEURA: No significant pleural effusion identified, no pneumothorax apparent. CARDIOVASCULAR: No radiographic findings to suggest acute or significant cardiovascular disease. Venous access catheter in stable, satisfactory position. OSSEOUS STRUCTURES: No significant abnormalities. VISUALIZED UPPER ABDOMEN: Normal. OTHER FINDINGS: None. IMPRESSION: No significant interval change compared to the prior examination(s). Dense consolidative changes primarily affecting collapse right upper lobe. Compensatory hyperinflation left lung.
[2017-12-26 19:19] LABS: PH,URINE 5.5 (4.7-8.0); URINE BILIRUBIN NEGATIVE (NEGATIVE); URINE BLOOD SMALL (NEGATIVE); URINE GLUCOSE (UA) NEGATIVE (NEGATIVE); URINE LEUKOCYTE ESTERASE NEGATIVE Leu/uL (NEGATIVE); URINE PROTEIN TRACE mg/dL (<30 mg/dL); URINE UROBILINOGEN 0.2 E.U./dL (<1 E.U./dL)
[2017-12-26 19:26] LABS: URINE APPEARANCE SL CLOUDY (CLEAR); URINE COLOR YELLOW (YELLOW)
[2017-12-26 19:28] LABS: URINE BACTERIA TRACE (NEG); URINE RBC 0 - 2 /hpf (0-2); URINE WBC 0 - 2 /hpf (0-6)
[2017-12-26] MEDS ORDERED: oxyCODONE 15 mg Immediate Release Tab PO PRN (20:12)
[2017-12-26] MEDS ORDERED: Albumin Human 25% (25gm/100ml)@1ml/min IVPB ONE (20:30)
[2017-12-26] MEDS ORDERED: Sodium Chloride 0.9% 250 ML IV STA (20:42)
[2017-12-26] MEDS ORDERED: Albuterol-Ipratrop 3 mg / 0.5 (3 ml) UD IH STA (21:21)
[2017-12-26] MEDS: Albuterol-Ipratrop 3 mg / 0.5 (3 ml) UD IH SCH (21:22)
[2017-12-26] MEDS: MethylPREDNISolone 40 mg Vial IVP SCH (21:40)
[2017-12-26] MEDS: Sodium Chloride 0.9% 1,000 ML IV SCH (21:45)
[2017-12-26] MEDS: Cefepime 1gm in NS 100ml 1 GM/100 ML BAG IVPB SCH (21:46)
[2017-12-27] MEDS: Sodium Chloride 0.9% 250 ML IV SCH ×2 (00:40→00:41)
[2017-12-27] MEDS: Cefepime 1gm in NS 100ml 1 GM/100 ML BAG IVPB SCH ×3 (06:20→22:11)
--- NOTE | 2017-12-27 06:43 | CP.PCM.PN ---
Subjective - Date & Time of Evaluation Date of Evaluation: 12/27/17 Time of Evaluation: 06:40 - Subjective Subjective: Seen at bedside for SVT for 10 seconds. Resting comfortably. Medical record was reviewed. Received duoneb neb treatment. This 67 year old male was admitted with retrosternal chest pain, leukocytosis. Has PMH of lung cancer stage IV, ascites. 2* to duoneb? Objective - Vital Signs/Intake and Output Vital Signs (last 24 hours): Temp Pulse Resp BP Pulse Ox 97.8 F 87 18 121/63 97 12/27/17 02:56 12/27/17 02:56 12/27/17 02:56 12/27/17 02:56 12/27/17 00:00 Intake and Output: 12/26/17 12/27/17 18:59 06:59 Intake Total 240 Output Total 300 Balance -60 - Medications Medications: Current Medications Acetaminophen (Tylenol 325mg Tab) 650 mg PO Q6H PRN PRN Reason: Fever >100.4 F Albuterol/Ipratropium (Duoneb 3 Mg/0.5 Mg (3 Ml) Ud) 3 ml IH TID JESSICA Stop: 12/27/17 18:01 Last Admin: 12/26/17 21:22 Dose: 3 ml Aspirin (Aspirin Chewable) 81 mg PO DAILY [facility] Aspirin (Aspirin Supp) 600 mg RC DAILY [facility] Furosemide (Lasix) 20 mg PO DAILY [facility] Heparin Sodium (Porcine) (Heparin) 5,000 units SC BID JESSICA PRN Reason: Protocol Last Admin: 12/26/17 21:36 Dose: 5,000 units Albumin Human (Albumin Human 25% (25 Gm/100 Ml)) 100 mls @ 1 mls/min IVPB ONCE ONE Stop: 12/27/17 11:39 Sodium Chloride (Sodium Chloride 0.9%) 1,000 mls @ 60 mls/hr IV .[id number] [facility] Last Admin: 12/26/17 21:45 Dose: 60 mls/hr Cefepime HCl (Maxipime 1gm) 1 gm in 100 mls @ 100 mls/hr IVPB Q8 JESSICA PRN Reason: Protocol Last Admin: 12/27/17 06:20 Dose: 100 mls/hr Levetiracetam (Keppra) 500 mg PO BID JESSICA Last Admin: 12/26/17 21:37 Dose: 500 mg Methylprednisolone (Solu-Medrol) 20 mg IVP DAILY [facility] Last Admin: 12/26/17 21:40 Dose: 20 mg Oxycodone HCl (Oxycodone Immediate Release Tab) 10 mg PO Q4 PRN PRN Reason: Pain, moderate (4-7) Pantoprazole Sodium (Protonix Inj) 40 mg IVP DAILY [facility] Last Admin: 12/26/17 21:38 Dose: 40 mg Zolpidem Tartrate (Ambien) 5 mg PO HS [facility] PRN Reason: Protocol Last Admin: 12/26/17 21:54 Dose: 5 mg - Labs Labs: PT 16.3 SECONDS (9.4-12.5) H 12/26/17 16:55 INR 1.42 (0.93-1.08) H 12/26/17 16:55 APTT 34.2 Seconds (25.1-36.5) 12/26/17 16:55 - Constitutional Appears: Well, No Acute Distress - Head Exam Head Exam: ATRAUMATIC, NORMAL INSPECTION, NORMOCEPHALIC - Eye Exam Eye Exam: Normal appearance - ENT Exam ENT Exam: Normal External Ear Exam - Neck Exam Neck Exam: Normal Inspection - Respiratory Exam Respiratory Exam: NORMAL BREATHING PATTERN - Cardiovascular Exam Cardiovascular Exam: absent: JVD - GI/Abdominal Exam GI & Abdominal Exam: absent: Distended - Rectal Exam Rectal Exam: Deferred - Exam Additional comments: Deferred. - Extremities Exam Extremities Exam: Normal Inspection - Back Exam Back Exam: NORMAL INSPECTION - Neurological Exam Neurological Exam: Alert, Awake - Psychiatric Exam Psychiatric exam: Normal Affect, Normal Mood - Skin Skin Exam: Normal Color Assessment and Plan - Assessment and Plan (Free Text) Assessment: SVT. Lung cancer stage IV. Ascites. Leukocytosis. Plan: Observation. EKG.
[2017-12-27 07:22] LABS: TROPONIN I < 0.01 ng/mL
[2017-12-27 07:33] LABS: BLOOD UREA NITROGEN 28 mg/dL (7-21); CALCIUM 8.2 mg/dL (8.4-10.5); GFR AFRICAN-AMERICAN > 60; GFR NON-AFRICAN AMERICAN > 60
--- NOTE | 2017-12-27 08:07 | CARD ---
APPROVED REPORT EKG Measurement Heart [id number] [place] [id number] <Conclusion> Sinus tachycardia Otherwise normal ECG
[2017-12-27] MEDS: Albuterol-Ipratrop 3 mg / 0.5 (3 ml) UD IH SCH ×2 (08:12→14:06)
[2017-12-27 08:56] LABS: BASO # 0.01 K/mm3 (0.0-2.0); BASO % 0.1 % (0.0-3.0); EOS # 1.4 (0.0-0.7); EOS % 8.1 % (1.5-5.0); GRAN # 15.36 (1.4-6.5); LYMPH # 0.4 (1.2-3.4); LYMPH % 2.5 % (22.0-35.0); MEAN CELL VOLUME 88.7 fl (80.0-105.0); MEAN CORPUSCULAR HEMOGLOBIN 29.9 pg (25.0-35.0); MEAN CORPUSCULAR HGB CONC 33.7 g/dl (31.0-37.0); MEAN PLATELET VOLUME 9.5 fl (7.0-11.0); MONO # 0.1 (0.1-0.6); MONO % 0.3 % (1.0-6.0); RBC 3.01 10^6/uL (3.5-6.1); RED CELL DISTRIBUTION WIDTH 17.2 % (11.5-14.5); WHITE BLOOD COUNT 17.3 10^3/ul (4.5-11.0)
--- NOTE | 2017-12-27 09:02 | PN ---
DATE: 12/27/2017 SUBJECTIVE: The patient has no complaints of any headaches or dizziness. No nausea or vomiting. PHYSICAL EXAMINATION: VITAL SIGNS: Temperature is 98.5, pulse of 82, blood pressure is 128/74, respirations 20. GENERAL: The patient is lying in bed, flat, comfortable. HEENT: No oral lesion. Anicteric sclerae. Moist mucosa. NECK: No JVD, adenopathy, or thyromegaly. CARDIOVASCULAR: S1 and S2, regular. No murmurs, rubs, or gallops. LUNGS: Clear to auscultation bilaterally. No wheeze, rales, or rhonchi. ABDOMEN: Bowel sounds are positive, soft, nontender and nondistended. EXTREMITIES: No cyanosis, clubbing or edema. LABORATORY DATA: White count of 42.7, hemoglobin 10, creatinine is 1.1. ASSESSMENT: 1. Chest pain. 2. Lung cancer with metastasis. 3. Cirrhosis. 4. Chronic back pain. PLAN: The patient is currently on Ambien for sleep. He is on aspirin daily. He is going to continue with heparin for DVT prophylaxis. He is on Keppra for seizure prophylaxis. He is on cefepime for antibiotic. The patient is receiving Protonix daily. He is on Solu-Medrol. He is going to be seen with ID. The patient is being followed by Dr. Garcia from Cardiology for his chest pain. He has an echo that has been ordered. His white count is significantly elevated. He has 2 troponins which are negative. There are blood culture and urine cultures that have been ordered as well. We will await further input from these specialists. Chaparro Major MD
--- NOTE | 2017-12-27 09:03 | CARD ---
APPROVED REPORT EKG Measurement Heart [id number] <Conclusion> Normal sinus rhythm Normal ECG
[2017-12-27] MEDS: MethylPREDNISolone 40 mg Vial IVP SCH (09:27)
[2017-12-27] MEDS: Vancomycin 1gm in NS 250ml 1 GM/250 ML BAG IVPB SCH ×2 (09:37→22:11)
[2017-12-27] MEDS ORDERED: Albumin Human 25% (12.5 gm/50 ml) IV ONE (10:00)
[2017-12-27] MEDS ORDERED: Albumin Human 25% (25gm/100ml)@1ml/min IVPB ONE (10:00)
--- NOTE | 2017-12-27 13:09 | CP.PCM.CON ---
History of Present Illness - History of Present Illness History of Present Illness: 67 year old male with PMH of basal cell carcinoma on right chest area S/P removal, HTN, significant smoking history (1 1/2 pack per day smoker), Hepatitis C S/P treatment with Interferon for about 4 years, lung cancer with brain metastases [place] [facility] [place] of left sided chest pain and is being work up for coronary artery disease. He is also complaining of cough which is productive of whitish phlegm. He denies fever or chills but has generalized weakness, no nausea or vomiting, no abdominal pain but with abdominal distention, no sore throat, no rhinorrhea, no diarrhea, no dysuria. CXR is showing right upper lobe opacity. Infectious diseases consult is requested to further evaluate and manage. Review of Systems - Review of Systems All systems: reviewed and no additional remarkable complaints except (as per HPI ) Past Patient History - Infectious Disease Hx of Infectious Diseases: None - Tetanus Immunizations Tetanus Immunization: Up to Date - Past Social History Smoking Status: Light Smoker < 10 Cigarettes Daily - CARDIAC Hx Cardiac Disorders: No - PULMONARY Hx Chronic Obstructive Pulmonary Disease (COPD): Yes - NEUROLOGICAL Hx Seizures: Yes - HEENT Hx HEENT Problems: No - RENAL Hx Chronic Kidney Disease: No - ENDOCRINE/METABOLIC Hx Endocrine Disorders: No - HEMATOLOGICAL/ONCOLOGICAL Hx Cancer: Yes (Lung CA with brain mets) Hx Chemotherapy: Yes Hx Cirrhosis: Yes (Liver cirrhosis) - INTEGUMENTARY Hx Dermatological Problems: No - MUSCULOSKELETAL/RHEUMATOLOGICAL Hx Falls: No - GASTROINTESTINAL Hx Gastrointestinal Disorders: No - GENITOURINARY/GYNECOLOGICAL Hx Genitourinary Disorders: No - PSYCHIATRIC Hx Substance Use: No - SURGICAL HISTORY Hx Surgeries: Yes (Lung biopsy) - ANESTHESIA Hx Anesthesia Reactions: No Hx Malignant Hyperthermia: No Meds Allergies/Adverse Reactions: Allergies Allergy/AdvReac Type Severity Reaction Status Date / Time No Known Allergies Allergy Verified 12/17/17 11:04 - Medications Medications: Current Medications Acetaminophen (Tylenol 325mg Tab) 650 mg PO Q6H PRN PRN Reason: Fever >100.4 F Albuterol/Ipratropium (Duoneb 3 Mg/0.5 Mg (3 Ml) Ud) 3 ml IH TID JESSICA Stop: 12/27/17 18:01 Last Admin: 12/26/17 21:22 Dose: 3 ml Aspirin (Aspirin Chewable) 81 mg PO DAILY JESSICA Aspirin (Aspirin Supp) 600 mg RC DAILY [facility] Furosemide (Lasix) 20 mg PO DAILY [facility] Heparin Sodium (Porcine) (Heparin) 5,000 units SC BID JESSICA PRN Reason: Protocol Last Admin: 12/26/17 21:36 Dose: 5,000 units Albumin Human (Albumin Human 25% (25 Gm/100 Ml)) 100 mls @ 1 mls/min IVPB ONCE ONE Stop: 12/27/17 11:39 Sodium Chloride (Sodium Chloride 0.9%) 1,000 mls @ 60 mls/hr IV .[id number] [facility] Last Admin: 12/26/17 21:45 Dose: 60 mls/hr Cefepime HCl (Maxipime 1gm) 1 gm in 100 mls @ 100 mls/hr IVPB Q8 [facility] PRN Reason: Protocol Last Admin: 12/27/17 06:20 Dose: 100 mls/hr Levetiracetam (Keppra) 500 mg PO BID [facility] Last Admin: 12/26/17 21:37 Dose: 500 mg Methylprednisolone (Solu-Medrol) 20 mg IVP DAILY [facility] Last Admin: 12/26/17 21:40 Dose: 20 mg Oxycodone HCl (Oxycodone Immediate Release Tab) 10 mg PO Q4 PRN PRN Reason: Pain, moderate (4-7) Pantoprazole Sodium (Protonix Inj) 40 mg IVP DAILY [facility] Last Admin: 12/26/17 21:38 Dose: 40 mg Zolpidem Tartrate (Ambien) 5 mg PO HS [facility] PRN Reason: Protocol Last Admin: 12/26/17 21:54 Dose: 5 mg Physical Exam - Constitutional Appears: Chronically Ill - Head Exam Head Exam: NORMAL INSPECTION - ENT Exam ENT Exam: Mucous Membranes Moist - Neck Exam Neck exam: Negative for: Meningismus - Respiratory Exam Respiratory Exam: Decreased Breath Sounds - Cardiovascular Exam Cardiovascular Exam: +S1, +S2 - GI/Abdominal Exam GI & Abdominal Exam: Soft. absent: Tenderness Results - Vital Signs Recent Vital Signs: Last Vital Signs Temp 97.8 F 12/27/17 02:56 Pulse 87 12/27/17 02:56 Resp 18 12/27/17 02:56 BP 121/63 12/27/17 02:56 Pulse Ox 97 12/27/17 00:00 - Labs Result Diagrams: 12/27/17 06:30 12/27/17 06:30 Labs: Laboratory Results - last 24 hr 12/26/17 19:00 Urine Color Yellow Urine Appearance Sl cloudy Urine pH 5.5 Ur Specific Thomas 1.020 Urine Protein Trace H Urine Glucose (UA) Negative Urine Ketones Negative Urine Blood Small H Urine Nitrate Negative Urine Bilirubin Negative Urine Urobilinogen 0.2 Ur Leukocyte Esterase Negative Urine RBC 0 - 2 Urine WBC 0 - 2 Urine Bacteria Trace Assessment & Plan - Assessment and Plan (Free Text) Plan: Assessment consider sepsis due to right upper lobe post-obstructive HCAP history of sepsis due to spontaneous bacterial peritonitis lung cancer with brain metastases on chemotherapy and radiation therapy basal cell carcinoma on right chest area S/P removal HTN significant smoking history (1 1/2 pack per day smoker) Hepatitis C S/P treatment with Interferon for about 4 years Plan started the patient on Vancomycin and Cefepime pending blood, sputum cx, PCT; reviewed CXR overall prognosis is poor
[2017-12-27] MEDS: Sodium Chloride 0.9% 1,000 ML IV SCH ×2 (15:09→22:24)
--- NOTE | 2017-12-27 17:38 | CARD ---
APPROVED REPORT EXAM: Two-dimensional and M-mode echocardiogram with Doppler and color Doppler. INDICATION 2D DIMENSIONS IVSd1.0 (0.7-1.1cm)LVDd4.2 (3.9-5.9cm) PWd1.1 (0.7-1.1cm)LVDs2.9 (2.5-4.0cm) FS (%) 32.1 %LVEF (%)60.6 (>50%) M-Mode DIMENSIONS Left Atrium (MM)3.70 (2.5-4.0cm)Aortic Root3.20 (2.2-3.7cm) Aortic Cusp Exc.2.00 (1.5-2.0cm) Aortic Valve AoV Peak Jkbbmdrp435.0cm/Wilner Peak GR.9mmHg Mitral Valve MV E Diwhrgua812.0cm/sMV A Mdqrslnk066.0cm/sE/A ratio1.0 TDI Lateral E' Peak V10.20cm/sMedial E' Peak V6.92cm/sE/Lateral E'10.1 E/Medial E'14.9 Tricuspid Valve TR Peak [id number]/sRAP [id number] Peak Gr.40mmHg [id number] LEFT VENTRICLE The left ventricle is normal size. There is normal left ventricular wall thickness. The left ventricular function is normal. The left ventricular ejection fraction is within the normal range. LV Ej.Fr: 60%. Transmitral Doppler flow pattern is Grade I-abnormal relaxation pattern. RIGHT VENTRICLE The right ventricle is normal size. There is normal right ventricular wall thickness. ATRIA The left atrium size is normal. The right atrium size is normal. AORTIC VALVE The aortic valve is thickened but opens well. MITRAL VALVE The mitral valve is thickened but opens well. TRICUSPID VALVE The tricuspid valve is normal in structure. There is moderate tricuspid regurgitation. RVSP: 50mm Hg. Moderate Pulmonary Hypertension. PERICARDIAL EFFUSION There is no pericardial effusion. <Conclusion> The left ventricle is normal size. There is normal left ventricular wall thickness. The left ventricular function is normal. The left ventricular ejection fraction is within the normal range. LV Ej.Fr: 60%. The right ventricle is normal size. There is normal right ventricular wall thickness. The left atrium size is normal. The right atrium size is normal. The right ventricle is normal size. There is normal right ventricular Systolic Function. The aortic valve is thickened but opens well. The mitral valve is thickened but opens well. The tricuspid valve is normal in structure. There is moderate tricuspid regurgitation. RVSP: 50mm Hg. Moderate Pulmonary Hypertension. Transmitral Doppler flow pattern is Grade I-abnormal relaxation pattern.
--- NOTE | 2017-12-28 05:09 | CON ---
DATE: 12/27/2017 REASON FOR CONSULTATION: Cardiac evaluation for chest pain, admitted with headache, nausea, vomiting, lung CA. 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 He had chemotherapy on Saturday. He had any prior chest pain on walking or exertional chest pain. Chest pain is left sided and has tenderness. PAST MEDICAL HISTORY: Significant for lung CA with metastasis to the brain, right arm weakness, COPD, hepatitis C. PAST SURGICAL HISTORY: Ascitic tap in the past, history of lung biopsy. ALLERGIES: NO KNOWN DRUG ALLERGIES. CURRENT MEDICATIONS: Oxycodone 10 mg daily, albuterol, Ambien 5 mg at bedtime, Keppra 500 mg p.o. b.i.d. History of peritoneal catheter placement. History of previous workup. Echo not available. EKG shows normal sinus, no acute ST-T changes, essentially normal EKG. PHYSICAL EXAMINATION: As follows, VITAL SIGNS: Heart rate 83, blood pressure 92/65, temperature afebrile. HEENT: PERRLA. Extraocular muscles intact. NECK: Supple. No carotid bruit or thyromegaly. CHEST: Clear to auscultation. HEART: S1 and S2, regular. ABDOMEN: Soft. EXTREMITIES: Clubbing and cyanosis negative. LABORATORY DATA: Blood workup as follows: WBC , hemoglobin 9, hematocrit 26.7, platelet count 93. Chemistries show sodium 134, potassium 4.7, chloride 100, carbon dioxide 25, anion gap of 13. BUN , creatinine 1.1, troponin 0.01 negative. IMPRESSION: Atypical chest pain, tenderness on the chest. So far no evidence of acute myocardial infarction. EKG is within the normal limit. RECOMMENDATION: We will get echo to asses LV function, lipid profile, TSH, hemoglobin A1c. Further recommendation after findings of the initial workup and hospital course. We will follow with you. Thank you, Dr. Alaniz, for providing us the opportunity in taking care of Cesario Harris. Jeff Garcia MD
[2017-12-28] MEDS: Cefepime 1gm in NS 100ml 1 GM/100 ML BAG IVPB SCH ×2 (06:47→21:59)
[2017-12-28] MEDS: Pantoprazole 40 mg EC Tab PO SCH (06:48)
[2017-12-28 07:21] LABS: HEMOGLOBIN 8.8 g/dL (14.0-18.0); MEAN CELL VOLUME 89.4 fl (80.0-105.0); MEAN CORPUSCULAR HEMOGLOBIN 29.1 pg (25.0-35.0); MEAN CORPUSCULAR HGB CONC 32.6 g/dl (31.0-37.0); MEAN PLATELET VOLUME 9.2 fl (7.0-11.0); RBC 3.02 10^6/uL (3.5-6.1); WHITE BLOOD COUNT 14.2 10^3/ul (4.5-11.0)
[2017-12-28 08:28] LABS: ALB/GLOB RATIO 1.1 (1.1-1.8); ALBUMIN 2.8 g/dL (3.0-4.8); ALT/SGPT 36 U/L (7-56); AST/SGOT 23 U/L (17-59); BLOOD UREA NITROGEN 26 mg/dL (7-21); CALCIUM 8.2 mg/dL (8.4-10.5); GFR AFRICAN-AMERICAN > 60; GFR NON-AFRICAN AMERICAN > 60
--- NOTE | 2017-12-28 10:03 | CP.PCM.PN ---
Subjective - Date & Time of Evaluation Date of Evaluation: 12/28/17 Time of Evaluation: 07:20 - Subjective Subjective: Lying in bed, sleeping but easily awaken, denies chest pain,denies shortness of breath Reason for consultation and follow up: Cardiac evaluation for chest pain, admitted for headache,nausea and vomiting, history of lung cancer Seen and examined by me and Dr. Garcia Objective - Vital Signs/Intake and Output Vital Signs (last 24 hours): Temp Pulse Resp BP Pulse Ox 98.4 F 85 20 125/68 97 12/28/17 06:00 12/28/17 06:00 12/28/17 06:00 12/28/17 06:00 12/28/17 06:00 Intake and Output: 12/28/17 12/28/17 06:59 18:59 Intake Total 1040 Output Total 600 Balance 440 - Medications Medications: Current Medications Acetaminophen (Tylenol 325mg Tab) 650 mg PO Q6H PRN PRN Reason: Fever >100.4 F Aspirin (Aspirin Chewable) 81 mg PO DAILY [facility] Last Admin: 12/27/17 09:29 Dose: 81 mg Aspirin (Aspirin Supp) 600 mg RC DAILY [facility] Last Admin: 12/27/17 09:26 Dose: 600 mg Furosemide (Lasix) 20 mg PO DAILY [facility] Last Admin: 12/27/17 09:28 Dose: 20 mg Heparin Sodium (Porcine) (Heparin) 5,000 units SC BID [facility] PRN Reason: Protocol Last Admin: 12/27/17 18:15 Dose: 5,000 units Cefepime HCl (Maxipime 1gm) 1 gm in 100 mls @ 100 mls/hr IVPB Q8 [facility] PRN Reason: Protocol Last Admin: 12/28/17 06:47 Dose: 100 mls/hr Vancomycin HCl (Vancomycin 1gm) 1 gm in 250 mls @ 167 mls/hr IVPB Q12H [facility] PRN Reason: Protocol Last Admin: 12/27/17 22:11 Dose: 167 mls/hr Levetiracetam (Keppra) 500 mg PO BID [facility] Last Admin: 12/27/17 18:15 Dose: 500 mg Lorazepam (Ativan) 1 mg IVP Q8H PRN; Protocol PRN Reason: Anxiety Last Admin: 12/27/17 13:24 Dose: 1 mg Methylprednisolone (Solu-Medrol) 20 mg IVP DAILY [facility] Last Admin: 12/27/17 09:27 Dose: 20 mg Oxycodone HCl (Oxycodone Immediate Release Tab) 10 mg PO Q4 PRN PRN Reason: Pain, moderate (4-7) Last Admin: 12/27/17 22:24 Dose: 10 mg Pantoprazole Sodium (Protonix Ec Tab) 40 mg PO ACB [facility] Last Admin: 12/28/17 06:48 Dose: 40 mg Zolpidem Tartrate (Ambien) 5 mg PO HS [facility] PRN Reason: Protocol Last Admin: 12/27/17 22:12 Dose: 5 mg - Labs Labs: 12/28/17 07:00 12/28/17 07:00 PT 16.3 SECONDS (9.4-12.5) H 12/26/17 16:55 INR 1.42 (0.93-1.08) H 12/26/17 16:55 APTT 34.2 Seconds (25.1-36.5) 12/26/17 16:55 - Constitutional Appears: No Acute Distress - Head Exam Head Exam: NORMAL INSPECTION, NORMOCEPHALIC - Eye Exam Eye Exam: Normal appearance - ENT Exam ENT Exam: Mucous Membranes Moist - Respiratory Exam Respiratory Exam: Decreased Breath Sounds, Rhonchi, NORMAL BREATHING PATTERN - Cardiovascular Exam Cardiovascular Exam: REGULAR RHYTHM, +S1, +S2 - GI/Abdominal Exam GI & Abdominal Exam: Soft, Normal Bowel Sounds - Extremities Exam Extremities Exam: Full ROM, Normal Capillary Refill - Neurological Exam Neurological Exam: Alert, Awake, Oriented x3 - Psychiatric Exam Psychiatric exam: Normal Affect, Normal Mood - Skin Skin Exam: Intact, Normal Color, Warm Assessment and Plan - Assessment and Plan (Free Text) Assessment: A 67 year old male dmitted for headache,nausea and vomiting, history of lung cancer with brain metastasis, history of basal cell carcinoma right chest area with removal surgery. liver cirrhosis, hepatitis C with previous Interferon infusion, hypertension, COPD,seizures, current smoker. Plan: Atypical chest pain. no evidence of myocardial ischemia. EKG normal ECHO done-LVEF 60 % moderate tricuspid regurgitation, moderate pulmonary hypertension otherwise the rest of the valves are within normal limits. On ASA 81 mg daily,Lasix 20 mg daily,and Heparin for DVT prophylaxis Continue antibiotics for right upper lobe pnuemonia Infectious disease on consult Continue current medications Continue current treatment Will follow up Plan and treatment discussed with Dr. Garcia
[2017-12-28] MEDS: Vancomycin 1gm in NS 250ml 1 GM/250 ML BAG IVPB SCH ×2 (10:26→23:04)
[2017-12-28] MEDS: MethylPREDNISolone 40 mg Vial IVP SCH (10:27)
--- NOTE | 2017-12-28 11:00 | PN ---
DATE: 12/28/2017 SUBJECTIVE: The patient has no complaints of any chest pain, no shortness of breath, no headaches, no dizziness. PHYSICAL EXAMINATION VITAL SIGNS: Temperature is 98.4, pulse of 85, blood pressure is 125/60, respirations 20. GENERAL: The patient is lying in bed, flat, comfortable. HEENT: No oral lesion. Anicteric sclerae. Moist mucosa. NECK: No JVD, adenopathy, or thyromegaly. CARDIOVASCULAR: S1 and S2, regular. No murmurs, rubs, or gallops. LUNGS: Clear to auscultation bilaterally. No wheeze, rales, or rhonchi. ABDOMEN: Bowel sounds are positive, soft, nontender and nondistended. EXTREMITIES: No cyanosis, clubbing. Right lower extremity 1+ edema. LABORATORY DATA: White count of 14.2, hemoglobin 8.8, creatinine is 1.1 ASSESSMENT: 1. Ascites, status post drainage. 2. Chest pain, improved. 3. Lung cancer with metastasis. 4. Cirrhosis. 5. Chronic back pain. PLAN: The patient is feeling much better. He says his abdomen feels much better. We will get an echo. The patient is on Ambien for sleep. He is receiving aspirin daily. He is on heparin for DVT prophylaxis. He is on Keppra for prophylaxis for seizures because of his metastatic disease to his brain. The patient is on Protonix daily. He is on IV fluids. I will discontinue the patient's IV fluids at this point. The patient is on Tylenol. He is receiving antibiotics. He is on a regular diet. Chaparro Major MD
--- NOTE | 2017-12-28 12:09 | CP.PCM.PN ---
Subjective - Date & Time of Evaluation Date of Evaluation: 12/28/17 Time of Evaluation: 10:45 - Subjective Subjective: Patient is feeling better, no fevers, cough is improved, breathing is improved. Objective - Vital Signs/Intake and Output Vital Signs (last 24 hours): Temp Pulse Resp BP Pulse Ox 98.4 F 85 20 125/68 97 12/28/17 06:00 12/28/17 06:00 12/28/17 06:00 12/28/17 06:00 12/28/17 06:00 Intake and Output: 12/28/17 12/28/17 06:59 18:59 Intake Total 1040 Output Total 600 Balance 440 - Medications Medications: Current Medications Acetaminophen (Tylenol 325mg Tab) 650 mg PO Q6H PRN PRN Reason: Fever >100.4 F Aspirin (Aspirin Chewable) 81 mg PO DAILY [facility] Last Admin: 12/27/17 09:29 Dose: 81 mg Aspirin (Aspirin Supp) 600 mg RC DAILY [facility] Last Admin: 12/27/17 09:26 Dose: 600 mg Furosemide (Lasix) 20 mg PO DAILY [facility] Last Admin: 12/27/17 09:28 Dose: 20 mg Heparin Sodium (Porcine) (Heparin) 5,000 units SC BID [facility] PRN Reason: Protocol Last Admin: 12/27/17 18:15 Dose: 5,000 units Cefepime HCl (Maxipime 1gm) 1 gm in 100 mls @ 100 mls/hr IVPB Q8 [facility] PRN Reason: Protocol Last Admin: 12/28/17 06:47 Dose: 100 mls/hr Vancomycin HCl (Vancomycin 1gm) 1 gm in 250 mls @ 167 mls/hr IVPB Q12H [facility] PRN Reason: Protocol Last Admin: 12/27/17 22:11 Dose: 167 mls/hr Levetiracetam (Keppra) 500 mg PO BID [facility] Last Admin: 12/27/17 18:15 Dose: 500 mg Lorazepam (Ativan) 1 mg IVP Q8H PRN; Protocol PRN Reason: Anxiety Last Admin: 12/27/17 13:24 Dose: 1 mg Methylprednisolone (Solu-Medrol) 20 mg IVP DAILY [facility] Last Admin: 12/27/17 09:27 Dose: 20 mg Oxycodone HCl (Oxycodone Immediate Release Tab) 10 mg PO Q4 PRN PRN Reason: Pain, moderate (4-7) Last Admin: 12/27/17 22:24 Dose: 10 mg Pantoprazole Sodium (Protonix Ec Tab) 40 mg PO ACB [facility] Last Admin: 12/28/17 06:48 Dose: 40 mg Zolpidem Tartrate (Ambien) 5 mg PO HS [facility] PRN Reason: Protocol Last Admin: 12/27/17 22:12 Dose: 5 mg - Labs Labs: 12/28/17 07:00 12/28/17 07:00 PT 16.3 SECONDS (9.4-12.5) H 12/26/17 16:55 INR 1.42 (0.93-1.08) H 12/26/17 16:55 APTT 34.2 Seconds (25.1-36.5) 12/26/17 16:55 - Constitutional Appears: Chronically Ill - Head Exam Head Exam: NORMAL INSPECTION - Neck Exam Neck Exam: absent: Meningismus - Respiratory Exam Respiratory Exam: Decreased Breath Sounds Additional comments: right anterior chest wall port in place, site intact - Cardiovascular Exam Cardiovascular Exam: +S1, +S2 - GI/Abdominal Exam GI & Abdominal Exam: Soft. absent: Tenderness Assessment and Plan - Assessment and Plan (Free Text) Plan: Assessment consider sepsis due to right upper lobe post-obstructive HCAP, slowly improving history of sepsis due to spontaneous bacterial peritonitis lung cancer with brain metastases on chemotherapy and radiation therapy basal cell carcinoma on right chest area S/P removal HTN significant smoking history (1 1/2 pack per day smoker) Hepatitis C S/P treatment with Interferon for about 4 years Plan continue Vancomycin and Cefepime day 2 to complete 4-7 days of therapy overall prognosis is poor
[2017-12-28] MEDS: oxyCODONE 10 mg Immediate Release Tab PO PRN (13:06)
--- NOTE | 2017-12-29 00:10 | CP.PCM.HP ---
History of Present Illness - History of Present Illness History of Present Illness: pt. is a 67 year old male admitted with chest pain. retro-sternal. No nausea, vomiting . he was recently diagnosed wit Stage IV lung cancer with brain mets. completed radiation to brain. he developed ascites likely related to chirrosis of liver. ascitic fluid tap is negative for malignant cells. He has tunnel cath for asitic drainage at home. Last time it was drained on 12/25- 3.5 liters. He has chronic intravascular dehydration due to large amount of ascitic fluid drainage. He also has chronically elevated high white count. He had received 2 courses of IV antibiotics. No source of infection could be found. Complaining of greenish phlem . Chronic cough. Present on Admission - Present on Admission Any Indicators Present on Admission: Yes Urinary Catheter: No (tunnel catheter for ascitic fluid drainage) Review of Systems - Constitutional Constitutional: Malaise, Weakness - EENT Eyes: absent: As Per HPI, Blind Spots, Blurred Vision, Change in Vision, Decreased Night Vision, Diplopia, Discharge, Dry Eye, Exophthalmos, Floaters, Irritation, Itchy Eyes, Loss of Peripheral Vision, Pain, Photophobia, Requires Corrective Lenses, Sees Flashes, Spots in Vision, Tunnel Vision, Other Visual Disturbances, Loss of Vision, Other Nose/Mouth/Throat: absent: As Per HPI, Epistaxis, Nasal Congestion, Nasal Discharge, Nasal Obstruction, Nasal Trauma, Nose Pain, Post Nasal Drip, Sinus Pain, Sinus Pressure, Bleeding Gums, Change in Voice, Dental Pain, Dry Mouth, Dysphagia, Halitosis, Hoarsness, Lip Swelling, Mouth Lesions, Mouth Pain, Odynophagia, Sore Throat, Throat Swelling, Tongue Swelling, Facial Pain, Neck Pain, Neck Mass, Other - Cardiovascular Cardiovascular: As Per HPI - Respiratory Respiratory: As Per HPI - Gastrointestinal Gastrointestinal: As Per HPI - Genitourinary Genitourinary: absent: As Per HPI, Change in Urinary Stream, Difficulty Urinating, Dysuria, Flank Pain, Hematuria, Pyuria, Nocturia, Urinary Incontinence, Urinary Frequency, Urinary Hesitance, Urinary Urgency, Voiding Freq/Small Amts, Freq UTI, Hx Renal/Bladder Calculi, Hx /Renal Surgery, Bladder Distension, Other - Musculoskeletal Musculoskeletal: absent: As Per HPI, Abnormal Gait, Arthralgias, Atrophy, Back Pain, Deformity, Joint Swelling, Limited Range of Motion, Loss of Height, Muscle Cramps, Muscle Weakness, Myalgias, Neck Pain, Numbness, Radiating Pain into Limb, Stiffness, Tingling, Other - Integumentary Integumentary: absent: As Per HPI, Acne, Alopecia, Bleeding Lesions, Change in Hair, Change in Nails, Change in Pigmentation, Changing Lesions, Dry Skin, Erythema, Furuncle, Hirsutism, Lesions, New Lesions, Non-Healing Lesions, Photosensitivity, Pruritus, Rash, Skin Pain, Skin Ulcer, Sores, Striae, Swelling , Unusual Bruising, Wounds, Jaundice, Other - Neurological Neurological: As Per HPI - Psychiatric Psychiatric: absent: As Per HPI, Abnormal Sleep Pattern, Anhedonia, Anxiety, Auditory Hallucinations, Behavioral Changes, Change in Appetite, Change in Libido, Confusion, Depression, Difficulty Concentrating, Hallucinations, Homicidal Ideation, Hopelessness, Irritability, Memory Loss, Mood Swings, Panic Attacks, Paranoia, Suicidal Ideation, Visual Hallucinations, Tactile Hallucinations, Other - Endocrine Endocrine: absent: As Per HPI, Change in Body Appearance, Change in Libido, Cold Intolorance, Deepening of Voice, Excessive Sweating, Fatigue, Flushing, Heat Intolorance, Increase in Ring/Shoe/Hat Size, Palpitations, Polydipsia, Polyphagia, Polyuria, Other - Hematologic/Lymphatic Hematologic: As Per HPI Past Patient History - Infectious Disease Hx of Infectious Diseases: None - Tetanus Immunizations Tetanus Immunization: Up to Date - Past Social History Smoking Status: Light Smoker < 10 Cigarettes Daily - CARDIAC Hx Cardiac Disorders: No - PULMONARY Hx Chronic Obstructive Pulmonary Disease (COPD): Yes - NEUROLOGICAL Hx Seizures: Yes - HEENT Hx HEENT Problems: No - RENAL Hx Chronic Kidney Disease: No - ENDOCRINE/METABOLIC Hx Endocrine Disorders: No - HEMATOLOGICAL/ONCOLOGICAL Hx Cancer: Yes (Lung CA with brain mets) Hx Chemotherapy: Yes Hx Cirrhosis: Yes (Liver cirrhosis) - INTEGUMENTARY Hx Dermatological Problems: No - MUSCULOSKELETAL/RHEUMATOLOGICAL Hx Falls: No - GASTROINTESTINAL Hx Gastrointestinal Disorders: No - GENITOURINARY/GYNECOLOGICAL Hx Genitourinary Disorders: No - PSYCHIATRIC Hx Substance Use: No - SURGICAL HISTORY Hx Surgeries: Yes (Lung biopsy) - ANESTHESIA Hx Anesthesia Reactions: No Hx Malignant Hyperthermia: No Meds Allergies/Adverse Reactions: Allergies Allergy/AdvReac Type Severity Reaction Status Date / Time No Known Allergies Allergy Verified 12/17/17 11:04 Physical Exam - Constitutional Appears: Cachectic, Chronically Ill - Head Exam Head Exam: ATRAUMATIC, NORMAL INSPECTION, NORMOCEPHALIC - Eye Exam Eye Exam: Normal appearance Pupil Exam: NORMAL ACCOMODATION - ENT Exam ENT Exam: Mucous Membranes Dry, Normal Exam - Neck Exam Neck exam: Positive for: Normal Inspection - Respiratory Exam Respiratory Exam: Decreased Breath Sounds, Rales, Rhonchi - Cardiovascular Exam Cardiovascular Exam: REGULAR RHYTHM, +S1, +S2 - GI/Abdominal Exam GI & Abdominal Exam: Distended, Normal Bowel Sounds, Soft - Extremities Exam Extremities exam: Positive for: normal inspection - Back Exam Back exam: NORMAL INSPECTION - Psychiatric Exam Psychiatric exam: Flat Affect - Skin Skin Exam: Pallor, Warm Results - Vital Signs Recent Vital Signs: Last Vital Signs Temp 98.1 F 12/28/17 16:35 Pulse 89 12/28/17 17:47 Resp 19 12/28/17 16:35 BP 139/73 12/28/17 17:47 Pulse Ox 97 12/28/17 16:35 - Labs Result Diagrams: 12/28/17 07:00 12/28/17 07:00 Labs: Laboratory Results - last 24 hr 12/28/17 12/28/17 07:00 07:00 WBC 14.2 H RBC 3.02 L Hgb 8.8 L Hct 27.0 L MCV 89.4 MCH 29.1 MCHC 32.6 RDW 17.0 H Plt Count 107 L MPV 9.2 Sodium 138 Potassium 4.3 Chloride 106 Carbon Dioxide 24 Anion Gap 12 BUN 26 H Creatinine 1.0 Est GFR ( Amer) > 60 Est GFR (Non-Af Amer) > 60 Random Glucose 103 Calcium 8.2 L Magnesium 2.3 H Total Bilirubin 0.6 AST 23 ALT 36 Alkaline Phosphatase 209 H Total Protein 5.4 L Albumin 2.8 L Globulin 2.5 Albumin/Globulin Ratio 1.1 Assessment & Plan - Assessment and Plan (Free Text) Assessment: 1. Stage IV lung cancer : brain mets. S/p one dose of gemcitabine. poor performance status. 2. Rt. lung mass : B/L ronchi present. bronchodilators tid, prn . Solumedrol 20 mg IV daily. Cefepime for hospital acquired PNA. ID consult Dr. Almeida requested. 3. 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 Cath present for drainage. 4. Chest pain : EKG normal. Cardiology consult Dr. Garcia requested. tele monitoring. Serial trops. 5. Leukocytosis : likely reactive due to malignancy. Flow negative for leuk/ lymphoma panel. IV antibiotics cefepime. will follow ID recommendations. 6. Hypoalbuminemia : Iv albumin 25 % 50 gm ordered. - Date & Time Date: 12/26/17 Time: 18:00
[2017-12-29] MEDS: Cefepime 1gm in NS 100ml 1 GM/100 ML BAG IVPB SCH ×3 (05:57→21:22)
[2017-12-29 07:07] LABS: BASO # 0.01 K/mm3 (0.0-2.0); BASO % 0.1 % (0.0-3.0); HEMOGLOBIN 9.3 g/dL (14.0-18.0); LYMPH # 0.9 (1.2-3.4); LYMPH % 6.3 % (22.0-35.0); MEAN CELL VOLUME 89.9 fl (80.0-105.0); MEAN CORPUSCULAR HEMOGLOBIN 29.3 pg (25.0-35.0); MEAN CORPUSCULAR HGB CONC 32.6 g/dl (31.0-37.0); MEAN PLATELET VOLUME 9.6 fl (7.0-11.0); MONO # 0.1 (0.1-0.6); MONO % 0.9 % (1.0-6.0); PLATELET COUNT 82 10^3/uL (120.0-450.0); RBC 3.17 10^6/uL (3.5-6.1); RED CELL DISTRIBUTION WIDTH 16.8 % (11.5-14.5); WHITE BLOOD COUNT 13.8 10^3/ul (4.5-11.0)
--- NOTE | 2017-12-29 07:22 | CP.PCM.PN ---
Subjective - Date & Time of Evaluation Date of Evaluation: 12/29/17 Time of Evaluation: 06:20 - Subjective Subjective: Denies chest pain,denies shortness of breath,Lying in bed, sleeping but easily awaken Reason for consultation and follow up: Cardiac evaluation for chest pain, admitted for headache,nausea and vomiting, history of lung cancer Seen and examined by me and Dr. Garcia Objective - Vital Signs/Intake and Output Vital Signs (last 24 hours): Temp Pulse Resp BP Pulse Ox 98.1 F 89 19 139/73 97 12/28/17 16:35 12/28/17 17:47 12/28/17 16:35 12/28/17 17:47 12/28/17 16:35 Intake and Output: 12/29/17 12/29/17 06:59 18:59 Intake Total 300 Balance 300 - Medications Medications: Current Medications Acetaminophen (Tylenol 325mg Tab) 650 mg PO Q6H PRN PRN Reason: Fever >100.4 F Albumin Human (Albumin Human 25% (25 Gm/100 Ml)) 50 gm IV ONCE ONE Stop: 12/29/17 10:01 Aspirin (Aspirin Chewable) 81 mg PO DAILY [facility] Last Admin: 12/28/17 10:31 Dose: 81 mg Furosemide (Lasix) 20 mg PO DAILY [facility] Last Admin: 12/28/17 10:31 Dose: 20 mg Heparin Sodium (Porcine) (Heparin) 5,000 units SC BID [facility] PRN Reason: Protocol Last Admin: 12/28/17 17:48 Dose: 5,000 units Cefepime HCl (Maxipime 1gm) 1 gm in 100 mls @ 100 mls/hr IVPB Q8 [facility] PRN Reason: Protocol Last Admin: 12/29/17 05:57 Dose: 100 mls/hr Vancomycin HCl (Vancomycin 1gm) 1 gm in 250 mls @ 167 mls/hr IVPB Q12H [facility] PRN Reason: Protocol Last Admin: 12/28/17 23:04 Dose: 167 mls/hr Levetiracetam (Keppra) 500 mg PO BID [facility] Last Admin: 12/28/17 17:47 Dose: 500 mg Lorazepam (Ativan) 1 mg IVP Q8H PRN; Protocol PRN Reason: Anxiety Last Admin: 12/27/17 13:24 Dose: 1 mg Methylprednisolone (Solu-Medrol) 20 mg IVP DAILY [facility] Last Admin: 12/28/17 10:27 Dose: 20 mg Metoprolol Tartrate (Lopressor) 12.5 mg PO BID [facility] Last Admin: 12/28/17 17:47 Dose: 12.5 mg Oxycodone HCl (Oxycodone Immediate Release Tab) 10 mg PO Q4H PRN PRN Reason: Pain, moderate (4-7) Last Admin: 12/28/17 13:06 Dose: 10 mg Pantoprazole Sodium (Protonix Ec Tab) 40 mg PO ACB [facility] Last Admin: 12/28/17 06:48 Dose: 40 mg Zolpidem Tartrate (Ambien) 5 mg PO HS [facility] PRN Reason: Protocol Last Admin: 12/28/17 21:57 Dose: 5 mg - Labs Labs: 12/29/17 06:45 12/28/17 07:00 PT 16.3 SECONDS (9.4-12.5) H 12/26/17 16:55 INR 1.42 (0.93-1.08) H 12/26/17 16:55 APTT 34.2 Seconds (25.1-36.5) 12/26/17 16:55 - Constitutional Appears: No Acute Distress - ENT Exam ENT Exam: Mucous Membranes Moist, Normal Exam - Respiratory Exam Respiratory Exam: Decreased Breath Sounds, NORMAL BREATHING PATTERN - Cardiovascular Exam Cardiovascular Exam: +S1, +S2 Additional comments: right subclavian marina cath - GI/Abdominal Exam GI & Abdominal Exam: Soft, Normal Bowel Sounds - Extremities Exam Extremities Exam: Full ROM, Normal Capillary Refill - Neurological Exam Neurological Exam: Alert, Awake, Oriented x3 - Psychiatric Exam Psychiatric exam: Normal Affect, Normal Mood - Skin Skin Exam: Intact, Normal Color, Warm Assessment and Plan - Assessment and Plan (Free Text) Assessment: A 67 year old male dmitted for headache,nausea and vomiting, history of lung cancer with brain metastasis, history of basal cell carcinoma right chest area with removal surgery. liver cirrhosis, hepatitis C with previous Interferon infusion, hypertension, COPD,seizures, current smoker. Plan: Cardiac status stable, no more episode of chest pain On ASA 81 mg daily,Lasix 20 mg daily,and Heparin for DVT prophylaxis Continue antibiotics for right upper lobe pnuemonia Infectious disease on consult Smoking cessation Continue current medications Continue current treatment Will follow up Plan and treatment discussed with Dr. Garcia
[2017-12-29 07:26] LABS: BLOOD UREA NITROGEN 28 mg/dL (7-21); CALCIUM 8.3 mg/dL (8.4-10.5); GFR AFRICAN-AMERICAN > 60; GFR NON-AFRICAN AMERICAN > 60
[2017-12-29] MEDS: Pantoprazole 40 mg EC Tab PO SCH (08:05)
[2017-12-29 08:13] LABS: BAND 1 % (0-2); EOSINOPHIL 17 % (0.0-3.0); LYMPHOCYTE 8 % (22.0-35.0); MONOCYTE 1 % (1.0-6.0); NEUTROPHIL 73 % (50.0-70.0); PLATELET ESTIMATE NORMAL (NORMAL)
[2017-12-29] MEDS: MethylPREDNISolone 40 mg Vial IVP SCH (09:28)
[2017-12-29] MEDS: Vancomycin 1gm in NS 250ml 1 GM/250 ML BAG IVPB SCH ×2 (09:29→22:33)
[2017-12-29] MEDS ORDERED: Albumin Human 25% (25 gm/100 ml) IV ONE (10:00)
--- NOTE | 2017-12-29 13:15 | CP.PCM.PN ---
Subjective - Date & Time of Evaluation Date of Evaluation: 12/29/17 Time of Evaluation: 12:45 - Subjective Subjective: Breathing better but still feels weak, no fevers, no diarrhea. Objective - Vital Signs/Intake and Output Vital Signs (last 24 hours): Temp Pulse Resp BP Pulse Ox 97.4 F L 94 H 20 142/70 98 12/29/17 06:00 12/29/17 09:28 12/29/17 06:00 12/29/17 09:28 12/29/17 06:00 Intake and Output: 12/29/17 12/29/17 06:59 18:59 Intake Total 300 Balance 300 - Medications Medications: Current Medications Acetaminophen (Tylenol 325mg Tab) 650 mg PO Q6H PRN PRN Reason: Fever >100.4 F Aspirin (Aspirin Chewable) 81 mg PO DAILY [facility] Last Admin: 12/29/17 09:27 Dose: 81 mg Furosemide (Lasix) 20 mg PO DAILY [facility] Last Admin: 12/29/17 09:27 Dose: 20 mg Heparin Sodium (Porcine) (Heparin) 5,000 units SC BID [facility] PRN Reason: Protocol Last Admin: 12/29/17 09:28 Dose: 5,000 units Cefepime HCl (Maxipime 1gm) 1 gm in 100 mls @ 100 mls/hr IVPB Q8 [facility] PRN Reason: Protocol Last Admin: 12/29/17 05:57 Dose: 100 mls/hr Vancomycin HCl (Vancomycin 1gm) 1 gm in 250 mls @ 167 mls/hr IVPB Q12H [facility] PRN Reason: Protocol Last Admin: 12/29/17 09:29 Dose: 167 mls/hr Levetiracetam (Keppra) 500 mg PO BID [facility] Last Admin: 12/29/17 09:27 Dose: 500 mg Lorazepam (Ativan) 1 mg IVP Q8H PRN; Protocol PRN Reason: Anxiety Last Admin: 12/27/17 13:24 Dose: 1 mg Methylprednisolone (Solu-Medrol) 20 mg IVP DAILY [facility] Last Admin: 12/29/17 09:28 Dose: 20 mg Metoprolol Tartrate (Lopressor) 12.5 mg PO BID [facility] Last Admin: 12/29/17 09:28 Dose: 12.5 mg Oxycodone HCl (Oxycodone Immediate Release Tab) 10 mg PO Q4H PRN PRN Reason: Pain, moderate (4-7) Last Admin: 12/28/17 13:06 Dose: 10 mg Pantoprazole Sodium (Protonix Ec Tab) 40 mg PO ACB [facility] Last Admin: 12/29/17 08:05 Dose: 40 mg Zolpidem Tartrate (Ambien) 5 mg PO HS [facility] PRN Reason: Protocol Last Admin: 12/28/17 21:57 Dose: 5 mg - Labs Labs: 12/29/17 06:45 12/29/17 06:45 PT 16.3 SECONDS (9.4-12.5) H 12/26/17 16:55 INR 1.42 (0.93-1.08) H 12/26/17 16:55 APTT 34.2 Seconds (25.1-36.5) 12/26/17 16:55 - Constitutional Appears: Cachectic, Chronically Ill - Head Exam Head Exam: NORMAL INSPECTION - ENT Exam ENT Exam: Mucous Membranes Moist - Neck Exam Neck Exam: absent: Meningismus - Respiratory Exam Respiratory Exam: Decreased Breath Sounds, Rales (scattered) - Cardiovascular Exam Cardiovascular Exam: +S1, +S2 - GI/Abdominal Exam GI & Abdominal Exam: Soft. absent: Tenderness Assessment and Plan - Assessment and Plan (Free Text) Plan: Assessment consider sepsis due to right upper lobe post-obstructive HCAP, slowly improving history of sepsis due to spontaneous bacterial peritonitis lung cancer with brain metastases on chemotherapy and radiation therapy basal cell carcinoma on right chest area S/P removal HTN significant smoking history (1 1/2 pack per day smoker) Hepatitis C S/P treatment with Interferon for about 4 years Plan continue Vancomycin and Cefepime day 3 to complete 4-7 days of therapy overall prognosis is poor
[2017-12-29] MEDS: oxyCODONE 10 mg Immediate Release Tab PO PRN (20:00)
[2017-12-30] MEDS: Cefepime 1gm in NS 100ml 1 GM/100 ML BAG IVPB SCH ×2 (06:03→13:56)
--- NOTE | 2017-12-30 06:43 | CP.PCM.PN ---
Subjective - Date & Time of Evaluation Date of Evaluation: 12/30/17 Time of Evaluation: 06:20 - Subjective Subjective: Awake,denies chest pain,denies shortness of breath,Lying in bed Reason for consultation and follow up: Cardiac evaluation for chest pain, admitted for headache,nausea and vomiting, history of lung cancer Seen and examined by me and Dr. Garcia Objective - Vital Signs/Intake and Output Vital Signs (last 24 hours): Temp Pulse Resp BP Pulse Ox 98.2 F 78 20 126/66 96 12/29/17 16:57 12/29/17 17:43 12/29/17 16:57 12/29/17 17:43 12/29/17 16:57 Intake and Output: 12/29/17 12/30/17 18:59 06:59 Intake Total 720 Output Total 700 Balance 20 - Medications Medications: Current Medications Acetaminophen (Tylenol 325mg Tab) 650 mg PO Q6H PRN PRN Reason: Fever >100.4 F Aspirin (Aspirin Chewable) 81 mg PO DAILY [facility] Last Admin: 12/29/17 09:27 Dose: 81 mg Furosemide (Lasix) 20 mg PO DAILY [facility] Last Admin: 12/29/17 09:27 Dose: 20 mg Heparin Sodium (Porcine) (Heparin) 5,000 units SC BID [facility] PRN Reason: Protocol Last Admin: 12/29/17 17:45 Dose: 5,000 units Cefepime HCl (Maxipime 1gm) 1 gm in 100 mls @ 100 mls/hr IVPB Q8 [facility]ESS[facility] PRN Reason: Protocol Last Admin: 12/30/17 06:03 Dose: 100 mls/hr Vancomycin HCl (Vancomycin 1gm) 1 gm in 250 mls @ 167 mls/hr IVPB Q12H [facility] PRN Reason: Protocol Last Admin: 12/29/17 22:33 Dose: 167 mls/hr Levetiracetam (Keppra) 500 mg PO BID [facility] Last Admin: 12/29/17 17:43 Dose: 500 mg Lorazepam (Ativan) 1 mg IVP Q8H PRN; Protocol PRN Reason: Anxiety Last Admin: 12/27/17 13:24 Dose: 1 mg Methylprednisolone (Solu-Medrol) 20 mg IVP DAILY [facility] Last Admin: 12/29/17 09:28 Dose: 20 mg Metoprolol Tartrate (Lopressor) 12.5 mg PO BID [facility] Last Admin: 12/29/17 17:43 Dose: 12.5 mg Oxycodone HCl (Oxycodone Immediate Release Tab) 10 mg PO Q4H PRN PRN Reason: Pain, moderate (4-7) Last Admin: 12/29/17 20:00 Dose: 10 mg Pantoprazole Sodium (Protonix Ec Tab) 40 mg PO ACB [facility] Last Admin: 12/29/17 08:05 Dose: 40 mg Zolpidem Tartrate (Ambien) 5 mg PO HS [facility] PRN Reason: Protocol Last Admin: 12/29/17 21:27 Dose: 5 mg - Labs Labs: 12/29/17 06:45 12/29/17 06:45 PT 16.3 SECONDS (9.4-12.5) H 12/26/17 16:55 INR 1.42 (0.93-1.08) H 12/26/17 16:55 APTT 34.2 Seconds (25.1-36.5) 12/26/17 16:55 - Constitutional Appears: No Acute Distress - Eye Exam Pupil Exam: NORMAL ACCOMODATION - ENT Exam ENT Exam: Mucous Membranes Moist - Neck Exam Neck Exam: Normal Inspection - Respiratory Exam Respiratory Exam: Decreased Breath Sounds, NORMAL BREATHING PATTERN - Cardiovascular Exam Cardiovascular Exam: +S1, +S2 Additional comments: No JVD, right subclavian marina cath - GI/Abdominal Exam GI & Abdominal Exam: Soft, Normal Bowel Sounds - Extremities Exam Extremities Exam: Full ROM, Normal Capillary Refill - Neurological Exam Neurological Exam: Alert, Awake, Oriented x3 - Psychiatric Exam Psychiatric exam: Normal Affect, Normal Mood - Skin Skin Exam: Intact, Normal Color, Warm Assessment and Plan - Assessment and Plan (Free Text) Assessment: A 67 year old male dmitted for headache,nausea and vomiting, history of lung cancer with brain metastasis, history of basal cell carcinoma right chest area with removal surgery. liver cirrhosis, hepatitis C with previous Interferon infusion, hypertension, COPD,seizures, current smoker. Plan: Feeling better Cardiac status stable On ASA 81 mg daily,Lasix 20 mg daily,and Heparin for DVT prophylaxis Continue antibiotics for right upper lobe pneumonia to complete 7 days therapy Smoking cessation Continue current medications Continue current treatment Will follow up Plan and treatment discussed with Dr. Garcia
[2017-12-30 06:58] LABS: HEMOGLOBIN 9.1 g/dL (14.0-18.0); MEAN CORPUSCULAR HEMOGLOBIN 29.4 pg (25.0-35.0); MEAN PLATELET VOLUME 9.7 fl (7.0-11.0); PLATELET COUNT 46 10^3/uL (120.0-450.0); RED CELL DISTRIBUTION WIDTH 16.7 % (11.5-14.5); WHITE BLOOD COUNT 18.2 10^3/ul (4.5-11.0)
[2017-12-30 07:12] LABS: BLOOD UREA NITROGEN 28 mg/dL (7-21); CALCIUM 8.5 mg/dL (8.4-10.5); GFR AFRICAN-AMERICAN > 60; GFR NON-AFRICAN AMERICAN > 60
[2017-12-30 08:50] VITALS: BP 128/75; PULSE 85; RESP 17; TEMP 98; O2SAT 99
[2017-12-30] MEDS: MethylPREDNISolone 40 mg Vial IVP SCH (09:18)
[2017-12-30] MEDS: Vancomycin 1gm in NS 250ml 1 GM/250 ML BAG IVPB SCH (09:19)
[2017-12-30] MEDS: Pantoprazole 40 mg EC Tab PO SCH (09:19)
[2017-12-30] MEDS: oxyCODONE 10 mg Immediate Release Tab PO PRN (09:31)
--- NOTE | 2017-12-30 09:40 | PN ---
DATE: 12/29/2017 SUBJECTIVE: The patient has no complaints of any chest pain. No shortness of breath. No headaches or dizziness. PHYSICAL EXAMINATION: VITAL SIGNS: Temperature is 98.1, pulse of 89, blood pressure is 139/73, respirations 19. GENERAL: The patient is lying in bed, flat, comfortable. HEENT: No oral lesion. Anicteric sclerae. Moist mucosa. NECK: No JVD, adenopathy, or thyromegaly. CARDIOVASCULAR: S1 and S2, regular. No murmurs, rubs, or gallops. LUNGS: Clear to auscultation bilaterally. No wheeze, rales, or rhonchi. ABDOMEN: Bowel sounds are positive, soft, nontender and nondistended. EXTREMITIES: No cyanosis, clubbing or edema. LABORATORY DATA: White count of 14.2, hemoglobin 8.8. Creatinine is 1. ASSESSMENT: 1. Ascites, status post drainage. 2. Chest pain, improved. 3. Lung cancer with metastasis. 4. Cirrhosis. 5. Chronic back pain. 6. Hepatitis C. PLAN: The patient has blood cultures, urine cultures that have been negative. The patient is getting day 3 of antibiotics with vancomycin and cefepime. He is on aspirin daily. He is going to continue with his Keppra. The patient is on metoprolol. He is on oxycodone for pain. He is receiving Solu-Medrol. He is on a regular diet, he is tolerating. He is being followed by Dr. Garcia and by Dr. Chaudhari from Infectious Disease. Chaparro Major MD
--- NOTE | 2017-12-30 18:09 | CP.PCM.PN ---
Subjective - Date & Time of Evaluation Date of Evaluation: 12/30/17 Time of Evaluation: 11:20 - Subjective Subjective: Feeling better, less cough, no fevers, no diarrhea. Objective - Vital Signs/Intake and Output Vital Signs (last 24 hours): Temp Pulse Resp BP Pulse Ox 98.0 F 85 17 128/75 99 12/30/17 06:00 12/30/17 06:00 12/30/17 06:00 12/30/17 06:00 12/30/17 06:00 Intake and Output: 12/30/17 12/30/17 06:59 18:59 Intake Total 1170 Output Total 1300 Balance -130 - Medications Medications: Current Medications Acetaminophen (Tylenol 325mg Tab) 650 mg PO Q6H PRN PRN Reason: Fever >100.4 F Aspirin (Aspirin Chewable) 81 mg PO DAILY [facility] Last Admin: 12/29/17 09:27 Dose: 81 mg Furosemide (Lasix) 20 mg PO DAILY [facility] Last Admin: 12/29/17 09:27 Dose: 20 mg Heparin Sodium (Porcine) (Heparin) 5,000 units SC BID [facility] PRN Reason: Protocol Last Admin: 12/29/17 17:45 Dose: 5,000 units Cefepime HCl (Maxipime 1gm) 1 gm in 100 mls @ 100 mls/hr IVPB Q8 [facility] PRN Reason: Protocol Last Admin: 12/30/17 06:03 Dose: 100 mls/hr Vancomycin HCl (Vancomycin 1gm) 1 gm in 250 mls @ 167 mls/hr IVPB Q12H [facility] PRN Reason: Protocol Last Admin: 12/29/17 22:33 Dose: 167 mls/hr Levetiracetam (Keppra) 500 mg PO BID [facility] Last Admin: 12/29/17 17:43 Dose: 500 mg Lorazepam (Ativan) 1 mg IVP Q8H PRN; Protocol PRN Reason: Anxiety Last Admin: 12/27/17 13:24 Dose: 1 mg Methylprednisolone (Solu-Medrol) 20 mg IVP DAILY [facility] Last Admin: 12/29/17 09:28 Dose: 20 mg Metoprolol Tartrate (Lopressor) 12.5 mg PO BID [facility] Last Admin: 12/29/17 17:43 Dose: 12.5 mg Oxycodone HCl (Oxycodone Immediate Release Tab) 10 mg PO Q4H PRN PRN Reason: Pain, moderate (4-7) Last Admin: 12/29/17 20:00 Dose: 10 mg Pantoprazole Sodium (Protonix Ec Tab) 40 mg PO ACB [facility] Last Admin: 12/29/17 08:05 Dose: 40 mg Zolpidem Tartrate (Ambien) 5 mg PO HS [facility] PRN Reason: Protocol Last Admin: 12/29/17 21:27 Dose: 5 mg - Labs Labs: 12/30/17 05:48 12/30/17 05:48 PT 16.3 SECONDS (9.4-12.5) H 12/26/17 16:55 INR 1.42 (0.93-1.08) H 12/26/17 16:55 APTT 34.2 Seconds (25.1-36.5) 12/26/17 16:55 - Constitutional Appears: Cachectic, Chronically Ill - Head Exam Head Exam: NORMAL INSPECTION - ENT Exam ENT Exam: Mucous Membranes Moist - Neck Exam Neck Exam: absent: Meningismus - Respiratory Exam Respiratory Exam: Decreased Breath Sounds Additional comments: right anterior chest wall port in place, site intact - Cardiovascular Exam Cardiovascular Exam: +S1, +S2 - GI/Abdominal Exam GI & Abdominal Exam: Soft. absent: Tenderness Assessment and Plan - Assessment and Plan (Free Text) Plan: Assessment consider sepsis due to right upper lobe post-obstructive HCAP, slowly improving history of sepsis due to spontaneous bacterial peritonitis lung cancer with brain metastases on chemotherapy and radiation therapy basal cell carcinoma on right chest area S/P removal HTN significant smoking history (1 1/2 pack per day smoker) Hepatitis C S/P treatment with Interferon for about 4 years Plan on Vancomycin and Cefepime day 4 to complete 4-7 days of therapy overall prognosis is poor
== END 2017-12-30 15:09 | disposition home health service (06) | DRG 313 ==
LOC: ED 15:54 → ERH 18:05 → 2RSO 21:00 → OBSVTOIN 12-27 16:13 → 3RSO 12-28 13:59
PROVIDERS: ADMIT Internal Medicine Medical Oncology; ATTEND Internal Medicine Medical Oncology
PROC: 3E0F7GC Introduction of Other Therapeutic Substance into Respiratory Tract, Via Natural or Artificial Opening (ICD-10-PCS; principal; 2017-12-26)
DX: R07.89 Other chest pain (principal); J18.9 Pneumonia, unspecified organism; R18.8 Other ascites; C79.31 Secondary malignant neoplasm of brain; C34.90 Malignant neoplasm of unspecified part of unspecified bronchus or lung; J44.0 Chronic obstructive pulmonary disease with (acute) lower respiratory infection; I47.1 Supraventricular tachycardia; K74.60 Unspecified cirrhosis of liver; E86.0 Dehydration; I10 Essential (primary) hypertension; G89.29 Other chronic pain; M54.9 Dorsalgia, unspecified; B19.20 Unspecified viral hepatitis C without hepatic coma; F17.210 Nicotine dependence, cigarettes, uncomplicated; Z85.828 Personal history of other malignant neoplasm of skin

== ENCOUNTER 2018-01-02 16:35 | Emergency (ER) | payer MEDICARE, OTHER ==
[2018-01-02 16:35] VITALS: BMI 27.6
[2018-01-02 17:01] VITALS: TEMP 97.6
--- NOTE | 2018-01-02 17:40 | ED PDOC ---
Arrival/HPI - General Chief Complaint: Shortness Of Breath Time Seen by Provider: 01/02/18 16:53 Historian: Patient - History of Present Illness Narrative History of Present Illness (Text): 01/02/18 17:40 67yo male with PMhx of lung CA who was bib EMS for SOB. Patient states he left his air conditioned living room for his kitchen and the hot air in the unconditioned Kitchen hit his face, causing him to be SOB. States his symptoms have resolved since he is on air conditioner room. He denies any other somatic complaint. Past Medical History - Provider Review Nursing Documentation Reviewed: Yes - Infectious Disease Hx of Infectious Diseases: None - Tetanus Immunization Tetanus Immunization: Up to Date - Cardiac Hx Cardiac Disorders: No - Pulmonary Hx Chronic Obstructive Pulmonary Disease (COPD): Yes Hx Lung Cancer: Yes Other/Comment: on chemo - Neurological Hx Seizures: Yes - HEENT Hx HEENT Disorder: No - Renal Hx Renal Disorder: No - Endocrine/Metabolic Hx Endocrine Disorders: No - Hematological/Oncological Hx Cancer: Yes (Lung CA with brain mets) Hx Chemotherapy: Yes Hx Cirrhosis: Yes (Liver cirrhosis) - Integumentary Hx Dermatological Disorder: No - Musculoskeletal/Rheumatological Hx Falls: No - Gastrointestinal Hx Gastrointestinal Disorders: No - Genitourinary/Gynecological Hx Genitourinary Disorders: No - Psychiatric Hx Anxiety: Yes Hx Substance Use: No - Surgical History Hx Cardiac Catheterization: No Hx Coronary Stent: No - Anesthesia Hx Anesthesia Reactions: No Hx Malignant Hyperthermia: No - Suicidal Assessment Feels Threatened In Home Enviroment: No Family/Social History - Physician Review Nursing Documentation Reviewed: Yes Family/Social History: Unknown Family HX Smoking Status: Light Smoker < 10 Cigarettes Daily Hx Alcohol Use: No Hx Substance Use: No Allergies/Home Meds Allergies/Adverse Reactions: Allergies No Known Allergies Allergy (Verified 12/17/17 11:04) Home Medications: Home Meds Medication Instructions Recorded Confirmed Oxycodone HCl [Oxycontin] 20 mg PO Q6H PRN 11/14/17 12/30/17 levETIRAcetam [Keppra] 500 mg PO BID 11/14/17 12/30/17 Albuterol 0.083% [Albuterol 0.083% 1 puff INH QID 11/15/17 12/30/17 Inhal Day (2.5 mg/3 ml) UD] Zolpidem [Ambien] 5 mg PO HS 12/17/17 12/30/17 Review of Systems - Physician Review All systems were reviewed & negative as marked: Yes - Review of Systems Constitutional: Normal Eyes: Normal ENT: Normal Respiratory: SOB. absent: Cough, Sputum, Wheezing Cardiovascular: Normal Gastrointestinal: Normal Genitourinary Male: Normal Musculoskeletal: Normal Skin: Normal Neurological: Normal Endocrine: Normal Hemo/Lymphatic: Normal Psychiatric: Normal Physical Exam Vital Signs Reviewed: Yes Vital Signs Temp Pulse Resp BP Pulse Ox 01/02/18 21:30 79 18 120/77 98 01/02/18 19:21 80 18 119/76 98 01/02/18 17:30 18 98 01/02/18 17:00 97.6 F 77 16 118/60 99 Temperature: Afebrile Blood Pressure: Normal Pulse: Regular Respiratory Rate: Normal Appearance: Positive for: Well-Appearing, Non-Toxic, Comfortable Pain Distress: None Mental Status: Positive for: Alert and Oriented X 3 - Systems Exam Head: Present: Atraumatic, Normocephalic Pupils: Present: PERRL Extroacular Muscles: Present: EOMI Conjunctiva: Present: Normal Mouth: Present: Moist Mucous Membranes Neck: Present: Normal Range of Motion Respiratory/Chest: Present: Clear to Auscultation, Good Air Exchange. No: Respiratory Distress, Accessory Muscle Use, Wheezes, Decreased Breath Sounds, Retracting, Rhonchi Cardiovascular: Present: Regular Rate and Rhythm, Normal S1, S2. No: Murmurs Abdomen: No: Tenderness, Distention, Peritoneal Signs Back: Present: Normal Inspection Upper Extremity: Present: Normal Inspection. No: Cyanosis, Edema Lower Extremity: Present: Normal Inspection. No: Edema Neurological: Present: GCS=15, CN II-XII Intact, Speech Normal Skin: Present: Warm, Dry, Normal Color. No: Rashes Psychiatric: Present: Alert, Oriented x 3, Normal Insight, Normal Concentration Medical Decision Making ED Course and Treatment: 01/02/18 23:35 PT remain comfortable in ED. Ambulatory. States his symptom resolved on re evaluation. Leukocytosis and anemia is noted which is comparable to his previous labs. EKG NSR @ 76bpm CXR NAD Pt's symptom likely secondary to the change in room temperature. He was stable to be DC for outpt f/u Case was DW Dr. Heaton and he agreed with the plan . Result and plan was DW the pt. He was advised to f/u with Dr. Heaton. He expressed understanding of the instructions. - Lab Interpretations Lab Results: 01/02/18 18:14 01/02/18 18:14 Lab Results 01/02/18 18:14: Sodium 132, Chloride 102, Potassium 4.6, Carbon Dioxide 22, Anion Gap 13, BUN 40 H, Creatinine 0.9, Est GFR ( Amer) > 60, Est GFR ( Non-Af Amer) > 60, Random Glucose 103, Calcium 7.9 L, Magnesium 2.0, Total Bilirubin 1.9 H, AST 21, ALT 59 H, Alkaline Phosphatase 310 H D, Lactate Dehydrogenase 472, Total Creatine Kinase 22 L, Troponin I < 0.01, NT-Pro-B Natriuret Pep 486 H, Total Protein 5.2 L, Albumin 2.6 L, Globulin 2.6, Albumin/ Globulin Ratio 1.0 L 01/02/18 18:14: pO2 46, VBG pH 7.46 H, VBG pCO2 32.0 L, VBG HCO3 22.8, VBG Total CO2 23.8, VBG O2 Sat (Calc) 88.7 H, VBG Base Excess -0.3 L, VBG Potassium 4.7, Sodium 132.0, Chloride 103.0, Glucose 114 H, Lactate 1.7, FiO2 21.0, Venous Blood Potassium 4.7 01/02/18 18:14: PT 16.3 H, INR 1.42 H, APTT 30.9 01/02/18 18:14: WBC 31.5 H* D, RBC 2.95 L, Hgb 8.9 L, Hct 26.1 L, MCV 88.5, MCH 30.2, MCHC 34.1, RDW 16.8 H, Plt Count 63 L, MPV 10.6, Gran % 85.2 H, Lymph % ( Auto) 1.9 L, [place] % (Auto) 0.1 L, Eos % (Auto) 12.8 H, Baso % (Auto) 0.0, Gran # 26.80 H, Lymph # (Auto) 0.6 L, [place] # (Auto) 0.0 L, Eos # (Auto) 4.0 H, Baso # (Auto) 0.01, Neutrophils % (Manual) 85 H, Band Neutrophils % 2, Lymphocytes % (Manual) 3 L, Monocytes % (Manual) 0 L, Eosinophils % (Manual) 10 H - RAD Interpretation Radiology Orders: 01/02/18 17:06 CHEST PORTABLE [RAD] Stat Disposition/Present on Arrival - Present on Arrival Any Indicators Present on Arrival: No History of DVT/PE: No History of Uncontrolled Diabetes: No Urinary Catheter: No (tunnel catheter for ascitic fluid drainage) History of Decub. Ulcer: No History Surgical Site Infection Following: None - Disposition Have Diagnosis and Disposition been Completed?: Yes Diagnosis: SOB (shortness of breath), Anemia, Leukocytosis Disposition: HOME/ ROUTINE Disposition Time: 19:10 Patient Plan: Discharge Condition: STABLE Discharge Instructions (ExitCare): Shortness of Breath (Dyspnea) (DC) Additional Instructions: Follow up with your doctor Return to ED for any new or worsening symptoms Referrals: Umberto Heaton DO [Primary Care Provider] - Follow up with primary Forms: Breathometer ([place])
[2018-01-02 18:21] LABS: BASO # 0.01 K/mm3 (0.0-2.0); EOS % 12.8 % (1.5-5.0); GRAN % 85.2 % (50.0-68.0); HEMOGLOBIN 8.9 g/dL (14.0-18.0); LYMPH # 0.6 (1.2-3.4); LYMPH % 1.9 % (22.0-35.0); MEAN CELL VOLUME 88.5 fl (80.0-105.0); MEAN CORPUSCULAR HEMOGLOBIN 30.2 pg (25.0-35.0); MEAN CORPUSCULAR HGB CONC 34.1 g/dl (31.0-37.0); MEAN PLATELET VOLUME 10.6 fl (7.0-11.0); MONO % 0.1 % (1.0-6.0); PLATELET COUNT 63 10^3/uL (120.0-450.0); RBC 2.95 10^6/uL (3.5-6.1); RED CELL DISTRIBUTION WIDTH 16.8 % (11.5-14.5); VENOUS BLOOD GAS BASE EXCESS -0.3 mmol/L (0.0-2.0); VENOUS BLOOD GAS PO2 46 mm/Hg (30-55); VENOUS BLOOD PH 7.46 (7.32-7.43)
[2018-01-02 18:28] LABS: WHITE BLOOD COUNT 31.5 10^3/ul (4.5-11.0)
[2018-01-02 18:29] LABS: INR 1.42 (0.93-1.08); PARTIAL THROMBOPLASTIN TIME 30.9 Seconds (25.1-36.5); PROTHROMBIN TIME 16.3 SECONDS (9.4-12.5)
[2018-01-02 18:50] LABS: BLOOD UREA NITROGEN 40 mg/dL (7-21); GFR AFRICAN-AMERICAN > 60; GFR NON-AFRICAN AMERICAN > 60
[2018-01-02 18:51] LABS: ALBUMIN 2.6 g/dL (3.0-4.8); CALCIUM 7.9 mg/dL (8.4-10.5)
[2018-01-02 18:52] LABS: ALT/SGPT 59 U/L (7-56); AST/SGOT 21 U/L (17-59); B-TYPE NATRIURETIC PEPTIDE 486 pg/mL (0-450)
[2018-01-02 18:53] LABS: TROPONIN I < 0.01 ng/mL
[2018-01-02 19:06] LABS: BAND 2 % (0-2); EOSINOPHIL 10 % (0.0-3.0); LYMPHOCYTE 3 % (22.0-35.0); MONOCYTE 0 % (1.0-6.0); NEUTROPHIL 85 % (50.0-70.0)
[2018-01-02 19:22] VITALS: RESP 18; O2SAT 98
--- NOTE | 2018-01-02 22:17 | CARD ---
APPROVED REPORT EKG Measurement Heart [id number] <Conclusion> Normal sinus rhythm Normal ECG
[2018-01-02 22:19] VITALS: BP 120/77; PULSE 79
--- NOTE | 2018-01-03 07:02 | RAD ---
HISTORY: SOB COMPARISON: Multiple serial examinations preceding the most recent study: FINDINGS: LUNGS: Stable consolidative changes/ volume loss affecting right upper lobe. PLEURA: No significant pleural effusion identified, no pneumothorax apparent. CARDIOVASCULAR: No radiographic findings to suggest acute or significant cardiovascular disease. Venous access catheter in stable, satisfactory position. OSSEOUS STRUCTURES: No significant abnormalities. VISUALIZED UPPER ABDOMEN: Normal. OTHER FINDINGS: None. IMPRESSION: No significant interval change compared to the prior examination(s).
== END 2018-01-02 22:18 | disposition home or self-care (01) ==
LOC: ED 16:35
DX: R06.02 Shortness of breath (principal); D64.9 Anemia, unspecified; D72.829 Elevated white blood cell count, unspecified; J44.9 Chronic obstructive pulmonary disease, unspecified; Z85.118 Personal history of other malignant neoplasm of bronchus and lung; F17.210 Nicotine dependence, cigarettes, uncomplicated

== ENCOUNTER 2018-01-07 10:16 | Inpatient (IN) | payer MEDICARE, OTHER ==
[2018-01-07 10:17] VITALS: BMI 27.6
--- NOTE | 2018-01-07 11:17 | ED PDOC ---
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 Alaniz's office to come in for low platelet count. Patient says he otherwise feels well besides some fatigue since his chemo treatment last week and easy bruising. He also admits to occasional shortness of breath. Patient denies fever, chills, chest pain, palpitations, headache, dizziness, abdominal pain, changes in bowel or urinary habits, and lower extremity pain. (Nia Villasenor) Past Medical History - Infectious Disease Hx of Infectious Diseases: None - Tetanus Immunization Tetanus Immunization: Up to Date - Cardiac Hx Cardiac Disorders: Yes Hx Hypertension: Yes - Pulmonary Hx Respiratory Disorders: Yes Hx Chronic Obstructive Pulmonary Disease (COPD): Yes Hx Lung Cancer: Yes Hx Pneumonia: Yes - Neurological Hx Neurological Disorder: Yes Hx Seizures: Yes - HEENT Hx HEENT Disorder: No - Renal Hx Renal Disorder: No - Endocrine/Metabolic Hx Endocrine Disorders: No - Hematological/Oncological Hx Blood Disorders: Yes Hx Anemia: Yes Hx Cancer: Yes (Lung CA with brain mets) Hx Chemotherapy: Yes Hx Cirrhosis: Yes - Integumentary Hx Dermatological Disorder: No - Musculoskeletal/Rheumatological Hx Falls: No - Gastrointestinal Hx Gastrointestinal Disorders: No - Genitourinary/Gynecological Hx Genitourinary Disorders: No - Psychiatric Hx Psychophysiologic Disorder: Yes Hx Anxiety: Yes Hx Substance Use: No - Surgical History Hx Cardiac Catheterization: No Hx Coronary Stent: No Other/Comment: PORT, TUBE TO DRAIN ABDOMINAL FLUID - Anesthesia Hx Anesthesia Reactions: No Hx Malignant Hyperthermia: No - Suicidal Assessment Feels Threatened In Home Enviroment: No <Nia Villasenor - Last Filed: 01/07/18 11:38> Family/Social History Family/Social History: Other (noncontributory) Smoking Status: Light Smoker < 10 Cigarettes Daily Hx Alcohol Use: No Hx Substance Use: No <Nia Villasenor - Last Filed: 01/07/18 11:38> Allergies/Home Meds <Nia Villasenor - Last Filed: 01/07/18 11:38> <Richard Escalona - Last Filed: 01/07/18 13:15> Allergies/Adverse Reactions: Allergies No Known Allergies Allergy (Verified 01/07/18 10:39) Home Medications: Home Meds Medication Instructions Recorded Confirmed Oxycodone HCl [Oxycontin] 20 mg PO Q6H PRN 11/14/17 01/07/18 Albuterol 0.083% [Albuterol 0.083% 3 ml INH QID 11/15/17 01/07/18 Inhal Day (2.5 mg/3 ml) UD] Zolpidem [Ambien] 5 mg PO HS 12/17/17 01/07/18 Review of Systems - Physician Review All systems were reviewed & negative as marked: Yes (as per HPI) - Review of Systems Constitutional: Fatigue. absent: Fevers Eyes: Normal ENT: Normal Respiratory: SOB Cardiovascular: absent: Chest Pain, Palpitations, Calf Pain Gastrointestinal: absent: Abdominal Pain, Constipation, Diarrhea, Nausea, Vomiting Genitourinary Male: absent: Dysuria Musculoskeletal: absent: Arthralgias Skin: Other (purpura/echymosis on arms and chest) Neurological: absent: Headache, Dizziness Hemo/Lymphatic: Easy Bruising <Nia Villasenor - Last Filed: 01/07/18 11:38> Physical Exam - Systems Exam Head: Present: Atraumatic, Normocephalic Pupils: Present: PERRL Extroacular Muscles: Present: EOMI Conjunctiva: Present: Normal Mouth: Present: Moist Mucous Membranes Neck: No: Lymphadenopathy Respiratory/Chest: Present: Rhonchi. No: Respiratory Distress, Accessory Muscle Use, Rales, Tachypneic Cardiovascular: Present: Regular Rate and Rhythm, Normal S1, S2 Abdomen: Present: Normal Bowel Sounds. No: Tenderness, Distention, Peritoneal Signs Upper Extremity: Present: Other (multiple purpura/echymosis bilaterally). No: Cyanosis Lower Extremity: Present: Edema (2+ pitting) Neurological: Present: GCS=15, Speech Normal Skin: Present: Warm, Dry Psychiatric: Present: Alert, Oriented x 3 <Nia Villasenor - Last Filed: 01/07/18 11:38> Vital Signs Temp Pulse Resp BP Pulse Ox 01/07/18 13:08 83 18 141/73 100 01/07/18 10:42 97.4 F L 96 H 21 96/66 L 99 Medical Decision Making <Nia Villasenor - Last Filed: 01/07/18 11:38> <Richard Escalona - Last Filed: 01/07/18 13:15> ED Course and Treatment: Seen and examined with resident. 67 y/o M p/w thrombcytopenia. Multiple ecchymoses to bilateral arms, no active bleeding. (Richard Escalona) - Lab Interpretations Lab Results: 01/07/18 12:45 01/07/18 12:45 Lab Results 01/07/18 12:45: Sodium 134, Potassium 3.9, Chloride 105, Carbon Dioxide 20 L, Anion Gap 14, BUN 40 H, Creatinine 1.3, Est GFR ( Amer) > 60, Est GFR ( Non-Af Amer) 55, Random Glucose 170 H, Calcium 8.1 L, Total Bilirubin 1.1, AST 9 L D, ALT 38, Alkaline Phosphatase 257 H, Total Protein 4.9 L, Albumin 2.5 L, Globulin 2.4, Albumin/Globulin Ratio 1.0 L 01/07/18 12:45: WBC 9.3 D, RBC 2.64 L, Hgb 8.0 L, Hct 22.6 L, MCV 85.6, MCH 30.3, MCHC 35.4, RDW 16.1 H, Plt Count 14 L*, Gran % 83.1 H, Lymph % (Auto) 9.1 L, [place] % (Auto) 2.8, Eos % (Auto) 5.0, Baso % (Auto) 0.0, Gran # 7.72 H, Lymph # (Auto) 0.9 L, [place] # (Auto) 0.3, Eos # (Auto) 0.5, Baso # (Auto) 0.00 - PA / EMERGENCY WORKER / Resident Statement / has reviewed & agrees with the documentation as recorded. / has examined the patient and agrees with the treatment plan. <Nia Villasenor - Last Filed: 01/07/18 11:38> Disposition/Present on Arrival - Present on Arrival History of DVT/PE: No History of Uncontrolled Diabetes: No Urinary Catheter: No (tunnel catheter for ascitic fluid drainage) History of Decub. Ulcer: No History Surgical Site Infection Following: None <Nia Villasenor - Last Filed: 01/07/18 11:38> - Present on Arrival Any Indicators Present on Arrival: No - Disposition Have Diagnosis and Disposition been Completed?: Yes Disposition Time: 13:00 Patient Plan: Admission <Richard Escalona - Last Filed: 01/07/18 13:15> - Disposition Diagnosis: Thrombocytopenia Disposition: HOSPITALIZED Condition: FAIR Referrals: Umberto Heaton DO [Staff Provider] - Follow up with primary Forms: [employer] (Slovenian)
[2018-01-07 12:55] LABS: EOS # 0.5 (0.0-0.7); GRAN # 7.72 (1.4-6.5); GRAN % 83.1 % (50.0-68.0); LYMPH # 0.9 (1.2-3.4); LYMPH % 9.1 % (22.0-35.0); MEAN CELL VOLUME 85.6 fl (80.0-105.0); MEAN CORPUSCULAR HEMOGLOBIN 30.3 pg (25.0-35.0); MEAN CORPUSCULAR HGB CONC 35.4 g/dl (31.0-37.0); MONO # 0.3 (0.1-0.6); MONO % 2.8 % (1.0-6.0); RBC 2.64 10^6/uL (3.5-6.1); RED CELL DISTRIBUTION WIDTH 16.1 % (11.5-14.5); WHITE BLOOD COUNT 9.3 10^3/ul (4.5-11.0)
[2018-01-07 12:59] LABS: PLATELET COUNT 14 10^3/uL (120.0-450.0)
[2018-01-07 13:11] LABS: ALBUMIN 2.5 g/dL (3.0-4.8); ALT/SGPT 38 U/L (7-56); AST/SGOT 9 U/L (17-59); BLOOD UREA NITROGEN 40 mg/dL (7-21); CALCIUM 8.1 mg/dL (8.4-10.5); GFR AFRICAN-AMERICAN > 60; GFR NON-AFRICAN AMERICAN 55
[2018-01-07 13:17] LABS: PLATELET ESTIMATE LOW (NORMAL)
[2018-01-07 13:18] LABS: INR 1.71 (0.93-1.08); PARTIAL THROMBOPLASTIN TIME 29.2 Seconds (25.1-36.5); PROTHROMBIN TIME 19.9 SECONDS (9.4-12.5)
[2018-01-07] MEDS ORDERED: Albuterol-Ipratrop 3 mg / 0.5 (3 ml) UD IH STA ×2 (14:04→17:45)
[2018-01-07] MEDS ORDERED: oxyCODONE 20 mg ER Tab (oxyCONTIN) PO PRN (18:02)
[2018-01-07] MEDS ORDERED: Albumin Human 25% (12.5 gm/50 ml) IV ONE (18:08)
[2018-01-07] MEDS ORDERED: Albumin Human 25% (25 gm/100 ml) IV ONE (21:15)
[2018-01-07] MEDS: Albuterol 0.083% Inhal Sol (2.5 mg/3 mL) UD INH SCH (21:40)
[2018-01-08] MEDS: Albuterol 0.083% Inhal Sol (2.5 mg/3 mL) UD INH SCH ×4 (07:21→20:40)
--- NOTE | 2018-01-08 08:18 | RAD ---
HISTORY: Shortness of breath COMPARISON: Multiple serial examinations preceding the most recent study: January 07, 2018. FINDINGS: LUNGS: Stable consolidative changes right upper lobe PLEURA: No significant pleural effusion identified, no pneumothorax apparent. CARDIOVASCULAR: No radiographic findings to suggest acute or significant cardiovascular disease. Venous access catheter in stable, satisfactory position. OSSEOUS STRUCTURES: No significant abnormalities. VISUALIZED UPPER ABDOMEN: Normal. OTHER FINDINGS: None. IMPRESSION: No significant interval change compared to the prior examination(s).
--- NOTE | 2018-01-08 08:24 | RAD ---
HISTORY: shortness of breath COMPARISON: Multiple serial examinations preceding the most recent study: 01/02/2018. FINDINGS: LUNGS: Stable consolidative changes with volume loss right upper lobe. Compensatory hyperinflation left lung. PLEURA: No significant pleural effusion identified, no pneumothorax apparent. CARDIOVASCULAR: No radiographic findings to suggest acute or significant cardiovascular disease.Venous access catheter in stable, satisfactory position. OSSEOUS STRUCTURES: No significant abnormalities. VISUALIZED UPPER ABDOMEN: Normal. OTHER FINDINGS: None. IMPRESSION: No significant interval change compared to the prior examination(s).
[2018-01-08] MEDS ORDERED: Potassium Chloride 20 mEq ER Tab PO SCH (10:00)
--- NOTE | 2018-01-08 11:19 | CP.PCM.CON ---
History of Present Illness - History of Present Illness History of Present Illness: Palliative consult requested by Dr Rustam Alaniz Reason: Goals of care and advance care planning 67 year old male with history of lung cancer with metastasis to brain, s/p palliative RT to brain and Hep C who presented with with anemia and thrombocytopenia. He was met by his oncologist. He states he feels weak. He denied melena, hematemesis,tarry stools,fever,chills,chest /abdominal pain, nausea, diarrhea, vomiting, changes in bowel or urinary habits. Labs; WBC 9.3, HGB 8.0. PLT 14, BUN 40, Creat 1.3, Calcium 8.1, Alk Phos 257, Albumin 2.4. Chest x ray showed no new changes. PMHx: lung cancer, brain metastasis, s/p palliative RT,Hep C, ascites s/p aspira catheter, HCAP, sepsis. Social History: Former smoker, no alcohol or drug use. Lives with son and daughter. Family History: Non contributory. Advance Care Planning:The patient does not have an Advanced Directive Review of Systems: As per HPI otherwise negative 12 point review. Past Patient History - Infectious Disease Hx of Infectious Diseases: None - Tetanus Immunizations Tetanus Immunization: Up to Date - Past Social History Smoking Status: Former Smoker - CARDIAC Hx Cardiac Disorders: Yes Hx Hypertension: Yes - PULMONARY Hx Respiratory Disorders: Yes Hx Chronic Obstructive Pulmonary Disease (COPD): Yes Hx Pneumonia: Yes - NEUROLOGICAL Hx Neurological Disorder: Yes Hx Seizures: Yes - HEENT Hx HEENT Problems: No - RENAL Hx Chronic Kidney Disease: No - ENDOCRINE/METABOLIC Hx Endocrine Disorders: No - HEMATOLOGICAL/ONCOLOGICAL Hx Blood Disorders: Yes Hx Anemia: Yes Hx Cancer: Yes (Lung CA with brain mets) Hx Chemotherapy: Yes Hx Cirrhosis: Yes - INTEGUMENTARY Hx Dermatological Problems: No - MUSCULOSKELETAL/RHEUMATOLOGICAL Hx Falls: No - GASTROINTESTINAL Hx Gastrointestinal Disorders: No - GENITOURINARY/GYNECOLOGICAL Hx Genitourinary Disorders: No - PSYCHIATRIC Hx Psychophysiologic Disorder: Yes Hx Anxiety: Yes - SURGICAL HISTORY Hx Cardiac Catheterization: No Hx Coronary Stent: No Other/Comment: PORT, TUBE TO DRAIN ABDOMINAL FLUID - ANESTHESIA Hx Anesthesia Reactions: No Hx Malignant Hyperthermia: No Meds Allergies/Adverse Reactions: Allergies Allergy/AdvReac Type Severity Reaction Status Date / Time No Known Allergies Allergy Verified 01/07/18 10:39 - Medications Medications: Current Medications Albuterol Sulfate (Albuterol 0.083% Inhal Day (2.5 Mg/3 Ml) Ud) 2.5 mg INH QIDRESP [facility] Last Admin: 01/08/18 07:21 Dose: 2.5 mg Famotidine (Pepcid) 20 mg PO DAILY [facility] Last Admin: 01/08/18 09:38 Dose: 20 mg Furosemide (Lasix) 20 mg PO DAILY [facility] Last Admin: 01/08/18 09:39 Dose: 20 mg Metoprolol Tartrate (Lopressor) 12.5 mg PO BID [facility] Last Admin: 01/08/18 09:38 Dose: 12.5 mg Oxycodone HCl (Oxycodone Immediate Release Tab) 10 mg PO Q6H PRN PRN Reason: Pain, moderate (4-7) Potassium Chloride (Klor-Con 10) 10 meq PO DAILY [facility] Zolpidem Tartrate (Ambien) 5 mg PO HS [facility] PRN Reason: Protocol Last Admin: 01/07/18 22:17 Dose: 5 mg Physical Exam - Constitutional Appears: Cachectic, Chronically Ill - Head Exam Head Exam: NORMAL INSPECTION - Eye Exam Eye Exam: Normal appearance Pupil Exam: NORMAL ACCOMODATION - ENT Exam ENT Exam: Mucous Membranes Moist, Normal Oropharynx - Neck Exam Neck exam: Positive for: Normal Inspection - Respiratory Exam Respiratory Exam: Decreased Breath Sounds, NORMAL BREATHING PATTERN - Cardiovascular Exam Cardiovascular Exam: REGULAR RHYTHM, +S1, +S2 - GI/Abdominal Exam GI & Abdominal Exam: Normal Bowel Sounds, Soft Additional comments: no tenderness or guarding - Extremities Exam Extremities exam: Positive for: normal inspection, pedal pulses present - Back Exam Back exam: NORMAL INSPECTION - Neurological Exam Neurological exam: Alert, Oriented x3 - Skin Skin Exam: Dry, Pallor - Additional Findings Additional findings: Palliative performance scale rating 50 % Results - Vital Signs Recent Vital Signs: Last Vital Signs Temp 98.6 F 01/08/18 10:51 Pulse 80 01/08/18 10:51 Resp 18 01/08/18 10:51 BP 138/72 01/08/18 10:51 Pulse Ox 98 01/07/18 16:45 - Labs Result Diagrams: 01/07/18 12:45 01/07/18 12:45 Labs: Laboratory Results - last 24 hr 01/07/18 13:50 Blood Type Confirm B POSITIVE Assessment & Plan - Assessment and Plan (Free Text) Assessment: 67 year old male with history of lung cancer, brain mets, s/p palliative RT who is admitted with anemia and thrombocytopenia The patient is known to me from previous admission. He is alert and oriented. He is aware of the reason for this admission as well as his other comorbid conditions. He states that he is not in any pain or distress. He lives with son and daughter. I reminded him that we had spoken about advance care planing in the past. Today I revisited the subject of resuscitation and advance care planning. Benefits and burdens of advanced care planning explained. The patient states that he would prefer if his daughter were present during this conversation. I will reach out to daughter in order to set up a family meeting. Psychosocial support provided. Time spent with patient in advance care planning discussion, 25 minutes Plan: Anemia/thrombocytopenia: Monitor CBC, Transfuse RBC's Weakness: PT/OT evaluation Goals of care and advance care planning
--- NOTE | 2018-01-08 13:06 | CARD ---
APPROVED REPORT EKG Measurement Heart [id number] <Conclusion> Normal sinus rhythm Normal ECG
[2018-01-08] MEDS: oxyCODONE 10 mg Immediate Release Tab PO PRN (17:06)
--- NOTE | 2018-01-08 22:46 | CP.PCM.HP ---
History of Present Illness - History of Present Illness History of Present Illness: patient is a 67 year old male with Stage IV lung cancer. Brain mets , s/p radiation to brain. Ascites, has drain in place, being drained twice a week. He has large lung mass. recurrent pneumonia. Respiratory distress baseline. Loss of apatite. Received 2 doses of chemotherapy, single agent Gemcitabine. CBC in office showed platelet 14k. No bleeding. Extensive petechie .Difficulty in day to day activities. Present on Admission - Present on Admission Any Indicators Present on Admission: No Review of Systems - Constitutional Constitutional: As Per HPI, Anorexia, Malaise - EENT Eyes: absent: As Per HPI, Blind Spots, Blurred Vision, Change in Vision, Decreased Night Vision, Diplopia, Discharge, Dry Eye, Exophthalmos, Floaters, Irritation, Itchy Eyes, Loss of Peripheral Vision, Pain, Photophobia, Requires Corrective Lenses, Sees Flashes, Spots in Vision, Tunnel Vision, Other Visual Disturbances, Loss of Vision, Other Nose/Mouth/Throat: absent: As Per HPI, Epistaxis, Nasal Congestion, Nasal Discharge, Nasal Obstruction, Nasal Trauma, Nose Pain, Post Nasal Drip, Sinus Pain, Sinus Pressure, Bleeding Gums, Change in Voice, Dental Pain, Dry Mouth, Dysphagia, Halitosis, Hoarsness, Lip Swelling, Mouth Lesions, Mouth Pain, Odynophagia, Sore Throat, Throat Swelling, Tongue Swelling, Facial Pain, Neck Pain, Neck Mass, Other - Cardiovascular Cardiovascular: absent: As Per HPI, Acrocyanosis, Chest Pain, Chest Pain at Rest , Chest Pain with Activity, Claudication, Diaphoresis, Dyspnea, Dyspnea on Exertion, Edema, Irregular Heart Rhythm, Pain Radiating to Arm/Neck/Jaw, Leg Edema, Leg Ulcers, Lightheadedness, Orthopnea, Palpitations, Paroxysmal Nocturnal Dyspnea, Pedal Edema, Radiating Pain, Rapid Heart Rate, Slow Heart Rate, Syncope, Other - Respiratory Respiratory: As Per HPI - Gastrointestinal Gastrointestinal: absent: As Per HPI, Abdominal Pain, Belching, Bloating, Change in Bowel Habits, Change in Stool Character, Coffee Ground Emesis, Constipation, Cramping, Diarrhea, Dyspepsia, Dysphagia, Early Satiety, Excessive Flatus, Fecal Incontinence, Heartburn, Hematemesis, Hematochezia, Loose Stools, Melena, Nausea, Odynophagia, Temesmus, Vomiting, Other - Genitourinary Genitourinary: absent: As Per HPI, Change in Urinary Stream, Difficulty Urinating, Dysuria, Flank Pain, Hematuria, Pyuria, Nocturia, Urinary Incontinence, Urinary Frequency, Urinary Hesitance, Urinary Urgency, Voiding Freq/Small Amts, Freq UTI, Hx Renal/Bladder Calculi, Hx /Renal Surgery, Bladder Distension, Other - Musculoskeletal Musculoskeletal: Back Pain, Muscle Weakness - Integumentary Integumentary: As Per HPI - Neurological Neurological: As Per HPI - Endocrine Endocrine: absent: As Per HPI, Change in Body Appearance, Change in Libido, Cold Intolorance, Deepening of Voice, Excessive Sweating, Fatigue, Flushing, Heat Intolorance, Increase in Ring/Shoe/Hat Size, Palpitations, Polydipsia, Polyphagia, Polyuria, Other - Hematologic/Lymphatic Hematologic: As Per HPI Past Patient History - Infectious Disease Hx of Infectious Diseases: None - Tetanus Immunizations Tetanus Immunization: Up to Date - Past Social History Smoking Status: Former Smoker - CARDIAC Hx Cardiac Disorders: Yes Hx Hypertension: Yes - PULMONARY Hx Respiratory Disorders: Yes Hx Chronic Obstructive Pulmonary Disease (COPD): Yes Hx Pneumonia: Yes - NEUROLOGICAL Hx Neurological Disorder: Yes Hx Seizures: Yes - HEENT Hx HEENT Problems: No - RENAL Hx Chronic Kidney Disease: No - ENDOCRINE/METABOLIC Hx Endocrine Disorders: No - HEMATOLOGICAL/ONCOLOGICAL Hx Blood Disorders: Yes Hx Anemia: Yes Hx Cancer: Yes (Lung CA with brain mets) Hx Chemotherapy: Yes Hx Cirrhosis: Yes - INTEGUMENTARY Hx Dermatological Problems: No - MUSCULOSKELETAL/RHEUMATOLOGICAL Hx Falls: No - GASTROINTESTINAL Hx Gastrointestinal Disorders: No - GENITOURINARY/GYNECOLOGICAL Hx Genitourinary Disorders: No - PSYCHIATRIC Hx Psychophysiologic Disorder: Yes Hx Anxiety: Yes - SURGICAL HISTORY Hx Cardiac Catheterization: No Hx Coronary Stent: No Other/Comment: PORT, TUBE TO DRAIN ABDOMINAL FLUID - ANESTHESIA Hx Anesthesia Reactions: No Hx Malignant Hyperthermia: No Meds Allergies/Adverse Reactions: Allergies Allergy/AdvReac Type Severity Reaction Status Date / Time No Known Allergies Allergy Verified 01/07/18 10:39 Physical Exam - Constitutional Appears: Cachectic, Chronically Ill - Head Exam Head Exam: ATRAUMATIC, NORMAL INSPECTION, NORMOCEPHALIC - Eye Exam Eye Exam: Normal appearance Pupil Exam: NORMAL ACCOMODATION - ENT Exam ENT Exam: Mucous Membranes Dry - Neck Exam Neck exam: Positive for: Normal Inspection - Respiratory Exam Respiratory Exam: Clear to Auscultation Bilateral - Cardiovascular Exam Cardiovascular Exam: REGULAR RHYTHM, +S1, +S2 - GI/Abdominal Exam GI & Abdominal Exam: Distended, Normal Bowel Sounds - Extremities Exam Extremities exam: Positive for: normal inspection - Back Exam Back exam: NORMAL INSPECTION - Skin Skin Exam: Pallor, Warm Results - Vital Signs Recent Vital Signs: Last Vital Signs Temp 97.8 F 01/08/18 18:00 Pulse 89 01/08/18 18:00 Resp 20 01/08/18 18:00 BP 142/62 01/08/18 18:00 Pulse Ox 100 01/08/18 18:00 - Labs Result Diagrams: 01/07/18 12:45 01/07/18 12:45 Assessment & Plan - Assessment and Plan (Free Text) Assessment: 1. Stage IV lung cancer : poor performance status. failure to thrive. advanced disease. Unable to tolerate palliative chemotherapy. S/P 2 doses of single agent Gemzar. Recommend home/hospital hospice. Discussed with daughter and patient. Palliative services consulted. 2. Thrombocytopenia : 2 units of platelet transfusion. 3. Anemia : 2 units of PRBCs to be transfused. 4. Hypoalbuminemia : 25% albumin , 50 gm . Poor prognosis explained to patient, family. - Date & Time Date: 01/07/18 Time: 18:00
[2018-01-09 06:47] LABS: HEMOGLOBIN 9.6 g/dL (14.0-18.0); MEAN CELL VOLUME 84.5 fl (80.0-105.0); MEAN CORPUSCULAR HEMOGLOBIN 29.1 pg (25.0-35.0); MEAN CORPUSCULAR HGB CONC 34.4 g/dl (31.0-37.0); MEAN PLATELET VOLUME 10.1 fl (7.0-11.0); RBC 3.3 10^6/uL (3.5-6.1); RED CELL DISTRIBUTION WIDTH 17.5 % (11.5-14.5); WHITE BLOOD COUNT 13.5 10^3/ul (4.5-11.0)
[2018-01-09 07:18] LABS: ALB/GLOB RATIO 1.2 (1.1-1.8); ALBUMIN 2.7 g/dL (3.0-4.8); ALT/SGPT 33 U/L (7-56); AST/SGOT 10 U/L (17-59); BLOOD UREA NITROGEN 28 mg/dL (7-21); CALCIUM 8.2 mg/dL (8.4-10.5); GFR AFRICAN-AMERICAN > 60; GFR NON-AFRICAN AMERICAN > 60
[2018-01-09] MEDS: Albuterol 0.083% Inhal Sol (2.5 mg/3 mL) UD INH SCH (07:50)
[2018-01-09] MEDS: Potassium Chloride 10 mEq ER Tab PO SCH (09:14)
[2018-01-09] MEDS ORDERED: Levalbuterol 0.63 MG/3 ML Inhal Soln UD IH PRN (11:10)
[2018-01-09] MEDS: oxyCODONE 10 mg Immediate Release Tab PO PRN (12:09)
--- NOTE | 2018-01-09 13:40 | CP.PCM.PN ---
Subjective - Date & Time of Evaluation Date of Evaluation: 01/09/18 Time of Evaluation: 13:00 - Subjective Subjective: Alert, complains of weakness, urinary frequency/urgency. Objective - Vital Signs/Intake and Output Vital Signs (last 24 hours): Temp Pulse Resp BP Pulse Ox 99.9 F H 111 H 18 109/61 98 01/09/18 08:34 01/09/18 09:14 01/09/18 08:34 01/09/18 09:14 01/09/18 08:34 Intake and Output: 01/09/18 01/09/18 06:59 18:59 Intake Total 420 Output Total 500 Balance -80 - Medications Medications: Current Medications Famotidine (Pepcid) 20 mg PO DAILY [facility] Last Admin: 01/09/18 09:14 Dose: 20 mg Furosemide (Lasix) 20 mg PO DAILY [facility] Last Admin: 01/09/18 09:14 Dose: 20 mg Levalbuterol HCl (Xopenex) 0.63 mg I[facility] TIDRESP JESSICA Levalbuterol HCl (Xopenex) 0.63 mg IH [id number] PRN PRN Reason: Shortness of Breath Metoprolol Tartrate (Lopressor) 12.5 mg PO BID [facility] Last Admin: 01/09/18 09:14 Dose: 12.5 mg Oxycodone HCl (Oxycodone Immediate Release Tab) 10 mg PO Q6H PRN PRN Reason: Pain, moderate (4-7) Last Admin: 01/09/18 12:09 Dose: 10 mg Potassium Chloride (Klor-Con 10) 10 meq PO DAILY [facility] Last Admin: 01/09/18 09:14 Dose: 10 meq Zolpidem Tartrate (Ambien) 5 mg PO [facility] PRN Reason: Protocol Last Admin: 01/08/18 21:51 Dose: 5 mg - Labs Labs: 01/09/18 06:30 01/09/18 06:30 PT 19.9 SECONDS (9.4-12.5) H 01/07/18 12:45 INR 1.71 (0.93-1.08) H 01/07/18 12:45 APTT 29.2 Seconds (25.1-36.5) 01/07/18 12:45 - Constitutional Appears: Cachectic, Chronically Ill - Head Exam Head Exam: NORMAL INSPECTION - Eye Exam Eye Exam: Normal appearance, PERRL - ENT Exam ENT Exam: Mucous Membranes Moist - Neck Exam Neck Exam: Normal Inspection - Respiratory Exam Respiratory Exam: Decreased Breath Sounds, NORMAL BREATHING PATTERN - Cardiovascular Exam Cardiovascular Exam: REGULAR RHYTHM, +S1, +S2 - GI/Abdominal Exam GI & Abdominal Exam: Distended, Soft - Extremities Exam Additional comments: numerous ecchymotic areas of both upper and lower extremities - Back Exam Back Exam: NORMAL INSPECTION - Neurological Exam Neurological Exam: Alert, Oriented x3 - Skin Skin Exam: Dry, Pallor Assessment and Plan - Assessment and Plan (Free Text) Assessment: 67 year old male with history of metastatic lung cancer who is admitted with anemia, thrombocytopenia and deconditioning. Patient complaining of frequency,urgency, passing small amounts of urine. Denies burning, hematuria. The patients daughter Rosaura at bedside. Patient made aware that oncologist is recommending hospice care. Hospice services explained in detail. Morro Lowery CM also present. Option for NIR/rehab offered as well. Explained that if patient were not ready for hospice at this time, he could go to [facility] for rehab before transitioning to hospice care. Advance care planning also encouraged. The patient feels overwhelmed and is not ready to make a decision at this time Rosaura is supportive and will assist in decision making. Time spent with patient and daughter in goals of care and advance care planning 40 minutes Plan: Urinalysis/ urine C& S stat. Goals of care and advance care planning
[2018-01-09] MEDS: Levalbuterol 0.63 MG/3 ML Inhal Soln UD IH SCH ×2 (13:52→19:23)
[2018-01-09 15:09] LABS: PH,URINE 5.5 (4.7-8.0); URINE BILIRUBIN NEGATIVE (NEGATIVE); URINE BLOOD NEGATIVE (NEGATIVE); URINE GLUCOSE (UA) 100 mg/dL (NEGATIVE); URINE LEUKOCYTE ESTERASE NEGATIVE Leu/uL (NEGATIVE); URINE PROTEIN TRACE mg/dL (<30 mg/dL); URINE UROBILINOGEN 0.2 E.U./dL (<1 E.U./dL)
[2018-01-09 15:10] LABS: URINE APPEARANCE CLEAR (CLEAR); URINE COLOR YELLOW (YELLOW)
[2018-01-09 15:14] LABS: URINE BACTERIA MOD (NEG); URINE RBC 0 - 2 /hpf (0-2)
[2018-01-10 06:48] LABS: ALBUMIN 2.5 g/dL (3.0-4.8); ALT/SGPT 29 U/L (7-56); AST/SGOT 8 U/L (17-59); BLOOD UREA NITROGEN 25 mg/dL (7-21); CALCIUM 7.9 mg/dL (8.4-10.5); GFR AFRICAN-AMERICAN > 60; GFR NON-AFRICAN AMERICAN > 60
[2018-01-10 07:06] LABS: HEMOGLOBIN 9.5 g/dL (14.0-18.0); MEAN CELL VOLUME 85.1 fl (80.0-105.0); MEAN CORPUSCULAR HEMOGLOBIN 29.5 pg (25.0-35.0); MEAN CORPUSCULAR HGB CONC 34.7 g/dl (31.0-37.0); MEAN PLATELET VOLUME 11.3 fl (7.0-11.0); RBC 3.22 10^6/uL (3.5-6.1); RED CELL DISTRIBUTION WIDTH 18.7 % (11.5-14.5); WHITE BLOOD COUNT 14.1 10^3/ul (4.5-11.0)
[2018-01-10] MEDS: Levalbuterol 0.63 MG/3 ML Inhal Soln UD IH SCH ×2 (07:43→13:17)
[2018-01-10] MEDS: Potassium Chloride 10 mEq ER Tab PO SCH (08:59)
[2018-01-10] MEDS: oxyCODONE 10 mg Immediate Release Tab PO PRN (12:59)
[2018-01-10 17:16] VITALS: BP 129/67; PULSE 86
[2018-01-10 18:20] VITALS: RESP 20; TEMP 97.1; O2SAT 100
--- NOTE | 2018-01-10 22:46 | CP.PCM.PN ---
Subjective - Date & Time of Evaluation Date of Evaluation: 01/08/18 Time of Evaluation: 18:00 - Subjective Subjective: Comfortable in bed. Platelet count improved. No bleeding. tachycardia. No chest pain. Not able to ambulate without support. Objective - Vital Signs/Intake and Output Vital Signs (last 24 hours): Temp Pulse Resp BP Pulse Ox 97.1 F L 86 20 129/67 100 01/10/18 18:18 01/10/18 18:18 01/10/18 18:18 01/10/18 18:18 01/10/18 18:18 - Labs Labs: 01/10/18 06:30 01/10/18 06:30 PT 19.9 SECONDS (9.4-12.5) H 01/07/18 12:45 INR 1.71 (0.93-1.08) H 01/07/18 12:45 APTT 29.2 Seconds (25.1-36.5) 01/07/18 12:45 - Constitutional Appears: Cachectic - Head Exam Head Exam: ATRAUMATIC, NORMAL INSPECTION, NORMOCEPHALIC - Eye Exam Eye Exam: Normal appearance Pupil Exam: NORMAL ACCOMODATION - ENT Exam ENT Exam: Mucous Membranes Moist, Normal Exam - Respiratory Exam Respiratory Exam: Clear to Ausculation Bilateral, Rales, Rhonchi - Cardiovascular Exam Cardiovascular Exam: REGULAR RHYTHM, +S1, +S2 - GI/Abdominal Exam GI & Abdominal Exam: Distended, Normal Bowel Sounds - Extremities Exam Extremities Exam: Normal Inspection - Back Exam Back Exam: NORMAL INSPECTION - Neurological Exam Neurological Exam: Alert, Awake, CN II-XII Intact, Oriented x3 - Skin Skin Exam: Pallor, Warm Assessment and Plan - Assessment and Plan (Free Text) Assessment: 1. Stage IV lung cancer . poor performance status. Palliative services consulted. Family undecided on hospice. Spoke to daughter Rosaura. 2. Thrombocytopenia : s/p platelet transfusion. Plt. count improved. 3. ascites : drained twice a week. 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
--- NOTE | 2018-01-10 22:52 | CP.PCM.PN ---
Subjective - Date & Time of Evaluation Date of Evaluation: 01/09/18 Time of Evaluation: 09:00 - Subjective Subjective: Gc improved. Loss of apatite. No bleeding. Shortness of breath at rest. No seizure. Objective - Vital Signs/Intake and Output Vital Signs (last 24 hours): Temp Pulse Resp BP Pulse Ox 97.1 F L 86 20 129/67 100 01/10/18 18:18 01/10/18 18:18 01/10/18 18:18 01/10/18 18:18 01/10/18 18:18 - Labs Labs: 01/10/18 06:30 01/10/18 06:30 PT 19.9 SECONDS (9.4-12.5) H 01/07/18 12:45 INR 1.71 (0.93-1.08) H 01/07/18 12:45 APTT 29.2 Seconds (25.1-36.5) 01/07/18 12:45 - Constitutional Appears: Cachectic - Head Exam Head Exam: ATRAUMATIC, NORMAL INSPECTION - Eye Exam Eye Exam: Normal appearance - ENT Exam ENT Exam: Mucous Membranes Dry - Neck Exam Neck Exam: Normal Inspection - Respiratory Exam Respiratory Exam: Rales, Rhonchi, NORMAL BREATHING PATTERN - Cardiovascular Exam Cardiovascular Exam: REGULAR RHYTHM, +S1, +S2 - GI/Abdominal Exam GI & Abdominal Exam: Soft, Normal Bowel Sounds - Extremities Exam Extremities Exam: Normal Inspection - Back Exam Back Exam: NORMAL INSPECTION - Neurological Exam Neurological Exam: Alert, CN II-XII Intact, Oriented x3 - Skin Skin Exam: Pallor, Warm Assessment and Plan - Assessment and Plan (Free Text) Assessment: 1. Stage IV lung cancer . poor performance status. Palliative services consulted. Family undecided on hospice. Spoke to daughter Rosaura. She will discuss with brother. 2. Thrombocytopenia : s/p platelet transfusion. Plt. count improved. 3. ascites : drained twice a week. 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 5. 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 Continue keppra.
--- NOTE | 2018-01-10 23:01 | CP.PCM.DIS ---
Provider - Provider Date of Admission: 01/07/18 13:01 Attending physician: Marlen Alaniz MD Primary care physician: Yeimy Donovan MD Time Spent in preparation of Discharge (in minutes): 55 Hospital Course - Lab Results Lab Results: Most Recent Lab Values WBC 14.1 10^3/ul (4.5-11.0) H 01/10/18 06:30 RBC 3.22 10^6/uL (3.5-6.1) L 01/10/18 06:30 Hgb 9.5 g/dL (14.0-18.0) L 01/10/18 06:30 Hct 27.4 % (42.0-52.0) L 01/10/18 06:30 MCV 85.1 fl (80.0-105.0) 01/10/18 06:30 MCH 29.5 pg (25.0-35.0) 01/10/18 06:30 MCHC 34.7 g/dl (31.0-37.0) 01/10/18 06:30 RDW 18.7 % (11.5-14.5) H 01/10/18 06:30 Plt Count 65 10^3/uL (120.0-450.0) L 01/10/18 06:30 MPV 11.3 fl (7.0-11.0) H 01/10/18 06:30 Gran % 83.1 % (50.0-68.0) H 01/07/18 12:45 Lymph % (Auto) 9.1 % (22.0-35.0) L 01/07/18 12:45 [place] % (Auto) 2.8 % (1.0-6.0) 01/07/18 12:45 Eos % (Auto) 5.0 % (1.5-5.0) 01/07/18 12:45 Baso % (Auto) 0.0 % (0.0-3.0) 01/07/18 12:45 Gran # 7.72 (1.4-6.5) H 01/07/18 12:45 Lymph # (Auto) 0.9 (1.2-3.4) L 01/07/18 12:45 [place] # (Auto) 0.3 (0.1-0.6) 01/07/18 12:45 Eos # (Auto) 0.5 (0.0-0.7) 01/07/18 12:45 Baso # (Auto) 0.00 K/mm3 (0.0-2.0) 01/07/18 12:45 Platelet Evaluation Low (NORMAL) 01/07/18 12:45 PT 19.9 SECONDS (9.4-12.5) H 01/07/18 12:45 INR 1.71 (0.93-1.08) H 01/07/18 12:45 APTT 29.2 Seconds (25.1-36.5) 01/07/18 12:45 Sodium 139 mmol/L (132-148) 01/10/18 06:30 Potassium 3.2 mmol/L (3.6-5.0) L 01/10/18 06:30 Chloride 104 mmol/L (98-107) 01/10/18 06:30 Carbon Dioxide 25 mmol/L (21-33) 01/10/18 06:30 Anion Gap 14 (10-20) 01/10/18 06:30 BUN 25 mg/dL (7-21) H 01/10/18 06:30 Creatinine 0.9 mg/dl (0.8-1.5) 01/10/18 06:30 Est GFR ( Amer) > 60 01/10/18 06:30 Est GFR (Non-Af Amer) > 60 01/10/18 06:30 Random Glucose 124 mg/dL (70-110) H 01/10/18 06:30 Calcium 7.9 mg/dL (8.4-10.5) L 01/10/18 06:30 Total Bilirubin 2.0 mg/dL (0.2-1.3) H 01/10/18 06:30 AST 8 U/L (17-59) L 01/10/18 06:30 ALT 29 U/L (7-56) 01/10/18 06:30 Alkaline Phosphatase 203 U/L (38-126) H 01/10/18 06:30 Total Protein 4.8 g/dL (5.8-8.3) L 01/10/18 06:30 Albumin 2.5 g/dL (3.0-4.8) L 01/10/18 06:30 Globulin 2.4 gm/dL 01/10/18 06:30 Albumin/Globulin Ratio 1.0 (1.1-1.8) L 01/10/18 06:30 Urine Color Yellow (YELLOW) 01/09/18 14:45 Urine Appearance Clear (CLEAR) 01/09/18 14:45 Urine pH 5.5 (4.7-8.0) 01/09/18 14:45 Ur Specific [place] 1.015 (1.005-1.035) 01/09/18 14:45 Urine Protein Trace mg/dL (<30 mg/dL) H 01/09/18 14:45 Urine Glucose (UA) 100 mg/dL (NEGATIVE) H 01/09/18 14:45 Urine Ketones Negative mg/dL (NEGATIVE) 01/09/18 14:45 Urine Blood Negative (NEGATIVE) 01/09/18 14:45 Urine Nitrate Negative (NEGATIVE) 01/09/18 14:45 Urine Bilirubin Negative (NEGATIVE) 01/09/18 14:45 Urine Urobilinogen 0.2 E.U./dL (<1 E.U./dL) 01/09/18 14:45 Ur Leukocyte Esterase Negative [place]/uL (NEGATIVE) 01/09/18 14:45 Urine RBC 0 - 2 /hpf (0-2) 01/09/18 14:45 Urine WBC 1 - 3 /hpf (0-6) 01/09/18 14:45 Ur Epithelial Cells None /hpf (0-5) 01/09/18 14:45 Urine Bacteria Mod (NEG) 01/09/18 14:45 Blood Type B POSITIVE 01/07/18 12:45 Blood Type Confirm B POSITIVE 01/07/18 13:50 Antibody Screen Negative 01/07/18 12:45 Crossmatch See Detail 01/07/18 12:45 BBK History Checked No verified bt 01/07/18 12:45 - Hospital Course Hospital Course: 1. Stage IV lung Cancer 2. Thrombocytopenia 3. Ascites, chirrosis liver 4. Brain Mets 5. Respiratory distress. Hospital course : admitted with shortness of breath. Thrombocytopenia, anemia. transfused 2 units of blood, 2 units of platelets. ascites drained via cath . GC improved. transferred to TCU for deconditioning. Discharge Exam - Head Exam Head Exam: ATRAUMATIC, NORMAL INSPECTION - Eye Exam Eye Exam: Normal appearance - ENT Exam ENT Exam: Mucous Membranes Moist - Neck Exam Neck exam: Normal Inspection - Respiratory Exam Respiratory Exam: NORMAL BREATHING PATTERN - Cardiovascular Exam Cardiovascular Exam: REGULAR RHYTHM, +S1, +S2 - GI/Abdominal Exam GI & Abdominal Exam: Distended, Normal Bowel Sounds - Extremities Exam Extremities exam: normal inspection - Back Exam Back exam: NORMAL INSPECTION - Neurological Exam Neurological exam: Alert, CN II-XII Intact, Oriented x3 - Skin Skin Exam: Normal Color, Pallor Discharge Plan - Follow Up Plan Condition: FAIR Disposition: TRANSF TO SNF Instructions: Bleeding Precautions Additional Instructions: Patient discharged to TCU for continued physical therapy and strengthening, continue all medications as prescribed. May return to ED if experiencing worsening of symptoms.
--- NOTE | 2018-01-13 08:26 | HP ---
HISTORY OF PRESENT ILLNESS: Patient is 67 years old, patient of Dr. Alaniz, was admitted on 01/04 because of thrombocytopenia, received 2 platelet transfusions, being transferred to TCU for rehab and further close followup. PAST MEDICAL HISTORY: He has significant past medical history for: 1. Lung CA with mets to the brain. 2. Significant weight loss. 3. Malignant ascites. 4. Status post RT to the brain. 5. Malnutrition. 6. Anemia. 7. Thrombocytopenia. ALLERGIES: NOT ALLERGIC TO ANY MEDICATIONS. MEDICATION AT HOME: He is on oxycodone 10 mg every 6, Ambien 5 mg at bedtime, potassium supplementation, he is on metoprolol 12.5 twice a day, getting Xopenex and Lasix. SOCIAL HISTORY: He lives with his family. He used to be a smoker and used to drink in the past. He does have a history of alcoholic cirrhosis and hepatitis. PHYSICAL EXAMINATION: GENERAL: He is awake and alert, able to communicate, looks pale. VITAL SIGNS: He is afebrile. Pulse 95, respiration 18, blood pressure 114/60. LUNGS: Bilaterally diffuse decreased breath sounds at bases. HEART: S1 and S2 audible. ABDOMEN: Soft, with fluid thrill. EXTREMITIES: Bilateral legs, no edema. LABORATORY EXAMINATION: There is no new lab available today. ASSESSMENT AND PLAN: 1. Metastatic lung cancer with metastasis to brain, status post radiation therapy. 2. Malignant versus cirrhotic ascites. 3. History of hepatitis C. 4. Thrombocytopenia. 5. Chronic anemia. So plan is currently patient is on Keppra. He is getting diuretic with potassium supplementation. He is on beta jono and analgesic as needed and nebulizer treatment. Encourage physical therapy and we will put JONES stocking for deep venous thrombosis prophylaxis. Aiden Miller MD
== END 2018-01-10 18:19 | DRG 813 ==
LOC: ED 10:16 → ERH 13:01 → 3RSO 16:59
PROVIDERS: ADMIT Internal Medicine Medical Oncology; ATTEND Internal Medicine Medical Oncology
PROC: 30233R1 Transfusion of Nonautologous Platelets into Peripheral Vein, Percutaneous Approach (ICD-10-PCS; principal; 2018-01-07)
PROC: 30233N1 Transfusion of Nonautologous Red Blood Cells into Peripheral Vein, Percutaneous Approach (ICD-10-PCS; 2018-01-08)
DX: D69.6 Thrombocytopenia, unspecified (principal); C34.90 Malignant neoplasm of unspecified part of unspecified bronchus or lung; C79.31 Secondary malignant neoplasm of brain; E46 Unspecified protein-calorie malnutrition; R18.0 Malignant ascites; D64.9 Anemia, unspecified; R62.7 Adult failure to thrive; B19.20 Unspecified viral hepatitis C without hepatic coma; K74.60 Unspecified cirrhosis of liver; I10 Essential (primary) hypertension; J44.9 Chronic obstructive pulmonary disease, unspecified; E88.09 Other disorders of plasma-protein metabolism, not elsewhere classified; Z87.891 Personal history of nicotine dependence; Z68.23 Body mass index [BMI] 23.0-23.9, adult; Z92.3 Personal history of irradiation; Z87.01 Personal history of pneumonia (recurrent)

== ENCOUNTER 2018-01-10 18:10 | Inpatient (IN) | payer OTHER ==
[2018-01-10] MEDS ORDERED: Levalbuterol 0.63 MG/3 ML Inhal Soln UD IH PRN (18:28)
[2018-01-10 18:29] VITALS: BMI 23.6
[2018-01-10] MEDS: Levalbuterol 0.63 MG/3 ML Inhal Soln UD IH SCH (19:29)
[2018-01-11] MEDS: Potassium Chloride 10 mEq ER Tab PO SCH (08:07)
[2018-01-11] MEDS: Levalbuterol 0.63 MG/3 ML Inhal Soln UD IH SCH ×3 (08:51→20:23)
[2018-01-11] MEDS: oxyCODONE 10 mg Immediate Release Tab PO PRN ×2 (14:55→21:16)
[2018-01-12] MEDS: Levalbuterol 0.63 MG/3 ML Inhal Soln UD IH SCH ×3 (07:30→20:30)
[2018-01-12] MEDS: Potassium Chloride 10 mEq ER Tab PO SCH (07:56)
--- NOTE | 2018-01-12 17:46 | PN ---
DATE: 01/12/2018 SUBJECTIVE: The patient is 67 years old, seen and examined, lying in bed. He is awake and alert, able to communicate, looks pale, eating fair, participating in therapy, offers no significant complaint. PHYSICAL EXAMINATION: VITAL SIGNS: He is afebrile, pulse 108, respirations 16, blood pressure 112/64. LUNGS: Bilateral diffusely decreased breath sound. HEART: S1 and S2 audible. ABDOMEN: Distended. Nontender. No rebound. No guarding. NEUROLOGIC: He is awake and alert, able to communicate. ASSESSMENT: 1. Metastatic lung cancer. 2. Cirrhosis ascites. 3. Metastasis to the brain. 4. Seizure disorder. 5. Status post multiple paracentesis. 6. Deconditioning, difficulty walking. 7. Thrombocytopenia. PLAN: We will continue the patient on current medications. Orders for CBC, CMP in the a.m. Encourage ambulation. Dr. Alaniz will follow up the patient in the a.m. Aiden Miller MD
[2018-01-13 06:41] LABS: BASO # 0.03 K/mm3 (0.0-2.0); BASO % 0.3 % (0.0-3.0); HEMOGLOBIN 8.9 g/dL (14.0-18.0); LYMPH # 1.1 (1.2-3.4); LYMPH % 9.5 % (22.0-35.0); MEAN CELL VOLUME 86.8 fl (80.0-105.0); MEAN CORPUSCULAR HEMOGLOBIN 29.3 pg (25.0-35.0); MEAN CORPUSCULAR HGB CONC 33.7 g/dl (31.0-37.0); MEAN PLATELET VOLUME 9.9 fl (7.0-11.0); MONO # 1.3 (0.1-0.6); MONO % 11.2 % (1.0-6.0); PLATELET COUNT 180 10^3/uL (120.0-450.0); RBC 3.04 10^6/uL (3.5-6.1); RED CELL DISTRIBUTION WIDTH 19.8 % (11.5-14.5); WHITE BLOOD COUNT 11.5 10^3/ul (4.5-11.0)
[2018-01-13 07:17] LABS: ALBUMIN 2.4 g/dL (3.0-4.8); ALT/SGPT 28 U/L (7-56); AST/SGOT 14 U/L (17-59); BLOOD UREA NITROGEN 28 mg/dL (7-21); CALCIUM 7.9 mg/dL (8.4-10.5); GFR AFRICAN-AMERICAN > 60; GFR NON-AFRICAN AMERICAN > 60
[2018-01-13] MEDS: Levalbuterol 0.63 MG/3 ML Inhal Soln UD IH SCH ×3 (07:18→20:20)
[2018-01-13 08:18] LABS: ANISOCYTOSIS 1+; BAND 4 % (0-2); EOSINOPHIL 29 % (0.0-3.0); LYMPHOCYTE 12 % (22.0-35.0); MONOCYTE 7 % (1.0-6.0); NEUTROPHIL 48 % (50.0-70.0); PLATELET ESTIMATE NORMAL (NORMAL)
[2018-01-13] MEDS: Potassium Chloride 10 mEq ER Tab PO SCH (08:20)
--- NOTE | 2018-01-13 08:26 | HP ---
HISTORY OF PRESENT ILLNESS: Patient is 67 years old, patient of Dr. Alaniz, was admitted on 01/04 because of thrombocytopenia, received 2 platelet transfusions, being transferred to TCU for rehab and further close followup. PAST MEDICAL HISTORY: He has significant past medical history for: 1. Lung CA with mets to the brain. 2. Significant weight loss. 3. Malignant ascites. 4. Status post RT to the brain. 5. Malnutrition. 6. Anemia. 7. Thrombocytopenia. ALLERGIES: NOT ALLERGIC TO ANY MEDICATIONS. MEDICATION AT HOME: He is on oxycodone 10 mg every 6, Ambien 5 mg at bedtime, potassium supplementation, he is on metoprolol 12.5 twice a day, getting Xopenex and Lasix. SOCIAL HISTORY: He lives with his family. He used to be a smoker and used to drink in the past. He does have a history of alcoholic cirrhosis and hepatitis. PHYSICAL EXAMINATION: GENERAL: He is awake and alert, able to communicate, looks pale. VITAL SIGNS: He is afebrile. Pulse 95, respiration 18, blood pressure 114/60. LUNGS: Bilaterally diffuse decreased breath sounds at bases. HEART: S1 and S2 audible. ABDOMEN: Soft, with fluid thrill. EXTREMITIES: Bilateral legs, no edema. LABORATORY EXAMINATION: There is no new lab available today. ASSESSMENT AND PLAN: 1. Metastatic lung cancer with metastasis to brain, status post radiation therapy. 2. Malignant versus cirrhotic ascites. 3. History of hepatitis C. 4. Thrombocytopenia. 5. Chronic anemia. So plan is currently patient is on Keppra. He is getting diuretic with potassium supplementation. He is on beta jono and analgesic as needed and nebulizer treatment. Encourage physical therapy and we will put JONES stocking for deep venous thrombosis prophylaxis. Aiden Miller MD
[2018-01-13] MEDS: oxyCODONE 10 mg Immediate Release Tab PO PRN (10:14)
--- NOTE | 2018-01-13 15:05 | CP.PCM.CON ---
History of Present Illness - History of Present Illness History of Present Illness: Palliative consult requested by DR Alaniz Reason: Goals of care 67 year old male with history of lung cancer, brain metastasis, s/p radiation who was initially admitted to acute care with weakness, ascites, anemia, thrombocytopenia and leukocytosis. He has since been transitioned to [facility] for deconditioning.He denies chest pain, nausea, vomiting, constipation, diarrhea. He does complain of urinary frequency, passing small amounts of urine when voiding, denies burning/pain or discharge. PMHX: Lung cancer, brain metastasis s/p radiation, Hep C,ascites, thrombocytopenia, anemia. Social Hist: Former smoker, denies alcohol or drug use. Lives with his son Family History: Non contributory Advance Cancer Planning: The patient does not have an Advanced Direcitve Review of System: As per HPI, otherwise negative 12 point review Past Patient History - Infectious Disease Hx of Infectious Diseases: None - Tetanus Immunizations Tetanus Immunization: Up to Date - Past Social History Smoking Status: Former Smoker - CARDIAC Hx Cardiac Disorders: Yes Hx Hypertension: Yes - PULMONARY Hx Chronic Obstructive Pulmonary Disease (COPD): Yes - NEUROLOGICAL Hx Neurological Disorder: Yes Hx Seizures: Yes - HEENT Hx HEENT Problems: No - RENAL Hx Chronic Kidney Disease: No - ENDOCRINE/METABOLIC Hx Endocrine Disorders: No - HEMATOLOGICAL/ONCOLOGICAL Hx Blood Disorders: Yes Hx Anemia: Yes Hx Cancer: Yes (Lung CA with brain mets) Hx Chemotherapy: Yes Hx Cirrhosis: Yes - INTEGUMENTARY Hx Dermatological Problems: No - MUSCULOSKELETAL/RHEUMATOLOGICAL Hx Falls: No - GASTROINTESTINAL Hx Gastrointestinal Disorders: No - GENITOURINARY/GYNECOLOGICAL Hx Reproductive Disorders: No - PSYCHIATRIC Hx Psychophysiologic Disorder: Yes Hx Anxiety: Yes - SURGICAL HISTORY Hx Cardiac Catheterization: No Hx Coronary Stent: No Other/Comment: PORT, TUBE TO DRAIN ABDOMINAL FLUID - ANESTHESIA Hx Anesthesia Reactions: No Hx Malignant Hyperthermia: No Meds Allergies/Adverse Reactions: Allergies Allergy/AdvReac Type Severity Reaction Status Date / Time No Known Allergies Allergy Verified 01/10/18 19:37 - Medications Medications: Current Medications Famotidine (Pepcid) 20 mg PO 2200 JESSICA PRN Reason: Protocol Last Admin: 01/12/18 22:04 Dose: 20 mg Furosemide (Lasix) 20 mg PO 0630 JESSICA PRN Reason: Protocol Last Admin: 01/13/18 06:37 Dose: Not Given Levalbuterol HCl (Xopenex) 0.63 mg IH [id number] PRN; Protocol PRN Reason: Shortness of Breath Levalbuterol HCl (Xopenex) 0.63 mg IH TIDRESP JESSICA PRN Reason: Protocol Last Admin: 01/13/18 13:09 Dose: 0.63 mg Levetiracetam (Keppra) 500 mg PO BID [facility] Last Admin: 01/13/18 09:01 Dose: 500 mg Metoprolol Tartrate (Lopressor) 12.5 mg PO 0800,1800 [facility] PRN Reason: Protocol Last Admin: 01/13/18 08:20 Dose: Not Given Oxycodone HCl (Oxycodone Immediate Release Tab) 10 mg PO Q6H PRN; Protocol PRN Reason: Pain, moderate (4-7) Last Admin: 01/13/18 10:14 Dose: 10 mg Potassium Chloride (Klor-Con 10) 10 meq PO 0800 [facility] PRN Reason: Protocol Last Admin: 01/13/18 08:20 Dose: 10 meq Zolpidem Tartrate (Ambien) 5 mg PO HS [facility] PRN Reason: Protocol Last Admin: 01/12/18 22:02 Dose: 5 mg Physical Exam - Constitutional Appears: Cachectic, Chronically Ill - Eye Exam Eye Exam: Normal appearance, PERRL - ENT Exam ENT Exam: Mucous Membranes Moist - Neck Exam Neck exam: Positive for: Normal Inspection Additional comments: right upper chest port patent, ecchymosis around site - Respiratory Exam Respiratory Exam: Decreased Breath Sounds, NORMAL BREATHING PATTERN - Cardiovascular Exam Cardiovascular Exam: REGULAR RHYTHM, +S1, +S2 - GI/Abdominal Exam GI & Abdominal Exam: Distended, Normal Bowel Sounds, Soft Additional comments: aspira catheter - Extremities Exam Extremities exam: Positive for: pedal edema, pedal pulses present - Back Exam Back exam: NORMAL INSPECTION - Neurological Exam Neurological exam: Alert, Oriented x3 - Skin Skin Exam: Dry, Warm - Additional Findings Additional findings: Palliative performance scale rating 40% Results - Vital Signs Recent Vital Signs: Last Vital Signs Temp 98.4 F 01/13/18 06:00 Pulse 64 01/13/18 08:20 Resp 18 01/13/18 06:00 BP 129/52 L 01/13/18 08:20 Pulse Ox 98 01/13/18 06:00 - Labs Result Diagrams: 01/13/18 06:30 01/13/18 06:30 Labs: Laboratory Results - last 24 hr 01/13/18 01/13/18 06:30 06:30 WBC 11.5 H RBC 3.04 L Hgb 8.9 L Hct 26.4 L MCV 86.8 MCH 29.3 MCHC 33.7 RDW 19.8 H Plt Count 180 MPV 9.9 Lymph % (Auto) 9.5 L [place] % (Auto) 11.2 H Baso % (Auto) 0.3 Lymph # (Auto) 1.1 L [place] # (Auto) 1.3 H Baso # (Auto) 0.03 Neutrophils % (Manual) 48 L Band Neutrophils % 4 H Lymphocytes % (Manual) 12 L Monocytes % (Manual) 7 H Eosinophils % (Manual) 29 H Platelet Evaluation Normal Anisocytosis (manual) 1+ Sodium 138 Potassium 3.9 Chloride 105 Carbon Dioxide 26 Anion Gap 11 BUN 28 H Creatinine 1.1 Est GFR ( Amer) > 60 Est GFR (Non-Af Amer) > 60 Random Glucose 101 Calcium 7.9 L Total Bilirubin 1.7 H AST 14 L D ALT 28 Alkaline Phosphatase 218 H Total Protein 4.9 L Albumin 2.4 L Globulin 2.5 Albumin/Globulin Ratio 1.0 L Assessment & Plan - Assessment and Plan (Free Text) Assessment: 67 year old male with history of metastasis lung cancer s/p RT to brain, Hep C, anemia and thrombocytopenia who is admitted to [facility] for deconditioning. The patient is known to me from previous admissions. I had been in discussion with patient and daughter regarding goals of care and advance care planning. Patient offered option for rehab as well as hospice care. These options were discussed at length with patient and daughter. Advance care planning also discussed. The patient did not want to make decision, waiting for daughter advise him. Daughter did not keep scheduled appointment with myself /pillowcase maker to finalize plan of care. During patients stay on [facility] I will try to reach and to both his son and daughter in order to work on goals of care and advance care planning decision Plan: Dysuria : Urine C&S positive for yeast, ID consult Deconditioning: OT/PT daily Goals of care and advance care planning
--- NOTE | 2018-01-14 00:55 | PN ---
DATE: 01/13/2018 SUBJECTIVE: He is confused. He is alert, not oriented. Complaining that he went to the restroom 32 times. He is complaining of shortness of breath. No pain. Currently getting nebulizer treatment with respiratory therapist. REVIEW OF SYSTEMS: As per HPI. Rest of 12-point review of systems reviewed negative. PHYSICAL EXAMINATION: GENERAL: Agitated, mild respiratory distress. Cachexia present. Pallor positive. VITAL SIGNS: Heart rate is 92 per minute, blood pressure 120/49, respiratory rate 20 per minute, oxygen saturation 99% room air. NECK: No lymphadenopathy. CHEST: Air entry present, decreased on the right side. Occasional rhonchi, occasional crepitations. ABDOMEN: Drain present. EXTREMITIES: No edema. DELICATESSEN DEPARTMENT MANAGER: Alert, not oriented, confused. LABORATORY DATA: No current labs. ASSESSMENT: 1. Stage IV lung cancer, advanced disease. 2. Ascites. 3. Delirium/confusion 4. Failure to thrive. 5. Progressive disease. PLAN: He has poor prognosis with advanced lung cancer. I had a lengthy discussion with daughter Rosaura. Hospice have been discussed with the family before, but they were not ready to make any decisions. I explained to her about the terminal cancer and option of comfort care/hospice care. She agreed with home hospice. We will discuss with Ghazala Salcedo to make necessary arrangements for home hospice. Emotional support provided to the daughter. She was advised to discuss with me in office if she needs any more information. Discussed with the staff nurse. Marlen Alaniz MD MTDD
[2018-01-14] MEDS: Levalbuterol 0.63 MG/3 ML Inhal Soln UD IH SCH ×3 (07:16→20:37)
[2018-01-14] MEDS: Potassium Chloride 10 mEq ER Tab PO SCH (07:59)
[2018-01-14] MEDS: oxyCODONE 10 mg Immediate Release Tab PO PRN (12:05)
--- NOTE | 2018-01-14 14:17 | CP.PCM.PN ---
Subjective - Date & Time of Evaluation Date of Evaluation: 01/14/18 Time of Evaluation: 13:00 - Subjective Subjective: Alert, complaint of urinary frequency Objective - Vital Signs/Intake and Output Vital Signs (last 24 hours): Temp Pulse Resp BP Pulse Ox 98.1 F 50 L 20 123/75 99 01/13/18 16:00 01/14/18 08:00 01/13/18 16:00 01/14/18 08:00 01/13/18 16:00 - Medications Medications: Current Medications Famotidine (Pepcid) 20 mg PO 2200 [facility] PRN Reason: Protocol Last Admin: 01/13/18 21:43 Dose: 20 mg Furosemide (Lasix) 20 mg PO 0630 [facility] PRN Reason: Protocol Last Admin: 01/14/18 06:06 Dose: 20 mg Levalbuterol HCl (Xopenex) 0.63 mg IH [id number] PRN; Protocol PRN Reason: Shortness of Breath Levalbuterol HCl (Xopenex) 0.63 mg IH TIDRESP JESSICA PRN Reason: Protocol Last Admin: 01/14/18 13:00 Dose: Not Given Levetiracetam (Keppra) 500 mg PO BID [facility] Last Admin: 01/14/18 09:58 Dose: 500 mg Metoprolol Tartrate (Lopressor) 12.5 mg PO 0800,1800 [facility] PRN Reason: Protocol Last Admin: 01/14/18 08:00 Dose: Not Given Oxycodone HCl (Oxycodone Immediate Release Tab) 10 mg PO Q6H PRN; Protocol PRN Reason: Pain, moderate (4-7) Last Admin: 01/14/18 12:05 Dose: 10 mg Potassium Chloride (Klor-Con 10) 10 meq PO 0800 [facility] PRN Reason: Protocol Last Admin: 01/14/18 07:59 Dose: 10 meq Zolpidem Tartrate (Ambien) 5 mg PO HS [facility] PRN Reason: Protocol Last Admin: 01/13/18 21:44 Dose: 5 mg - Labs Labs: 01/13/18 06:30 01/13/18 06:30 - Constitutional Appears: Cachectic, Chronically Ill - Head Exam Head Exam: NORMAL INSPECTION - Eye Exam Eye Exam: Normal appearance, PERRL - ENT Exam ENT Exam: Mucous Membranes Moist - Respiratory Exam Respiratory Exam: Decreased Breath Sounds, NORMAL BREATHING PATTERN - Cardiovascular Exam Cardiovascular Exam: +S1, +S2 - GI/Abdominal Exam GI & Abdominal Exam: Distended, Soft, Diminished Bowel Sounds - Extremities Exam Extremities Exam: Normal Capillary Refill, Pedal Edema - Back Exam Back Exam: NORMAL INSPECTION - Neurological Exam Neurological Exam: Alert - Skin Skin Exam: Dry, Warm Assessment and Plan - Assessment and Plan (Free Text) Assessment: 67 year old male with history of lung cancer, brain metastasis, thrombocytopenia and anemia who is admitted to [facility] for deconditioning The patient,his daughter Rosaura, ANGELO Lainezkaitlyn Barrett and I met to discuss goals of care. Hospice services have been explained, questions answered. Patient and daughter agreeable to hospice care upon discharge. Rosaura to meet with [facility] liaison on > Psychosocial support provided Time spent with patient and family in goals of care discussion, 30 minutes Plan: Goals of care Hospice evaluation Psychosocial support
[2018-01-14] MEDS: oxyCODONE 10 mg ER Tab (oxyCONTIN) PO SCH (21:37)
[2018-01-14] MEDS ORDERED: oxyCODONE 20 mg ER Tab (oxyCONTIN) PO SCH (22:00)
--- NOTE | 2018-01-15 00:30 | CP.PCM.PN ---
Subjective - Date & Time of Evaluation Date of Evaluation: 01/14/18 Time of Evaluation: 18:00 - Subjective Subjective: Sitting comfortably in chair. Better oriented today. No pain. No respiratory distress. Objective - Vital Signs/Intake and Output Vital Signs (last 24 hours): Temp Pulse Resp BP Pulse Ox 98.1 F 98 H 18 127/52 L 95 01/14/18 16:00 01/14/18 17:27 01/14/18 16:00 01/14/18 17:27 01/14/18 16:00 - Medications Medications: Current Medications Famotidine (Pepcid) 20 mg PO 2200 JESSICA PRN Reason: Protocol Last Admin: 01/14/18 21:38 Dose: 20 mg Fluconazole (Diflucan) 100 mg PO 0800 JESSICA PRN Reason: Protocol Furosemide (Lasix) 20 mg PO 0630 JESSICA PRN Reason: Protocol Last Admin: 01/14/18 06:06 Dose: 20 mg Levalbuterol HCl (Xopenex) 0.63 mg IH [id number] PRN; Protocol PRN Reason: Shortness of Breath Levalbuterol HCl (Xopenex) 0.63 mg IH TIDRESP JESSICA PRN Reason: Protocol Last Admin: 01/14/18 20:37 Dose: Not Given Levetiracetam (Keppra) 500 mg PO BID [facility] Last Admin: 01/14/18 17:27 Dose: 500 mg Metoprolol Tartrate (Lopressor) 12.5 mg PO 0800,1800 JESSICA PRN Reason: Protocol Last Admin: 01/14/18 17:27 Dose: Not Given Oxycodone HCl (Oxycodone Immediate Release Tab) 10 mg PO Q6H PRN; Protocol PRN Reason: Pain, moderate (4-7) Last Admin: 01/14/18 12:05 Dose: 10 mg Oxycodone HCl (Oxycontin Extended Release Tab) 10 mg PO Q12 JESSICA PRN Reason: Protocol Stop: 01/17/18 22:01 Last Admin: 01/14/18 21:37 Dose: 10 mg Potassium Chloride (Klor-Con 10) 10 meq PO 0800 JESSICA PRN Reason: Protocol Last Admin: 01/14/18 07:59 Dose: 10 meq Zolpidem Tartrate (Ambien) 5 mg PO HS JESSICA PRN Reason: Protocol Last Admin: 01/14/18 21:38 Dose: 5 mg - Labs Labs: 01/13/18 06:30 01/13/18 06:30 - Constitutional Appears: Cachectic, Chronically Ill - Head Exam Head Exam: ATRAUMATIC, NORMAL INSPECTION, NORMOCEPHALIC - Eye Exam Pupil Exam: NORMAL ACCOMODATION - ENT Exam ENT Exam: Mucous Membranes Moist, Normal Exam - Neck Exam Neck Exam: Normal Inspection - Respiratory Exam Respiratory Exam: Decreased Breath Sounds, Clear to Ausculation Bilateral, NORMAL BREATHING PATTERN - Cardiovascular Exam Cardiovascular Exam: REGULAR RHYTHM, +S1, +S2 - GI/Abdominal Exam GI & Abdominal Exam: Soft, Normal Bowel Sounds - Extremities Exam Extremities Exam: Normal Inspection - Back Exam Back Exam: NORMAL INSPECTION - Neurological Exam Neurological Exam: Alert, Oriented x3 - Skin Skin Exam: Dry, Pallor, Warm Assessment and Plan - Assessment and Plan (Free Text) Assessment: 1. stage IV lung cancer. advanced disease . Poor performance status. Hospice care recommended. Family agreed. 2. Continue comfort care. Bronchodilators tid . 3. MS contin 10 mg BID, oxycodone prn . 4. Discussed with staff nurse.
[2018-01-15] MEDS: Levalbuterol 0.63 MG/3 ML Inhal Soln UD IH SCH ×3 (07:21→19:24)
[2018-01-15] MEDS: Potassium Chloride 10 mEq ER Tab PO SCH (08:05)
[2018-01-15] MEDS: oxyCODONE 10 mg ER Tab (oxyCONTIN) PO SCH ×3 (10:15→22:18)
[2018-01-16] MEDS: Levalbuterol 0.63 MG/3 ML Inhal Soln UD IH SCH ×3 (07:19→21:02)
[2018-01-16] MEDS: Potassium Chloride 10 mEq ER Tab PO SCH (08:00)
[2018-01-16] MEDS: oxyCODONE 10 mg ER Tab (oxyCONTIN) PO SCH ×2 (09:12→22:06)
[2018-01-16] MEDS: oxyCODONE 10 mg Immediate Release Tab PO PRN ×2 (12:57→20:55)
--- NOTE | 2018-01-16 13:31 | CP.PCM.PN ---
Subjective - Date & Time of Evaluation Date of Evaluation: 01/16/18 Time of Evaluation: 12:00 - Subjective Subjective: Alert, forgetful. Offers no complaints Objective - Vital Signs/Intake and Output Vital Signs (last 24 hours): Temp Pulse Resp BP Pulse Ox 97.5 F L 55 L 18 110/63 100 01/15/18 16:00 01/15/18 17:02 01/15/18 16:00 01/16/18 08:00 01/15/18 16:00 - Medications Medications: Current Medications Famotidine (Pepcid) 20 mg PO 2200 [facility] PRN Reason: Protocol Last Admin: 01/15/18 21:15 Dose: 20 mg Fluconazole (Diflucan) 100 mg PO 0800 JESSICA PRN Reason: Protocol Last Admin: 01/16/18 08:00 Dose: 100 mg Furosemide (Lasix) 20 mg PO 0630 [facility] PRN Reason: Protocol Last Admin: 01/16/18 05:43 Dose: 20 mg Levalbuterol HCl (Xopenex) 0.63 mg IH [id number] PRN; Protocol PRN Reason: Shortness of Breath Last Admin: 01/15/18 22:24 Dose: 0.63 mg Levalbuterol HCl (Xopenex) 0.63 mg IH TIDRESP JESSICA PRN Reason: Protocol Last Admin: 01/16/18 07:19 Dose: 0.63 mg Levetiracetam (Keppra) 500 mg PO BID [facility] Last Admin: 01/16/18 09:12 Dose: 500 mg Metoprolol Tartrate (Lopressor) 12.5 mg PO 0800,1800 JESSICA PRN Reason: Protocol Last Admin: 01/16/18 08:00 Dose: 12.5 mg Oxycodone HCl (Oxycodone Immediate Release Tab) 10 mg PO Q6H PRN; Protocol PRN Reason: Pain, moderate (4-7) Last Admin: 01/16/18 12:57 Dose: 10 mg Oxycodone HCl (Oxycontin Extended Release Tab) 10 mg PO Q12 [facility] PRN Reason: Protocol Stop: 01/17/18 22:01 Last Admin: 01/16/18 09:12 Dose: 10 mg Potassium Chloride (Klor-Con 10) 10 meq PO 0800 JESSICA PRN Reason: Protocol Last Admin: 01/16/18 08:00 Dose: 10 meq Zolpidem Tartrate (Ambien) 5 mg PO HS JESSICA PRN Reason: Protocol Last Admin: 01/15/18 22:18 Dose: 5 mg - Labs Labs: 01/13/18 06:30 01/13/18 06:30 - Constitutional Appears: Cachectic, Chronically Ill - Eye Exam Eye Exam: Normal appearance, PERRL - ENT Exam ENT Exam: Mucous Membranes Moist - Respiratory Exam Respiratory Exam: Decreased Breath Sounds, NORMAL BREATHING PATTERN - Cardiovascular Exam Cardiovascular Exam: REGULAR RHYTHM, +S1, +S2 - GI/Abdominal Exam GI & Abdominal Exam: Distended, Soft - Extremities Exam Extremities Exam: Pedal Edema - Back Exam Back Exam: NORMAL INSPECTION - Skin Skin Exam: Dry, Pallor Assessment and Plan - Assessment and Plan (Free Text) Assessment: 67 year old male with history of lung cancer, brain metastasis s/p RT therapy, ascites , Hep C who is admitted to [facility] for deconditioning. The patient offers no complaints. He has been participating with PT/OT. His appetite is declining. Daughter Rosaura met with [facility] [employer] liaison officer, myself and ANGELO Coyle. Hospice services explained in detail. Questions answered. Hospice consents signed. Psychosocial support/end of life counseling provided. Time spent with family in end of life counseling, 30 minutes Plan: Mr Iglesias is scheduled to be discharged home Saturday under [facility] hospice services
--- NOTE | 2018-01-16 21:15 | CP.PCM.PN ---
Subjective - Date & Time of Evaluation Date of Evaluation: 01/16/18 Time of Evaluation: 10:00 - Subjective Subjective: Sitting comfortably in chair. denies pain. No nausea, vomiting. Objective - Vital Signs/Intake and Output Vital Signs (last 24 hours): Temp Pulse Resp BP Pulse Ox 98.2 F 82 14 110/55 L 97 01/16/18 16:00 01/16/18 16:00 01/16/18 16:00 01/16/18 17:14 01/16/18 16:00 - Medications Medications: Current Medications Famotidine (Pepcid) 20 mg PO 2200 [facility] PRN Reason: Protocol Last Admin: 01/16/18 21:00 Dose: 20 mg Fluconazole (Diflucan) 100 mg PO 0800 JESSICA PRN Reason: Protocol Last Admin: 01/16/18 08:00 Dose: 100 mg Furosemide (Lasix) 20 mg PO 0630 [facility] PRN Reason: Protocol Last Admin: 01/16/18 05:43 Dose: 20 mg Levalbuterol HCl (Xopenex) 0.63 mg IH [id number] PRN; Protocol PRN Reason: Shortness of Breath Last Admin: 01/15/18 22:24 Dose: 0.63 mg Levalbuterol HCl (Xopenex) 0.63 mg IH TIDRESP JESSICA PRN Reason: Protocol Last Admin: 01/16/18 21:02 Dose: 0.63 mg Levetiracetam (Keppra) 500 mg PO BID [facility] Last Admin: 01/16/18 17:14 Dose: 500 mg Metoprolol Tartrate (Lopressor) 12.5 mg PO 0800,1800 [facility]ESS[facility] PRN Reason: Protocol Last Admin: 01/16/18 17:14 Dose: 12.5 mg Oxycodone HCl (Oxycodone Immediate Release Tab) 10 mg PO Q6H PRN; Protocol PRN Reason: Pain, moderate (4-7) Last Admin: 01/16/18 20:55 Dose: 10 mg Oxycodone HCl (Oxycontin Extended Release Tab) 10 mg PO Q12 [facility]ESS[facility] PRN Reason: Protocol Stop: 01/17/18 22:01 Last Admin: 01/16/18 09:12 Dose: 10 mg Potassium Chloride (Klor-Con 10) 10 meq PO 0800 [facility]ESS[facility] PRN Reason: Protocol Last Admin: 01/16/18 08:00 Dose: 10 meq Zolpidem Tartrate (Ambien) 5 mg PO HS JESSICA PRN Reason: Protocol Last Admin: 01/15/18 22:18 Dose: 5 mg - Labs Labs: 01/13/18 06:30 01/13/18 06:30 - Constitutional Appears: Cachectic, Chronically Ill - Head Exam Head Exam: ATRAUMATIC, NORMAL INSPECTION - Eye Exam Eye Exam: Normal appearance - ENT Exam ENT Exam: Mucous Membranes Dry - Neck Exam Neck Exam: Normal Inspection - Respiratory Exam Respiratory Exam: Rales, Rhonchi, NORMAL BREATHING PATTERN - Cardiovascular Exam Cardiovascular Exam: REGULAR RHYTHM, +S1, +S2 - GI/Abdominal Exam GI & Abdominal Exam: Soft, Normal Bowel Sounds - Extremities Exam Extremities Exam: Normal Inspection - Back Exam Back Exam: NORMAL INSPECTION - Neurological Exam Neurological Exam: Abnormal Gait, Alert, Altered - Psychiatric Exam Psychiatric exam: Flat Affect - Skin Skin Exam: Pallor Assessment and Plan - Assessment and Plan (Free Text) Assessment: Stage IV lung Cancer. Advanced disease. Failure to thrive. Family agreed for home hospice. He will be discharged on Saturday under [facility]. He is currently comfortable. No pain. Will continue comfort care. Appreciate palliative care consult by Audrey Salcedo.
[2018-01-17] MEDS: oxyCODONE 10 mg Immediate Release Tab PO PRN ×2 (04:15→18:01)
[2018-01-17] MEDS: Potassium Chloride 10 mEq ER Tab PO SCH (08:01)
[2018-01-17] MEDS: Levalbuterol 0.63 MG/3 ML Inhal Soln UD IH SCH ×3 (08:36→21:24)
[2018-01-17] MEDS: oxyCODONE 10 mg ER Tab (oxyCONTIN) PO SCH ×2 (09:26→21:16)
--- NOTE | 2018-01-17 10:27 | CP.PCM.PN ---
Subjective - Date & Time of Evaluation Date of Evaluation: 01/17/18 Time of Evaluation: 10:00 - Subjective Subjective: offers no complaints Objective - Vital Signs/Intake and Output Vital Signs (last 24 hours): Temp Pulse Resp BP Pulse Ox 98.2 F 90 14 123/58 L 97 01/16/18 16:00 01/17/18 08:01 01/16/18 16:00 01/17/18 08:01 01/16/18 16:00 - Medications Medications: Current Medications Famotidine (Pepcid) 20 mg PO 2200 [facility] PRN Reason: Protocol Last Admin: 01/16/18 21:00 Dose: 20 mg Fluconazole (Diflucan) 100 mg PO 0800 JESSICA PRN Reason: Protocol Last Admin: 01/17/18 08:00 Dose: 100 mg Furosemide (Lasix) 20 mg PO 0630 [facility] PRN Reason: Protocol Last Admin: 01/17/18 08:01 Dose: Not Given Levalbuterol HCl (Xopenex) 0.63 mg IH [id number] PRN; Protocol PRN Reason: Shortness of Breath Last Admin: 01/15/18 22:24 Dose: 0.63 mg Levalbuterol HCl (Xopenex) 0.63 mg IH TIDRESP JESSICA PRN Reason: Protocol Last Admin: 01/17/18 08:36 Dose: Not Given Levetiracetam (Keppra) 500 mg PO BID [facility] Last Admin: 01/17/18 09:25 Dose: 500 mg Metoprolol Tartrate (Lopressor) 12.5 mg PO 0800,1800 JESSICA PRN Reason: Protocol Last Admin: 01/17/18 08:01 Dose: Not Given Oxycodone HCl (Oxycodone Immediate Release Tab) 10 mg PO Q6H PRN; Protocol PRN Reason: Pain, moderate (4-7) Last Admin: 01/17/18 04:15 Dose: 10 mg Oxycodone HCl (Oxycontin Extended Release Tab) 10 mg PO Q12 [facility] PRN Reason: Protocol Stop: 01/17/18 22:01 Last Admin: 01/17/18 09:26 Dose: Not Given Potassium Chloride (Klor-Con 10) 10 meq PO 0800 JESSICA PRN Reason: Protocol Last Admin: 01/17/18 08:01 Dose: 10 meq Zolpidem Tartrate (Ambien) 5 mg PO HS JESSICA PRN Reason: Protocol Last Admin: 01/16/18 22:05 Dose: 5 mg - Labs Labs: 01/13/18 06:30 01/13/18 06:30 - Constitutional Appears: Cachectic, Chronically Ill - Eye Exam Eye Exam: Normal appearance, PERRL - ENT Exam ENT Exam: Mucous Membranes Moist - Respiratory Exam Respiratory Exam: Decreased Breath Sounds, NORMAL BREATHING PATTERN - Cardiovascular Exam Cardiovascular Exam: REGULAR RHYTHM, +S1, +S2 - GI/Abdominal Exam GI & Abdominal Exam: Distended - Extremities Exam Extremities Exam: Pedal Edema - Back Exam Back Exam: NORMAL INSPECTION - Neurological Exam Neurological Exam: Alert - Skin Skin Exam: Dry, Warm Assessment and Plan - Assessment and Plan (Free Text) Assessment: 67 year old male with history of lung cancer, brain mets, Hep C who was admitted with anemia, thrombocytopenia, ascites, sepsis,cachexia and deconditioining Abdomen distended, firm denies pain. Resuscitation status discussed with patient. He is aware of the burdens of CPR/ intubation. Patient wants DNR/DNI. Going home on hospice. POLST Directive completed. Rosaura Iglesias is health care surrogate A copy of POLT directive is placed in chart Plan: Advance care planning: POLST: DNR/DNI Ascites: Drain Aspira abdominal catheter today. Home with hospice tomorrow
[2018-01-17 16:52] VITALS: RESP 20; TEMP 98; O2SAT 95
[2018-01-18] MEDS ORDERED: oxyCODONE 10 mg Immediate Release Tab PO STA (01:16)
[2018-01-18] MEDS: Levalbuterol 0.63 MG/3 ML Inhal Soln UD IH SCH ×2 (07:35→13:27)
[2018-01-18] MEDS: Potassium Chloride 10 mEq ER Tab PO SCH (08:50)
[2018-01-18 08:51] VITALS: BP 112/59; PULSE 96
[2018-01-18] MEDS ORDERED: oxyCODONE 10 mg ER Tab (oxyCONTIN) PO SCH (10:00)
--- NOTE | 2018-01-18 14:44 | DS ---
HISTORY OF PRESENT ILLNESS: Patient has no complaints of any chest pain. No shortness of breath. No headache or dizziness. PHYSICAL EXAMINATION: VITAL SIGNS: Temperature is 98.2, pulse of 90, blood pressure 123/58, respirations 14. GENERAL: The patient is lying in bed, flat, comfortable. HEENT: No oral lesion. Anicteric sclerae. Moist mucosa. NECK: No JVD, adenopathy, or thyromegaly. CARDIOVASCULAR: S1 and S2, regular. No murmurs, rubs, or gallops. LUNGS: Clear to auscultation bilaterally. No wheeze, rales, or rhonchi. ABDOMEN: Bowel sounds are positive, soft, nontender and nondistended. EXTREMITIES: no cyanosis, clubbing or edema. LABORATORY DATA: White count of 11.4, hemoglobin 8.9, platelet count of 180. ASSESSMENT: 1. Stage IV lung cancer. 2. Frailty. 3. Failure to thrive. 4. Do not resuscitate/do not intubate. 5. Gait dysfunction. 6. . PLAN: The patient is currently on Ambien for sleep. The patient is going to continue with Keppra for seizure prophylaxis and patient is on metoprolol. He is on pain medications with oxycodone. He is going to continue on Pepcid daily. He is on nebulizer treatment. He is on a regular diet. He is currently comfortable pain. Chaparro Major MD
--- NOTE | 2018-01-19 05:10 | DS ---
HISTORY OF PRESENT ILLNESS: Patient is a 67-year-old male who has been getting physical therapy in the Transitional Care Unit. The patient is currently feeling comfortable. He is going to be discharged home on home hospice. PHYSICAL EXAMINATION: VITAL SIGNS: Temperature is 96, blood pressure 112/59. GENERAL: The patient is lying in bed, flat, comfortable. HEENT: No oral lesion. Anicteric sclerae. Moist mucosa. NECK: No JVD, adenopathy, or thyromegaly. CARDIOVASCULAR: S1 and S2, regular. No murmurs, rubs, or gallops. LUNGS: Clear to auscultation bilaterally. No wheeze, rales, or rhonchi. ABDOMEN: Bowel sounds are positive, soft, nontender and nondistended. EXTREMITIES: no cyanosis, clubbing or edema. ASSESSMENT: 1. Stage IV lung cancer. 2. Failure to thrive. PLAN: The patient has metastatic lung cancer with brain mets. He is going to be discharged. He is going to be on his Keppra. He is on pain medications with oxycodone and OxyContin, and this is to be continued at home. He is going to be on a regular diet. He is going to be under hospice care services as an outpatient. Chaparro Major MD
== END 2018-01-18 15:00 | disposition home or self-care (01) | DRG 813 ==
LOC: TRCU 18:10
PROVIDERS: ADMIT Internal Medicine Medical Oncology; ATTEND Internal Medicine Medical Oncology
PROC: F07Z9FZ Gait Training/Functional Ambulation Treatment using Assistive, Adaptive, Supportive or Protective Equipment (ICD-10-PCS; principal; 2018-01-11)
PROC: F07M6ZZ Therapeutic Exercise Treatment of Musculoskeletal System - Whole Body (ICD-10-PCS; 2018-01-11)
PROC: F08Z1ZZ Dressing Techniques Treatment (ICD-10-PCS; 2018-01-11)
PROC: F08Z2ZZ Grooming/Personal Hygiene Treatment (ICD-10-PCS; 2018-01-11)
DX: D69.6 Thrombocytopenia, unspecified (principal); C34.90 Malignant neoplasm of unspecified part of unspecified bronchus or lung; C79.31 Secondary malignant neoplasm of brain; R62.7 Adult failure to thrive; B19.20 Unspecified viral hepatitis C without hepatic coma; D64.9 Anemia, unspecified; D72.829 Elevated white blood cell count, unspecified; G40.909 Epilepsy, unspecified, not intractable, without status epilepticus; I10 Essential (primary) hypertension; J44.9 Chronic obstructive pulmonary disease, unspecified; K70.31 Alcoholic cirrhosis of liver with ascites; Z51.5 Encounter for palliative care; Z66 Do not resuscitate; Z87.891 Personal history of nicotine dependence; Z92.3 Personal history of irradiation